=== PATIENT | female | born 1960 | race Caucasian/White ===

== ENCOUNTER → 2019-06-10 11:14 | Outpatient (BNVA) | payer MEDICARE, SELFPAY | PROVIDERS: Visit Provider Nurse Practitioner Family | DX: E55.9 Vitamin D deficiency, unspecified (principal); Z13.6 Encounter for screening for cardiovascular disorders; G62.9 Polyneuropathy, unspecified; F17.200 Nicotine dependence, unspecified, uncomplicated; J44.9 Chronic obstructive pulmonary disease, unspecified; Z53.20 Procedure and treatment not carried out because of patient's decision for unspecified reasons; M54.5 Low back pain | CPT/HCPCS: 80053; 80061; 82306; 85025 ==

== ENCOUNTER → 2020-01-26 15:48 | Outpatient (BNVA) | payer MEDICARE, MEDICAID, SELFPAY | PROVIDERS: Visit Provider Nurse Practitioner Family | DX: R73.9 Hyperglycemia, unspecified (principal); E55.9 Vitamin D deficiency, unspecified; M54.5 Low back pain; E87.6 Hypokalemia; Z53.20 Procedure and treatment not carried out because of patient's decision for unspecified reasons; F17.200 Nicotine dependence, unspecified, uncomplicated | CPT/HCPCS: 80053; 82306; 83036; 85025 ==

== ENCOUNTER 2020-03-22 17:46 | Inpatient (IN) | payer MEDICARE, MEDICAID, SELFPAY ==
[2020-03-22] VITALS (7 sets, daily range): BP systolic 114–140; BP diastolic 67–88; PULSE 87–98; RESP 14–16; TEMP 36.7; O2SAT 96–100; BMI 22.3
--- NOTE | 2020-03-22 18:11 | XR_ITS ---
WS: [id number] Exam: XR pelvis 1-2V* [id number] Date/Time of Exam: 03/22/2020 6:25 PM Reason For Exam: hip pain No evidence of the pelvic fracture. Minimal DJD of the hips. DJD of the bilateral SI joints. Numerous surgical clips in the pelvis. Osteopenia. A circular opacity superimposes the right pubis. Significa nce of this is undetermined. XR/XR pelvis 1-2V* [id number] IMPRESSION: 1. No fracture or bone destruction. 2. Postoperative changes. 3. Degenerative changes and osteopenia.
[2020-03-22 19:49] LABS: Basophils # 0.1 10^3/uL (0.0-0.1); Basophils % 0.6 %; Eosinophils # 0.1 10^3/uL (0.0-0.8); Eosinophils % 0.9 %; Hematocrit 45.4 % (37.0-47.0); Hemoglobin 14.1 g/dL (11.5-15.3); Lymphocytes # 2.4 10^3/uL (0.8-4.8); Lymphocytes % 30.2 %; Mean Corpuscular HGB Conc 31.1 g/dL (30.0-36.0); Mean Corpuscular Hemoglobin 30.2 pg (28.0-34.0); Mean Corpuscular Volume 97.2 fL (81-99); Mean Platelet Volume 9.9 fL (7.4-10.4); Monocytes # 0.6 10^3/uL (0.2-0.9); Monocytes % 7.5 %; Neutrophils # 4.86 10^3/uL (1.8-7.7); Neutrophils % 60.4 %; Nucleated Red Blood Cells % 0 %; Platelet Count 293 10^3/cmm (130-400); Red Blood Count 4.67 10^6/uL (4.1-5.3); Red Cell Distribution Width 14.7 % (12.1-15.1)
[2020-03-22 20:04] LABS: Add Urine Microscopic? NO
[2020-03-22 20:09] LABS: Bilirubin Urine Neg (Negative); Blood Urine Neg (Negative); Glucose Urine UA Norm (Normal); Ketones Urine Negative (Negative); Leukocyte Esterase Urine Negative (Negative); Nitrate Urine Negative (Negative); Protein Urine Neg (Negative); Urine Appearance Clear (CLEAR); Urine Color Yellow (Yellow); Urobilinogen Urine Norm (Negative)
[2020-03-22 20:10] LABS: Alanine Aminotransferase 14 U/L (0-33); Albumin Level 4.5 g/dL (3.5-5.2); Alkaline Phosphatase 183 IU/L (35-105); Anion Gap 17.4 (5-19); Aspartate Amino Transferase 18 U/L (0-32); Blood Urea Nitrogen 17 mg/dL (8-23); C Reactive Protein 5.1 mg/L (0.0-4.9); Calcium 9.9 mg/dL (8.5-10.5); Carbon Dioxide 25 mmol/L (22-29); Chloride 100 mmol/L (98-107); Globulin 3.6 g/dL (1.3-4.6); Glomerular Filtration Rate 73.2 mL/min (90-130); Glucose 88 mg/dL (65-115); Osmolality Calculated 287 mOsm/kg (285-295); Potassium 4.4 mmol/L (3.5-5.1); Sodium 138 mmol/L (136-145); Total Bilirubin 0.3 mg/dL (0.15-1.2); Total Protein 8.1 g/dL (6.6-8.7)
[2020-03-22 21:07] LABS: Creatine Phosphokinase 50 U/L (26-192); Lactic Sepsis W/Reflex 1.2 mmol/L (0.5-2.2)
[2020-03-22 21:29] LABS: Erythrocyte Sedimentation Rate 48 mm/hr (0-15)
[2020-03-22] MEDS: ondansetron 2 mg/ML SDV 2 mL 4 MG IVP (21:39)
[2020-03-22] MEDS: morphine 4 mg/mL SDV 1 mL 2 MG IVP ×2 (21:39→22:52)
--- NOTE | 2020-03-22 21:39 | CTR_ITS ---
PROCEDURE INFORMATION: Exam: CT Lumbar Spine Without Contrast Exam date and time: 03/22/2020 9:41 PM Age: 60 years old Clinical indication: Low back pain; Additional info: History of epidural abscess TECHNIQUE: Imaging protocol: Computed tomography images of the lumbar spine without contrast. Sagittal and coronal reformatted images were created and reviewed. Radiation optimization: All CT scans at this facility use at least one of these dose optimization techniques: automated exposure control; mA and/or kV adjustment per patient size (includes targeted exams where dose is matched to clinical indication); or iterative reconstruction. COMPARISON: [place] [id number] 02/16/2016 12:46 AM RADIATION DOSE METRICS: Total DLP (mGy-cm): 2191.86 FINDINGS: Vertebrae: There is a new, severe compression deformity of L1 with focal kyphosis of the spine. A faint fracture line is visible, suggesting an acute/subacute fracture. Mild retropulsion of bone at L1 with 20% spinal canal stenosis. New moderate compression deformity at L2. A faint fracture line is visible, also suspicious for an acute/subacute fracture. There is now evidence of fusion of the L3, L4, and L5 vertebral bodies. Erosive endplate changes at L3-L4 and L4-L5 have resolved. Bones are diffusely osteopenic. Discs/Spinal canal/Neural foramina: Multilevel degenerative changes of varying severity in the visualized spine. Mild spinal canal stenosis at L1-L2, L2-L3, and L3-L4. Multilevel foraminal stenosis of varying severity in the lumbar spine. Epidural space: No abnormal epidural fluid collections. Sacrum/coccyx: There is partial fusion of the right and left sacroiliac joints, consistent with a remote episode of seronegative sacroiliitis versus sequela of degenerative change. Kidneys and ureters: Partially visualized cyst in the left kidney measures 6.7 cm. Vasculature: Mild atherosclerotic changes in the visualized arteries. Stable ectasia of the infrarenal abdominal aorta. Soft tissues: Surgical clips in the right and left hemipelvis are stable. No paravertebral soft tissue abnormality. No radiopaque foreign body. CT/CT lumbar spine wo con* [id number] IMPRESSION: 1. There is a new, severe compression deformity of L1 with focal kyphosis of the spine. A faint fracture line is visible, suggesting an acute/subacute fracture. Mild retropulsion of bone at L1 with 20% spinal canal stenosis. 2. New moderate compression deformity at L2. A faint fracture line is visible, also suspicious for an acute/subacute fracture. 3. There is now evidence of fusion of the L3, L4, and L5 vertebral bodies. Erosive changes at L3-L4 and L4-L5 have resolved. 4. Multilevel degenerative changes of varying severity in the visualized spine. 5. Mild spinal canal stenosis at L1-L2, L2-L3, and L3-L4. Multilevel foraminal stenosis of varying severity in the lumbar spine. 6. There is partial fusion of the right and left sacroiliac joints, consistent with a remote episode of seronegative sacroiliitis versus sequela of degenerative change. 7. Incidental/nonacute findings are listed in the report. COMMENTS: Consistent with the [employer]'s Incidental Findings Committee white paper (J Am Hunter Radiol 2018): Any incidental renal lesion less than 1 cm or classified as too small to characterize, or any incidental cystic renal lesion characterized as simple-appearing, is likely benign. No follow-up imaging is recommended for these lesions per consensus recommendations based on imaging criteria. Radiation Dose CTDIVOL = (mGy): DLP = 2191.86 (mGy-cm)
--- NOTE | 2020-03-22 21:39 | CTR_ITS ---
PROCEDURE INFORMATION: Exam: CT Thoracic Spine Without Contrast Exam date and time: 03/22/2020 9:41 PM Age: 60 years old Clinical indication: Pain in thoracic spine; Additional info: History of epidural abscess TECHNIQUE: Imaging protocol: Computed tomography images of the thoracic spine without contrast. Sagittal and coronal reformatted images were created and reviewed. Radiation optimization: All CT scans at this facility use at least one of these dose optimization techniques: automated exposure control; mA and/or kV adjustment per patient size (includes targeted exams where dose is matched to clinical indication); or iterative reconstruction. COMPARISON: No relevant prior studies available. RADIATION DOSE METRICS: Total DLP (mGy-cm): 940.17 FINDINGS: Vertebrae: No acute fracture of the thoracic spine. Partially visualized compression deformity of L1. No subluxation. Normal bone mineralization. Mild scoliosis in the visualized spine. Discs/Spinal canal/Neural foramina: Multilevel degenerative changes of varying severity in the visualized spine. Epidural space: No evidence for an epidural hematoma. Soft tissues: No paravertebral soft tissue abnormality. Lungs: Dependent atelectasis in the lungs bilaterally. Moderate centrilobular emphysematous changes in the visualized lungs, predominantly in the upper lobes. CT/CT thoracic spine w con [id number] IMPRESSION: 1. No acute fracture of the thoracic spine. 2. Partially visualized compression deformity of L1. Please refer to dictation for CT scan of the lumbar spine dated 03/22/2020 for full description of these findings. 3. Mild scoliosis in the visualized spine. 4. Incidental/nonacute findings are listed in the report. Radiation Dose CTDIVOL = (mGy): DLP = 940.17 (mGy-cm)
--- NOTE | 2020-03-22 23:35 | W.ED.BACK ---
HPI - Back Pain/Injury General: Chief Complaint: Back Pain/Injury Stated Complaint: LOWER BACK/HIP PAIN Time Seen by Provider: 03/22/20 19:09 Source: patient Mode of arrival: wheelchair History of Present Illness: HPI Narrative: 60-year-old female patient presents to the emergency department with low back pain and hip pain. She reports that symptoms x1 month. Has been evaluated by her primary care provider with prescription of ibuprofen, is not improving. She reports history of back infection, poor historian, not able to give details but reports was treated at [facility] in [place]. She denies fever chills, nausea or vomiting. She reports difficulty walking, increases pain in her back. She reports left lower extremity weakness which is chronic. Denies falls or trauma. She reports pain is intense, has attempted numerous items [id number] without improvement. MD elicited complaint: back pain Pertinent past history: prior back pain Onset (ago): month(s) (1) Timing: constant and progressively worsening Similar Symptoms Previously: Yes Quality: dull and aching Location: lumbar spine and sacrum Radiation: other (Pelvis) Exacerbating factors: movement and walking Relieving factors: immobilization Associated symptoms: Reports no associated symptoms; Deny abdominal pain, chills, dysuria, fever(s), nausea or vomiting Review of Systems General: Reports: 10 or more systems reviewed and unremarkable except in HPI and below Const: Denies: fever(s), chills or diaphoresis Eyes: Denies: blurry vision or eye redness ENMT: Denies: throat pain, dental pain or disequilibrium Card: Denies: chest pain, palpitations or irregular heart rhythm Resp: Denies: dyspnea, productive cough, non-productive cough or wheezing GI: Denies: abdominal pain, nausea or vomiting : Denies: difficulty voiding or dysuria Musc: Reports: back pain and muscle weakness (BLE); Denies: neck pain or joint swelling Skin/Breast: Denies: rash or pruritus Neuro: Denies: headache(s), weakness in extremities or behavioral changes Isidro/Lymph: Denies: easy bruising PFS ED PFSH: Medical History Burn of left forearm Cervical cancer Colon cancer screening declined Compression fracture COPD (chronic obstructive pulmonary disease) Dyskinesia, tardive Hepatitis C Screening mammography declined Vitamin D deficiency Surgical History H/O fasciotomy Septic forearm Hx of cholecystectomy Hx of hysterectomy Hx of tonsillectomy Family History Family/Other Diabetes Hypertension Social History Smoking and tobacco status: current every day smoker cigarettes Packs smoked per day: 1 Years cigarettes smoked: 37 Second hand smoke exposure: Yes Alcohol intake: never Lives independently: Yes Household members: family Housing: House Marital status: / Current occupational status: unemployed History of recent travel: No Current gender identity: Female Physical Exam Const: COMMON NORMALS: no acute distress, patient oriented x3 and alert GENERAL APPEARANCE: cooperative, frail appearing and other (appears in pain) NUTRITIONAL APPEARANCE: thin ORIENTATION/CONSCIOUSNESS: Yes awake, Yes oriented to person, Yes oriented to place and Yes oriented to time HENMT: COMMON NORMALS: normocephalic, Normal external nose present and moist oral mucous membranes HEAD & SCALP: normocephalic NOSE: Normal external nose present Eye: COMMON NORMALS: Equal, round and reactive pupils present and EOMs intact bilaterally GENERAL EYE: appearance normal, both eyes and all related structures PUPIL: Yes Equal, round and reactive pupils present Neck/C-Spine: COMMON NORMALS: full ROM and no lymphadenopathy GENERAL: Yes normal visual inspection and Yes trachea midline CERVICAL SPINE: Yes cervical ROM normal Lymph: LYMPHATIC: no lymphadenopathy noted Chest: COMMONS NORMALS: normal inspection of the chest Resp: COMMON NORMALS: normal respiratory effort and clear to auscultation bilaterally AUSCULTATION: clear to auscultation bilaterally Cardio: COMMON NORMALS: regular rhythm, S1 normal heart sound present, S2 normal heart sound present and Peripheral pulses 2+ throughout RHYTHM: regular rhythm HEART SOUNDS: S1 normal heart sound present and S2 normal heart sound present PERIPHERAL PULSES: Peripheral pulses 2+ throughout GI: COMMON NORMALS: Soft to palpation and non-tender INSPECTION: Yes normal to inspection PALPATION: Yes Soft to palpation : COMMON NORMALS: Yes no CVA tenderness BLADDER/KIDNEY EXAM: Yes no CVA tenderness and No CVA tenderness Back/Pelvis: COMMON NORMALS: no CVA tenderness and thoracic and lumbar spine normal to inspection GENERAL BACK: No CVA tenderness THORACIC SPINE/UPPER BACK: Yes normal to inspection LUMBAR SPINE/LOWER BACK: Yes ROM limited, Yes pain with ROM, Yes lumbar spinal tenderness, Yes paraspinal muscle tenderness, Yes paraspinal muscle spasm, Yes straight leg raise positive right and Yes straight leg raise positive left PELVIS: Yes buttocks normal SACROILIAC JOINTS: Yes SI joints normal Extremity: COMMON NORMALS: normal to inspection and capillary refill normal Neuro: COMMON NORMALS: patient oriented x3 and no focal motor deficits SENSORIUM/ORIENTATION: Yes alert, Yes oriented to person, Yes oriented to place and Yes oriented to time GAIT: Yes Unable to assess gait MOTOR EXAM: Abnormal motor strength present (3/4 LLE; 4/5 RLE) Psych: COMMON NORMALS: mental status grossly normal, Normal thought process present and cooperative ACTIVITY/MOTOR BEHAVIOR: Yes appropriate eye contact THOUGHT PROCESS: Normal thought process present Skin: COMMON NORMALS: no rashes or lesions noted and turgor normal GENERAL SKIN EXAM: no rashes or lesions noted and turgor normal Course ED course: 60-year-old female patient presents to the emergency department with concern of spinal/epidural abscess. She reports history of infectious process of the back, lower spine in the past. Is poor historian upon exam, case discussed with Dr. Madrid, resort to CT lumbar and thoracic spine with findings of new severe compression deformity of L1 with 20% spinal canal stenosis, and new moderate compression bone deformity at L2. Patient required several doses of IV pain medication during her stay. Discussed with patient findings and recommendation to stay in the hospital for pain control. She agrees with recommendation. Transfer of care to Dr. Madrid as patient will require inpatient admission. Vital Signs: Vital signs: Vital Signs Temperature 97.8 F 03/23/20 02:00 Pulse Rate 81 03/23/20 02:00 Respiratory Rate 24 H 03/23/20 02:00 Blood Pressure 107/69 03/23/20 02:00 Pulse Oximetry 97 03/23/20 02:00 MDM - Back Pain/Injury Lab Data: Labs: Lab Results 03/22/20 03/22/20 03/22/20 Range/Units 19:24 19:24 19:24 WBC 8.0 (4.0-10.0) 10^3/ uL RBC 4.67 (4.1-5.3) 10^6/u L Hgb 14.1 (11.5-15.3) g/dL Hct 45.4 (37.0-47.0) % MCV 97.2 (81-99) fL MCH 30.2 (28.0-34.0) pg MCHC 31.1 (30.0-36.0) g/dL RDW 14.7 (12.1-15.1) % Plt Count 293 (130-400) 10^3/c mm MPV 9.9 (7.4-10.4) fL Neut % (Auto) 60.4 % Lymph % (Auto) 30.2 % Sherman % (Auto) 7.5 % Eos % (Auto) 0.9 % Baso % (Auto) 0.6 % Neut # (Auto) 4.86 (1.8-7.7) 10^3/u L Lymph # (Auto) 2.4 (0.8-4.8) 10^3/u L Sherman # (Auto) 0.6 (0.2-0.9) 10^3/u L Eos # (Auto) 0.1 (0.0-0.8) 10^3/u L Baso # (Auto) 0.1 (0.0-0.1) 10^3/u L Nucleated RBC % (a uto) 0 % Nucleated RBCs # 0.0 /100WBC ESR Cancelled Sodium 138 (136-145) mmol/L Potassium 4.4 (3.5-5.1) mmol/L Chloride 100 (98-107) mmol/L Carbon Dioxide 25 (22-29) mmol/L Anion Gap 17.4 (5-19) BUN 17 (8-23) mg/dL Creatinine 0.8 (0.5-0.9) mg/dL GFR Calculation 73.2 L (90-130) mL/min Glucose 88 (65-115) mg/dL Calculated Osmolal ity 287 (285-295) mOsm/k g Lactic Acid (0.5-2.2) mmol/L Calcium 9.9 (8.5-10.5) mg/dL Total Bilirubin 0.3 (0.15-1.2) mg/dL AST 18 (0-32) U/L ALT 14 (0-33) U/L Alkaline Phosphata se 183 H (35-105) IU/L Creatine Kinase (26-192) U/L C-Reactive Protein 5.1 H (0.0-4.9) mg/L Total Protein 8.1 (6.6-8.7) g/dL Albumin 4.5 (3.5-5.2) g/dL Globulin 3.6 (1.3-4.6) g/dL Urine Color (Yellow) Urine Appearance (CLEAR) Urine pH (5-7) Ur Specific Gravit y (1.005-1.030) Urine Protein (Negative) Urine Glucose (UA) (Normal) Urine Ketones (Negative) Urine Blood (Negative) Urine Nitrate (Negative) Urine Bilirubin (Negative) Urine Urobilinogen (Negative) mg/dL Ur Leukocyte [place] (Negative) 03/22/20 03/22/20 03/22/20 Range/Units 19:47 20:40 20:40 WBC (4.0-10.0) 10^3/ uL RBC (4.1-5.3) 10^6/u L Hgb (11.5-15.3) g/dL Hct (37.0-47.0) % MCV (81-99) fL MCH (28.0-34.0) pg MCHC (30.0-36.0) g/dL RDW (12.1-15.1) % Plt Count (130-400) 10^3/c mm MPV (7.4-10.4) fL Neut % (Auto) % Lymph % (Auto) % Sherman % (Auto) % Eos % (Auto) % Baso % (Auto) % Neut # (Auto) (1.8-7.7) 10^3/u L Lymph # (Auto) (0.8-4.8) 10^3/u L Sherman # (Auto) (0.2-0.9) 10^3/u L Eos # (Auto) (0.0-0.8) 10^3/u L Baso # (Auto) (0.0-0.1) 10^3/u L Nucleated RBC % (a uto) % Nucleated RBCs # /100WBC ESR Sodium (136-145) mmol/L Potassium (3.5-5.1) mmol/L Chloride (98-107) mmol/L Carbon Dioxide (22-29) mmol/L Anion Gap (5-19) BUN (8-23) mg/dL Creatinine (0.5-0.9) mg/dL GFR Calculation (90-130) mL/min Glucose (65-115) mg/dL Calculated Osmolal ity (285-295) mOsm/k g Lactic Acid 1.2 (0.5-2.2) mmol/L Calcium (8.5-10.5) mg/dL Total Bilirubin (0.15-1.2) mg/dL AST (0-32) U/L ALT (0-33) U/L Alkaline Phosphata se (35-105) IU/L Creatine Kinase 50 (26-192) U/L C-Reactive Protein (0.0-4.9) mg/L Total Protein (6.6-8.7) g/dL Albumin (3.5-5.2) g/dL Globulin (1.3-4.6) g/dL Urine Color Yellow (Yellow) Urine Appearance Clear (CLEAR) Urine pH 7.0 (5-7) Ur Specific Gravit y 1.010 (1.005-1.030) Urine Protein Neg (Negative) Urine Glucose (UA) Norm (Normal) Urine Ketones Negative (Negative) Urine Blood Neg (Negative) Urine Nitrate Negative (Negative) Urine Bilirubin Neg (Negative) Urine Urobilinogen Norm (Negative) mg/dL Ur Leukocyte [place] Negative (Negative) 03/22/20 Range/Units 20:40 WBC (4.0-10.0) 10^3/ uL RBC (4.1-5.3) 10^6/u L Hgb (11.5-15.3) g/dL Hct (37.0-47.0) % MCV (81-99) fL MCH (28.0-34.0) pg MCHC (30.0-36.0) g/dL RDW (12.1-15.1) % Plt Count (130-400) 10^3/c mm MPV (7.4-10.4) fL Neut % (Auto) % Lymph % (Auto) % Sherman % (Auto) % Eos % (Auto) % Baso % (Auto) % Neut # (Auto) (1.8-7.7) 10^3/u L Lymph # (Auto) (0.8-4.8) 10^3/u L Sherman # (Auto) (0.2-0.9) 10^3/u L Eos # (Auto) (0.0-0.8) 10^3/u L Baso # (Auto) (0.0-0.1) 10^3/u L Nucleated RBC % (a uto) % Nucleated RBCs # /100WBC ESR 48 H Sodium (136-145) mmol/L Potassium (3.5-5.1) mmol/L Chloride (98-107) mmol/L Carbon Dioxide (22-29) mmol/L Anion Gap (5-19) BUN (8-23) mg/dL Creatinine (0.5-0.9) mg/dL GFR Calculation (90-130) mL/min Glucose (65-115) mg/dL Calculated Osmolal ity (285-295) mOsm/k g Lactic Acid (0.5-2.2) mmol/L Calcium (8.5-10.5) mg/dL Total Bilirubin (0.15-1.2) mg/dL AST (0-32) U/L ALT (0-33) U/L Alkaline Phosphata se (35-105) IU/L Creatine Kinase (26-192) U/L C-Reactive Protein (0.0-4.9) mg/L Total Protein (6.6-8.7) g/dL Albumin (3.5-5.2) g/dL Globulin (1.3-4.6) g/dL Urine Color (Yellow) Urine Appearance (CLEAR) Urine pH (5-7) Ur Specific Gravit y (1.005-1.030) Urine Protein (Negative) Urine Glucose (UA) (Normal) Urine Ketones (Negative) Urine Blood (Negative) Urine Nitrate (Negative) Urine Bilirubin (Negative) Urine Urobilinogen (Negative) mg/dL Ur Leukocyte [place] (Negative) Imaging Data^: Xray Ortho: Radiologist's impression: [facility] [address] [address] Scan Report Signed Patient: Italia Wallace RUnit #: [id number] : 1960Acct#:[id number] Age/Sex: 60 / FADM Date: 03/22/20 Loc: ERRoom/Bed: Attending Dr: Ordering Provider/Ordering MD: Angie Madrid MD Date of Service: 03/22/20 Procedure(s): CT lumbar spine wo con* [id number] Accession Number(s): [id number] Report Number: [id number] PROCEDURE INFORMATION: Exam: CT Lumbar Spine Without Contrast Exam date and time: 03/22/2020 9:41 PM Age: 60 years old Clinical indication: Low back pain; Additional info: History of epidural abscess TECHNIQUE: Imaging protocol: Computed tomography images of the lumbar spine without contrast. Sagittal and coronal reformatted images were created and reviewed. Radiation optimization: All CT scans at this facility use at least one of these dose optimization techniques: automated exposure control; mA and/or kV adjustment per patient size (includes targeted exams where dose is matched to clinical indication); or iterative reconstruction. COMPARISON: [place] [id number] 02/16/2016 12:46 AM RADIATION DOSE METRICS: Total DLP (mGy-cm): 2191.86 FINDINGS: Vertebrae: There is a new, severe compression deformity of L1 with focal kyphosis of the spine. A faint fracture line is visible, suggesting an acute/subacute fracture. Mild retropulsion of bone at L1 with 20% spinal canal stenosis. New moderate compression deformity at L2. A faint fracture line is visible, also suspicious for an acute/subacute fracture. There is now evidence of fusion of the L3, L4, and L5 vertebral bodies. Erosive endplate changes at L3-L4 and L4-L5 have resolved. Bones are diffusely osteopenic. Discs/Spinal canal/Neural foramina: Multilevel degenerative changes of varying severity in the visualized spine. Mild spinal canal stenosis at L1-L2, L2-L3, and L3-L4. Multilevel foraminal stenosis of varying severity in the lumbar spine. Epidural space: No abnormal epidural fluid collections. Sacrum/coccyx: There is partial fusion of the right and left sacroiliac joints, consistent with a remote episode of seronegative sacroiliitis versus sequela of degenerative change. Kidneys and ureters: Partially visualized cyst in the left kidney measures 6.7 cm. Vasculature: Mild atherosclerotic changes in the visualized arteries. Stable ectasia of the infrarenal abdominal aorta. Soft tissues: Surgical clips in the right and left hemipelvis are stable. No paravertebral soft tissue abnormality. No radiopaque foreign body. CT/CT lumbar spine wo con* [id number] IMPRESSION: 1. There is a new, severe compression deformity of L1 with focal kyphosis of the spine. A faint fracture line is visible, suggesting an acute/subacute fracture. Mild retropulsion of bone at L1 with 20% spinal canal stenosis. 2. New moderate compression deformity at L2. A faint fracture line is visible, also suspicious for an acute/subacute fracture. 3. There is now evidence of fusion of the L3, L4, and L5 vertebral bodies. Erosive changes at L3-L4 and L4-L5 have resolved. 4. Multilevel degenerative changes of varying severity in the visualized spine. 5. Mild spinal canal stenosis at L1-L2, L2-L3, and L3-L4. Multilevel foraminal stenosis of varying severity in the lumbar spine. 6. There is partial fusion of the right and left sacroiliac joints, consistent with a remote episode of seronegative sacroiliitis versus sequela of degenerative change. 7. Incidental/nonacute findings are listed in the report. COMMENTS: Consistent with the [employer]'s Incidental Findings Committee white paper (J Am Hunter Radiol 2018): Any incidental renal lesion less than 1 cm or classified as too small to characterize, or any incidental cystic renal lesion characterized as simple-appearing, is likely benign. No follow-up imaging is recommended for these lesions per consensus recommendations based on imaging criteria. Radiation Dose CTDIVOL = (mGy): DLP = 2191.86 (mGy-cm) Dictated By:Marisol Vanessa MD Signed By:Marisol Vanessa MDSigned Date/Time:03/22/202253 DD/ 52 Other Imaging: Radiologist's impression: [address] [address] [address] Scan Report Signed Patient: Italia Wallace #: [id number] : 1960Acct#:[id number] Age/Sex: 60 / FADM Date: 03/22/20 Loc: ERRoom/Bed: Attending Dr: Ordering Provider/Ordering MD: Angie Madrid MD Date of Service: 03/22/20 Procedure(s): CT thoracic spine w con [id number] Accession Number(s): [id number] Report Number: [id number] PROCEDURE INFORMATION: Exam: CT Thoracic Spine Without Contrast Exam date and time: 03/22/2020 9:41 PM Age: 60 years old Clinical indication: Pain in thoracic spine; Additional info: History of epidural abscess TECHNIQUE: Imaging protocol: Computed tomography images of the thoracic spine without contrast. Sagittal and coronal reformatted images were created and reviewed. Radiation optimization: All CT scans at this facility use at least one of these dose optimization techniques: automated exposure control; mA and/or kV adjustment per patient size (includes targeted exams where dose is matched to clinical indication); or iterative reconstruction. COMPARISON: No relevant prior studies available. RADIATION DOSE METRICS: Total DLP (mGy-cm): 940.17 FINDINGS: Vertebrae: No acute fracture of the thoracic spine. Partially visualized compression deformity of L1. No subluxation. Normal bone mineralization. Mild scoliosis in the visualized spine. Discs/Spinal canal/Neural foramina: Multilevel degenerative changes of varying severity in the visualized spine. Epidural space: No evidence for an epidural hematoma. Soft tissues: No paravertebral soft tissue abnormality. Lungs: Dependent atelectasis in the lungs bilaterally. Moderate centrilobular emphysematous changes in the visualized lungs, predominantly in the upper lobes. CT/CT thoracic spine w con [id number] IMPRESSION: 1. No acute fracture of the thoracic spine. 2. Partially visualized compression deformity of L1. Please refer to dictation for CT scan of the lumbar spine dated 03/22/2020 for full description of these findings. 3. Mild scoliosis in the visualized spine. 4. Incidental/nonacute findings are listed in the report. Radiation Dose CTDIVOL = (mGy): DLP = 940.17 (mGy-cm) Dictated By:Marisol Vanessa MD Signed By:Marisol Vanessaigned Date/Time:03/22/202236 DD/ 34 Discharge Plan Discharge Admit Provider: Liu Allen Condition: Good Coding Level of Care Code ED Pond Scaler for Chg Fwd Exam Comprehensive
[2020-03-23] VITALS (17 sets, daily range): BP systolic 102–137; BP diastolic 62–82; PULSE 72–90; RESP 16–93; TEMP 35.7–36.6; O2SAT 90–97
[2020-03-23] MEDS: morphine 4 mg/mL SDV 1 mL 2 MG IVP (00:15)
--- NOTE | 2020-03-23 00:42 | P.HP_ITS ---
Providers/Chief Complaint Chief Complaint: LOWER BACK/HIP PAIN History of Present Illness Italia Wallace is a 60 year old female who presented today with chief complaint of worsening back pain. Patient is stating that for last 1 to 2 months she has been experiencing excruciating back pain which has gotten worse to the point she is not able to walk properly without having to bend over and support herself by putting her arms around her hips. She has not sustained any falls, she was diagnosed with vitamin D deficiency, she has been on calcium supplementation, she has not used steroids for long time, no bladder incontinence, rectal incontinence, gait ataxia. Because of her excr uciating/intractable back pain she decided to come to the hospital for further evaluation. Diagnostics in the ER revealed severe compression fracture at multiple lumbar region, orthopedic surgeon has been consulted, hospital service has been requested to admit the patient for pain management, at the time my evaluation she was complaining of intractable pain, normal hemodynamics, normal CBC, BMP, lumbar imaging reviewed, I do not appreciate any signs of spinal cord compression considering high-grade compression fracture will start her on Decadron. Patient is complaining of back pain which is shooting towards her legs bilaterally, it is traveling below her knees. Review of Systems Const: Reports: body aches, fatigue and malaise; Denies: fever(s) or chills Eyes: Denies: change in vision ENMT: Denies: throat pain Card: Denies: chest pain Resp: Denies: dyspnea GI: Denies: abdominal pain : Denies: flank pain Musc: Reports: joint pain, limited range of motion, muscle cramps, muscle weakness, decrease in muscle mass and loss of height Skin/Breast: Denies: lesions Neuro: Reports: difficulty walking Psych: Denies: anxiety Endo: Denies: polyuria Isidro/Lymph: Denies: easy bruising All/Imm: Denies: urticaria Medications/Allergies Home Medications Medication Instructions Recorded Confirmed Last Taken Type diclofenac sodium 75 mg 75 mg PO BID PRN #60 tab 01/26/20 03/22/20 03/22/20 09:00 Rx tablet,delayed release potassium chloride 10 mEq 10 meq PO DAILY #30 tab 01/30/20 03/22/20 03/22/20 Rx tablet,extended release cholecalciferol (vitamin D3) 50,000 unit PO Q7D 03/22/20 03/22/20 Unknown History [Dialyvite Vitamin D3 Max] gabapentin 600 mg PO QID 03/22/20 03/22/20 03/22/20 13:00 History ibuprofen 800 mg PO PRN 03/22/20 03/22/20 03/22/20 History naproxen sodium [Aleve] 440 mg PO PRN 03/22/20 03/22/20 Unknown History Allergies Allergy/AdvReac Type Severity Reaction Status Date / Time Penicillins Allergy Mild ALGY-Rash Verified 03/22/20 20:23 diphenhydramine Allergy Unknown Unknown Verified 03/22/20 20:23 [From Benadryl] midazolam [From Versed] Allergy Unknown Verified 03/22/20 20:23 PFSH Acute PFSH: Medical History Burn of left forearm Cervical cancer Colon cancer screening declined Compression fracture COPD (chronic obstructive pulmonary disease) Dyskinesia, tardive Hepatitis C Screening mammography declined Vitamin D deficiency Surgical History H/O fasciotomy Septic forearm Hx of cholecystectomy Hx of hysterectomy Hx of tonsillectomy Family History Family/Other Diabetes Hypertension Social History Smoking and tobacco status: current every day smoker cigarettes Packs smoked pe r day: 1 Years cigarettes smoked: 37 Second hand smoke exposure: Yes Alcohol intake: never Lives independently: Yes Household members: family Housing: House Marital status: / Current occupational status: unemployed History of recent travel: No Current gender identity: Female Vitals/I&O/Wt Last Vital Signs Temp 98.1 F 03/22/20 18:01 Pulse 80 03/23/20 00:18 Resp 16 03/23/20 00:18 BP 109/77 03/23/20 00:18 Pulse Ox 97 03/23/20 00:18 Weight last 48 hrs Weight 58.967 kg Physical Exam Narrative: EXAM NARRATIVE: Frail elderly female sitting in tripod position at the bedside She is in tripod position to support her back not complaining of acute respiratory distress She is saturating well on room air She is awake alert oriented x3 GCS 15 No neurological deficit S1, S2 no tachycardia no heart failure Abdomen soft nontender No extremity no edema gangrene or ulcer Limited range of motion at the lumbar region, patient not able to walk because of excruciating pain She has good sensations of medial side of her thighs Denying rectal and urinary incontinence, rectal exam deferred Appropriate mood and affect Clinically looks dehydrated Data : 03/22/20 19:24 03/22/20 19:24 A&P Assessment and plan (1) Lumbar pain with radiation down both legs: Status: Acute (2) Compression fracture: Status: Inactive (3) Smoker: Status: Acute (4) Vitamin D deficiency: Status: Inactive Additional A&P Information Severe compression fracture and lumbar region No signs of spinal cord compression however considering high-grade compression would start her on Decadron She is not complaining of urinary/rectal incontinence, Dilaudid for analgesia along bowel regiment, gabapentin for neuropathic pain Spine surgeon consulted I am not sure if she will be able to lay supine for her MRI, kindly reevaluate in the morning Vitamin D deficiency This is probably the cause of compression fracture, other risk factors include smoking, age, race Continue calcium supplementation I would not initiate bisphosphonate at this point Active smoker: Smoking 1 pack/day need extensively counselling and reinforcement DNR/DNI goals of care discussed with the patient I will keep her n.p.o. in case she would require any intervention DVT prophylaxis SCDs Attestations Medical Necessity Statement*: Anticipating discharge in less than 48 hours continued pain management for severe compression fracture Time Spent in Patient Care: (>than 50% of time spent in counselling and/or direct pt care on unit) . 50min Coding Level of Care Code Acute Form Block Maker for Chg Fwd Diagnoses Lumbar pain with radiation down both legs M54.5 Compression fracture Smoker F17.200 Vitamin D deficiency E55.9
[2020-03-23] MEDS: HYDROmorphone 1 mg/mL INJ 1 mL 0.5 MG IVP (01:25)
--- NOTE | 2020-03-23 02:12 | PC.NURSE ---
Patient received from ED via wheelchair. Patient able to ambulate to bed with standby assist only. Patient reports having had severe back pain for about a month stating, It started when I put my mattress on the floor and I had to get up. Patient denies falling and can't remember injuring herself. VS WNL at this time. C/O pain 12/14. Admission completed as documented. No other distress observed.
[2020-03-23] MEDS: HYDROmorphone 1 mg/mL INJ 1 mL 2 MG IVP ×6 (03:01→23:03)
[2020-03-23] MEDS: dextrose 5%-sod chloride 0.45% 1,000 ML 30 ML IV (03:07)
[2020-03-23 06:40] LABS: Glucose Point of Care 90 mg/dL (70-110)
[2020-03-23] MEDS: sennosides-docusate Tablet 1 TAB PO (08:21)
[2020-03-23] MEDS: calcium carb-vit d 600mg/400unit 1 Tablet 1 EACH PO (08:21)
[2020-03-23] MEDS: gabapentin 300 mg Capsule 600 MG PO ×4 (08:21→20:11)
[2020-03-23] MEDS: dexamethasone 4 mg Tablet PO ×4 (08:22→20:11)
[2020-03-23] MEDS: polyethylene glycol 3350 Pkt 17 gm PO (08:22)
--- NOTE | 2020-03-23 08:44 | MR_ITS ---
WS: [id number] MRI LUMBAR SPINE NONCONTRAST HISTORY: multiple compression fracture COMPARISON: CT 03/22/2020 TECHNIQUE: Sagittal and axial multisequence imaging is submitted. Straightening of the normal lumbar lordosis. Severe L1 compression deformity of greater than 80% with 5.5 mm retropulsion of posterior superior endplate. Deformity of CSF and posterior displacement conu s. The fractured does not abut the conus. There is still abundant CSF surrounding the conus. There is a small amount of marrow edema extending into the RIGHT pedicle. Additional acute compression fractu re with marrow edema and fracture noted in the L2 vertebral body. Compression deformity of 20% withou t retropulsion. Marrow edema extends into the pedicles. Marrow edema in the superior half of the L3 v ertebral body. No retropulsion. No marrow edema at L4-S1. There is complete fusion across L4-5 and L5 -S1 disc spaces. Conus terminates normally at L1-2 disc level. L1-L2: Very slight flattening of the thecal sac at the superior L1 level due to the retropulsion. Ramila y mild foraminal narrowing at T12-L1 and L1-2. L2-L3: No stenosis. L3-L4: Mild bilateral facet arthritis without significant stenosis. L4-L5: Osteophytic ridging with moderate narrowing of the RIGHT foramen. L5-S1: Osteophytic ridging with mild bilateral foraminal narrowing. There is extensive hypertrophic bone formation resulting in narrowing of the foramen at L4-5 and L5-S 1. Most significant on the RIGHT at L4-5. Bilateral renal cysts. Large LEFT renal cyst maximum diameter is 6.6 cm. MR/MR lumbar spine wo con* [id number] IMPRESSION: 1. Acute 80% compression fracture of L1 with 5.5 mm retropulsion of posterior superior endplate. Deformity of the thecal sac but there is still CSF surroundi ng the conus. 2. Additional acute compression fractures at L2 and L3 without retropulsion. 3. Complete bony fusion across the L4-5 and L5-S1 disc spaces. Foramen are jacinto ng narrowed due to hypertrophic bone formation, greatest on the RIGHT at L4-5. 4. Osteopenia.
--- NOTE | 2020-03-23 08:50 | MR_ITS ---
WS: [id number] MRI THORACIC SPINE noncontrast. HISTORY: multiple compression fracture COMPARISON: CT thoracic spine 03/22/2020. TECHNIQUE: Multiplanar sequences are performed in sagittal and axial planes. Mild straightening of the normal thoracic kyphosis. Very mild RIGHT convex curvature of the thoracic spine. No signal abnormalities within the cord or conus. The conus is being displaced posteriorly by the compression fracture at L1 which will be described in the lumbar spine report. CSF still surround s the conus. No compression. No acute marrow edema noted within the thoracic spine. CSF surrounds the thoracic cord throughout the spine. There are no acute disc herniations. Mild facet joint arthritis at T11-12. There is posterior displacement by 5.5 mm in the posterior superior endplate of L1. Mild n arrowing of the foramen bilaterally. No epidural hematoma. MR/MR thoracic spin wo con* [id number] IMPRESSION: 1. No acute thoracic spine fracture. 2. Mild bilateral foraminal narrowing at T12-L1 due to mild facet disease in t he retrolisthesis of the acute compression fracture of L1. L1 fracture will be better described on the MRI lumbar spine performed at the same time. 3. No cord compression. There is very slight posterior displacement of the con us but CSF still surrounds the conus.
--- NOTE | 2020-03-23 08:54 | PM.CONSULT ---
Providers/Reason For Consult Consulting Physican/Specialty*: Hospitalists Reason for Consult*: Multiple compression fractures Attending Physician: Rian Dodson MD History of Present Illness History of Present Illness Italia Wallace is a 60 year old female Italia Wallace is a 60 year old female who presented today with chief complaint of worsening back pain. Patient is stating that for last 1 to 2 months she has been experiencing excruciating back pain which has gotten worse to the point she is not able to walk properly without having to bend over and support herself by putting her arms around her hips. She has not sustained any falls, she was diagnosed with vitamin D deficiency, she has been on calcium supplementation, she has not used steroids for long time, no bladder incontinence, rectal incontinence, gait ataxia. Because of her excruciating/intractable back pain she decided to come to the hospital for further evaluation. Diagnostics in the ER revealed severe compression fracture at multiple lumbar region, orthopedic surgeon has been consulted, hospital service has been requested to admit the patient for pain management, at the time my evaluation she was complaining of intractable pain Review of Systems General: Reports: 10 or more systems reviewed and unremarkable except in HPI and below Narrative: General ROS: negative for weight changes, fever ENT ROS: negative for nasal congestion, drainage or bleeding, sore throat, dysphagia or ear pain Eyes: PERRL Hematological and Lymphatic ROS: negative for swollen glands or abnormal bleeding Endocrine ROS: negative for polyuria/polydpsia or new changes in weight Respiratory ROS: negative for cough, shortness of breath, or wheezing Cardiovascular ROS: negative for chest pain or dyspnea on exertion Gastrointestinal ROS: negative for reflux, abdominal pain, change in bowel habits, or black or bloody stools Musculoskeletal ROS: negative for back pain, neck pain, or joint pain or swelling except for current problem Neurological ROS: negative for TIA or stoke symptoms Skin: no rashes Meds/Allergies Home Medications and Allergies Home Medications Medication Instructions Recorded Confirmed Last Taken Type potassium chloride 10 mEq 10 meq PO DAILY #30 tab 01/30/20 03/22/20 03/22/20 Rx tablet,extended release cholecalciferol (vitamin D3) 50,000 unit PO Q7D 03/22/20 03/23/20 03/20/20 08:00 History [Dialyvite Vitamin D3 Max] gabapentin 600 mg PO QID 03/22/20 03/22/2003/22/20 13:00 History naproxen sodium [Aleve] 440 mg PO BID 03/22/20 03/23/20 Unknown History Allergies Allergy/AdvReac Type Severity Reaction Status Date / Time Penicillins Allergy Mild ALGY-Rash Verified 03/22/20 20:23 diphenhydramine Allergy Unknown Unknown Verified 03/22/20 20:23 [From Benadryl] midazolam [From Versed] Allergy Unknown Verified 03/22/20 20:23 Current Medications Current Medications Generic Name Dose Route Start Last Admin Trade Name Freq PRN Reason Stop Dose Admin Calcium Carbonate 1 each 03/23/20 09:00 03/23/20 08:21 Calcium Carb-Vit D 600mg/400unit 1 Tablet PO 1 each DAILY NIMESH Administration Dexamethasone 4 mg 03/23/20 09:00 03/23/20 08:22 Dexamethasone 4 Mg Tablet PO 4 mg QID NIMESH Administration Gabapentin 600 mg 03/23/20 09:00 03/23/20 08:21 Gabapentin 300 Mg Capsule PO 600 mg QID NIMESH Administration Hydromorphone HCl 2 mg 03/23/20 02:09 03/23/20 06:39 Hydromorphone 1 Mg/Ml Inj 1 Ml IVP 2 mg Q4H PRN Administration pain Dextrose/Sodium Chloride 1,000 mls @ 30 mls/hr 03/23/20 02:09 03/23/20 03:07 Dextrose 5%-Sod Chloride 0.45% IV 30 mls/hr .Q24H NIMESH Administration Insulin Aspart 0 unit 03/23/20 08:00 03/23/20 07:28 Insulin Aspart 100 Unit/1 Ml SUBCUT Not Given WM&BEDTIME NIMESH Protocol Polyethylene Glycol 17 gm 03/23/20 09:00 03/23/20 08:22 Polyethylene Glycol 3350 Pkt 17 Gm PO 17 gm DAILY NIMESH Administration Senna/Docusate Sodium 1 tab 03/23/20 09:00 03/23/20 08:21 Sennosides-Docusate Tablet PO 1 tab DAILY NIMESH Administration PFSH Acute PFSH: Medical History Burn of left forearm Cervical cancer Colon cancer screening declined Compression fracture COPD (chronic obstructive pulmonary disease) Dyskinesia, tardive Hepatitis C Screening mammography declined Vitamin D deficiency Surgical History H/O fasciotomy Septic forearm Hx of cholecystectomy Hx of hysterectomy Hx of tonsillectomy Family History Family/Other Diabetes Hypertension Social History Smoking and tobacco status: current every day smoker cigarettes Packs smoked per day: 1 Years cigarettes smoked: 37 Second hand smoke exposure: Yes Alcohol intake: never Lives independently: Yes Household members: family Housing: House Marital status: / Current occupational status: unemployed History of recent travel: No Current gender identity: Female Vitals/I&O/Wt Last Vital Signs Temp 97.2 F L 03/23/20 07:02 Pulse 75 03/23/20 07:02 Resp 18 03/23/20 07:02 BP 118/75 03/23/20 07:02 Pulse Ox 91 03/23/20 07:02 Weight last 48 hrs Weight 130 lb Physical Exam Narrative: EXAM NARRATIVE: General: patient denies any [] Hematopoetic: patient denies any anemia, bleeding or easy bruisabitity GROCERY DELIVERER: Positive for [], negative for [] Eye: negative for [] Ears: patient denies any hearing loss, pain, vertigo, tinnitus Nose and throat: patient denies any congestion, postnasal drip, sore throat, epistaxis. Cardiovascular: Patient denies chest pain, edema or palpitations Respiratory: patient denies any shortness of breath, cough, sputum production GI: patient denies any nausea, vomiting, diarrhea, constipation or abdominal pain Muskuloskeletal: [] lntegumentary: [] abrasion, laceration Endocrine: patient denies polydipsia, polyphasia or nervousness. Psychiatric: negative positive for [] PHYSICAL EXAMINATION: VITAL SIGNS: [] CONSTITUTIONAL: The patient is a normal appearing [] in no apparent distress. GENERAL: Patient in no acute distress. CARDIAC: Regular rate and rhythm. CHEST: Normal inspiratory effort, normal respiratory rate. ABDOMEN: Soft and nontender. SKIN: Clear, warm and intact. NEURO?PSYCH: The patient is alert and oriented to person, place and time. Sensorv /SILT Motor StrengthShoulder abduction C5 5/5Wrist extension C6 5/5Elbow extension C7 5/5Hand Counter Person C8 5/5Finger abduction T15/5 Radial/ Ulnar/ Median n intact LowerSensory (SILT)Motor StrengthHin flexion L2/3Ant/inner thigh 5/5Hip adduction L2/3 5/5Knee extension L4 Lat thigh, 5/5Toe dorsiflexion L5 5/5Ankle dorsiflexion L5/ V52Miikkrb flexion S1 5/5 DTRBleeps 2+Triceps 2+Brachioradialis 2+Patellar 2+Achilles 2+ MUSCULOSKELETAL: [] UPPEREXTREMITIES: The patient had full active ROM in fingers, wrist, elbow, and shoulder. The patient demonstrated ability to fully flex/extend/abduct/adduct fingers, make ok sign, cross 2nd/3rd digits, extend 1st digit fully.. Radial pulse 2+, CR<2 seconds. LOWER EXTREMITIES: Pt has full, active ROM of toes, ankle, knee, and hip. Dorsalis pedis/posterior tibialis pulses 2+, CR<2 seconds. SPINE: Skin warm, dry, intact. Data Imaging^: Other CT: My impression: CT shows multiple compression fractures of unknown age A&P Additional A&P Information Patient has multiple compression fractures in her lumbar spine. Complaining of back pain was admitted to the hospital. Plan is to obtain an MRI to evaluate if is any compression on nerves or spinal cord. I also want to obtain a MRI of the lumbar and the thoracic spine. Once the studies are done I will reevaluate the patient. Coding Level of Care Code Acute Personalization Specialist for Philly Arriaza
--- NOTE | 2020-03-23 09:21 | PC.CHAP ---
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 fellmongering machine operator visit [] Patient/Family/Request visit [] Outpatient visit [] Follow-up visit [] Physician referral [] Code/Alert [] Routine visit [] Staff referral [] Actively dying [] Patient sleeping [] Family support [] [] Out of room [] Palliative care [] [] Receiving care in room [] Pre-surgical visit [] Trauma [] Long length of stay [] ICU visit [] Other: Relational/Emotional Strength [] Patient feels connected with others/family/visitors/staff [] Distress [] Loneliness/isolation [] Abandonment Spirituality of Patient [] Person of [place] [] Attends Restoration of their [place] [] Believes in Prayer [] Reads Bible or Islam materials [] There are Spiritual issues to be addressed Car Sealer Interventions [x] Prayer [] Active listening [] Non-anxious presence [] Spiritual/emotional support [] Crisis/trauma care [] Spiritual counseling [] Bereavement support [] Provided bereavement packet [] Provided Bible/devotional materials [] Provided toy/stuffed animal, coloring book to patient or family member [] Provided Communion [] Anointing/[place] [] Salvation [x] Completed spiritual assessment [] Other: Impact on Illness or Injury [] Angry [] Fearful [] Anxious [] Often cries [] Exhaustion [] Unable to work [] Unable to attend church [] Unable to walk/stand [] Unable to read [] Unable to drive [] Unable to eat/drink [] Unable to sleep [] Unable to be with family [] Patient intubated [] Other: Summary Time spent with patient
--- NOTE | 2020-03-23 10:39 | PM.PN ---
Subjective Subjective: Interval history: Patient lower back pain has some improvement. She has been able to move. Orthopedic [employer]. Medications: Reviewed: Yes Vitals/I&O/Wt Last Vital Signs Temp 96.2 F L 03/23/20 10:34 Pulse 76 03/23/20 10:34 Resp 93 H 03/23/20 10:34 BP 137/82 03/23/20 10:34 Pulse Ox 93 03/23/20 10:34 Weight last 48 hrs Weight 58.967 kg Physical Exam Const: COMMON NORMALS: patient oriented x3 HENMT: COMMON NORMALS: normocephalic, atraumatic and hearing grossly normal bilaterally HEAD & SCALP: normocephalic and atraumatic Eye: COMMON NORMALS: no scleral icterus GENERAL EYE: appearance normal, both eyes and all related structures Chest: COMMONS NORMALS: normal inspection of the chest CHEST: Yes Symmetrical chest wall rise Resp: COMMON NORMALS: normal respiratory effort and clear to auscultation bilaterally EFFORT & INSPECTION: Yes symmetric chest movement AUSCULTATION: clear to auscultation bilaterally Cardio: COMMON NORMALS: regular rate, regular rhythm, S1 normal heart sound present, S2 normal heart sound present, No gallops present (Cardio), No murmurs present (Cardio), No rub (Cardio) and Peripheral pulses 2+ throughout RATE: regular rate RHYTHM: regular rhythm HEART SOUNDS: S1 normal heart sound present and S2 normal heart sound present PERIPHERAL PULSES: Peripheral pulses 2+ throughout GI: COMMON NORMALS: Normal to inspection, nondistended, normoactive bowel sounds present, Soft to palpation, non-tender, No hepatosplenomegaly present and no masses AUSCULTATION: Yes normoactive bowel sounds PALPATION: Yes Soft to palpation and Yes No hepatosplenomegaly present RECTAL EXAM: deferred Extremity: OTHER: Motor StrengthShoulder abduction C5 5/5Wrist extension C6 5/5Elbow extension C7 5/5Hand Manufacturing Maintenance Manager C8 5/5Finger abduction T15/5 Radial/ Ulnar/ Median n intact LowerSensory (SILT)Motor StrengthHin flexion L2/3Ant/inner thigh 5/5Hip adduction L2/3 5/5Knee extension L4 Lat thigh, 5/5Toe dorsiflexion L5 5/5Ankle dorsiflexion L5/ [id number] flexion S1 5/5 DTRBleeps 2+Triceps 2+Brachioradialis 2+Patellar 2+Achilles 2+ MUSCULOSKELETAL: UPPEREXTREMITIES: The patient had full active ROM in fingers, wrist, elbow, and shoulder. The patient demonstrated ability to fully flex/extend/abduct/adduct fingers, make ok sign, cross 2nd/3rd digits, extend 1st digit fully.. Radial pulse 2+, CR<2 seconds. LOWER EXTREMITIES: Pt has full, active ROM of toes, ankle, knee, and hip. Dorsalis pedis/posterior tibialis pulses 2+, CR<2 seconds. SPINE: Skin warm, dry, intact. Neuro: COMMON NORMALS: patient oriented x3 Data : 03/22/20 19:24 03/22/20 19:24 A&P Assessment and plan (1) Lumbar pain with radiation down both legs: Status: Acute (2) Compression fracture: Status: Inactive (3) Smoker: Status: Acute (4) Vitamin D deficiency: Status: Inactive Additional A&P Information #Lumbar Compression fracture: No signs of spinal cord compression, but given the level of compression she has been started on decadron 4 mg QID. Has no signs of CUS ( urinary/rectal incontinence ) Pending MRI L/T Spine for evaluation of any compression on nerves or spinal cord. Continue Dilaudid , Gabapentin Spine surgeon Rec appriciated # Vitamin D deficiency: Continue calcium supplementation Active smoker: Smoking 1 pack/day need extensively counselling and reinforcement DNR/DNI goals of care discussed with the patient DVT prophylaxis SCDs Attestations Medical Necessity Statement*: Patient needs to be in hospital for the management of Lumber Compression Fracture. Coding Level of Care Code Acute Babbitt Spinner for Chg Fwd Exam Detailed Diagnoses Lumbar pain with radiation down both legs M54.5 Compression fracture Smoker F17.200 Vitamin D deficiency E55.9
[2020-03-23 11:32] LABS: Glucose Point of Care 112 mg/dL (70-110)
--- NOTE | 2020-03-23 15:39 | PC.NURSE ---
Off unit to MRI for lumbar and thoracic
--- NOTE | 2020-03-23 16:00 | PC.NURSE ---
Received a call from . Received a call from Aleksandar Ovalle neurosurgeon to place patient on NPO after midnight for possible discussion for a surgery. Informed pt regarding the diet order and possible procedure tomorrow however doctor will be in the morning to discuss more details regarding his plan treatment. Pt voices she is scared to undergo surgery. Reassurance provided to pt and that the doctor will be here in the morning as discussed with nurse to talk to her about it. Pt verbalizes understanding.
[2020-03-23 16:48] LABS: Glucose Point of Care 108 mg/dL (70-110)
--- NOTE | 2020-03-23 19:28 | PC.NURSE ---
Received report from TAYLOR Dunlap. Patient sitting on edge of bed c/o pain to back 12/14. Medication provided as ordered. Discussed night time medications to dexamethasone and gabapentin. Patient verbalized understanding. Assessment completed as documented.
[2020-03-23 20:49] LABS: Glucose Point of Care 208 mg/dL (70-110)
--- NOTE | 2020-03-23 20:58 | PC.NURSE ---
Instructed patient on use of steroids and possiblities of increased appetite and increased blood sugars. Also, instructed patient on the use of sliding scale Novolog to help control the blood sugar levels. Patient verbalized understanding but did state, I am probably not going to like it. Patient was agreeable to have the Novolog administered and reinforced that the insulin will mostly like not be a permanent change to her home needs.
--- NOTE | 2020-03-23 23:06 | PC.NURSE ---
Patient reports pain 8/10 and that pain medication works well for about 3 hour and during that last hour becomes increasingly worse. Instructed patient on scheduling. Patient verbalized understanding. Denies other needs at this time. No other distresses observed
[2020-03-24] VITALS (7 sets, daily range): BP systolic 102–124; BP diastolic 64–83; PULSE 69–84; RESP 18–22; TEMP 35.8–37.1; O2SAT 91–95
[2020-03-24] MEDS: HYDROmorphone 1 mg/mL INJ 1 mL 2 MG IVP ×3 (03:15→11:05)
[2020-03-24 06:41] LABS: Glucose Point of Care 121 mg/dL (70-110)
[2020-03-24] MEDS: dextrose 5%-sod chloride 0.45% 1,000 ML 30 ML IV (06:47)
--- NOTE | 2020-03-24 07:24 | P.PN_ITS ---
Subjective Subjective: Interval history: pain controlled but on dilaudid Vitals/I&O/Wt Last Vital Signs Temp 98 F 03/24/20 04:00 Pulse 69 03/24/20 04:00 Resp 18 03/24/20 06:47 BP 102/64 03/24/20 04:00 Pulse Ox 91 03/24/20 04:00 03/23/20 03/24/20 03/24/20 22:59 06:59 14:59 Intake Total 240 / 480 830 / 1310 Balance 240 / 480 830 / 1310 Weight last 48 hrs Weight 130 lb Physical Exam Narrative: EXAM NARRATIVE: 5/5 strength Ble sensation intact Data : 03/22/20 19:24 03/22/20 19:24 A&P Additional A&P Information L1-3 new compression fx discussed kyphoplasty vs Brace she would like to try the brace. Attestations Medical Necessity Statement*: pain Coding Level of Care Code Acute Family Service Worker for Philly Arriaza
[2020-03-24] MEDS: calcium carb-vit d 600mg/400unit 1 Tablet 1 EACH PO (08:59)
[2020-03-24] MEDS: sennosides-docusate Tablet 1 TAB PO (08:59)
[2020-03-24] MEDS: dexamethasone 4 mg Tablet PO ×2 (09:00→13:39)
[2020-03-24] MEDS: gabapentin 300 mg Capsule 600 MG PO ×2 (09:00→13:39)
[2020-03-24] MEDS: polyethylene glycol 3350 Pkt 17 gm PO (09:01)
--- NOTE | 2020-03-24 10:23 | PM.DCS ---
Discharge Providers Date of Admission: 03/23/20 16:27 Date of Discharge: March 24, 2020 Attending Provider at Admission: Liu Allen MD Attending Provider at Discharge: Rian Dodson MD Diagnoses at Discharge Discharge Diagnosis (1) Lumbar pain with radiation down both legs: Status: Chronic (2) Compression fracture: Status: Inactive (3) Smoker: Status: Acute (4) Vitamin D deficiency: Status: Inactive Reason for Visit Reason for Visit: LOWER BACK/HIP PAIN Hospital Course Hospital Course 60 year old female who presented today with chief complaint of worsening back pain. Patient is stating that for last 1 to 2 months she has been experiencing excruciating back pain which has gotten worse to the point she is not able to walk properly without having to bend over and support herself by putting her arms around her hips. She has not sustained any falls, she was diagnosed with vitamin D deficiency, she has been on calcium supplementation she has not used steroids for long time, no bladder incontinence, rectal incontinence, gait ataxia. Because of her excruciating/intractable back pain she decided to come to the hospital for further evaluation. During this hospital stay she was diagnosed with multiple compression fractures in her lumbar spine.Orthopedic was on board they recommended MRI of the lumbar and the thoracic spine. She had no signs of Cauda equina syndrome.She was managed with adequate pain control as well as she was kept on dexamethasone. Orthopedic recommended brace for her and no orthopedic intervention.Physical therapy was on board. she is being discharged in stable to follow orthopedic as outpatient. MRI L-Spine: Acute 80% compression fracture of L1 with 5.5 mm retropulsion of posterior superior endplate. Deformity of the thecal sac but there is still CSF surrounding the conus. Additional acute compression fractures at L2 and L3 without retropulsion. Complete bony fusion across the L4-5 and L5-S1 disc spaces. Foramen are being narrowed due to hypertrophic bone formation, greatest on the RIGHT at L4-5. MR thoracic spin wo con: 1. No acute thoracic spine fracture. 2. Mild bilateral foraminal narrowing at T12-L1 due to mild facet disease in the retrolisthesis of the acute compression fracture of L1. L1 fracture will be better described on the MRI lumbar spine performed at the same time. 3. No cord compression. There is very slight posterior displacement of the conus but CSF still surrounds the conus. CT lumbar spine wo con: 1. There is a new, severe compression deformity of L1 with focal kyphosis of the spine. A faint fracture line is visible, suggesting an acute/subacute fracture. Mild retropulsion of bone at L1 with 20% spinal canal stenosis. 2. New moderate compression deformity at L2. A faint fracture line is visible, also suspicious for an acute/subacute fracture. 3. There is now evidence of fusion of the L3, L4, and L5 vertebral bodies. Erosive changes at L3-L4 and L4-L5 have resolved. 4. Multilevel degenerative changes of varying severity in the visualized spine. 5. Mild spinal canal stenosis at L1-L2, L2-L3, and L3-L4. Multilevel foraminal stenosis of varying severity in the lumbar spine. 6. There is partial fusion of the right and left sacroiliac joints, consistent with a remote episode of seronegative sacroiliitis versus sequela of degenerative change. 7. Incidental/nonacute findings are listed in the report. CT thoracic spin wo con: 1. No acute fracture of the thoracic spine. 2. Partially visualized compression deformity of L1. Please refer to dictation for CT scan of the lumbar spine dated 03/22/2020 for full description of these findings. 3. Mild scoliosis in the visualized spine. 4. Incidental/nonacute findings are listed in the report. Physical Exam Const: COMMON NORMALS: patient oriented x3 HENMT: COMMON NORMALS: normocephalic and atraumatic HEAD & SCALP: normocephalic and atraumatic Eye: COMMON NORMALS: no scleral icterus Chest: COMMONS NORMALS: normal inspection of the chest CHEST: Yes Symmetrical chest wall rise Resp: COMMON NORMALS: normal respiratory effort EFFORT & INSPECTION: Yes symmetric chest movement Cardio: COMMON NORMALS: regular rate, regular rhythm, S1 normal heart sound present, S2 normal heart sound present, No gallops present (Cardio), No murmurs present (Cardio), No rub (Cardio) and Peripheral pulses 2+ throughout RATE: regular rate RHYTHM: regular rhythm HEART SOUNDS: S1 normal heart sound present and S2 normal heart sound present PERIPHERAL PULSES: Peripheral pulses 2+ throughout GI: COMMON NORMALS: Normal to inspection, nondistended, normoactive bowel sounds present, Soft to palpation, non-tender, No hepatosplenomegaly present and no masses AUSCULTATION: Yes normoactive bowel sounds PALPATION: Yes Soft to palpation and Yes No hepatosplenomegaly present RECTAL EXAM: deferred Extremity: COMMON NORMALS: no clubbing, cyanosis or edema and no pedal edema OTHER: OTHER: Motor StrengthShoulder abduction C5 5/5Wrist extension C6 5/5Elbow extension C7 5/5Hand Cisco Consultant C8 5/5Finger abduction T15/5 Radial/ Ulnar/ Median n intact LowerSensory (SILT)Motor StrengthHin flexion L2/3Ant/inner thigh 5/5Hip adduction L2/3 5/5Knee extension L4 Lat thigh, 5/5Toe dorsiflexion L5 5/5Ankle dorsiflexion L5/ G61Ksypbop flexion S1 5/5 DTRBleeps 2+Triceps 2+Brachioradialis 2+Patellar 2+Achilles 2+ MUSCULOSKELETAL: UPPEREXTREMITIES: The patient had full active ROM in fingers, wrist, elbow, and shoulder. The patient demonstrated ability to fully flex/extend/abduct/adduct fingers, make ok sign, cross 2nd/3rd digits, extend 1st digit fully.. Radial pulse 2+, CR<2 seconds. LOWER EXTREMITIES: Pt has full, active ROM of toes, ankle, knee, and hip. Dorsalis pedis/posterior tibialis pulses 2+, CR<2 seconds. SPINE: Skin warm, dry, intact. Neuro: COMMON NORMALS: patient oriented x3 Discharge Data Data Completed and Pending: Completed Studies During Hospitalization Category Date Time Status CT lumbar spine w o con* [id number] Urgen t Cat Scan 03/22/20 21:[address] thoracic spin wo con* [id number] Urge nt Cat Scan 03/22/20 21:39 Completed XR pelvis 1-2V* 7 2170 Urgent Exams 03/22/20 18:11 Completed MR lumbar spine w o con* [id number] Routi ne MRI 03/23/20 08:44 Completed MR thoracic spin wo con* [id number] Rout ine MRI 03/23/20 08:50 Completed Labs from last 24 hours 03/24/20 03/23/20 03/23/20 06:26 19:54 16:45 POC Glucose 121 208 108 03/23/20 10:35 POC Glucose 112 Vitals: Last Vital Signs Temp 96.4 F L 03/24/20 08:00 Pulse 84 03/24/20 08:00 Resp 20 H 03/24/20 08:00 BP 124/83 03/24/20 08:00 Pulse Ox 95 03/24/20 08:00 Discharge Plan Discharge Patient Disposition: Home Condition: Stable Prescriptions: New hydromorphone 4 mg tablet 4 mg PO Q6H PRN (Reason: pain) Qty: 20 RF: 0 calcium carbonate-vitamin D3 600 mg(1,500mg) -400 unit Tablet 1 tab PO DAILY Qty: 30 RF: 3 Continued potassium chloride 10 mEq tablet extended release 10 meq PO DAILY Qty: 30 RF: 5 naproxen sodium [Aleve] 220 mg Tablet 440 mg PO BID RF: 0 gabapentin 600 mg tablet 600 mg PO QID RF: 0 Dialyvite Vitamin D3 Max 1,250 mcg (50,000 unit) tablet 50,000 unit PO Q7D RF: 0 Discharge Orders: Discharge Order (Routine); Ordered 03/24/20 Ordered By: Rian Dodson Referrals: Aleksandar Angulo, [Physician] - 1 week (Please, follow-up with Dr. Angulo on at 2:00p.m. If you have any questions or need to reschedule. Please call ) Discharge Diet: Regular Discharge Activity: Increase activity as tolerated Patient Instructions: Hydromorphone (By mouth), Calcium Supplement (By mouth), How to Stop Smoking (DC), Back Pain (GEN) Discharge Attestations Time Spent in Discharge Care*: greater than 30 min Specific Discharge Activities: educating patient, educating and/or supporting family/caregiver, discussing with pcp/other providers, discussing with registered nurse hh case manager/social workers/dc planners, documenting/other paperwork and evaluating patient/reviewing data Status at Discharge: Cognitive status at discharge: cognitively intact, Behavioral status at discharge: cooperative, Functional status at discharge: uses cane/walker Overall status at discharge: patient is back to baseline Quality Metrics Clinical Quality Measures During this hospital stay, did patient experience: None Coding Level of Care Code Acute Coffee Weigher for Audieg Fwd Exam Comprehensive Diagnoses Lumbar pain with radiation down both legs M54.5 Compression fracture Smoker F17.200 Vitamin D deficiency E55.9
[2020-03-24 11:14] LABS: Glucose Point of Care 120 mg/dL (70-110)
--- NOTE | 2020-03-24 14:41 | PC.NURSE ---
signee went over discharge instructions and prescriptions with patient. daughter was called to cigar packer and picker patient. patient left via wheelchair with daughter.
--- NOTE | 2020-03-24 17:34 | PC.RESP ---
Smoking Cessation and Pulmonary Rehab packet sent to patient.
== END 2020-03-24 14:05 | disposition home or self-care (01) | DRG 544 ==
LOC: ER 19:09 → CSU 03-23 01:31
PROVIDERS: Emergency Medicine; Admitting Provider Internal Medicine; Emergency Provider Nurse Practitioner Family; Visit Provider Internal Medicine
DX: M48.56XA Collapsed vertebra, not elsewhere classified, lumbar region, initial encounter for fracture (principal); E55.9 Vitamin D deficiency, unspecified; Z85.41 Personal history of malignant neoplasm of cervix uteri; J44.9 Chronic obstructive pulmonary disease, unspecified; Z86.19 Personal history of other infectious and parasitic diseases; F17.210 Nicotine dependence, cigarettes, uncomplicated; M43.26 Fusion of spine, lumbar region; M43.27 Fusion of spine, lumbosacral region
CPT/HCPCS: 12345; 36416; 72128; 72129; 72131; 72132; 72146; 72148; 72170; 80053; 81003; 82550; 82962; 83605; 85025; 85651; 86140; 96372; 96375; 97161; 97530; 99282; G0378; J1170; J1815; J2270; J2405; J7799; J8540; L0456

== ENCOUNTER → 2020-03-30 14:18 | Outpatient (BNVA) | payer MEDICARE, MEDICAID, SELFPAY | PROVIDERS: Visit Provider Orthopaedic Surgery | DX: M54.9 Dorsalgia, unspecified (principal) | CPT/HCPCS: 72072; 72114 ==

== ENCOUNTER → 2020-04-27 13:55 | Outpatient (BNVA) | payer MEDICARE, MEDICAID, SELFPAY | PROVIDERS: Visit Provider Orthopaedic Surgery | DX: M54.9 Dorsalgia, unspecified (principal); S32.010A Wedge compression fracture of first lumbar vertebra, initial encounter for closed fracture; X58.XXXA Exposure to other specified factors, initial encounter | CPT/HCPCS: 72114 ==

== ENCOUNTER → 2020-06-10 11:14 | Outpatient (BNVA) | payer MEDICARE, MEDICAID, SELFPAY | PROVIDERS: Visit Provider Orthopaedic Surgery | DX: M48.56XA Collapsed vertebra, not elsewhere classified, lumbar region, initial encounter for fracture (principal) | CPT/HCPCS: 72100 ==

== ENCOUNTER → 2020-06-30 12:20 | Outpatient (BNVA) | payer MEDICARE, MEDICAID, SELFPAY | PROVIDERS: Visit Provider Nurse Practitioner Family | DX: E55.9 Vitamin D deficiency, unspecified (principal); R73.9 Hyperglycemia, unspecified; Z13.6 Encounter for screening for cardiovascular disorders; E87.6 Hypokalemia; M54.5 Low back pain | CPT/HCPCS: 80053; 80061; 82306; 83036; 85025 ==

== ENCOUNTER 2020-08-10 01:41 | Emergency (ER) | payer MEDICARE, MEDICAID, SELFPAY ==
[2020-08-10 01:52] VITALS: BP 116/76; PULSE 88; RESP 18; TEMP 36.7; O2SAT 96; BMI 23.6
--- NOTE | 2020-08-10 02:01 | ED_ITS ---
HPI - Back Pain/Injury General: Chief Complaint: Back Pain/Injury Stated Complaint: back pain Time Seen by Provider: 08/10/20 01:42 Source: patient Mode of arrival: ambulatory Limitations: no limitations History of Present Illness: HPI Narrative: 60-year-old female has a history of chronic back pain did recently injure her back roughly 2 to 3 months ago and has a known L1 fracture. She had increased pain today to bilateral back. Patient rates her pain as a 5 out of 10. She does take pain meds at home. Denies any worsening improving factors. Denies any dysuria. Associated symptoms: Deny abdominal pain, chills, dysuria, fever(s), nausea or vomiting Review of Systems Const: Denies: fever(s), chills, body aches or change in appetite Eyes: Denies: blurry vision or eye discomfort ENMT: Denies: throat pain or dental pain Card: Denies: chest pain Resp: Denies: dyspnea GI: Denies: abdominal pain, nausea, vomiting or diarrhea : Denies: dysuria Musc: Reports: back pain; Denies: neck pain Skin/Breast: Denies: rash Neuro: Denies: headache(s) Psych: Denies: depression Isidro/Lymph: Denies: easy bruising All/Imm: Denies: urticaria PFSH ED PFSH: Medical History Burn of left forearm Cervical cancer Colon cancer screening declined Compression fracture COPD (chronic obstructive pulmonary disease) Dyskinesia, tardive Hepatitis C Lumbar pain with radiation down both legs Screening mammography declined Smoker Vitamin D deficiency Surgical History H/O fasciotomy Septic forearm Hx of cholecystectomy Hx of hysterectomy Hx of tonsillectomy Family History Family/Other Diabetes Hypertension Social History Smoking and tobacco status: current every day smoker cigarettes Packs smoked per day: 1 Years cigarettes smoked: 37 Second hand smoke exposure: Yes Alcohol intake: never Lives independently: Yes Household members: family Housing: House Marital status: / Current occupational status: unemployed History of recent travel: No Current gender identity: Female Physical Exam Const: COMMON NORMALS: no acute distress, patient oriented x3 and healthy appearing HENMT: COMMON NORMALS: normocephalic and atraumatic HEAD & SCALP: normocephalic and atraumatic Eye: COMMON NORMALS: Equal, round and reactive pupils present and EOMs intact bilaterally PUPIL: Yes Equal, round and reactive pupils present Neck/C-Spine: COMMON NORMALS: full ROM and supple Chest: COMMONS NORMALS: normal inspection of the chest and normal palpation of entire chest wall Resp: COMMON NORMALS: normal respiratory effort, No retractions, No use of accessory muscles and clear to auscultation bilaterally AUSCULTATION: clear to auscultation bilaterally Cardio: COMMON NORMALS: regular rate, regular rhythm and No murmurs present (Cardio) RATE: regular rate RHYTHM: regular rhythm GI: COMMON NORMALS: Normal to inspection, nondistended, normoactive bowel sounds present, Soft to palpation, non-tender and no masses PALPATION: Yes Soft to palpation Back/Pelvis: OTHER: paraspinal tenderness with no midlines tenderness Extremity: COMMON NORMALS: normal to inspection and full ROM Neuro: COMMON NORMALS: patient oriented x3, moves all extremities and no focal motor deficits Psych: COMMON NORMALS: mental status grossly normal, Normal thought process present and cooperative THOUGHT PROCESS: Normal thought process present Skin: COMMON NORMALS: no rashes or lesions noted and no wounds GENERAL SKIN EXAM: no rashes or lesions noted Course Vital Signs: Vital signs: Vital Signs Temperature 98.1 F 08/10/20 01:52 Pulse Rate 72 08/10/20 03:13 Respiratory Rate 18 08/10/20 03:13 Blood Pressure 111/50 08/10/20 03:13 Pulse Oximetry 96 08/10/20 03:13 MDM - Back Pain/Injury MDM Narrative: Medical decision making narrative: Patient presents here with low back pain is chronic in nature. She also has hematuria with likely infection. We will start her on antibiotics she is to follow-up with her PCP in 2 to 4 days return if worsening. Patient understands agrees to plan. Lab Data: Labs: Lab Results 08/10/20 Range/Units 02:08 Urine Color Yellow (Yellow) Urine Appearance Sl hazy (CLEAR) Urine pH 7 (5-7) Ur Specific Gravit y 1.015 (1.005-1.030) Urine Protein Neg (Negative) Urine Glucose (UA) Norm (Normal) Urine Ketones Negative (Negative) Urine Blood 3+ H (Negative) Urine Nitrate Negative (Negative) Urine Bilirubin Neg (Negative) Urine Urobilinogen 4 H (Negative) mg/dL Ur Leukocyte [place] Trace H (Negative) Urine RBC Too numerous to c nt H (0-2) /hpf Urine WBC 10-15 H (0-5) /hpf Ur Squamous Epith Cells 15-25 H (0-5) /hpf Amorphous Sediment Not Reportable Urine Bacteria 1+ H (NONE) /hpf Imaging Data^: CT Abd/Pel: Attestation: I personally reviewed and interpreted this imaging study as follows: Radiologist's impression: [facility] [address] [address] [address] Scan Report Signed Patient: Italia Wallace Unit #: [id number] : [id number] Age/Sex: 60 / F ADM Date: 08/10/20 Loc: ER Room/Bed: Attending Dr: Ordering Provider/Ordering MD: Lena Lorenzo MD Date of Service: 08/10/20 Procedure(s): CT kidney stone 70178 Accession Number(s): [id number] Report Number: [id number] PROCEDURE INFORMATION: Exam: CT Abdomen And Pelvis Without Contrast Exam date and time: 08/10/2020 2:43 AM Age: 60 years old Clinical indication: Pain and abnormal findings; Abnormal lab test; Other: Micro hematuria; Prior surgery; Surgery type: Gb. Hysterectomy. ; Patient HX: Back pain with microscopic hematura. History of compression fracture. ; Additional info: Flank pain TECHNIQUE: Imaging protocol: Computed tomography of the abdomen and pelvis without contrast. Radiation optimization: All CT scans at this facility use at least one of these dose optimization techniques: automated exposure control; mA and/or kV adjustment per patient size (includes targeted exams where dose is matched to clinical indication); or iterative reconstruction. COMPARISON: CT abdomen pelvis wo con [id number] 11/07/2015 4:10 PM RADIATION DOSE METRICS: Total DLP (mGy-cm): 727.11 FINDINGS: Liver: Normal. No mass. Gallbladder and bile ducts: Gallbladder is surgically absent. No ductal dilation. Pancreas: Normal. No ductal dilation. Spleen: Normal. No splenomegaly. Adrenal glands: Normal. No mass. Kidneys and ureters: A 6.5 cm cyst is seen in the left kidney and a smaller 1 in the right kidney. No hydronephrosis. Stomach and bowel: Unremarkable. No obstruction. No mucosal thickening. Appendix: No evidence of appendicitis. Intraperitoneal space: Unremarkable. No free air. No significant fluid collection. Vasculature: Unremarkable. No abdominal aortic aneurysm. Lymph nodes: Extensive helga are seen in the pelvis in the retroperitoneum. No enlarged lymph nodes. Urinary bladder: Unremarkable as visualized. Reproductive: Fiducial markers are seen in the prostate which is enlarged. Bones/joints: Compression fractures of L1 and L2 are present new since 2013 exam. Multilevel degenerative changes are noted. Soft tissues: Unremarkable. CT/CT kidney stone [id number] IMPRESSION: 1. Bilateral renal cysts are present. 2. Enlarged prostate with fiducial markers and extensive retroperitoneal and pelvic surgical helga in place. 3. Compression fractures of L1 and L2 are present. 4. The gallbladder is surgically absent. Discharge Plan Discharge Patient Disposition: Home Clinical Impression: Hematuria Low back pain Qualifiers: Chronicity: acute Back pain laterality: right Sciatica presence: without sciatica Qualified Code(s): M54.5 - Low back pain Condition: Stable Prescriptions: New cephalexin 500 mg capsule 500 mg PO TID 7 Days Qty: 21 RF: 0 No Action oxycodone 5 mg tablet 7.5 mg PO Q6H PRN (Reason: pain) 14 Days Qty: 40 RF: 0 hydromorphone 4 mg tablet 4 mg PO Q6H PRN (Reason: pain) 7 Days Qty: 20 RF: 0 potassium chloride 10 mEq tablet extended release 10 meq PO DAILY Qty: 30 RF: 5 gabapentin 800 mg tablet 800 mg PO QID Qty: 120 RF: 2 Dialyvite Vitamin D3 Max 1,250 mcg (50,000 unit) tablet 50,000 unit PO Q7D Qty: 4 RF: 5 tramadol 50 mg tablet 50 mg PO Q6H PRN (Reason: pain) Qty: 60 RF: 0 naproxen sodium [Aleve] 220 mg Tablet 440 mg PO BID RF: 0 calcium carbonate-vitamin D3 600 mg(1,500mg) -400 unit Tablet 1 tab PO DAILY Qty: 30 RF: 3 Discharge Orders: Discharge ED (Routine); Ordered 08/10/20 Ordered By: Lena Lorenzo Discharge Diet: Advance as tolerated Discharge Activity: Resume usual activity Patient Instructions: Opioid Safety Coding Level of Care Code ED Human Resources Executive Assistant for Philly Fwd Exam Comprehensive
[2020-08-10 02:11] VITALS: RESP 18
[2020-08-10] MEDS: morphine 4 mg/mL SDV 1 mL IM (02:11)
[2020-08-10 02:24] LABS: Add Urine Microscopic? YES; Bilirubin Urine Neg (Negative); Blood Urine 3+ (Negative); Glucose Urine UA Norm (Normal); Ketones Urine Negative (Negative); Leukocyte Esterase Urine Trace (Negative); Nitrate Urine Negative (Negative); Protein Urine Neg (Negative); RBC Urine TOO NUMEROUS TO CNT /hpf (0-2); Specific Gravity, Urine 1.015 (1.005-1.030); Squamous Epithelial Cell Urine 15-25 /hpf (0-5); Urine Appearance SL Hazy (CLEAR); Urine Color Yellow (Yellow); Urobilinogen Urine 4 mg/dL (Negative); pH Urine 7 (5-7)
[2020-08-10 02:25] LABS: Bacteria Urine 1+ /hpf
--- NOTE | 2020-08-10 02:36 | CTR_ITS ---
PROCEDURE INFORMATION: Exam: CT Abdomen And Pelvis Without Contrast Exam date and time: 08/10/2020 2:43 AM Age: 60 years old Clinical indication: Pain and abnormal findings; Abnormal lab test; Other: Micro hematuria; Prior surgery; Surgery type: Gb. Hysterectomy. ; Patient HX: Back pain with microscopic hematura. History of compression fracture. ; Additional info: Flank pain TECHNIQUE: Imaging protocol: Computed tomography of the abdomen and pelvis without contrast. Radiation optimization: All CT scans at this facility use at least one of these dose optimization techniques: automated exposure control; mA and/or kV adjustment per patient size (includes targeted exams where dose is matched to clinical indication); or iterative reconstruction. COMPARISON: CT abdomen pelvis wo con [id number] 11/07/2015 4:10 PM RADIATION DOSE METRICS: Total DLP (mGy-cm): 727.11 FINDINGS: Liver: Normal. No mass. Gallbladder and bile ducts: Gallbladder is surgically absent. No ductal dilation. Pancreas: Normal. No ductal dilation. Spleen: Normal. No splenomegaly. Adrenal glands: Normal. No mass. Kidneys and ureters: A 6.5 cm cyst is seen in the left kidney and a smaller 1 in the right kidney. No hydronephrosis. Stomach and bowel: Unremarkable. No obstruction. No mucosal thickening. Appendix: No evidence of appendicitis. Intraperitoneal space: Unremarkable. No free air. No significant fluid collection. Vasculature: Unremarkable. No abdominal aortic aneurysm. Lymph nodes: Extensive helga are seen in the pelvis in the retroperitoneum. No enlarged lymph nodes. Urinary bladder: Unremarkable as visualized. Reproductive: Fiducial markers are seen in the prostate which is enlarged. Bones/joints: Compression fractures of L1 and L2 are present new since 2013 exam. Multilevel degenerative changes are noted. Soft tissues: Unremarkable. CT/CT kidney stone [id number] IMPRESSION: 1. Bilateral renal cysts are present. 2. Enlarged prostate with fiducial markers and extensive retroperitoneal and pelvic surgical helga in place. 3. Compression fractures of L1 and L2 are present. 4. The gallbladder is surgically absent. Radiation Dose CTDIVOL = (mGy): DLP = 727.11 (mGy-cm)
[2020-08-10 03:13] VITALS: BP 111/50; PULSE 72; RESP 18; O2SAT 96
[2020-08-10 04:14] VITALS: BP 114/86; PULSE 74; RESP 15; TEMP 36.7; O2SAT 97
== END 2020-08-10 04:14 | disposition home or self-care (01) ==
PROVIDERS: Emergency Provider Emergency Medicine
DX: M54.5 Low back pain (principal); R31.9 Hematuria, unspecified; Z85.41 Personal history of malignant neoplasm of cervix uteri; Z85.038 Personal history of other malignant neoplasm of large intestine; J44.9 Chronic obstructive pulmonary disease, unspecified; Z86.19 Personal history of other infectious and parasitic diseases; F17.210 Nicotine dependence, cigarettes, uncomplicated
CPT/HCPCS: 74176; 81001; 96372; 99283; J2270

== ENCOUNTER → 2021-01-07 10:53 | Outpatient (BNVA) | payer MEDICARE, MEDICAID, SELFPAY | PROVIDERS: Visit Provider Nurse Practitioner Family | DX: Z20.822 Contact with and (suspected) exposure to COVID-19 (principal) | CPT/HCPCS: 87635 ==

== ENCOUNTER → 2021-03-01 12:10 | Outpatient (BNVA) | payer MEDICARE, MEDICAID, SELFPAY | PROVIDERS: Visit Provider Nurse Practitioner Family | DX: R73.9 Hyperglycemia, unspecified (principal); Z13.6 Encounter for screening for cardiovascular disorders; E55.9 Vitamin D deficiency, unspecified | CPT/HCPCS: 80053; 80061; 82306; 82607; 83036; 85025 ==

== ENCOUNTER 2021-03-16 11:23 | Emergency (ER) | payer MEDICARE, MEDICAID, SELFPAY ==
[2021-03-16 11:52] VITALS: BP 90/63; PULSE 73; RESP 18; TEMP 36.1; O2SAT 98; BMI 24.6
--- NOTE | 2021-03-16 13:38 | XR_ITS ---
WS: [id number] Right hip, AP and frog leg views, AP pelvis, 03/16/2021 Clinical Data: pain, difficulty with ambulation Comparison: AP pelvis, 03/22/2020. Findings: No fractures or dislocations are seen. The hips show no erosion, sclerosis, narrowing or cyst formati on.. The soft tissues are not remarkable. The adjacent pelvis is normal. There are bilateral surgical clips in the true pelvis. The SI joints and pubic symphysis are unremark able. XR/XR hip RT 2-3V wo/w pel* [id number] Impression: Negative right hip and pelvis. Tonnis classification: grade 0: normal radiographs of the right hip.
--- NOTE | 2021-03-16 16:08 | ED_ITS ---
Documented by User: ANANTH Scott 03/17/21 07:06 HPI - Extremity Problem General: Chief complaint: Extremity Injury, Lower Stated complaint: RLE PROBLEM: DIFF WALKING Time Seen by Provider: 03/16/21 16:07 Source: patient and family Mode of arrival: wheelchair Limitations: no limitations History of Present Illness: HPI Narrative: Patient is a 61-year-old female who presents to ED today with a complaint of right hip and upper leg pain over the past 4 to 5 days. No known injury or trauma. She states pain seems to begin in her posterior lateral hip and radiate around to affect her upper leg. Pain does not extend below the knee. She has not noticed any color or temperature changes to the extremity. She was seen by PCP yesterday and given IM steroids without any relief. MD Complaint: extremity pain Onset (ago): day(s) Pain Consistency: constant Location: right and lower extremity Severity scale (1-10): 8 Quality: stabbing and sharp Relieving factors: immobilization Exacerbating factors: range of motion, weight bearing, walking and palpation Associated symptoms: Reports no associated symptoms; Deny chest pain, fever(s) or rash Review of Systems Const: Denies: fever(s), chills, body aches, fatigue or malaise Card: Denies: chest pain Resp: Denies: dyspnea Musc: Reports: back pain, extremity pain (R leg) and joint pain (R hip); Denies: neck pain, extremity swelling, joint swelling, joint redness, joint warmth or limited range of motion Skin/Breast: Denies: rash Neuro: Reports: difficulty walking (secondary to pain); Denies: numbness in extremities, weakness in extremities or sensory changes PFS ED PFSH: Medical History Burn of left forearm Cervical cancer Colon cancer screening declined Compression fracture COPD (chronic obstructive pulmonary disease) Dyskinesia, tardive Hepatitis C Lumbar pain with radiation down both legs Screening mammography declined Smoker Vitamin D deficiency Surgical History H/O fasciotomy Septic forearm Hx of cholecystectomy Hx of hysterectomy Hx of tonsillectomy Family History Family/Other Diabetes Hypertension Social History Smoking and tobacco status: current every day smoker cigarettes Packs smoked per day: 1 Years cigarettes smoked: 37 Second hand smoke exposure: Yes Alcohol intake: never Lives independently: Yes Household members: family Housing: House Marital status: / Current occupational status: unemployed History of recent travel: No Current gender identity: Female Physical Exam Const: COMMON NORMALS: no acute distress, patient oriented x3, no limitations and alert GENERAL APPEARANCE: cooperative ORIENTATION/CONSCIOUSNESS: Yes awake, Yes oriented to person and Yes oriented to place Resp: COMMON NORMALS: normal respiratory effort GI: COMMON NORMALS: Normal to inspection, nondistended, normoactive bowel sounds present, Soft to palpation, non-tender, No hepatosplenomegaly present and no masses PALPATION: Yes Soft to palpation and Yes No hepatosplenomegaly present Back/Pelvis: THORACIC SPINE/UPPER BACK: Yes normal to inspection, No thoracic spinal tenderness, No paraspinal muscle tenderness and No paraspinal muscle spasm LUMBAR SPINE/LOWER BACK: Yes lumbar spinal tenderness Lumbar spinal tenderness location: L3, L4 and L5 and No paraspinal muscle spasm PELVIS: Yes buttock abnormal Buttock abnormal laterality: right Right buttock abnormal details: tenderness and Yes sciatic notch tenderness Extremity: RIGHT LOWER EXTREMITY: Yes hip joint (TTP posteriolateral hip) Right hip: Yes neurovascular exam (normal) OTHER: bilateral LEs are cool to the touch but equal; cap refill is 2+ seconds; sensory is intact; she has palpable DP/PT pulses Neuro: COMMON NORMALS: patient oriented x3, moves all extremities, no focal motor deficits and no sensory deficits noted SENSORIUM/ORIENTATION: Yes alert, Yes oriented to person and Yes oriented to place Skin: COMMON NORMALS: no rashes or lesions noted GENERAL SKIN EXAM: no rashes or lesions noted TRAUMA: no lacerations or abrasions Course Vital Signs: Vital signs: Vital Signs Temperature 96.9 F L 03/16/21 11:52 Pulse Rate 76 03/16/21 16:19 Respiratory Rate 16 03/16/21 16:19 Blood Pressure 100/65 03/16/21 16:19 Pulse Oximetry 97 03/16/21 16:19 MDM - Extremity (Nontraumatic) Imaging Data^: XR R hip/pelvis: Radiologist's impression: [address] [address] XRay Report Signed Patient: Italia Wallace Unit #: [id number] : [id number] Age/Sex: 61 / F ADM Date: 03/16/21 Loc: ER Room/Bed: Attending Dr: Ordering Provider/Ordering MD: Caryn Farah Date of Service: 03/16/21 Procedure(s): XR hip RT 2-3V wo/w pel* [id number] Accession Number(s): [id number] Report Number: [id number] WS: [id number] Right hip, AP and frog leg views, AP pelvis, 03/16/2021 Clinical Data: pain, difficulty with ambulation Comparison: AP pelvis, 03/22/2020. Findings: No fractures or dislocations are seen. The hips show no erosion, sclerosis, narrowing or cyst formation.. The soft tissues are not remarkable. The adjacent pelvis is normal. There are bilateral surgical clips in the true pelvis. The SI joints and pubic symphysis are unremarkable. XR/XR hip RT 2-3V wo/w pel* [id number] Impression: Negative right hip and pelvis. Tonnis classification: grade 0: normal radiographs of the right hip. Dictated By: Lauren Zamarripa MD Signed By: Lauren Zamarripa MD Signed Date/Time: 03/16/211403 DD/ 01 Discharge Plan Discharge Patient Disposition: Home Clinical Impression: Radiculopathy Qualifiers: Spinal region: lumbosacral Qualified Code(s): M54.17 - Radiculopathy, lumbosacral region Condition: Stable Prescriptions: New prednisone 20 mg tablet 20 mg PO DAILY Qty: 7 RF: 0 tramadol 50 mg tablet 50 mg PO TID PRN (Reason: pain) Qty: 7 RF: 0 No Action potassium chloride 10 mEq tablet extended release See Rx Instructions .ROUTE .COMPLEX Qty: 30 RF: 5 diclofenac sodium 75 mg tablet,delayed release (DR/EC) 75 mg PO BID PRN (Reason: pain) Qty: 60 RF: 5 albuterol sulfate [ProAir HFA] 90 mcg/actuation HFA aerosol inhaler 2 puff inhalation Q6H PRN (Reason: shortness of breath or wheezing) Qty: 8.5 RF: 5 Dialyvite Vitamin D3 Max 1,250 mcg (50,000 unit) tablet 50,000 unit PO Q7D Qty: 4 RF: 5 pregabalin 150 mg capsule 150 mg PO BID Qty: 60 RF: 0 calcium carbonate-vitamin D3 600 mg(1,500mg) -400 unit Tablet 1 tab PO DAILY Qty: 30 RF: 3 Discharge Orders: Discharge ED (Routine); Ordered 03/16/21 Ordered By: Nabeel Hernandez Referrals: Kirstin Torres FNP [Primary Care Provider] - Discharge Diet: Usual diet Discharge Activity: Increase activity as tolerated Patient Instructions: Sciatica (ED), Lower Back Exercises (ED) Activity Restrictions/Additional Instructions: Follow-up with medical provider as directed. Take medications as prescribed. Return to the ER or your medical provider if condition worsens. Please read and understand discharge instructions. If any questions ask please. Coding Level of Care Code ED Financial Services Representative for Chg Fwd Exam Detailed Documented by User: DOUG Ambriz 03/16/21 18:45 HPI - Extremity Problem General: Chief complaint: Extremity Injury, Lower Stated complaint: RLE PROBLEM: DIFF WALKING Time Seen by Provider: 03/16/21 16:07 PFSH ED PFSH: Medical History Burn of left forearm Cervical cancer Colon cancer screening declined Compression fracture COPD (chronic obstructive pulmonary disease) Dyskinesia, tardive Hepatitis C Lumbar pain with radiation down both legs Screening mammography declined Smoker Vitamin D deficiency Surgical History H/O fasciotomy Septic forearm Hx of cholecystectomy Hx of hysterectomy Hx of tonsillectomy Family History Family/Other Diabetes Hypertension Social History Smoking and tobacco status: current every day smoker cigarettes Packs smoked per day: 1 Years cigarettes smoked: 37 Second hand smoke exposure: Yes Alcohol intake: never Lives independently: Yes Household members: family Housing: House Marital status: / Current occupational status: unemployed History of recent travel: No Current gender identity: Female Course Vital Signs: Vital signs: Vital Signs Temperature 96.9 F L 03/16/21 11:52 Pulse Rate 76 03/16/21 16:19 Respiratory Rate 16 03/16/21 16:19 Blood Pressure 100/65 03/16/21 16:19 Pulse Oximetry 97 03/16/21 16:19 MDM - Extremity (Nontraumatic) MDM Narrative: Medical decision making narrative: Patient report received from ANANTH Scott. Patient is feeling much better with the injection. I did discuss radiculopathy sciatica with the patient which she has been seen before by Dr. Angulo of local orthopedic back surgeon. Patient states she will follow up with him her primary care provider. Patient is given steroids and pain medication to help with discomfort. Patient encouraged to return here if worsening symptoms or further problems. Discharge Plan Discharge Patient Disposition: Home Clinical Impression: Radiculopathy Qualifiers: Spinal region: lumbosacral Qualified Code(s): M54.17 - Radiculopathy, lumbosacral region Condition: Stable Prescriptions: New prednisone 20 mg tablet 20 mg PO DAILY Qty: 7 RF: 0 tramadol 50 mg tablet 50 mg PO TID PRN (Reason: pain) Qty: 7 RF: 0 No Action potassium chloride 10 mEq tablet extended release See Rx Instructions .ROUTE .COMPLEX Qty: 30 RF: 5 diclofenac sodium 75 mg tablet,delayed release (DR/EC) 75 mg PO BID PRN (Reason: pain) Qty: 60 RF: 5 albuterol sulfate [ProAir HFA] 90 mcg/actuation HFA aerosol inhaler 2 puff inhalation Q6H PRN (Reason: shortness of breath or wheezing) Qty: 8.5 RF: 5 Dialyvite Vitamin D3 Max 1,250 mcg (50,000 unit) tablet 50,000 unit PO Q7D Qty: 4 RF: 5 pregabalin 150 mg capsule 150 mg PO BID Qty: 60 RF: 0 calcium carbonate-vitamin D3 600 mg(1,500mg) -400 unit Tablet 1 tab PO DAILY Qty: 30 RF: 3 Discharge Orders: Discharge ED (Routine); Ordered 03/16/21 Ordered By: Nabeel Hernandez Referrals: Kirstin Torres FNP [Primary Care Provider] - Discharge Diet: Usual diet Discharge Activity: Increase activity as tolerated Patient Instructions: Sciatica (ED), Lower Back Exercises (ED) Activity Restrictions/Additional Instructions: Follow-up with medical provider as directed. Take medications as prescribed. Return to the ER or your medical provider if condition worsens. Please read and understand discharge instructions. If any questions ask please. Coding Level of Care Code ED Financial Services Representative for Chg Fwd Exam Detailed Documented by User: Dany Ortiz DO 03/17/21 10:09 HPI - Extremity Problem General: Chief complaint: Extremity Injury, Lower Stated complaint: RLE PROBLEM: DIFF WALKING Time Seen by Provider: 03/16/21 16:07 PFSH ED PFSH: Medical History Burn of left forearm Cervical cancer Colon cancer screening declined Compression fracture COPD (chronic obstructive pulmonary disease) Dyskinesia, tardive Hepatitis C Lumbar pain with radiation down both legs Screening mammography declined Smoker Vitamin D deficiency Surgical History H/O fasciotomy Septic forearm Hx of cholecystectomy Hx of hysterectomy Hx of tonsillectomy Family History Family/Other Diabetes Hypertension Social History Smoking and tobacco status: current every day smoker cigarettes Packs smoked per day: 1 Years cigarettes smoked: 37 Second hand smoke exposure: Yes Alcohol intake: never Lives independently: Yes Household members: family Housing: House Marital status: / Current occupational status: unemployed History of recent travel: No Current gender identity: Female Course Vital Signs: Vital signs: Vital Signs Temperature 96.9 F L 03/16/21 11:52 Pulse Rate 76 03/16/21 16:19 Respiratory Rate 16 03/16/21 16:19 Blood Pressure 100/65 03/16/21 16:19 Pulse Oximetry 97 03/16/21 16:19 MDM - Extremity (Nontraumatic) MDM Narrative: Medical decision making narrative: Chart reviewed and patient discussed with midlevel. Agree with assessment and plan. Discharge Plan Discharge Patient Disposition: Home Clinical Impression: Radiculopathy Qualifiers: Spinal region: lumbosacral Qualified Code(s): M54.17 - Radiculopathy, lumbosacral region Condition: Stable Prescriptions: New prednisone 20 mg tablet 20 mg PO DAILY Qty: 7 RF: 0 tramadol 50 mg tablet 50 mg PO TID PRN (Reason: pain) Qty: 7 RF: 0 No Action potassium chloride 10 mEq tablet extended release See Rx Instructions .ROUTE .COMPLEX Qty: 30 RF: 5 diclofenac sodium 75 mg tablet,delayed release (DR/EC) 75 mg PO BID PRN (Reason: pain) Qty: 60 RF: 5 albuterol sulfate [ProAir HFA] 90 mcg/actuation HFA aerosol inhaler 2 puff inhalation Q6H PRN (Reason: shortness of breath or wheezing) Qty: 8.5 RF: 5 Dialyvite Vitamin D3 Max 1,250 mcg (50,000 unit) tablet 50,000 unit PO Q7D Qty: 4 RF: 5 pregabalin 150 mg capsule 150 mg PO BID Qty: 60 RF: 0 calcium carbonate-vitamin D3 600 mg(1,500mg) -400 unit Tablet 1 tab PO DAILY Qty: 30 RF: 3 Discharge Orders: Discharge ED (Routine); Ordered 03/16/21 Ordered By: Nabeel Hernandez Referrals: Kirstin Torres FNP [Primary Care Provider] - Discharge Diet: Usual diet Discharge Activity: Increase activity as tolerated Patient Instructions: Sciatica (ED), Lower Back Exercises (ED) Activity Restrictions/Additional Instructions: Follow-up with medical provider as directed. Take medications as prescribed. Return to the ER or your medical provider if condition worsens. Please read and understand discharge instructions. If any questions ask please. Coding Level of Care Code ED Financial Services Representative for g Fwd Exam Detailed
[2021-03-16 16:19] VITALS: BP 100/65; PULSE 76; RESP 16; O2SAT 97
[2021-03-16] MEDS: ketorolac 30 mg/mL INJ IM (16:52)
[2021-03-16] MEDS: orphenadrine 30 mg/mL Inj 2 mL 60 MG IM (16:52)
[2021-03-16] MEDS: morphine 4 mg/mL SDV 1 mL IM (16:52)
== END 2021-03-16 17:40 | disposition home or self-care (01) ==
PROVIDERS: Emergency Provider Nurse Practitioner Family; PCP Nurse Practitioner Family
DX: M54.17 Radiculopathy, lumbosacral region (principal); M25.551 Pain in right hip; J44.9 Chronic obstructive pulmonary disease, unspecified; B19.20 Unspecified viral hepatitis C without hepatic coma; F17.210 Nicotine dependence, cigarettes, uncomplicated
CPT/HCPCS: 73502; 96372; 99283; J1885; J2270; J2360

== ENCOUNTER → 2021-04-07 14:11 | Outpatient (BNVA) | payer MEDICARE, MEDICAID, SELFPAY | PROVIDERS: PCP Nurse Practitioner Family; Visit Provider Orthopaedic Surgery | DX: M48.56XA Collapsed vertebra, not elsewhere classified, lumbar region, initial encounter for fracture (principal) | CPT/HCPCS: 72110 ==

== ENCOUNTER 2021-05-23 15:27 | Outpatient (CLI) | payer MEDICARE, MEDICAID, SELFPAY ==
--- NOTE | 2021-05-23 15:15 | MR_ITS ---
WS: [id number] MRI LUMBAR SPINE NONCONTRAST TECHNIQUE: Sagittal T1, T2 and STIR imaging. Axial T1 and T2 imaging. CLINICAL INFORMATION: LBP COMPARISON: None. FINDINGS: Minimal lumbar curve. Chronic compression fractures of the L1 and L2 vertebral bodies unchanged since March 23, 2020. Mild retropulsion posterior superior endplate L1. No high-grade central canal ahsan nosis. Partial ankylosis of the L4-5 and L5-S1 disc space. T12-L1: Mild disc bulging with osteophytic ridging. Slight effacement of ventral thecal sac. Mild rcih ateral foraminal narrowing. L1-L2: Mild disc osteophytic ridging. Slight narrowing of the right subarticular recess. Mild right a nd no significant left foraminal narrowing. Mild facet arthropathy. L2-L3: Slight narrowing of the left subarticular recess. Small left foraminal protrusion with mild le ft foraminal narrowing. Right foramen is patent. Spinal canal is patent. L3-L4: Minimal annular bulging. Slight narrowing of the left subarticular recess. Mild left and no si gnificant right foraminal narrowing. Moderate facet arthropathy. Spinal canal is patent. L4-L5: Bony ankylosis L4-5 disc space. Mild right greater than left bony foraminal narrowing. Spinal canal is patent. Moderate facet arthropathy. L5-S1: Disc osteophytic ridging. Mild right greater than left bony foraminal narrowing. Spinal canal is patent. Moderate facet arthropathy. Large left renal cyst measuring 6.5 x 5.3CM. Smaller right renal cyst. Aneurysmal infrarenal abdomina l aorta measuring 2.6 x 2.6 cm. MR/MR lumbar spine wo con* [id number] IMPRESSION: 1. Mild lumbar curve. No acute compression fractures. 2. Stable chronic compression of the L1 and L2 vertebral bodies unchanged. Sta ble slight compression superior endplate L3. 3. Mild retropulsion posterior superior endplate L1 with slight effacement of ventral thecal sac. This is unchanged. 4. Small left foraminal protrusion L2-3 slightly encroaches on the exiting lef t L2 nerve root. This is more prominent compared to previous 5. Mild narrowing of the left L2-L3 and left L3-L4 subarticular recess. 6. Ankylosis of the L4-L5 and L5-S1 disc spaces with mild right greater than l eft L4-L5 and L5-S1 bony foraminal narrowing.
== END 2021-05-23 15:28 | disposition home or self-care (01) ==
PROVIDERS: PCP Nurse Practitioner Family; Visit Provider Orthopaedic Surgery
DX: M43.26 Fusion of spine, lumbar region (principal); M43.27 Fusion of spine, lumbosacral region; M51.26 Other intervertebral disc displacement, lumbar region
CPT/HCPCS: 72148

== ENCOUNTER 2021-11-08 21:58 | Emergency (ER) | payer MEDICARE, MEDICAID, SELFPAY ==
[2021-11-08 22:25] VITALS: BMI 24.9
--- NOTE | 2021-11-08 22:45 | W.ED.BACK ---
HPI - Back Pain/Injury General: Chief Complaint: Back Pain/Injury Stated Complaint: back pain Time Seen by Provider: 11/08/21 22:45 History of Present Illness: Patient reports for 1 week she has had worsening low back pain. Patient denies any falls. Patient reports a week ago she had helped her son move a flatscreen TV. Patient does have a history of lumbar compression fractures. I reviewed the MRI from May 2021 and noted some facet arthropathy, bulging disc, and stable compression fractures. Patient has been using some Aleve with minimal relief of pain. Patient reports worsening pain which is prompted her to come to the ER tonight. Patient denies any loss of bowel or bladder control. Associated symptoms: Deny fever(s) Review of Systems General: Reports: 10 or more systems reviewed and unremarkable except in HPI and below Const: Denies: fever(s) Card: Denies: chest pain Resp: Denies: dyspnea Musc: Reports: back pain PFSH ED PFSH: Medical History Burn of left forearm Cervical cancer Colon cancer screening declined Compression fracture COPD (chronic obstructive pulmonary disease) Dyskinesia, tardive Hepatitis C Lumbar pain with radiation down both legs Screening mammography declined Smoker Vitamin D deficiency Surgical History H/O fasciotomy Septic forearm Hx of cholecystectomy Hx of hysterectomy Hx of tonsillectomy Family History Family/Other Diabetes Hypertension Social History Smoking and tobacco status: current every day smoker (1 pack per day ) cigarettes Packs smoked per day: 1 Years cigarettes smoked: 37 Second hand smoke exposure: Yes Alcohol intake: never Lives independently: Yes Household members: family Housing: House Marital status: / Current occupational status: unemployed History of recent travel: No Current gender identity: Female Physical Exam Const: COMMON NORMALS: alert HENMT: COMMON NORMALS: normocephalic HEAD & SCALP: normocephalic Neck/C-Spine: COMMON NORMALS: full ROM Resp: COMMON NORMALS: normal respiratory effort Cardio: COMMON NORMALS: regular rate RATE: regular rate Back/Pelvis: LUMBAR SPINE/LOWER BACK: Yes lumbar spinal tenderness and Yes paraspinal muscle tenderness Extremity: NARRATIVE EXTREMITY EXAM: Positive leg lift test right side at 45 degrees. Neuro: SENSORIUM/ORIENTATION: Yes alert Skin: COMMON NORMALS: no rashes or lesions noted GENERAL SKIN EXAM: no rashes or lesions noted MDM - Back Pain/Injury Medical Decision Making 61-year-old female patient comes in today for complaints of increasing low back pain. Patient has a history of compression fractures. On exam patient had some spinal tenderness on palpation of the lumbar spine and of the paraspinous muscles of the lumbar spine. Leg dip test was positive on the right side at 45 degrees. Distal pulses and sensation were intact. Vital signs were normal. Differential diagnosis includes facet arthropathy, intervertebral disc disease, compression fracture, lumbar strain. X-ray notes a compression fracture of the L1 there seems to be further reduction in disc height suggesting progression of the compression fracture or healing process. This will be reviewed by radiology and confirmed. Patient was written a prescription for some hydrocodone for pain and refill for her diclofenac. Recommended patient follow-up with primary care for further instruction. Return to ER for new concerns. Patient at this time had no signs of cauda equina syndrome and was able to urinate and defecate without difficulty. Discharge Plan Discharge Patient Disposition: Home Clinical Impression: Lumbar back pain Compression fx, lumbar spine Qualifiers: Encounter type: initial encounter Lumbar vertebra fracture level: unspecified lumbar vertebra Qualified Code(s): S32.000A - Wedge compression fracture of unspecified lumbar vertebra, initial encounter for closed fracture Condition: Stable Prescriptions: Continued diclofenac sodium 75 mg tablet,delayed release (DR/EC) 75 mg PO BID PRN (Reason: pain) Qty: 60 0RF Changed hydrocodone-acetaminophen 5-325 mg tablet 1 tab PO QID PRN (Reason: pain) 5 Days Qty: 14 0RF No Action potassium chloride 10 mEq tablet extended release See Rx Instructions .ROUTE .COMPLEX Qty: 30 5RF Dose Instruction: TAKE ONE TABLET BY MOUTH EVERY DAY. Rx Instructions: TAKE ONE TABLET BY MOUTH EVERY DAY. Dialyvite Vitamin D3 Max 1,250 mcg (50,000 unit) tablet 50,000 unit PO Q7D Qty: 4 5RF Rx Instructions: pt states she takes on sat (DME) [facility] [place], [place] See Rx Instructions .Route .MEDSUPPLY Qty: 1 0RF Rx Instructions: Evaluate and treat as appropriate. albuterol sulfate 90 mcg/actuation HFA aerosol inhaler See Rx Instructions .ROUTE .COMPLEX Qty: 8.5 5RF Dose Instruction: INHALE TWO PUFFS BY MOUTH EVERY 6 HOURS NEEDED SHORTNESS OF BREATH OR FOR WHEEZING. Rx Instructions: INHALE TWO PUFFS BY MOUTH EVERY 6 HOURS NEEDED SHORTNESS OF BREATH OR FOR WHEEZING. pregabalin 150 mg capsule 150 mg PO BID Qty: 60 1RF calcium carbonate-vitamin D3 600 mg(1,500mg) -400 unit Tablet 1 tab PO DAILY Qty: 30 3RF prednisone 20 mg tablet 20 mg PO DAILY Qty: 7 0RF tramadol 50 mg tablet 50 mg PO TID PRN (Reason: pain) Qty: 7 0RF Discharge Orders: Discharge ED (Routine); Ordered 11/08/21 Ordered By: Tone Nicholson Referrals: Kirstin Torres FNP [Primary Care Provider] - Discharge Diet: Usual diet Discharge Activity: Increase activity as tolerated Patient Instructions: Back Pain (ED) Activity Restrictions/Additional Instructions: Use medication as directed. Use acetaminophen along with prescription medication for control of pain. Drink plenty of water with medication. Do not use naproxen or ibuprofen with diclofenac. Use hydrocodone for severe pain. Follow-up with primary care for further instructions. Return to ER for new concerns. Coding Level of Care Code ED Ultimate Hoops Trainer for [place] Fwd Exam Detailed
--- NOTE | 2021-11-08 22:46 | XRR_ITS ---
PROCEDURE INFORMATION: Exam: XR Lumbosacral Spine Exam date and time: 11/08/2021 10:59 PM Age: 61 years old Clinical indication: Low back pain TECHNIQUE: Imaging protocol: Radiologic exam of the lumbosacral spine. Views: 2 or 3 views. COMPARISON: 1. CR XR hip RT 2-3V wo/w pel* [id number] 03/16/2021 1:45 PM 2. CR XR lumbar spine min 4V [id number] 04/07/2021 2:19 PM FINDINGS: Bones/joints: There is chronic appearing fusion of L4 through S1, possibly congenital. There is severe compression deformity of L1 and of the superior endplate of L2 not significantly changed compared with CT scan 08/10/2020 or 04/07/2021 plain radiographs. No acute fracture is identified. There is a right hip replacement new compared with 03/16/2021 Soft tissues: Unremarkable. XR/XR lumbar spine 2-3V* [id number] IMPRESSION: 1. Chronic compression fractures of L1 and L2. 2. No acute fracture.
[2021-11-08] MEDS: HYDROcodone-acetaminophen 5-325 mg Tablet 1 TAB PO (23:06)
== END 2021-11-09 00:11 | disposition home or self-care (01) ==
PROVIDERS: Emergency Provider Nurse Practitioner Family; PCP Nurse Practitioner Family
DX: M48.56XA Collapsed vertebra, not elsewhere classified, lumbar region, initial encounter for fracture (principal)
CPT/HCPCS: 72100; 99285

== ENCOUNTER 2021-12-27 08:59 | Inpatient (IN) | payer MEDICARE, MEDICAID, SELFPAY ==
[2021-12-27] VITALS (108 sets, daily range): BP systolic 78–136; BP diastolic 49–93; PULSE 79–119; RESP 12–29; TEMP 37.1; O2SAT 77–100; BMI 23.9; BMI 26.8
--- NOTE | 2021-12-27 09:01 | ED_ITS ---
HPI - Back Pain/Injury General: Chief Complaint: Fall Stated Complaint: FALL/ BACK PAIN Time Seen by Provider: 12/27/21 09:00 Source: patient Mode of arrival: ambulatory Limitations: no limitations History of Present Illness: 61-year-old female presents emergency room 2 days after falling she tripped and fell at home with mechanical fall ground-level is complaining of low back pain this morning she was attempting to get out of bed and fell again on arrival here however she is hypoxic with room air O2 sat of 82% and hypotensive in the low 80s verified by manual. She denies any chest or abdominal pain denies any dysuria urgency or frequency her only complaint is the back pain. She denies vomiting or diarrhea no recent cough or shortness of breath no fever sweats or chills. MD elicited complaint: back pain [facility] ED PFSH: Medical History (Updated 12/27/21 @ 13:39 by Dany Ortiz DO) Borderline hyperlipidemia Burn of left forearm Cervical cancer Colon cancer screening declined Compression fracture COPD (chronic obstructive pulmonary disease) Dyskinesia, tardive Hepatitis C Reports this has previously been treated Lumbar pain with radiation down both legs Screening mammography declined Smoker Tobacco dependency Vitamin D deficiency Surgical History H/O fasciotomy Septic forearm History of right hip replacement Hx of cholecystectomy Hx of hysterectomy History of cervical CA Hx of tonsillectomy Family History Family/Other Diabetes Hypertension Social History Smoking and tobacco status: current every day smoker (1 pack per day ) cigarettes Packs smoked per day: 1 Years cigarettes smoked: 37 Second hand smoke exposure: Yes Alcohol intake: never Lives independently: Yes Household members: family Housing: House Marital status: / Current occupational status: unemployed History of recent travel: No Current gender identity: Female Course Vital Signs: Vital signs: Vital Signs Pulse Rate 106 H 12/27/21 13:30 Respiratory Rate 17 12/27/21 13:30 Blood Pressure 83/50 12/27/21 13:30 Pulse Oximetry 92 12/27/21 13:30 Oxygen Delivery Me thod 12/27/21 11:06 Oxygen Flow Rate 3 12/27/21 11:06 MDM - Back Pain/Injury Medical Decision Making She has multiple compression fractures in her back including a fracture through the fusion. Additionally she has hematuria acute kidney injury and pneumonia and anemia which is new. Discussed with hospitalist also consulted Dr. Cortes who will see the patient on the floor. Orders are written Dr. De Oliveira has reviewed the labs and x-ray along with me including the CTs. Medical Records I reviewed the patient's medical records. Labs I reviewed the patient's lab results. : 12/27/21 09:33 12/27/21 12:48 Radiology Impressions Chest X-Ray 12/27/21 09:15 IMPRESSION: Interstitial pulmonary edema with patchy bibasilar airspace opacities, which may reflect atelectasis versus pneumonia. Lumbar Spine X-Ray 12/27/21 09:16 IMPRESSION: 1. There is a new compression fracture involving the superior endplate of L4, new from 11/08/2021. There is up to 25% height loss and likely minimal bony retropulsion. 2. Some sclerosis along the inferior endplate of L3 could reflect a nondisplaced compression fracture. Abdomen/Pelvis CT 12/27/21 10:36 IMPRESSION: 1. Distraction fracture through the L4-L5 disc space eccentric to the LEFT with mild disc space widening. This extends to involve the LEFT L4 and L5 pedicles. Comminuted fractures involving the superior L4-L5 endplates. 2. Additional acute appearing compression deformities at T12 with mild compression superior endplate and moderate compression L3 inferior endplate. Mild retropulsion of the posterior inferior cortex L3 with mild to moderate central canal stenosis eccentric to the LEFT. 3. Chronic compression deformities L1 and L2 appear unchanged. 4. Heterogeneous attenuation with some calcification in the prominent RIGHT extrarenal pelvis is nonspecific but TCC not excluded. Recommend further evaluation with ureteroscopy. 5. Extensive postoperative changes lymph node dissection bilateral retroperitoneum, iliac chains, and pelvis. 6. Prior hysterectomy 7. Osteopenia 8. Trace bilateral pleural fluid with bibasilar infiltrates compatible with pneumonia. Interstitial edema in the lung bases. Notified Dany Ortiz DO at 12/27/2021 12:45 PM. Laboratory Results WBC 12.6 10^3/uL (4.0-10.0) H 12/27/21 09:33 RBC 3.80 10^6/uL (4.1-5.3) L 12/27/21 09:33 Hgb 10.5 g/dL (11.5-15.3) L 12/27/21 09:33 Hct 32.4 % (37.0-47.0) L 12/27/21 09:33 MCV 85.3 fl (81-99) 12/27/21 09:33 MCH 27.6 pg (28.0-34.0) L 12/27/21 09:33 MCHC 32.4 g/dL (30.0-36.0) 12/27/21 09:33 RDW 18.0 % (12.1-15.1) H 12/27/21 09:33 Plt Count 232 10^3/cmm (130-400) 12/27/21 09:33 MPV 11.5 fL (7.4-10.4) H 12/27/21 09:33 Neut % (Auto) 85.4 % 12/27/21 09: Lymph % (Auto) 4.5 % 12/27/21 09:33 [place] % (Auto) 7.1 % 12/27/21 09:33 Eos % (Auto) 0.5 % 12/27/21 09:33 Baso % (Auto) 0.6 % 12/27/21 09:33 Neut # (Auto) 10.78 10^3/uL (1.8-7.7) H 12/27/21 09:33 Lymph # (Auto) 0.6 10^3/uL (0.8-4.8) L 12/27/21 09:33 [place] # (Auto) 0.9 10^3/uL (0.2-0.9) 12/27/21 09:33 Eos # (Auto) 0.1 10^3/uL (0.0-0.8) 12/27/21 09:33 Baso # (Auto) 0.1 10^3/uL (0.0-0.1) 12/27/21 09:33 Nucleated RBC % (auto) 0 % 12/27/21 09:33 Nucleated RBCs # 0.0 /100WBC 12/27/21 09:33 Haptoglobin 306.0 mg/L (30-200) H 12/27/21 09:33 PT 20.70 SECONDS (12.1-14.9) H 12/27/21 09:33 INR 1.74 (0.8-1.2) H 12/27/21 09:33 Specimen Type Arterial 12/27/21 09:19 Sample Site Radial, left 12/27/21 09:19 ABG pH 7.33 (7.35-7.45) L 12/27/21 09:19 ABG pCO2 33.9 mmHg (35-45) L 12/27/21 09:19 ABG pO2 68.8 mmHg (80.0-100.0) L 12/27/21 09:19 ABG HCO3 17.8 mmol/L (22-26) L 12/27/21 09:19 ABG O2 Saturation 94.5 12/27/21 09:19 ABG Base Excess -7.4 mmol/L (-2.0-2.0) L 12/27/21 09:19 [place]rado Test Pos 12/27/21 09:19 A-a O2 Gradient 5.0 mmHg (5-10) 12/27/21 09:19 Hematocrit 30.7 % (37-47) L 12/27/21 09:19 Hgb O2 Saturation 91.5 % (95-100) L 12/27/21 09:19 Carboxyhemoglobin 2.5 %THgb (0.4-20.1) 12/27/21 09:19 Methemoglobin 0.7 % (0.4-1.5) 12/27/21 09:19 Total Hemoglobin 10.0 g/dL (12-16) L 12/27/21 09:19 Sodium 139.0 mmol/L (131-143) 12/27/21 09:19 Potassium 3.8 mmol/L (3.5-5.0) 12/27/21 09:19 Glucose 83.0 mg/dL (70-115) 12/27/21 09:19 Ionized Calcium 1.2 mmol/L (1.1-1.4) 12/27/21 09:19 O2 Delivery Device Nc 12/27/21 09:19 O2 Liters/Min 2.0 % 12/27/21 09:19 Solar Crew Member ID Cak 12/27/21 09:19 Sodium 137 mmol/L (136-145) 12/27/21 12:48 Potassium 4.0 mmol/L (3.5-5.1) 12/27/21 12:48 Chloride 107 mmol/L (98-107) 12/27/21 12:48 Carbon Dioxide 14 mmol/L (22-29) L 12/27/21 12:48 Anion Gap 20.0 (5-19) H 12/27/21 12:48 BUN 40 mg/dL (8-23) H 12/27/21 12:48 Creatinine 2.6 mg/dL (0.5-0.9) H 12/27/21 12:48 GFR Calculation 18.7 mL/min (90-130) L 12/27/21 12:48 Glucose 54 mg/dL (65-115) L 12/27/21 12:48 Calculated Osmolality 291 mOsm/kg (285-295) 12/27/21 12:48 Lactic Acid 2.0 mmol/L (0.5-2.2) 12/27/21 09:33 Calcium 7.2 mg/dL (8.5-10.5) L 12/27/21 12:48 Phosphorus 3.6 mg/dL (2.5-4.5) 12/27/21 09:33 Magnesium 2.0 mg/dL (1.7-2.3) 12/27/21 09:33 Iron 11 ug/dL (37-145) L 12/27/21 09:33 TIBC 181 mcg/dl 12/27/21 09:33 % Saturation 6.0 % (20-50) L 12/27/21 09:33 Unsat Iron Binding 170 ug/dL (112-347) 12/27/21 09:33 Ferritin 703 ng/mL (15-150) H 12/27/21 09:33 Total Bilirubin 1.9 mg/dL (0.15-1.2) H 12/27/21 09:33 AST 24 U/L (0-32) 12/27/21 09:33 ALT 18 U/L (0-33) 12/27/21 09:33 Alkaline Phosphatase 402 U/L (35-105) H 12/27/21 09:33 Creatine Kinase 212 U/L (26-192) H 12/27/21 09:33 Troponin T Baseline 32 ng/L (0-10) H 12/27/21 09:33 Troponin T 120 Minute 24.37 ng/L (0-10) H 12/27/21 11:43 Delta Troponin T -7.63 ABS# (0-10) L 12/27/21 11:43 NT-Pro-B Natriuret Pep 3312 pg/mL (0-125) H 12/27/21 09:33 Total Protein 7.0 g/dL (6.6-8.7) 12/27/21 09:33 Albumin 3.2 g/dL (3.5-5.2) L 12/27/21 09:33 Globulin 3.8 g/dL (1.3-4.6) 12/27/21 09:33 Vitamin B12 1376 pg/mL (232-1245) H 12/27/21 09:33 Folate 4.8 ng/mL (4.8-37.3) 12/27/21 09:33 TSH 0.88 uIU/mL (0.27-4.20) 12/27/21 09:33 Random Cortisol 20.01 ug/dL (2.47-19.5) H 12/27/21 11:43 Urine Color Alana (Yellow) 12/27/21 10:02 Urine Appearance Cloudy (CLEAR) A 12/27/21 10:02 Urine pH 5 (5-7) 12/27/21 10:02 Ur Specific [place] 1.020 (1.005-1.030) 12/27/21 10:02 Urine Protein 1+ (Negative) H 12/27/21 10:02 Urine Glucose (UA) Norm (Normal) 12/27/21 10:02 Urine Ketones 1+ (Negative) H 12/27/21 10:02 Urine Blood 3+ (Negative) H 12/27/21 10:02 Urine Nitrate Negative (Negative) 12/27/21 10:02 Urine Bilirubin 1+ (Negative) H 12/27/21 10:02 Urine Urobilinogen 1 mg/dL (Negative) H 12/27/21 10:02 Ur Leukocyte Esterase 1+ (Negative) H 12/27/21 10:02 Urine RBC Too numerous to cnt /hpf (0-2) H 12/27/21 10:02 Urine WBC 0-4 /hpf (0-5) H 12/27/21 10:02 Ur Squamous Epith Cells 0-4 /hpf (0-5) H 12/27/21 10:02 Amorphous Sediment 2+ /hpf 12/27/21 10:02 Urine Bacteria None /hpf (NONE) 12/27/21 10:02 Coronavirus 229E (PCR) Not detected (NOT DETECT) 12/27/21 10:41 SARS-CoV-2 (PCR) Not detected (NOT DETECT) 12/27/21 10:41 Discharge Plan Discharge Patient Disposition: Admitted As Inpatient Clinical Impression: Pneumonia, Lumbar compression fracture, COPD (chronic obstructive pulmonary disease), Bilateral renal cysts, Anemia, Acute kidney injury Condition: Stable Coding Level of Care Code ED Staff Air Defense Officer for Philly Arriaza
--- NOTE | 2021-12-27 09:15 | XRR_ITS ---
PROCEDURE INFORMATION: Exam: XR Chest Exam date and time: 12/27/2021 9:37 AM Age: 61 years old Clinical indication: Cough and dyspnea; Additional info: Dyspnea/cough TECHNIQUE: Imaging protocol: Radiologic exam of the chest. Views: 1 view. COMPARISON: CR Ribs RIGHT w PA Chest [id number] 01/24/2019 6:28 PM FINDINGS: Lungs: Interstitial pulmonary edema. Patchy bibasilar airspace opacities. Pleural spaces: Unremarkable. No pleural effusion. No pneumothorax. Heart/Mediastinum: Unremarkable. No cardiomegaly. Bones/joints: Unremarkable. XR/XR chest 1V portable [id number] IMPRESSION: Interstitial pulmonary edema with patchy bibasilar airspace opacities, which may reflect atelectasis versus pneumonia.
--- NOTE | 2021-12-27 09:16 | XRR_ITS ---
PROCEDURE INFORMATION: Exam: XR Lumbosacral Spine Exam date and time: 12/27/2021 9:19 AM Age: 61 years old Clinical indication: Low back pain TECHNIQUE: Imaging protocol: Radiologic exam of the lumbosacral spine. Views: 2 or 3 views. COMPARISON: CR XR lumbar spine 2-3V* [id number] 11/08/2021 10:59 PM FINDINGS: Bones/joints: There is a new compression fracture involving the superior endplate of L4, new from 11/08/2021. There is up to 25% height loss and likely minimal bony retropulsion. Some sclerosis along the inferior endplate of L3 could reflect a nondisplaced compression fracture. Similar appearance of remote L1 and L2 compression fractures. Osteopenia. Mild to moderate degenerative changes throughout the lumbar spine. There again appears to be fusion of L4 through S1. Soft tissues: Surgical clips project over the pelvis. Intraperitoneal space: Cholecystectomy clips. XR/XR lumbar spine 2-3V* [id number] IMPRESSION: 1. There is a new compression fracture involving the superior endplate of L4, new from 11/08/2021. There is up to 25% height loss and likely minimal bony retropulsion. 2. Some sclerosis along the inferior endplate of L3 could reflect a nondisplaced compression fracture.
--- NOTE | 2021-12-27 09:22 | ECG_ITS ---
[facility] Test Date: 2021-12-27 Pat Name: Italia Wallace Department: Room: Gender: Female Med Surg Rn: : 1960 Requested By: Dany Veronica Order Number: [id number] Rommel MD: Bret Carrillo M.D. Measurements Intervals [place] Rate: 104 P: 45 VA: 144 QRS: 14 QRSD: 98 T: 34 QT: 336 QTc: 443 Interpretive Statements SINUS TACHYCARDIA LOW QRS VOLTAGE IN PRECORDIAL LEADS [QRS DEFLECTION < 1.0 mV IN CHEST LEADS] ABNORMAL RHYTHM ECG Compared to ECG 02/16/2016 00:12:36 No significant changes Electronically Signed On 12-27-2021 17:50:13 CDT by Bret Carrillo M.D. [id number]
[2021-12-27] MEDS: sodium chloride 0.9% 1,000 ML 999 ML IV (09:26)
[2021-12-27 09:31] LABS: ABG PCO2 33.9 mmHg (35-45); ABG PH Result 7.33 (7.35-7.45); Arterial Blood Gas Hematocrit 30.7 % (37-47); Base Excess ABG -7.4 mmol/L (-2.0-2.0); Blood Gas Allen Test Pos; Blood Gas Operator Identificat CAK; Blood Gas Sample Site Radial, left; Blood Gas Sample Type Arterial; Carboxyhemoglobin 2.5 %THgb (0.4-20.1); HCO3 ABG 17.8 mmol/L (22-26); HGB O2 Sat 91.5 % (95-100); Ionized Calcium Level - ABG 1.2 mmol/L (1.1-1.4); Methemoglobin 0.7 % (0.4-1.5); Oxygen Device NC; Oxygen Saturation ABG 94.5; PO2 ABG 68.8 mmHg (80.0-100.0); Potassium Level - ABG 3.8 mmol/L (3.5-5.0)
[2021-12-27 09:39] LABS: Basophils # 0.1 10^3/uL (0.0-0.1); Basophils % 0.6 %; Eosinophils # 0.1 10^3/uL (0.0-0.8); Eosinophils % 0.5 %; Hematocrit 32.4 % (37.0-47.0); Hemoglobin 10.5 g/dL (11.5-15.3); Lymphocytes # 0.6 10^3/uL (0.8-4.8); Lymphocytes % 4.5 %; Mean Corpuscular HGB Conc 32.4 g/dL (30.0-36.0); Mean Corpuscular Hemoglobin 27.6 pg (28.0-34.0); Mean Corpuscular Volume 85.3 fl (81-99); Mean Platelet Volume 11.5 fL (7.4-10.4); Monocytes # 0.9 10^3/uL (0.2-0.9); Monocytes % 7.1 %; Neutrophils # 10.78 10^3/uL (1.8-7.7); Neutrophils % 85.4 %; Nucleated Red Blood Cells % 0 %; Platelet Count 232 10^3/cmm (130-400); White Blood Count 12.6 10^3/uL (4.0-10.0)
--- NOTE | 2021-12-27 09:43 | PC.NURSE ---
verbal order from physician to obtain UA via straight cath
[2021-12-27 10:03] LABS: Troponin(5th) Baseline 32 ng/L (0-10)
[2021-12-27 10:10] LABS: Alanine Aminotransferase 18 U/L (0-33); Albumin Level 3.2 g/dL (3.5-5.2); Alkaline Phosphatase 402 U/L (35-105); Anion Gap 22.9 (5-19); Aspartate Amino Transferase 24 U/L (0-32); Blood Urea Nitrogen 46 mg/dL (8-23); Calcium 8.5 mg/dL (8.5-10.5); Carbon Dioxide 20 mmol/L (22-29); Chloride 99 mmol/L (98-107); Creatine Phosphokinase 212 U/L (26-192); Globulin 3.8 g/dL (1.3-4.6); Glomerular Filtration Rate 13.3 mL/min (90-130); Glucose 71 mg/dL (65-115); Osmolality Calculated 296 mOsm/kg (285-295); Potassium 3.9 mmol/L (3.5-5.1); Sodium 138 mmol/L (136-145); Total Bilirubin 1.9 mg/dL (0.15-1.2)
--- NOTE | 2021-12-27 10:22 | PC.PHAR ---
pt states she takes care of her own medications-pt states she is still taking the vitamin d3 64542 units q7d on sun oz last filled 06/2021 28d/s-pt states she has been off of eliquis 2.5mg bid for months ext med history shows last filled 07/29/21 30d/s-pt states she hasnt gotten the tylenol #3 picked up yet [facility] [place] also states not picked up yet -
[2021-12-27 10:28] LABS: Glucose Urine UA Norm (Normal); Ketones Urine 1+ (Negative); Protein Urine 1+ (Negative); Urine Appearance Cloudy (CLEAR); Urine Color Amber (Yellow); pH Urine 5 (5-7)
[2021-12-27 10:29] LABS: Add Urine Microscopic? YES; Bilirubin Urine 1+ (Negative); Blood Urine 3+ (Negative); Leukocyte Esterase Urine 1+ (Negative); Nitrate Urine Negative (Negative); Urobilinogen Urine 1 mg/dL (Negative)
[2021-12-27 10:31] LABS: Slide Review Slide Review Perform
[2021-12-27 10:33] LABS: Amorphous Sediment Urine 2+ /hpf; RBC Urine TOO NUMEROUS TO CNT /hpf (0-2); Squamous Epithelial Cell Urine 0-4 /hpf (0-5); WBC Urine 0-4 /hpf (0-5)
[2021-12-27 10:34] LABS: Add Urine Culture? No
--- NOTE | 2021-12-27 10:36 | CT_ITS ---
WS: [id number] CT ABDOMEN PELVIS TECHNIQUE: Noncontrast CT of the abdomen and pelvis with coronal and sagittal reformatted images. CLINICAL INFORMATION: flank pain COMPARISON: None. DLP: 449.[address] scans at [facility] use at least one of these dose optimization techniques: automated e xposure control; mA and/or kV adjustment per patient size (includes targeted exams where dose is matc hed to clinical indication); or iterative reconstruction. FINDINGS: Distraction fracture through the LEFT L4-L5 fused disc space extends into the LEFT L4 and L5 pedicles with mild widening of the disc space eccentric to the LEFT. Right-sided pedicles appear i ntact. Additional acute appearing endplate fractures involving the superior endplate T12 with minimal loss v ertebral body height. Moderate compression inferior endplate L3 with mild posterior inferior retropul yeyo with mild to moderate central canal stenosis eccentric to the LEFT. Comminuted compression super ior endplate L4 with fracture through the L4-L5 disc space as described above. Chronic compression deformities L1 and L2. Osteopenia. Trace bilateral pleural fluid. Bibasilar atelectasis. Interstitial edema in the lung bases. Mild hepa tomegaly. Noncontrast liver is normal. Cholecystectomy clips. Small esophageal hiatal hernia. Normal spleen. Fatty atrophy the pancreas. Adrenal glands are normal. No hydronephrosis in either kidney. Pr ominent RIGHT extrarenal pelvis with increased attenuation soft tissue nonspecific but can be seen wi th TCC. Recommend ureteroscopy. Retroperitoneal and bilateral iliac chain surgical clips. Pelvic marilyn gical clips. Prior hysterectomy. RIGHT HEATHER degrades images in the pelvis. Bilobed infrarenal abdominal aortic aneurysm. Aneurysm measures 2.8 x 2.7 cm in maximum dimension. Sm aller distal abdominal aneurysm. Urine distended bladder. Sigmoid colon calcification. Sigmoid diverticulosis. No evidence of high-gra de small or large bowel obstruction. Lower pole LEFT renal cyst measuring 5.[address]/CT kidney stone [id number] IMPRESSION: 1. Distraction fracture through the L4-L5 disc space eccentric to the LEFT wit h mild disc space widening. This extends to involve the LEFT L4 and L5 pedicles . Comminuted fractures involving the superior L4-L5 endplates. 2. Additional acute appearing compression deformities at T12 with mild javon yeyo superior endplate and moderate compression L3 inferior endplate. Mild retr opulsion of the posterior inferior cortex L3 with mild to moderate central miguel ángel l stenosis eccentric to the LEFT. 3. Chronic compression deformities L1 and L2 appear unchanged. 4. Heterogeneous attenuation with some calcification in the prominent RIGHT ex trarenal pelvis is nonspecific but TCC not excluded. Recommend further evaluati on with ureteroscopy. 5. Extensive postoperative changes lymph node dissection bilateral retroperito neum, iliac chains, and pelvis. 6. Prior hysterectomy 7. Osteopenia 8. Trace bilateral pleural fluid with bibasilar infiltrates compatible with pn eumonia. Interstitial edema in the lung bases. Notified Dany Ortiz DO at 12/27/2021 12:45 PM.
[2021-12-27 10:38] LABS: NT Pro B Type Natriuretic Pept 3312 pg/mL (0-125)
[2021-12-27] MEDS: fentaNYL 50 mcg/mL INJ 2mL 25 MCG IVP (10:54)
--- NOTE | 2021-12-27 11:04 | PC.NURSE ---
antibiotics pending, waiting for blood cultures to be drawn
--- NOTE | 2021-12-27 11:16 | ECG_ITS ---
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 Measurements Intervals [place] Rate: 97 P: 66 ME: 158 QRS: 69 QRSD: 93 T: 67 QT: 357 QTc: 455 Interpretive Statements SINUS RHYTHM LOW QRS VOLTAGE IN PRECORDIAL LEADS [QRS DEFLECTION < 1.0 mV IN CHEST LEADS] Compared to ECG 12/27/2021 09:22:35 Sinus tachycardia no longer present Electronically Signed On 12-27-2021 17:51:45 CDT by Bret Carrillo M.D. [id number]
[2021-12-27 12:12] LABS: Troponin 5 2HR 24.37 ng/L (0-10)
[2021-12-27 12:14] LABS: Troponin 5 2HR Delta -7.63 ABS# (0-10)
--- NOTE | 2021-12-27 12:33 | P.HP_ITS ---
Providers/Chief Complaint Admitting Physician: Jarrett Trejo MD Primary Care Provider: DOUG Torres Chief Complaint: FALL/ BACK PAIN History of Present Illness Italia Wallace is a 61 year old female who presents to the emergency department after a fall. She reports she is fallen twice in the last 24 hours. The last when she tripped over a raised ledge in her house. She denies any loss of consciousness. She has had increased back pain of late. She reports some l ow-grade temperatures around 99. She denies any dysuria. She reports no head injury, headache or neck pain. She reports she is always at risk for falling secondary to her chronic back pain and neuropathy. She otherwise has not been ill lately with any vomiting, diarrhea, cough, or COVID symptoms. She does relate that she wheezes fairly frequently secondary to her COPD and she smokes quite a bit at home. Lately she has had enough pain she has been alternating Aleve and ibuprofen. She cannot really tell me how often she takes this other than perhaps every 4 hours. Review of Systems General: Reports: 10 or more systems reviewed and unremarkable except in HPI and below Const: Denies: fever(s) (some low grade temps) or chills Eyes: Denies: change in vision ENMT: Denies: throat pain or epistaxis Card: Denies: chest pain Resp: Reports: non-productive cough and wheezing GI: Denies: abdominal pain, nausea, vomiting, hematemesis, hematochezia or melena : Denies: flank pain or difficulty voiding Musc: Reports: back pain Skin/Breast: Denies: rash Neuro: Denies: headache(s) (also denies neck pain) Psych: Denies: anxiety or depression Endo: Denies: polyuria Isidro/Lymph: Denies: easy bruising All/Imm: Denies: urticaria Medications/Allergies Home Medications Medication Instructions Recorded Confirmed Last Taken Type cholecalciferol (vitamin D3) 1,250 50,000 unit PO Q7D #4 tabs 06/30/20 12/27/21 Unknown Rx mcg (50,000 unit) tablet (Dialyvite Vitamin D3 Max) [facility] [place] #1 ea 06/03/21 12/27/21 Unknown Rx [place], [place] pregabalin 150 mg capsule 150 mg PO BID #60 caps 10/19/21 12/27/21 Unknown Rx acetaminophen 300 mg-codeine 30 mg 1 tab PO Q6H PRN Pain 12/27/21 12/27/21 Unkno wn History tablet albuterol sulfate 90 mcg/actuation 2 puff inhalation Q6H PRN 12/27/21 12/27/21 Unknown History aerosol inhaler Shortness Of Breath potassium chloride 10 mEq 10 meq PO DAILY 12/27/21 12/27/21 Unknown History tablet,extended release Allergies Allergy/AdvReac Type Severity Reaction Status Date / Time Penicillins Allergy Mild ALGY-Rash Verified 06/13/21 13:59 diphenhydramine Allergy Unknown Unknown Verified 06/13/21 13:59 [From Benadryl] midazolam [From Versed] Allergy Unknown Verified 06/13/21 13:59 PFSH Acute PFSH: Medical History (Updated 12/27/21 @ 13:05 by Jarrett Trejo MD) Borderline hyperlipidemia Burn of left forearm Cervical cancer Colon cancer screening declined Compression fracture COPD (chronic obstructive pulmonary disease) Dyskinesia, tardive Hepatitis C Reports this has previously been treated Lumbar pain with radiation down both legs Screening mammography declined Smoker Tobacco dependency Vitamin D deficiency Surgical History H/O fasciotomy Septic forearm History of right hip replacement Hx of cholecystectomy Hx of hysterectomy History of cervical CA Hx of tonsillectomy Family History Family/Other Diabetes Hypertension Social History Smoking and tobacco status: current every day smoker (1 pack per day ) cigarettes Packs smoked per day: 1 Years cigarettes smoked: 37 Second hand smoke exposure: Yes Alcohol intake: never Lives independently: Yes Household members: family Housing: House Marital status: / Current occupational status: unemployed History of recent travel: No Current gender identity: Female Vitals/I&O/Wt Last Vital Signs Pulse 102 H 12/27/21 11:06 Resp 22 H 12/27/21 11:06 BP 83/62 12/27/21 11:00 Pulse Ox 92 12/27/21 11:06 O2 Del Method 12/27/21 11:06 O2 Flow Rate 3 12/27/21 11:06 Weight last 48 hrs Weight 61.235 kg Physical Exam Narrative: General exam is a white female, conversant, denying any headache or dizziness. Reports no neck pain. States she is not short of breath although appears mildly so. HEENT: Atraumatic and normocephalic. Pupils equally round. Oropharynx is clear. Neck is supple no lymphadenopathy or thyromegaly Cardiovascular mild tachycardic, regular, no murmur Lungs few faint crackles at the bases. A few faint expiratory wheezes. Abdomen is soft nontender positive bowel sounds. No obvious organomegaly exam is deferred Extremities no cyanosis clubbing or edema, cap refill brisk Skin no rash Neuro no obvious focal deficits. Data : 12/27/21 09:33 12/27/21 09:33 Other Labs: Lumbar spine films demonstrate a new compression fracture, L4, new from November 08, 2021 with 25% height loss. Some sclerosis of L3 is noted as well. Chest x-ray demonstrates patchy opacities bilaterally, atelectasis versus edema Abdominal pelvis CT renal protocol demonstrates fracture through L4 and L5, comminuted, compression of T12 and moderate compression of L3 endplate. Some calcification right extrarenal pelvis nonspecific but transitional cell carcinoma not excluded. Prior hysterectomy, osteopenia, trace bilateral pleural fluid and infiltrates consistent with pneumonia. Blood cultures have been obtained ABG demonstrates a pH 7.33, PCO2 of 34, PO2 of 69 on 2 L Total bilirubin is 1.9, calcium 8.5, alk phos 402, CK2 12, AST and ALT normal, troponin 32 with repeat of 24. BNP is 3312 Albumin 3.2 Urinalysis demonstrates too numerous to count reds, 0-4 whites Coronavirus PCR not detected EKG demonstrates sinus tachycardia, normal axis. No acute changes. COVID PCR negative Micro: Microbiology 12/27/21 11:43 Blood Culture - Preliminary Blood SPECIMEN COLLECTED A&P Assessment and plan (1) Hypotension: Markedly low blood pressure Concern this may be due to extracellular volume depletion with renal failure, but cannot rule hypotension driven by infection. Not candidate for continued significant fluids with concern of elevated BNP and chest x-ray with concern of fluid overload. Significant amounts of IV fluid has been given in the emergency department as appropriate. Continue to evaluate closely. Check cortisol level, TSH Hydrocortisone 100 mg IV now, then 100 mg IV every 8 hours Increase blood pressure to try to achieve mean of greater than or equal to 65. This will also enhance kidney perfusion. Status: Acute (2) Microscopic hematuria: Patient with significant microscopic hematuria from my understanding. CT scan demonstrates some calcifications, and cystoscopy may be warranted but will need to be deferred at this point. At this point secondary to this as well as anemia will not placed on DVT prophylaxis currently. After evaluation when Vigil was put in to ensure there is no gross hematuria, and CBC is repeated later this afternoon will consider addition of subcutaneous heparin. Cannot rule out UTI. Obtain urine culture. Initiate Rocephin. Status: Acute (3) Anemia: Significant anemia present on admission. This may be secondary to renal disease. Patient denies any known blood loss. Check anemia panel, fecal Hemoccult Initiate Pepcid IV Also check haptoglobin Secondary to significant anemia, expected to worsen in face of this disease initially we will hold anticoagulation for DVT prophylaxis. Status: Acute (4) Acute kidney injury: Significant acute kidney injury, associated with mild rhabdo Place Vigil as some bladder distention is noted. Note that she has had several falls lately, and although no sacral paresthesia on exam and can move lower extremities must consider possibility of comminuted lumbar fracture contributing. She has also been on significant amounts of anti-inflammatories, alternating ibuprofen and Aleve lately. Avoid all renal toxic medication Reduce Lyrica dose secondary to renal dysfunction Mild elevation of CK. Repeat this in the morning. Continue hydration. Status: Acute (5) Lumbar compression fracture: Significant fracture, noted on CT scan. There is question if this is stable. Bedrest Urgent consult to Dr. Angulo. The emergency department physician has called and spoken with him directly. He can address whether further imaging is needed secondary to bladder distention noted on CT scan. Fall precautions Status: Acute (6) Pneumonia: Concern of pneumonia on x-ray Sputum culture Blood culture already drawn Initiate Rocephin and azithromycin Status: Acute (7) COPD (chronic obstructive pulmonary disease): DuoNeb Budesonide Monitor for any evidence of COPD exacerbation Encourage abstinence from tobacco Status: Acute (8) Tobacco dependency: Encourage abstinence Status: Acute (9) Elevated brain natriuretic peptide (BNP) level: Secondary to elevated BNP, some evidence of fluid overload on chest x-ray check echocardiogram. Note the troponin was slightly high but does not have significant delta. Status: Acute Plan Past history of hepatitis C. Note that bilirubin is slightly high. AST and ALT are normal. Check INR. Multiple other medical problems as outlined in past medical history Full code SCDs for DVT prophylaxis. Anticoagulation contraindicated with significant microscopic hematuria, anemia. GI prophylaxis with Pepcid Called to discuss current care plans with daughters as well but unable to reach them at either number. MEssage was left with a family member to call me back. Attestations Medical Necessity Statement*: Will need greater than 2 midnight stay for evaluation and treatment of UTI, hypotension, microscopic hematuria, anemia etc. Critical Care Time: The high probability of a clinically significant, sudden or life threatening deterioration of the patient's [pulmonary, cardiovascular, renal] system(s) required my full and direct attention, intervention and personal management. The critical care time is as shown. This time is in addition to time spent performing any reported procedures but includes the following: [x] Data and vital sign review and interpretation [x] Patient assessment, examination and intervention [x] Documentation [x] Medication orders and management Critical Care Time (min): 66 Coding Level of Care Code Acute Workers' Compensation Claims Supervisor for g Fwd Diagnoses Hypotension I95.9 Microscopic hematuria R31.29 Anemia D64.9 Acute kidney injury N17.9 Lumbar compression fracture S32.000A Pneumonia J18.9 COPD (chronic obstructive pulmonary disease) J44.9 Tobacco dependency F17.200 Elevated brain natriuretic peptide (BNP) level R79.89
[2021-12-27 12:40] LABS: Adenovirus Not Detected (NOT DETECT); Chlamydia Pneumoniae Not Detected (NOT DETECT); Coronavirus 229E,HKU1,NL63,OC4 Not Detected (NOT DETECT); Human Metapneumovirus Not Detected (NOT DETECT); Human Rhinovirus/Enterovirus Not Detected (NOT DETECT); Influenza A Not Detected (NOT DETECT); Influenza A H1 Not Detected (NOT DETECT); Influenza A H1-2009 Not Detected (NOT DETECT); Influenza A H3 Not Detected (NOT DETECT); Influenza B Not Detected (NOT DETECT); Mycoplasma Pneumoniae Not Detected (NOT DETECT); Parainfluenza Virus Type 1 Not Detected (NOT DETECT); Parainfluenza Virus Type 2 Not Detected (NOT DETECT); Parainfluenza Virus Type 3 Not Detected (NOT DETECT); Parainfluenza Virus Type 4 Not Detected (NOT DETECT); Respiratory Syncytial Virus A Not Detected (NOT DETECT); Respiratory Syncytial Virus B Not Detected (NOT DETECT); SARS-COV-2 Not Detected (NOT DETECT)
[2021-12-27] MEDS: levofloxacin-dextrose 5 % 500 MG/100 ML PREMIX 100 MG IV (12:46)
[2021-12-27 13:01] LABS: INR 1.74 (0.8-1.2)
[2021-12-27] MEDS: hydrocortisone 100 mg/2 mL SDV IVP ×2 (13:14→20:52)
--- NOTE | 2021-12-27 13:18 | PC.NURSE ---
pt resting in bed. coarse lung sounds heard to left lower lobe. audible expiratory wheezes heard. pt remains oriented x4
[2021-12-27 13:26] LABS: Phosphorus 3.6 mg/dL (2.5-4.5); Thyroid Stimulating Hormone 0.88 uIU/mL (0.27-4.20)
[2021-12-27 13:30] LABS: Cortisol Random 20.01 ug/dL (2.47-19.5)
[2021-12-27] MEDS: phytonadione (ADULT) 10 mg/mL Ampule 1 mL SUBCUT (13:45)
[2021-12-27 13:51] LABS: Blood Urea Nitrogen 40 mg/dL (8-23); Calcium 7.2 mg/dL (8.5-10.5); Carbon Dioxide 14 mmol/L (22-29); Chloride 107 mmol/L (98-107); Glomerular Filtration Rate 18.7 mL/min (90-130); Glucose 54 mg/dL (65-115); Osmolality Calculated 291 mOsm/kg (285-295); Sodium 137 mmol/L (136-145)
[2021-12-27 13:52] LABS: Ferritin 703 ng/mL (15-150); Iron 11 ug/dL (37-145); Total Iron Binding Capacity 181 mcg/dl; Unsaturated Iron Binding 170 ug/dL (112-347)
[2021-12-27 14:08] LABS: Vitamin B12 1376 pg/mL (232-1245)
[2021-12-27 14:23] LABS: Folate Level 4.8 ng/mL (4.8-37.3)
--- NOTE | 2021-12-27 15:00 | PC.NURSE ---
report called to TAYLOR Powell at ICU
--- NOTE | 2021-12-27 15:10 | PC.NURSE ---
Pt admitted to ICU on 4L NC, Levophed running and woodruff in place with tea colored urine. When hooked up to monitor o2 in low 80's and oxygen turned up to 6L. Respiratory informed and pt was placed on 10L NC. Dr. pierce.
--- NOTE | 2021-12-27 15:28 | USCV_ITS ---
Italia Wallace Age: 61 Gender: F : 1960 Exam Date: 12/27/2021 16:12 Ordering Phys: Jarrett Trejo MD Technologist: MARJ Exam Location: [facility] [place] Indication: HYPOTENSION, ELEVATED BNP BP: 110 / 73 HR: 64 Rhythm: Sinus Technical Quality: Adequate MEASUREMENTS (Male / Female) Normal Values 2D ECHO LVOT Diameter 2.0 cm LV Ejection Fraction MOD 2C 73.3 % LV Ejection Fraction 2C AL 74.1 % LA Diameter 3.4 cm LA Width 4.0 cm LA Height 4.9 cm RA Width 2.7 cm RA Height 4.3 cm Aorta at Sinotubular Diameter 2.2 cm IVC Diameter 1.6 cm M-MODE Aortic Annulus Diameter 2.8 cm LA Ao Ratio MM 1.1 DOPPLER AV Peak Velocity 168.0 cm/s LVOT Peak Velocity 120.0 cm/s AV Area Cont Eq vti 2.4 cm squared AV Area Cont Eq pk 2.3 cm squared MV Peak Velocity 111.0 cm/s MV Area PHT 6.5 cm squared Mitral E to A Ratio 1.0 MV E' Velocity 69.0 cm/s Mitral E to MV E' Ratio 8.2 Mitral E to LV E' Lateral Ratio 7.7 Mitral E to LV E' Septal Ratio 8.7 TR Peak Velocity 374.6 cm/s TR Peak Gradient 56.1 mmHg TR Mean Velocity 483.5 cm/s TR Mean Gradient 93.8 mmHg TR Velocity Time Integral 153.1 cm TV Peak E Velocity 87.0 cm/s Right Atrial Pressure 3.0 mmHg Pulmonary Artery Systolic Pressu 59.1 mmHg PV Peak Velocity 123.0 cm/s RV Acceleration Time 0.1 s RV Ejection Time 0.3 s RV AcT/ET 0.3 FINDINGS Left Ventricle Difficult study due to tachypnea. Normal left ventricular size, systolic function and wall thickness, with no regional wall motion abnormalities. Grade I/IV diastolic dysfunction (abnormal relaxation filling pattern), normal to mildly elevated filling pressures. Left ventricular ejection fraction is estimated at 60 %. Right Ventricle Normal right ventricular size and systolic function. Moderate pulmonary hypertension, RVSP 59.1 mmHg. Right Atrium The right atrium is normal in size. Left Atrium Mildly increased left atrial size. Mitral Valve Structurally normal mitral valve. Trace mitral valve regurgitation. Aortic Valve Structurally normal aortic valve without significant sclerosis or stenosis. There is no aortic regurgitation. Tricuspid Valve Structurally normal tricuspid valve. Moderate tricuspid valve regurgitation. Pulmonic Valve Pulmonic valve not well visualized. Pericardium Normal pericardium without effusion. Aorta Normal ascending aorta dimension. IVC Inferior vena cava not visualized. CONCLUSIONS Difficult study due to tachypnea. Normal left ventricular size, systolic function and wall thickness, with no regional wall motion abnormalities. Grade I/IV diastolic dysfunction (abnormal relaxation filling pattern), normal to mildly elevated filling pressures. Left ventricular ejection fraction is estimated at 60 %. Normal right ventricular size and systolic function. Moderate pulmonary hypertension, RVSP 59.1 mmHg. Mildly increased left atrial size. Structurally normal mitral valve. Trace mitral valve regurgitation. Dr. Damon Dhaliwal MD (Electronically Signed) Final Date: 28 December 2021 11:18 S
[2021-12-27] MEDS: ipratropium-albuterol 3 mL Neb INHALATION ×2 (15:37→20:01)
[2021-12-27 15:39] LABS: Glucose Point of Care 110 mg/dL (70-110)
--- NOTE | 2021-12-27 15:47 | USCV_ITS ---
Italia Wallace Age: 61 Gender: F : 1960 Exam Date: 12/27/2021 15:59 Ordering Phys: Jarrett Trejo MD Technologist: MARJ [place] [facility] [place]: EDEMA HISTORY: Lower extremity edema. PROCEDURES: Venous duplex imaging was performed in bilateral lower extremities. The following venous structures were evaluated: common femoral vein, profunda vein, proximal portion of the greater saphenous vein, superficial femoral vein, and the popliteal vein. In addition, the posterior tibial and peroneal trunk were evaluated. Serial compression, augmentation maneuvers, and spectral Doppler flow evaluation were performed. FINDINGS: No evidence of DVT seen in any vessel visualized at this time. CONCLUSIONS No evidence of right lower extremity DVT. No evidence of left lower extremity DVT. Tha Gtz MD (Electronically Signed) Final Date: 27 December 2021 16:54 S
[2021-12-27] MEDS: famotidine 20 mg/2 mL INJ IVP (16:10)
[2021-12-27] MEDS: cefTRIAXone 1,000 MG in sodium chloride 0.9% (plus) 50 ML 100 MG IV (16:10)
[2021-12-27] MEDS: heparin 5,000 unit/mL INJ 1 mL 5000 UNIT SUBCUT (16:11)
[2021-12-27] MEDS: FUROsemide 10 mg/mL SDV 4mL 40 MG IVP (16:11)
[2021-12-27 16:13] LABS: Troponin 5 6HR 18.99 ng/L (0-10)
[2021-12-27 16:21] LABS: Troponin 5 6HR Delta -13.01 ng/L (0-12)
--- NOTE | 2021-12-27 16:58 | ED_ITS ---
HPI - Fall General: Chief Complaint: Fall Stated Complaint: FALL/ BACK PAIN Time Seen by Provider: 12/27/21 09:00 Source: patient Mode of arrival: amb[facility] PFSH: Medical History (Updated 12/27/21 @ 13:39 by Dany Ortiz DO) Borderline hyperlipidemia Burn of left forearm Cervical cancer Colon cancer screening declined Compression fracture COPD (chronic obstructive pulmonary disease) Dyskinesia, tardive Hepatitis C Reports this has previously been treated Lumbar pain with radiation down both legs Screening mammography declined Smoker Tobacco dependency Vitamin D deficiency Surgical History H/O fasciotomy Septic forearm History of right hip replacement Hx of cholecystectomy Hx of hysterectomy History of cervical CA Hx of tonsillectomy Family History Family/Other Diabetes Hypertension Social History Smoking and tobacco status: current every day smoker (1 pack per day ) cigarettes Packs smoked per day: 1 Years cigarettes smoked: 37 Second hand smoke exposure: Yes Alcohol intake: never Lives independently: Yes Household members: family Housing: House Marital status: / Current occupational status: unemployed History of recent travel: No Current gender identity: Female Course Vital Signs: Vital signs: Vital Signs Pulse Rate 98 12/27/21 16:20 Respiratory Rate 21 H 12/27/21 16:20 Blood Pressure 112/70 12/27/21 16:20 Pulse Oximetry 89 L 12/27/21 16:20 Oxygen Delivery Me thod 12/27/21 15:32 Oxygen Flow Rate 10 12/27/21 15:32 MDM - Fall Lab Data : 12/27/21 09:33 12/27/21 12:48 Radiology Impressions Chest X-Ray 12/27/21 09:15 IMPRESSION: Interstitial pulmonary edema with patchy bibasilar airspace opacities, which may reflect atelectasis versus pneumonia. Lumbar Spine X-Ray 12/27/21 09:16 IMPRESSION: 1. There is a new compression fracture involving the superior endplate of L4, new from 11/08/2021. There is up to 25% height loss and likely minimal bony retropulsion. 2. Some sclerosis along the inferior endplate of L3 could reflect a nondisplaced compression fracture. Abdomen/Pelvis CT 12/27/21 10:36 IMPRESSION: 1. Distraction fracture through the L4-L5 disc space eccentric to the LEFT with mild disc space widening. This extends to involve the LEFT L4 and L5 pedicles. Comminuted fractures involving the superior L4-L5 endplates. 2. Additional acute appearing compression deformities at T12 with mild compression superior endplate and moderate compression L3 inferior endplate. Mild retropulsion of the posterior inferior cortex L3 with mild to moderate central canal stenosis eccentric to the LEFT. 3. Chronic compression deformities L1 and L2 appear unchanged. 4. Heterogeneous attenuation with some calcification in the prominent RIGHT extrarenal pelvis is nonspecific but TCC not excluded. Recommend further evaluation with ureteroscopy. 5. Extensive postoperative changes lymph node dissection bilateral retroperitoneum, iliac chains, and pelvis. 6. Prior hysterectomy 7. Osteopenia 8. Trace bilateral pleural fluid with bibasilar infiltrates compatible with pneumonia. Interstitial edema in the lung bases. Notified Dany Ortiz DO at 12/27/2021 12:45 PM. Laboratory Results WBC 12.6 10^3/uL (4.0-10.0) H 12/27/21 09:33 RBC 3.80 10^6/uL (4.1-5.3) L 12/27/21 09:33 Hgb 10.5 g/dL (11.5-15.3) L 12/27/21 09:33 Hct 32.4 % (37.0-47.0) L 12/27/21 09:33 MCV 85.3 fl (81-99) 12/27/21 09:33 MCH 27.6 pg (28.0-34.0) L 12/27/21 09:33 MCHC 32.4 g/dL (30.0-36.0) 12/27/21 09:33 RDW 18.0 % (12.1-15.1) H 12/27/21 09:33 Plt Count 232 10^3/cmm (130-400) 12/27/21 09:33 MPV 11.5 fL (7.4-10.4) H 12/27/21 09:33 Neut % (Auto) 85.4 % 12/27/21 09:33 Lymph % (Auto) 4.5 % 12/27/21 09:33 [place] % (Auto) 7.1 % 12/27/21 09:33 Eos % (Auto) 0.5 % 12/27/21 09:33 Baso % (Auto) 0.6 % 12/27/21 09:33 Neut # (Auto) 10.78 10^3/uL (1.8-7.7) H 12/27/21 09:33 Lymph # (Auto) 0.6 10^3/uL (0.8-4.8) L 12/27/21 09:33 [place] # (Auto) 0.9 10^3/uL (0.2-0.9) 12/27/21 09:33 Eos # (Auto) 0.1 10^3/uL (0.0-0.8) 12/27/21 09:33 Baso # (Auto) 0.1 10^3/uL (0.0-0.1) 12/27/21 09:33 Nucleated RBC % (auto) 0 % 12/27/21 09:33 Nucleated RBCs # 0.0 /100WBC 12/27/21 09:33 Haptoglobin 306.0 mg/L (30-200) H 12/27/21 09:33 PT 20.70 SECONDS (12.1-14.9) H 12/27/21 09:33 INR 1.74 (0.8-1.2) H 12/27/21 09:33 Specimen Type Arterial 12/27/21 09:19 Sample Site Radial, left 12/27/21 09:19 ABG pH 7.33 (7.35-7.45) L 12/27/21 09:19 ABG pCO2 33.9 mmHg (35-45) L 12/27/21 09:19 ABG pO2 68.8 mmHg (80.0-100.0) L 12/27/21 09:19 ABG HCO3 17.8 mmol/L (22-26) L 12/27/21 09:19 ABG O2 Saturation 94.5 12/27/21 09:19 ABG Base Excess -7.4 mmol/L (-2.0-2.0) L 12/27/21 09:19 Conrado Test Pos 12/27/21 09:19 A-a O2 Gradient 5.0 mmHg (5-10) 12/27/21 09:19 Hematocrit 30.7 % (37-47) L 12/27/21 09:19 Hgb O2 Saturation 91.5 % (95-100) L 12/27/21 09:19 Carboxyhemoglobin 2.5 %THgb (0.4-20.1) 12/27/21 09:19 Methemoglobin 0.7 % (0.4-1.5) 12/27/21 09:19 Total Hemoglobin 10.0 g/dL (12-16) L 12/27/21 09:19 Sodium 139.0 mmol/L (131-143) 12/27/21 09:19 Potassium 3.8 mmol/L (3.5-5.0) 12/27/21 09:19 Glucose 83.0 mg/dL (70-115) 12/27/21 09:19 Ionized Calcium 1.2 mmol/L (1.1-1.4) 12/27/21 09:19 O2 Delivery Device Nc 12/27/21 09:19 O2 Liters/Min 2.0 % 12/27/21 09:19 Movement Assembly Final Inspector ID Cak 12/27/21 09:19 Sodium 137 mmol/L (136-145) 12/27/21 12:48 Potassium 4.0 mmol/L (3.5-5.1) 12/27/21 12:48 Chloride 107 mmol/L (98-107) 12/27/21 12:48 Carbon Dioxide 14 mmol/L (22-29) L 12/27/21 12:48 Anion Gap 20.0 (5-19) H 12/27/21 12:48 BUN 40 mg/dL (8-23) H 12/27/21 12:48 Creatinine 2.6 mg/dL (0.5-0.9) H 12/27/21 12:48 GFR Calculation 18.7 mL/min (90-130) L 12/27/21 12:48 Glucose 54 mg/dL (65-115) L 12/27/21 12:48 Calculated Osmolality 291 mOsm/kg (285-295) 12/27/21 12:48 Lactic Acid 2.0 mmol/L (0.5-2.2) 12/27/21 09:33 Calcium 7.2 mg/dL (8.5-10.5) L 12/27/21 12:48 Phosphorus 3.6 mg/dL (2.5-4.5) 12/27/21 09:33 Magnesium 2.0 mg/dL (1.7-2.3) 12/27/21 09:33 Iron 11 ug/dL (37-145) L 12/27/21 09:33 TIBC 181 mcg/dl 12/27/21 09:33 % Saturation 6.0 % (20-50) L 12/27/21 09:33 Unsat Iron Binding 170 ug/dL (112-347) 12/27/21 09:33 Ferritin 703 ng/mL (15-150) H 12/27/21 09:33 Total Bilirubin 1.9 mg/dL (0.15-1.2) H 12/27/21 09:33 AST 24 U/L (0-32) 12/27/21 09:33 ALT 18 U/L (0-33) 12/27/21 09:33 Alkaline Phosphatase 402 U/L (35-105) H 12/27/21 09:33 Creatine Kinase 212 U/L (26-192) H 12/27/21 09:33 Troponin T Baseline 32 ng/L (0-10) H 12/27/21 09:33 Troponin T 120 Minute 24.37 ng/L (0-10) H 12/27/21 11:43 Delta Troponin T -7.63 ABS# (0-10) L 12/27/21 11:43 NT-Pro-B Natriuret Pep 3312 pg/mL (0-125) H 12/27/21 09:33 Total Protein 7.0 g/dL (6.6-8.7) 12/27/21 09:33 Albumin 3.2 g/dL (3.5-5.2) L 12/27/21 09:33 Globulin 3.8 g/dL (1.3-4.6) 12/27/21 09:33 Vitamin B12 1376 pg/mL (232-1245) H 12/27/21 09:33 Folate 4.8 ng/mL (4.8-37.3) 12/27/21 09:33 TSH 0.88 uIU/mL (0.27-4.20) 12/27/21 09:33 Random Cortisol 20.01 ug/dL (2.47-19.5) H 12/27/21 11:43 Urine Color Alana (Yellow) 12/27/21 10:02 Urine Appearance Cloudy (CLEAR) A 12/27/21 10:02 Urine pH 5 (5-7) 12/27/21 10:02 Ur Specific [place] 1.020 (1.005-1.030) 12/27/21 10:02 Urine Protein 1+ (Negative) H 12/27/21 10:02 Urine Glucose (UA) Norm (Normal) 12/27/21 10:02 Urine Ketones 1+ (Negative) H 12/27/21 10:02 Urine Blood 3+ (Negative) H 12/27/21 10:02 Urine Nitrate Negative (Negative) 12/27/21 10:02 Urine Bilirubin 1+ (Negative) H 12/27/21 10:02 Urine Urobilinogen 1 mg/dL (Negative) H 12/27/21 10:02 Ur Leukocyte Esterase 1+ (Negative) H 12/27/21 10:02 Urine RBC Too numerous to cnt /hpf (0-2) H 12/27/21 10:02 Urine WBC 0-4 /hpf (0-5) H 12/27/21 10:02 Ur Squamous Epith Cells 0-4 /hpf (0-5) H 12/27/21 10:02 Amorphous Sediment 2+ /hpf 12/27/21 10:02 Urine Bacteria None /hpf (NONE) 12/27/21 10:02 Coronavirus 229E (PCR) Not detected (NOT DETECT) 12/27/21 10:41 SARS-CoV-2 (PCR) Not detected (NOT DETECT) 12/27/21 10:41 Discharge Plan Discharge Patient Disposition: Admitted As Inpatient Admit Provider: Jarrett Trejo Clinical Impression: Pneumonia, Lumbar compression fracture, COPD (chronic obstructive pulmonary disease), Bilateral renal cysts, Anemia, Acute kidney injury Condition: Stable Coding Level of Care Code ED Harvesting Contractor for Philly Arriaza
--- NOTE | 2021-12-27 17:02 | P.CONIM_ITS ---
Providers/Reason For Consult Consulting Physician/Specialty*: Ortho Spine Reason for Consult*: Back Pain Attending Physician: Jarrett Trejo MD Primary Care Provider: DOUG Torres History of Present Illness History of Present Illness Italia Wallace is a 61 year old female presented to the [facility] emergency room following a fall 2 days ago with increased pain. X-rays were obtained that showed questionable old versus new compression fractures. Orthopedic spine was consulted. Upon evaluation in ICU bed 1 with the nurse present she continued to complain of back pain with intermittent leg pain. Worse since the fall 2 days ago. Pain is sharp stabbing constant nature movement makes it much worse. She denies any loss of bowel or bladder control. Activities make her pain much worse any movement makes it much worse rest makes things more tolerable. An extensive review of the patient's past medical history, surgical history, allergies, medications, family history, social history, and review of systems was completed Review of Systems General: Reports: 10 or more systems reviewed and unremarkable except in HPI and below Const: Denies: fever(s) (some low grade temps) or chills Eyes: Denies: change in vision ENMT: Denies: throat pain or epistaxis Card: Denies: chest pain Resp: Reports: non-productive cough and wheezing GI: Denies: abdominal pain, nausea, vomiting, hematemesis, hematochezia or me kecia : Denies: flank pain or difficulty voiding Musc: Reports: back pain Skin/Breast: Denies: rash Neuro: Denies: headache(s) (also denies neck pain) Psych: Denies: anxiety or depression Endo: Denies: polyuria Isidro/Lymph: Denies: easy bruising All/Imm: Denies: urticaria Medications/Allergies Home Medications Medication Instructions Recorded Confirmed Last Taken Type cholecalciferol (vitamin D3) 1,250 50,000 unit PO Q7D #4 tabs 06/30/20 12/27/21 Unknown Rx mcg (50,000 unit) tablet (Dialyvite Vitamin D3 Max) [facility] [place] #1 ea 06/03/21 12/27/21 Unknown Rx [place], [place] pregabalin 150 mg capsule 150 mg PO BID #60 caps 10/19/21 12/27/21 Unknown Rx acetaminophen 300 mg-codeine 30 mg 1 tab PO Q6H PRN Pain 12/27/21 12/27/21 Unknown History tablet albuterol sulfate 90 mcg/actuation 2 puff inhalation Q6H PRN 12/27/21 12/27/21 Unknown History aerosol inhaler Shortness Of Breath potassium chloride 10 mEq 10 meq PO DAILY 12/27/21 12/27/21 Unknown History tablet,extended release Allergies Allergy/AdvReac Type Severity Reaction Status Date / Time Penicillins Allergy Mild ALGY-Rash Verified 06/13/21 13:59 diphenhydramine Allergy Unknown Unknown Verified 06/13/21 13:59 [From Benadryl] midazolam [From Versed] Allergy Unknown Verified 06/13/21 13:59 Current Medications Generic Name Dose Route Start Last Admin Trade Name Freq PRN Reason Stop Dose Admin Albuterol/Ipratropium 3 ml 12/27/21 15:28 12/27/21 15:37 Ipratropium-Albuterol 3 Ml Neb INHALATION 3 ml Q6H NIMESH Administration Famotidine 20 mg 12/27/21 15:28 12/27/21 16:10 Famotidine 20 Mg/2 Ml Inj IVP 20 mg Q12H NIMESH Administration Heparin Sodium (Porcine) 5,000 unit 12/27/21 16:00 12/27/21 16:11 Heparin 5,000 Unit/Ml Inj 1 Ml SUBCUT 5,000 unit Q12H NIMESH Administration Norepinephrine Bitartrate 4 mg 254 mls @ 0 mls/hr 12/27/21 12:45 12/27/21 16:26 / Dextrose IV 10 mcg/min .Q0M NIMESH 38.1 mls/hr Titration Protocol Per Protocol Ceftriaxone Sodium 1,000 mg/ 50 mls @ 100 mls/hr 12/27/21 15:28 12/27/21 16:10 Sodium Chloride IV 100 mls/hr Q24H NIMESH Administration Protocol PFSH Acute PFSH: Medical History (Updated 12/27/21 @ 13:39 by Dany Ortiz DO) Borderline hyperlipidemia Burn of left forearm Cervical cancer Colon cancer screening declined Compression fracture COPD (chronic obstructive pulmonary disease) Dyskinesia, tardive Hepatitis C Reports this has previously been treated Lumbar pain with radiation down both legs Screening mammography declined Smoker Tobacco dependency Vitamin D deficiency Surgical History H/O fasciotomy Septic forearm History of right hip replacement Hx of cholecystectomy Hx of hysterectomy History of cervical CA Hx of tonsillectomy Family History Family/Other Diabetes Hypertension Social History Smoking and tobacco status: current every day smoker (1 pack per day ) cigaret viky Packs smoked per day: 1 Years cigarettes smoked: 37 Second hand smoke exposure: Yes Alcohol intake: never Lives independently: Yes Household members: family Housing: House Marital status: / Current occupational status: unemployed History of recent travel: No Current gender identity: Female Vitals/I&O/Wt Last Vital Signs Pulse 98 12/27/21 16:20 Resp 21 H 12/27/21 16:20 BP 112/70 12/27/21 16:20 Pulse Ox 89 L 12/27/21 16:20 O2 Del Method 12/27/21 15:32 O2 Flow Rate 10 12/27/21 15:32 12/27/21 12/27/21 12/27/21 06:59 14:59 22:59 Intake Total 35.052 / 35.052 76.962 / 112.014 Balance 35.052 / 35.052 76.962 / 112.014 Weight last 48 hrs Weight 151 lb 5.351 oz Weight 135 lb Physical Exam Narrative: She is alert orient x3 she has good general appearance obvious acute distress. Tender with palpation about the thoracolumbar spine. She is able to wiggle her toes moves her legs 3/5 strength. Legs are warm with good cap refill good sensation to light touch. Pulses are weak but palpable. Calves are supple. Any shifting in bed makes her back pain much worse. She moves both upper extremities. HENMT: COMMON NORMALS: normocephalic and atraumatic HEAD & SCALP: normocephalic and atraumatic Resp: COMMON NORMALS: normal respiratory effort Cardio: COMMON NORMALS: regular rate and regular rhythm RATE: regular rate RHYTHM: regular rhythm GI: COMMON NORMALS: Soft to palpation PALPATION: Yes Soft to palpation : COMMON NORMALS: Yes no CVA tenderness BLADDER/KIDNEY EXAM: Yes no CVA tenderness Back/Pelvis: COMMON NORMALS: no CVA tenderness Psych: COMMON NORMALS: mental status grossly normal and cooperative Urinary Catheter Management: Vigil: Cath Placed During This Visit: yes Urinary Catheter Date of Insertion: 12/27/21 Urinary Catheter Time of Insertion: 13:13 Data : 12/27/21 09:33 12/27/21 12:48 Micro: Microbiology 12/27/21 12:43 Blood Culture - Preliminary Blood SPECIMEN COLLECTED 12/27/21 11:43 Blood Culture - Preliminary Blood SPECIMEN COLLECTED MRI: Radiologist's impression: MR/MR lumbar spine wo con* [id number] IMPRESSION: ? 1.? Mild lumbar curve. No acute compression fractures. 2.? Stable chronic compression of the L1 and L2 vertebral bodies unchanged. Stable slight compression superior endplate L3. 3.? Mild retropulsion posterior superior endplate L1 with slight effacement of ventral thecal sac. This is unchanged. 4.? Small left foraminal protrusion L2-3 slightly encroaches on the exiting left L2 nerve root. This is more prominent compared to previous 5.? Mild narrowing of the left L2-L3 and left L3-L4 subarticular recess. 6.? Ankylosis of the L4-L5 and L5-S1 disc spaces with mild right greater than left L4-L5 and L5-S1 bony foraminal narrowing. A&P Assessment and plan (1) Chronic back pain: Reviewed the radiographs at length with Dr. Angulo will proceed with an MRI scan with STIR image of her thoracic and lumbar spine to check for any acute fractures. Previous MRI scan did not show any acute fractures. We will await the MRI scan and discuss further treatment options. 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
[2021-12-27] MEDS: azithromycin 500 MG in sodium chloride 0.9% 250 ML 250 MG IV (17:19)
[2021-12-27] MEDS: pregabalin 25 mg Capsule PO (17:19)
--- NOTE | 2021-12-27 17:24 | ECG_ITS ---
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 Measurements Intervals [place] Rate: 101 P: 51 MD: 158 QRS: 49 QRSD: 93 T: 48 QT: 346 QTc: 450 Interpretive Statements SINUS TACHYCARDIA LOW QRS VOLTAGE IN EXTREMITY LEADS [QRS DEFLECTION < 0.5 mV IN LIMB LEADS] Compared to ECG 12/27/2021 14:06:19 Sinus rhythm no longer present Electronically Signed On 12-27-2021 17:51:10 CDT by Bert Carrillo M.D. [id number]
--- NOTE | 2021-12-27 18:35 | PC.NURSE ---
Left FA IV infiltrated azithromycin. Pump stopped and IV removed. Warm compress applied.
--- NOTE | 2021-12-27 18:37 | PC.NURSE ---
Pt placed on BIPAP by respiratory.
[2021-12-27] MEDS: budesonide 0.5 mg/2 mL Neb INHALATION (19:58)
--- NOTE | 2021-12-27 20:30 | PC.NURSE ---
Spoke with Family Spoke with patient daughter Maria Esther, updated on patient current condition. All questions answered.
--- NOTE | 2021-12-27 21:30 | XRR_ITS ---
PROCEDURE INFORMATION: Exam: XR Chest Exam date and time: 12/27/2021 9:38 PM Age: 61 years old Clinical indication: Device placement; Other: Central line placement TECHNIQUE: Imaging protocol: Radiologic exam of the chest. Views: 1 view. COMPARISON: CR XR chest 1V portable [id number] 12/27/2021 9:37 AM FINDINGS: Tubes, catheters and devices: Right IJ central line with tip in the inferior right atrium. Lungs: Increased ground-glass opacities and consolidation in the central lungs and lung bases. Pleural spaces: Unremarkable. No pleural effusion. No pneumothorax. Heart/Mediastinum: The heart size is normal and rotated to the left due to patient rotation. Bones/joints: Unremarkable. XR/XR chest 1V portable [id number] IMPRESSION: 1. Increased pulmonary edema versus multilobar pneumonia. 2. Central line placement with tip in the inferior right atrium.
--- NOTE | 2021-12-27 21:30 | PC.NURSE ---
Central Line Insertion Patient had limited IV access and concern for infiltration while vasopressor infusing through peripheral IV. This nurse obtained verbal consent for central line insertion. Hospitalist at bedside to perform procedure, time out performed. Once central line placed, X-ray obtained to confirm placement.
--- NOTE | 2021-12-27 21:58 | ANES.PROC ---
Anesthesia Procedures Procedure/Date: 12/27/21 Central Venous Insert: Time Out Performed: Yes Consent: requested by attending/covering physician, from patient, risks and benefits reviewed and patient agrees to proceed Central Line: New Anesthesia monitors: pulse oximetry, EKG, BP cuff and oxygen Vein cannulated: right internal jugular Ultrasound used: to identify patency to vessel and to visualize needle entry to vein Post procedure: Obtain Chest X-Ray Additional Comments: Right internal jugular central line placement, ultrasound confirmed location of right IJ, nonpulsatile, pulsatile artery identified, ultrasound was used to visualize entry into right internal jugular, with nonpulsatile dark red blood, aspirated, once guidewire was placed over needle, ultrasound confirmed placement of guidewire into right internal jugular, chest x-ray showed placement of right IJ, no complications, minimal bleeding
[2021-12-27 22:55] LABS: Hematocrit 29.3 % (37.0-47.0); Hemoglobin 9.8 g/dL (11.5-15.3); Mean Corpuscular HGB Conc 33.4 g/dL (30.0-36.0); Mean Corpuscular Hemoglobin 27.9 pg (28.0-34.0); Mean Corpuscular Volume 83.5 fl (81-99); Mean Platelet Volume 11.3 fL (7.4-10.4); Platelet Count 238 10^3/cmm (130-400); Red Blood Count 3.51 10^6/uL (4.1-5.3); Red Cell Distribution Width 18.1 % (12.1-15.1); White Blood Count 20.1 10^3/uL (4.0-10.0)
[2021-12-27 23:25] LABS: Anion Gap 21.7 (5-19); Blood Urea Nitrogen 39 mg/dL (8-23); Calcium 7.5 mg/dL (8.5-10.5); Carbon Dioxide 18 mmol/L (22-29); Chloride 104 mmol/L (98-107); Glomerular Filtration Rate 21.6 mL/min (90-130); Glucose 85 mg/dL (65-115); Osmolality Calculated 299 mOsm/kg (285-295); Potassium 3.7 mmol/L (3.5-5.1); Sodium 140 mmol/L (136-145)
[2021-12-28] VITALS (51 sets, daily range): BP systolic 80–119; BP diastolic 53–75; PULSE 88–114; RESP 16–35; TEMP 36.6–37.1; O2SAT 80–96
[2021-12-28 00:49] LABS: Total Cells Counted 100 (0-100)
[2021-12-28 00:50] LABS: Absolute Neutrophil 18.3 10^3/cmm (1.4-6.5); Absolute Segmented Neutrophil 16.1 10/cmm (1.6-7.1); Anisocytosis 2+; Band Neutrophils Absolute 2.2 10^3/cmm (0.0-1.2); Giant Platelets 1+; Lymphocytes 6 %; Monocytes Absolute 0.6 10^3/cmm (0.1-0.6); Platelet Estimate Normal (Normal); Segmented Neutrophils 80 %
[2021-12-28 00:51] LABS: Burr Cells 1+; Target Cells 1+; Toxic Vacuolation 1+
[2021-12-28 01:12] LABS: Eosinophils 0 %; Lymphocytes Absolute 1.2 10^3/cmm (1.2-3.4)
[2021-12-28] MEDS: ipratropium-albuterol 3 mL Neb INHALATION ×4 (02:09→19:44)
[2021-12-28] MEDS: famotidine 20 mg/2 mL INJ IVP ×2 (02:36→16:22)
[2021-12-28] MEDS: hydrocortisone 100 mg/2 mL SDV IVP ×3 (02:36→21:49)
[2021-12-28] MEDS: heparin 5,000 unit/mL INJ 1 mL 5000 UNIT SUBCUT ×2 (04:01→16:23)
[2021-12-28 04:30] LABS: Bacillus cereus group Not Detected (NOT DETECT); Bacillus subtillis group Not Detected (NOT DETECT); Corynebacterium Not Detected (NOT DETECT); Cutibacterium acnes (P.acnes) Not Detected (NOT DETECT); Enterococcus Not Detected (NOT DETECT); Enterococcus faecalis Not Detected (NOT DETECT); Enterococcus faecium Not Detected (NOT DETECT); Lactobacillus species Not Detected (NOT DETECT); Listeria Not Detected (NOT DETECT); Listeria monocytogenes Not Detected (NOT DETECT); Micrococcus Not Detected (NOT DETECT); Pan Candida Not Detected (NOT DETECT); Pan Gram-Negative Not Detected (NOT DETECT); Staphylococcus epidermidis Not Detected (NOT DETECT); Staphylococcus lugdunensis Not Detected (NOT DETECT); Staphylococcus species Detected (NOT DETECT); Streptococcus agalactiae Not Detected (NOT DETECT); Streptococcus anginosus group Not Detected (NOT DETECT); Streptococcus pneumoniae Not Detected (NOT DETECT); Streptococcus pyogenes Not Detected (NOT DETECT); Streptococcus species Not Detected (NOT DETECT); mecA Not Detected (NOT DETECT); mecC Not Detected (NOT DETECT)
[2021-12-28 06:31] LABS: Basophils # 0.1 10^3/uL (0.0-0.1); Basophils % 0.6 %; Hematocrit 28.9 % (37.0-47.0); Hemoglobin 9.7 g/dL (11.5-15.3); Lymphocytes # 0.8 10^3/uL (0.8-4.8); Lymphocytes % 4.3 %; Mean Corpuscular HGB Conc 33.6 g/dL (30.0-36.0); Mean Corpuscular Hemoglobin 27.6 pg (28.0-34.0); Mean Corpuscular Volume 82.3 fl (81-99); Mean Platelet Volume 12.1 fL (7.4-10.4); Monocytes # 0.9 10^3/uL (0.2-0.9); Monocytes % 4.7 %; Neutrophils # 14.94 10^3/uL (1.8-7.7); Neutrophils % 78.9 %; Nucleated Red Blood Cells % 0 %; Platelet Count 228 10^3/cmm (130-400); Red Blood Count 3.51 10^6/uL (4.1-5.3); Red Cell Distribution Width 17.8 % (12.1-15.1); White Blood Count 18.9 10^3/uL (4.0-10.0)
--- NOTE | 2021-12-28 06:49 | PC.NURSE ---
Shift Note Frequent safety and comfort rounds continue. Orders and/or nursing care completed as indicated. Patient monitored for response to intervention and treatment(s). Education provided includes central venous catheter insertion. Patient verbalized understanding of teaching. Patient remains on BIPAP 45% FiO2 & woodruff catheter drained 1950 mls of urine overnight. No wounds or skin issues noted at this time. Will continue to monitor.
[2021-12-28 06:55] LABS: INR 1.42 (0.8-1.2)
[2021-12-28 06:57] LABS: Alanine Aminotransferase 13 U/L (0-33); Albumin Level 2.5 g/dL (3.5-5.2); Alkaline Phosphatase 326 U/L (35-105); Anion Gap 22.2 (5-19); Aspartate Amino Transferase 28 U/L (0-32); Blood Urea Nitrogen 41 mg/dL (8-23); Calcium 7.7 mg/dL (8.5-10.5); Carbon Dioxide 18 mmol/L (22-29); Chloride 105 mmol/L (98-107); Creatine Phosphokinase 68 U/L (26-192); Globulin 3.8 g/dL (1.3-4.6); Glomerular Filtration Rate 23.9 mL/min (90-130); Glucose 108 mg/dL (65-115); Magnesium 1.6 mg/dL (1.7-2.3); Osmolality Calculated 305 mOsm/kg (285-295); Potassium 3.2 mmol/L (3.5-5.1); Sodium 142 mmol/L (136-145); Total Bilirubin 2.4 mg/dL (0.15-1.2); Total Protein 6.3 g/dL (6.6-8.7)
[2021-12-28 07:39] LABS: Slide Review Slide Review Perform
[2021-12-28] MEDS: lidocaine 1% 5 ML in potassium chloride premix 100 ML 25 ML IV (07:47)
[2021-12-28] MEDS: magnesium sulfate premix 2 GM/50 ML PIGGYBACK IV (07:58)
[2021-12-28] MEDS: budesonide 0.5 mg/2 mL Neb INHALATION ×2 (08:00→19:44)
--- NOTE | 2021-12-28 08:23 | PC.NURSE ---
MRSA swab given to Jennifer from lab while on unit.
[2021-12-28] MEDS: FUROsemide 10 mg/mL SDV 4mL 40 MG IVP ×2 (09:10→20:06)
[2021-12-28] MEDS: linezolid premix 600 MG/300 ML PREMIX 300 MG IV ×2 (09:10→20:06)
[2021-12-28] MEDS: pregabalin 25 mg Capsule PO ×2 (10:11→18:12)
[2021-12-28] MEDS: HYDROcodone-acetaminophen 5-325 mg Tablet 1 TAB PO ×3 (10:12→20:21)
--- NOTE | 2021-12-28 11:02 | P.PN_ITS ---
Subjective Subjective: Yazmin reports she is not in any pain. She reports she does not feel short of breath on BiPAP. Patient was kept on BiPAP all last night. Her norepinephrine was able to be weaned somewhat. Her urine output was excellent. 1 bottle of blood cultures had gram-positive organisms on gram stain. Medications: Reviewed: Yes Vitals/I&O/Wt Last Vital Signs Temp 98.5 F 12/28/21 08:00 Pulse 104 H 12/28/21 10:30 Resp 29 H 12/28/21 10:30 BP 115/65 12/28/21 10:30 Pulse Ox 93 12/28/21 10:30 O2 Del Method 12/28/21 08:00 O2 Flow Rate 10 12/27/21 15:32 FiO2 45 12/28/21 07:57 12/27/21 12/28/21 12/28/21 22:59 06:59 14:59 Intake Total 517.932 / 3490.034 94.676 / 3584.710 124.013 / 124.013 Output Total 1000 / 1000 1950 / 2950 Balance -482.068 / 2490.034 -1855.324 / 634.710 124.013 / 124.013 Weight last 48 hrs Weight 67.217 kg Weight 68.644 kg Weight 61.235 kg Physical Exam Narrative: General exam is a white female, on BiPAP, who awakens appropriate ly. Neck is supple no lymphadenopathy or thyromegaly Cardiovascular mild tachycardic, regular, no murmur Lungs crackles at the bases. No wheezes Abdomen is soft nontender positive bowel sounds. No obvious organomegaly exam demonstrates Vigil with jazmyn urine Extremities no cyanosis clubbing or edema, cap refill brisk Skin no rash Neuro no obvious focal deficits. Urinary Catheter Management: Vigil: Cath Placed During This Visit: yes Reason for Continuing Indwelling Catheter: Accurate Measurement of Urinary Output in Critically Ill Patients Urinary Catheter Date of Insertion: 12/27/21 Urinary Catheter Time of Insertion: 13:13 Data : 12/28/21 05:51 12/28/21 05:51 Micro: Microbiology 12/28/21 10:15 Blood Culture - Preliminary Blood SPECIMEN COLLECTED 12/28/21 09:23 Blood Culture - Preliminary Blood SPECIMEN COLLECTED 12/27/21 12:43 Blood Culture - Preliminary Blood 12/27/21 11:43 Blood Culture - Preliminary Blood A&P Assessment and plan (1) Hypotension: Markedly low blood pressure on admission Concern this may be due to extracellular volume depletion with renal failure, but cannot rule hypotension driven by infection. Not candidate for continued significant fluids with concern of elevated BNP and chest x-ray with concern of fluid overload. Significant amounts of IV fluid has been given in the emergency department as appropriate. Patient developed fluid overload. Fluid was discontinued. Lasix ultimately given. Blood pressure supported with norepinephrine. Hydrocortisone was started. We will start weaning. Continue to reduce norepinephrine as tolerated. Bacteremia as potential etiology. Blood cultures are now demonstrating 2 out of 4 bottles with gram-positive organism, staph. Linezolid was started this morning, chosen secondary to severe acute kidney injury on admission. Repeat blood cultures have been drawn. Echocardiogram has been obtained, but results pending. In retrospect this may have been septic shock, and was treated as such but had significant congestive heart failure develop with the recommended fluid therapy. Status: Acute (2) Microscopic hematuria: Patient with significant microscopic hematuria from my understanding. CT scan demonstrates some calcifications, and cystoscopy may be warranted but will need to be deferred at this point. No gross hematuria is noted. Cannot rule out UTI. Urine culture obtained. Continue Rocephin Status: Acute (3) Anemia: Significant anemia present on admission. This may be secondary to renal disease. Patient denies any known blood loss. Iron deficient on laboratory. Consider iron transfusion, when blood pressure stabilizes Fecal Hemoccult pending Continue Pepcid IV Haptoglobin does not indicate hemolysis Status: Acute (4) Acute kidney injury: Significant acute kidney injury, associated with mild rhabdo. CK now normal Continue Vigil. Some bladder distention was noted on admission Note that she has had several falls lately, and although no sacral paresthesia on exam and can move lower extremities must consider possibility of comminuted lumbar fracture contributing. Orthopedic spine surgery is evaluating an MRI is ordered but pending stabilization of the patient. She has also been on significant amounts of anti-inflammatories, alternating ibuprofen and Aleve lately. Avoid all renal toxic medication Reduce Lyrica dose secondary to renal dysfunction Status: Acute (5) Lumbar compression fracture: Significant fracture, noted on CT scan. There is question if this is stable. Bedrest Appreciate orthopedic spine surgery consultation. Discussed with him mobility and she can be up in bed with assist. MRI planned when patient stabilizes. Fall precautions Status: Acute (6) Pneumonia: Secondary to worsening of respiratory status discontinue Rocephin and changed to Primaxin. Continue Zithromax currently. Note that linezolid was added secondary to positive blood cultures. Note that she is penicillin allergic. Await sputum culture She has developed some respiratory failure requiring BiPAP, secondary to pneumonia as well as fluid overload, diastolic heart failure, and renal failure. Status: Acute (7) COPD (chronic obstructive pulmonary disease): DuoNeb Budesonide Monitor for any evidence of COPD exacerbation Encourage abstinence from tobacco Status: Acute (8) Tobacco dependency: Encourage abstinence Status: Acute (9) Elevated brain natriuretic peptide (BNP) level: Secondary to elevated BNP, some evidence of fluid overload on chest x-ray check echocardiogram. Note the troponin was slightly high but does not have signific ant delta. Awaiting result Status: Acute Plan Past history of hepatitis C. Note that bilirubin is slightly high. AST and ALT are normal. INR was slightly elevated. I think this is likely secondary to her sepsis but will check an ammonia level in the morning as well. Multiple other medical problems as outlined in past medical history Full code SCDs for DVT prophylaxis. Anticoagulation contraindicated with significant microscopic hematuria, anemia. GI prophylaxis with Pepcid Was able to discuss with family yesterday seriousness of her condition yesterday. We will try to update them daily. Attestations Medical Necessity Statement*: Needs continued hospitalization for IV antibiotics secondary to pneumonia and bacteremia as well as BiPAP support for respiratory failure. Critical Care Time: The high probability of a clinically significant, sudden o r life threatening deterioration of the patient's [pulmonary, cardiac, infectious disease] system(s) required my full and direct attention, intervention and personal management. The critical care time is as shown. 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
--- NOTE | 2021-12-28 12:34 | PC.CHAP ---
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 die welder visit [] Patient/Family/Request visit [] Outpatient visit [] Follow-up visit [] Physician referral [] Code/Alert [x] Routine visit [] Staff referral [] Actively dying [x] Patient sleeping [] Family support [] [] Out of room [] Palliative care [] [] Receiving care in room [] Pre-surgical visit [] Trauma [] Long length of stay [x] ICU visit [] Other: Relational/Emotional Strength [] Patient feels connected with others/family/visitors/staff [] Distress [] Loneliness/isolation [] Abandonment Spirituality of Patient [] Person of [place] [] Attends Hinduism of their [place] [] Believes in Prayer [] Reads Bible or Jew materials [] There are Spiritual issues to be addressed Washroom Operator Interventions [x] Prayer [] Active listening [] Non-anxious presence [] Spiritual/emotional support [] Crisis/trauma care [] Spiritual counseling [] Bereavement support [] Provided bereavement packet [] Provided Bible/devotional materials [] Provided toy/stuffed animal, coloring book to patient or family member [] Provided Communion [] Anointing/[place] [] Salvation x[x] Completed spiritual assessment [] Other: Impact on Illness or Injury [] Angry [] Fearful [] Anxious [] Often cries [] Exhaustion [] Unable to work [] Unable to attend oriental orthodox [] Unable to walk/stand [] Unable to read [] Unable to drive [] Unable to eat/drink [] Unable to sleep [] Unable to be with family [] Patient intubated [] Other: Summary Time spent with patient
[2021-12-28] MEDS: efferdent effervescent 1 EACH DENTAL (13:09)
[2021-12-28] MEDS: lanolin oint 7 gm 1 APPLIC TOPICAL (13:09)
[2021-12-28 13:36] LABS: Blood Urea Nitrogen 42 mg/dL (8-23); Calcium 7.9 mg/dL (8.5-10.5); Carbon Dioxide 18 mmol/L (22-29); Chloride 105 mmol/L (98-107); Glomerular Filtration Rate 26.9 mL/min (90-130); Glucose 121 mg/dL (65-115); Magnesium 2.2 mg/dL (1.7-2.3); Osmolality Calculated 304 mOsm/kg (285-295); Sodium 141 mmol/L (136-145)
[2021-12-28 13:37] LABS: Anion Gap 21.8 (5-19); Potassium 3.8 mmol/L (3.5-5.1)
[2021-12-28] MEDS: azithromycin 500 MG in sodium chloride 0.9% 250 ML 250 MG IV (16:21)
[2021-12-28] MEDS: fixodent 39 gm Tube 1 APPLIC DENTAL (16:21)
[2021-12-29] VITALS (69 sets, daily range): BP systolic 76–133; BP diastolic 47–92; PULSE 64–113; RESP 16–40; TEMP 36.8–37.5; O2SAT 80–100; BMI 24.8
[2021-12-29] MEDS: famotidine 20 mg/2 mL INJ IVP ×2 (02:28→17:06)
[2021-12-29] MEDS: ipratropium-albuterol 3 mL Neb INHALATION ×4 (02:34→20:06)
[2021-12-29] MEDS: heparin 5,000 unit/mL INJ 1 mL 5000 UNIT SUBCUT ×2 (04:53→17:06)
--- NOTE | 2021-12-29 05:09 | PC.NURSE ---
Shift Note Frequent safety and comfort rounds continue. Orders and/or nursing care completed as indicated. Patient monitored for response to intervention and treatment(s). Education provided includes treatment plan and medications. Patient and verbalized understanding of teaching. Patient remains sleepy throughout shift but easily arouses to verbal stimuli. No wounds or skin issues noted at this time and woodruff catheter draiend 1350 mls of urine overnight. O2 sats noted to decrease quickly when taken off bipap for water breaks-patient currently wearing bipap 45% FiO2. Will continue to monitor.
[2021-12-29 05:39] LABS: Basophils # 0.1 10^3/uL (0.0-0.1); Basophils % 0.4 %; Hemoglobin 9.3 g/dL (11.5-15.3); Lymphocytes # 0.8 10^3/uL (0.8-4.8); Lymphocytes % 5.4 %; Mean Corpuscular HGB Conc 34.4 g/dL (30.0-36.0); Mean Corpuscular Hemoglobin 27.1 pg (28.0-34.0); Mean Corpuscular Volume 78.7 fl (81-99); Mean Platelet Volume 11.5 fL (7.4-10.4); Monocytes # 0.8 10^3/uL (0.2-0.9); Neutrophils # 13.72 10^3/uL (1.8-7.7); Neutrophils % 87.6 %; Nucleated Red Blood Cells % 0 %; Platelet Count 200 10^3/cmm (130-400); Red Blood Count 3.43 10^6/uL (4.1-5.3); Red Cell Distribution Width 16.8 % (12.1-15.1); White Blood Count 15.7 10^3/uL (4.0-10.0)
[2021-12-29 05:47] LABS: INR 1.21 (0.8-1.2)
[2021-12-29 05:53] LABS: Ammonia 24 umol/L (11-51)
[2021-12-29 05:57] LABS: Alanine Aminotransferase 12 U/L (0-33); Albumin Level 2.4 g/dL (3.5-5.2); Alkaline Phosphatase 354 U/L (35-105); Aspartate Amino Transferase 28 U/L (0-32); Blood Urea Nitrogen 46 mg/dL (8-23); Calcium 8.5 mg/dL (8.5-10.5); Carbon Dioxide 24 mmol/L (22-29); Chloride 104 mmol/L (98-107); Globulin 3.9 g/dL (1.3-4.6); Glomerular Filtration Rate 25.3 mL/min (90-130); Glucose 122 mg/dL (65-115); Magnesium 2.2 mg/dL (1.7-2.3); Osmolality Calculated 309 mOsm/kg (285-295); Sodium 143 mmol/L (136-145); Total Bilirubin 1.7 mg/dL (0.15-1.2); Total Protein 6.3 g/dL (6.6-8.7)
[2021-12-29 06:21] LABS: Positive M 1
[2021-12-29] MEDS: linezolid premix 600 MG/300 ML PREMIX 300 MG IV ×2 (06:53→19:30)
--- NOTE | 2021-12-29 07:00 | XRR_ITS ---
PROCEDURE INFORMATION: Exam: XR Chest Exam date and time: 12/29/2021 4:14 AM Age: 61 years old Clinical indication: Condition or disease; Lung condition and disease; Respiratory failure; Status not specified; Prior surgery; Surgery type: Gb; Patient HX: --f/u for resp failure. On bipap with central line in place. TECHNIQUE: Imaging protocol: Radiologic exam of the chest. Views: 1 view. COMPARISON: CR (CHEST, ) 12/27/2021 9:38 PM FINDINGS: Tubes, catheters and devices: Right IJ central venous catheter again terminates in the inferior right atrium or right ventricle. Lungs: Similar bilateral interstitial opacities. Pleural spaces: Unremarkable. No pleural effusion. No pneumothorax. Heart/Mediastinum: Unremarkable. No cardiomegaly. Bones/joints: Unremarkable. XR/XR chest 1V portable [id number] IMPRESSION: 1. Right IJ central venous catheter again terminates in the inferior right atrium or right ventricle. 2. Similar bilateral interstitial opacities, which may reflect edema and/or multilobar pneumonia.
[2021-12-29] MEDS: lidocaine 1% 5 ML in potassium chloride premix 100 ML 25 ML IV ×2 (07:53→15:59)
--- NOTE | 2021-12-29 08:10 | PM.PN ---
Subjective Subjective: Patient sitting up in bed reporting her back pain has improved. Currently getting a breathing treatment. She denies any leg pain. Vitals/I&O/Wt Last Vital Signs Temp 98.5 F 12/29/21 05:00 Pulse 102 H 12/29/21 07:45 Resp 23 H 12/29/21 07:43 BP 87/57 12/29/21 06:00 Pulse Ox 93 12/29/21 07:45 O2 Del Method 12/29/21 07:43 O2 Flow Rate 10 12/27/21 15:32 FiO2 50 12/29/21 07:45 12/28/21 12/29/21 12/29/21 22:59 06:59 14:59 Intake Total 710 / 1460.316 275 / 1735.316 Output Total 1350 / 2650 Balance 710 / 160.316 -1075 / -914.684 Weight last 48 hrs Weight 140 lb 3 oz Weight 148 lb 3 oz Weight 151 lb 5.351 oz Weight 135 lb Physical Exam Narrative: Alert orient x3 has good general appearance normal mood normal affect. Currently having a breathing treatment. Denies any back pain moving both lower extremities feet warm good cap refill. Urinary Catheter Management: Vigil: Cath Placed During This Visit: yes Reason for Continuing Indwelling Catheter: Accurate Measurement of Urinary Output in Critically Ill Patients Urinary Catheter Date of Insertion: 12/27/21 Urinary Catheter Time of Insertion: 13:13 Data : 12/29/21 05:03 12/29/21 05:03 Micro: Microbiology 12/28/21 08:00 MRSA Culture - Final Nose 12/27/21 12:51 Urine Culture - Preliminary Urine Catheterized 12/27/21 11:43 Blood Culture - Preliminary Blood Staphylococcus aureus 12/28/21 10:15 Blood Culture - Preliminary Blood SPECIMEN COLLECTED 12/28/21 09:23 Blood Culture - Preliminary Blood SPECIMEN COLLECTED A&P Assessment and plan (1) Compression fracture: Patient has improved in regards to her back pain denies any leg pain this morning. We are still awaiting the MRI scan of her thoracic and lumbar spine. 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
[2021-12-29] MEDS: budesonide 0.5 mg/2 mL Neb INHALATION ×2 (08:17→20:06)
--- NOTE | 2021-12-29 08:27 | PM.PN ---
Subjective Subjective: Italia reports she feels okay but her low back is hurting some. She hopes to get off BiPAP today. No nausea or vomiting. Reports she is thirsty. Medications: Reviewed: Yes Vitals/I&O/Wt Last Vital Signs Temp 98.5 F 12/29/21 05:00 Pulse 102 H 12/29/21 07:45 Resp 23 H 12/29/21 07:43 BP 87/57 12/29/21 06:00 Pulse Ox 93 12/29/21 07:45 O2 Del Method 12/29/21 07:43 O2 Flow Rate 10 12/27/21 15:32 FiO2 50 12/29/21 07:45 12/28/21 12/29/21 12/29/21 22:59 06:59 14:59 Intake Total 710 / 1460.316 275 / 1735.316 Output Total 1350 / 2650 Balance 710 / 160.316 -1075 / -914.684 Weight last 48 hrs Weight 63.588 kg Weight 67.217 kg Weight 68.644 kg Weight 61.235 kg Physical Exam Narrative: General exam is a white female, currently on high flow Neck is supple no lymphadenopathy or thyromegaly Cardiovascular mild tachycardic, regular, no murmur Lungs diminished breath sounds at the bases Abdomen is soft nontender positive bowel sounds. No obvious organomegaly exam demonstrates Vigil with jazmyn urine Extremities no cyanosis clubbing or edema, cap refill brisk Skin no rash Neuro no obvious focal deficits. Urinary Catheter Management: Vigil: Cath Placed During This Visit: yes Reason for Continuing Indwelling Catheter: Accurate Measurement of Urinary Output in Critically Ill Patients Urinary Catheter Date of Insertion: 12/27/21 Urinary Catheter Time of Insertion: 13:13 Data : 12/29/21 05:03 12/29/21 05:03 Micro: Microbiology 12/28/21 08:00 MRSA Culture - Final Nose 12/27/21 12:51 Urine Culture - Preliminary Urine Catheterized 12/27/21 11:43 Blood Culture - Preliminary Blood Staphylococcus aureus 12/28/21 10:15 Blood Culture - Preliminary Blood SPECIMEN COLLECTED 12/28/21 09:23 Blood Culture - Preliminary Blood SPECIMEN COLLECTED A&P Assessment and plan (1) Hypotension: Markedly low blood pressure on admission Concern this may be due to extracellular volume depletion with renal failure, but cannot rule hypotension driven by infection. Not candidate for continued significant fluids with concern of elevated BNP and chest x-ray with concern of fluid overload. Significant amounts of IV fluid has been given in the emergency department as appropriate. Patient developed fluid overload. Fluid was discontinued. Lasix ultimately given. Blood pressure supported with norepinephrine. Norepinephrine has now been discontinued Hydrocortisone was started. Changed to prednisone today. Continue to reduce norepinephrine as tolerated. Bacteremia as potential etiology. Blood cultures are now demonstrating 2 out of 4 bottles with gram-positive organism, staph. Linezolid was chosen secondary to renal dysfunction initially. Repeat cultures negative to date. Initial cultures growing 2 out of 4 bottles staph aureus., Echocardiogram demonstrated preserved EF, 1/4 diastolic dysfunction, moderate pulmonary hypertension. Venous duplex negative. In retrospect this may have been septic shock, and was treated as such but had significant congestive heart failure develop with the recommended fluid therapy. MRSA PCR negative Status: Acute (2) Microscopic hematuria: Patient with significant microscopic hematuria from my understanding. CT scan demonstrates some calcifications, and cystoscopy may be warranted but will need to be deferred at this point. No gross hematuria is noted. Cannot rule out UTI. Urine culture obtained. Rocephin has been changed to Primaxin secondary to severity of illness Status: Acute (3) Anemia: Significant anemia present on admission. This may be secondary to renal disease. Patient denies any known blood loss. Iron deficient on laboratory. Consider iron infusion Fecal Hemoccult pending Continue Pepcid IV Haptoglobin did not indicate hemolysis Status: Acute (4) Acute kidney injury: Significant acute kidney injury, associated with mild rhabdo. CK now normal Continue Vigil. Some bladder distention was noted on admission Note that she has had several falls lately, and although no sacral paresthesia on exam and can move lower extremities must consider possibility of comminuted lumbar fracture contributing. Orthopedic spine surgery is evaluating an MRI is ordered but pending stabilization of the patient. She has also been on significant amounts of anti-inflammatories, alternating ibuprofen and Aleve lately. Avoid all renal toxic medication Lyrica dose reduced to renal dysfunction Renal function has stabilized, metabolic acidosis improving. Status: Acute (5) Lumbar compression fracture: Significant fracture, noted on CT scan. Appreciate orthopedic spine surgery consultation. Discussed with him mobility and she can be up in bed with assist. MRI planned when patient stabilizes. Fall precautions Status: Acute (6) Pneumonia: Secondary to worsening of respiratory status discontinue Rocephin and changed to Primaxin. Continue Zithromax for 3 days then discontinue. Note that linezolid was added secondary to positive blood cultures. Note that she is penicillin allergic. Await sputum culture She has developed some respiratory failure requiring BiPAP, secondary to pneumonia as well as fluid overload, diastolic heart failure, and renal failure. Transitioning to high flow today. Chest x-ray repeated today demonstrates no significant change, despite 1 L negative throughout yesterday. COVID PCR performed on admission, not detected Associated with respiratory failure requiring high flow oxygen. Status: Acute (7) COPD (chronic obstructive pulmonary disease): DuoNeb Budesonide Monitor for any evidence of COPD exacerbation Prednisone 40 mg daily Encourage abstinence from tobacco Status: Acute (8) Tobacco dependency: Encourage abstinence Status: Acute (9) Elevated brain natriuretic peptide (BNP) level: Secondary to elevated BNP, some evidence of fluid overload on chest x-ray check echocardiogram. Note the troponin was slightly high but does not have significant delta. Echo showed preserved EF Now overall negative I and O's Status: Acute Plan Past history of hepatitis C. Note that bilirubin is slightly high. AST and ALT are normal. INR was slightly elevated. I think this is likely secondary to her sepsis . Ammonia level checked and normal. Bilirubin decreasing. INR improved. Multiple other medical problems as outlined in past medical history Full code SCDs for DVT prophylaxis. Anticoagulation contraindicated with significant microscopic hematuria, anemia. GI prophylaxis with Pepcid Attestations Medical Necessity Statement*: Needs continued hospitalization for IV antibiotics related to pneumonia with respiratory failure requiring high flow oxygen, acute kidney injury, compression fracture of the back Critical Care Time: The high probability of a clinically significant, sudden or life threatening deterioration of the patient's [pulmonary, cardiac, renal] system(s) required my full and direct attention, intervention and personal management. The critical care time is as shown. 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
[2021-12-29] MEDS: HYDROcodone-acetaminophen 5-325 mg Tablet 1 TAB PO ×2 (09:29→20:21)
[2021-12-29] MEDS: predniSONE 20 mg Tablet 40 MG PO (09:29)
[2021-12-29] MEDS: pregabalin 25 mg Capsule PO ×2 (09:29→19:30)
[2021-12-29 14:47] LABS: ABG PCO2 29.6 mmHg (35-45); ABG PH Result 7.51 (7.35-7.45); Alveolar-Arterial Oxygen Gradi 9.6 mmHg (5-10); Arterial Blood Gas Hematocrit 22.4 % (37-47); Base Excess ABG 0.9 mmol/L (-2.0-2.0); Blood Gas Allen Test Pos; Blood Gas Operator Identificat CAK; Blood Gas Sample Site Radial, left; Blood Gas Sample Type Arterial; Carboxyhemoglobin 1.8 %THgb (0.4-20.1); HCO3 ABG 23.7 mmol/L (22-26); HGB O2 Sat 76.7 % (95-100); Ionized Calcium Level - ABG 1.2 mmol/L (1.1-1.4); Methemoglobin 1.2 % (0.4-1.5); Oxygen Saturation ABG 79.1; PO2 ABG 39.6 mmHg (80.0-100.0); Potassium Level - ABG 3.2 mmol/L (3.5-5.0); Total Hemoglobin 7.3 g/dL (12-16)
[2021-12-29 15:23] LABS: Oxygen Device ROOMAIR
--- NOTE | 2021-12-29 16:23 | XRR_ITS ---
PROCEDURE INFORMATION: Exam: XR Chest Exam date and time: 12/29/2021 4:29 PM Age: 61 years old Clinical indication: Device placement; Other: Line placement TECHNIQUE: Imaging protocol: Radiologic exam of the chest. Views: 1 view. COMPARISON: CR XR chest 1V portable [id number] 12/29/2021 4:14 AM FINDINGS: Tubes, catheters and devices: Right central venous catheter tip approaching the atrial caval junction. Lungs: See Heart/Mediastinum finding. Pleural spaces: Unremarkable. No pleural effusion. No pneumothorax. Heart/Mediastinum: Cardiomegaly, mild pulmonary vascular congestion and patchy ground-glass airspace opacities reflecting alveolar edema and/or pneumonic infiltrates. Bones/joints: Unremarkable. XR/XR chest 1V portable [id number] IMPRESSION: 1. Right central venous catheter tip approaching the atrial caval junction. 2. Cardiomegaly, mild pulmonary vascular congestion and patchy ground-glass airspace opacities reflecting alveolar edema and/or pneumonic infiltrates.
[2021-12-29 16:49] LABS: Basophils # 0.1 10^3/uL (0.0-0.1); Basophils % 0.4 %; Hematocrit 26.3 % (37.0-47.0); Hemoglobin 9.5 g/dL (11.5-15.3); Mean Corpuscular HGB Conc 36.1 g/dL (30.0-36.0); Mean Corpuscular Hemoglobin 27.5 pg (28.0-34.0); Mean Platelet Volume 11.9 fL (7.4-10.4); Monocytes # 0.8 10^3/uL (0.2-0.9); Monocytes % 4.2 %; Neutrophils # 17.21 10^3/uL (1.8-7.7); Neutrophils % 88.8 %; Nucleated Red Blood Cells % 0 %; Platelet Count 212 10^3/cmm (130-400); Red Blood Count 3.46 10^6/uL (4.1-5.3); Red Cell Distribution Width 16.3 % (12.1-15.1); White Blood Count 19.4 10^3/uL (4.0-10.0)
--- NOTE | 2021-12-29 16:51 | P.CONIM_ITS ---
Providers/Reason For Consult Consulting Physician/Specialty*: Pulmonary critical care medicine Reason for Consult*: Acute hypoxic respiratory failure, multilobar pneumonia, ARDS, MARILEE, gram-positive bacteremia Attending Physician: Jarrett Trejo MD Primary Care Provider: DOUG Torres History of Present Illness History of Present Illness Italia Wallace is a 61 year old female with a past medical history of COPD who presented to the emergency department on December 27 after sustaining 2 falls. The patient was found to have lumbar fracture and is under the care of the orthopedic team as there is concern for unstable fracture. However, during the time of admission, the patient was found to be hypotensive, having acute kidney injury. There was concern for interstitial infiltrate on chest imaging suggestive of pulmonary edema. Initially the patient was volume resuscitated with 3 L of IV fluid. Subsequently, given the concern for pulmonary edema, the patient underwent diuresis. The patient required pressors in the beginning of her hospital admission. She also received stress dose steroid. Over the last 48 hours, the patient's blood culture has grown 4 out of 4 staph aureus. It is unclear whether this is MSSA or MRSA. The patient has developed worsening hypoxemic respiratory failure. The patient was initially tried on high flow nasal cannula however it appears that she was unable to keep the nasal cannula in place and now she is on BiPAP with 40% FiO2, IPAP of 16, EPAP of 8, tidal volume in the 600s. Latest chest imaging revealed bilateral infiltrate. The right internal jugular vein central venous catheter has been optimally repositioned. On the latest blood gas the hemoglobin was 7.3 which is somewhat lower than previously obtained earlier today. Ice had examined the patient in the ICU. The patient was able to answer very simple questions by nodding her head. Bedside ultrasound revealed B-lines primarily in the mid and lower lung zone posteriorly, the pleural line was irregular, there was no pleural effusion. The patient is currently on linezolid, imipenem and azithromycin. The IVC was very small. She had an echocardiogram on December 27 which revealed normal ejection fraction with grade 1 diastolic dysfunction. RVSP was 59. No significant valvular disease. Review of Systems Narrative: Unable to assess as the patient is on BiPAP Medications/Allergies Home Medications Medication Instructions Recorded Confirmed Last Taken Type cholecalciferol (vitamin D3) 1,250 50,000 unit PO Q7D #4 tabs 06/30/20 12/27/21 Unknown Rx mcg (50,000 unit) tablet (Dialyvite Vitamin D3 Max) [facility] #1 ea 06/03/21 12/27/21 Unknown Rx [place], [place] pregabalin 150 mg capsule 150 mg PO BID #60 caps 10/19/21 12/27/21 Unknown Rx acetaminophen 300 mg-codeine 30 mg 1 tab PO Q6H PRN Pain 12/27/21 12/27/21 Unknown History tablet albuterol sulfate 90 mcg/actuation 2 puff inhalation Q6H PRN 12/27/21 12/27/21 Unknown History aerosol inhaler Shortness Of Breath potassium chloride 10 mEq 10 meq PO DAILY 12/27/21 12/27/21 Unknown History tablet,extended release Allergies Allergy/AdvReac Type Severity Reaction Status Date / Time Penicillins Allergy Mild ALGY-Rash Verified 06/13/21 13:59 diphenhydramine Allergy Unknown Unknown Verified 06/13/21 13:59 [From Benadryl] midazolam [From Versed] Allergy Unknown Verified 06/13/21 13:59 Current Medications Generic Name Dose Route Start Last Admin Trade Name Freq PRN Reason Stop Dose Admin Hydrocodone Bitart/Acetaminophen 1 tab 12/27/21 15:28 12/29/21 09:29 Hydrocodone-Acetaminophen 5-325 Mg Tablet PO 1 tab Q4H PRN Administration MODERATE PAIN Albuterol/Ipratropium 3 ml 12/27/21 20:00 12/29/21 14:11 Ipratropium-Albuterol 3 Ml Neb INHALATION 3 ml Q6H.RESP NIMESH Administration Budesonide 0.5 mg 12/27/21 20:00 12/29/21 08:17 Budesonide 0.5 Mg/2 Ml Neb INHALATION 0.5 mg BID NIMESH Administration Denture Adhesive 1 applic 12/28/21 12:24 12/28/21 16:21 Fixodent 39 Gm Tube DENTAL 1 tube PRN PRN Administration denture adhesive Famotidine 20 mg 12/27/21 15:28 12/29/21 02:28 Famotidine 20 Mg/2 Ml Inj IVP 20 mg Q12H NIMESH Administration Heparin Sodium (Porcine) 5,000 unit 12/27/21 16:00 12/29/21 04:53 Heparin 5,000 Unit/Ml Inj 1 Ml SUBCUT 5,000 unit Q12H NIMESH Administration Norepinephrine Bitartrate 4 mg 254 mls @ 0 mls/hr 12/27/21 12:45 12/28/21 09:15 / Dextrose IV 0 mcg/min .Q0M NIMESH 0 mls/hr Titration Protocol Per Protocol Azithromycin 500 mg/ Sodium 250 mls @ 250 mls/hr 12/27/21 15:28 12/28/21 17:21 Chloride IV Infused Q24H NIMESH Infusion Protocol Linezolid 600 mg in 300 mls @ 300 mls/hr 12/28/21 07:45 12/29/21 06:53 Zyvox Premix IV 300 mls/hr Q12H NIMESH Administration Protocol Imipenem/Cilastatin Sodium 250 100 mls @ 200 mls/hr 12/28/21 13:00 12/29/21 15:59 mg/ Sodium Chloride IV 200 mls/hr Q6H NIMESH Administration Protocol Lanolin 1 applic 12/28/21 12:23 12/28/21 13:09 Lanolin Oint 7 Gm TOPICAL 1 tube PRN PRN Administration DRYNESS Prednisone 40 mg 12/29/21 09:00 12/29/21 09:29 Prednisone 20 Mg Tablet PO 40 mg DAILY NIMESH Administration Pregabalin 25 mg 12/27/21 18:00 12/29/21 09:29 Pregabalin 25 Mg Capsule PO 25 mg BID NIMESH Administration PFSH Acute PFSH: Medical History Borderline hyperlipidemia Burn of left forearm Cervical cancer Colon cancer screening declined Compression fracture COPD (chronic obstructive pulmonary disease) Dyskinesia, tardive Hepatitis C Reports this has previously been treated Lumbar pain with radiation down both legs Screening mammography declined Smoker Tobacco dependency Vitamin D deficiency Surgical History H/O fasciotomy Septic forearm History of right hip replacement Hx of cholecystectomy Hx of hysterectomy History of cervical CA Hx of tonsillectomy Family History Family/Other Diabetes Hypertension Social History Smoking and tobacco status: current every day smoker (1 pack per day ) cigarettes Packs smoked per day: 1 Years cigarettes smoked: 37 Second hand smoke exposure: Yes Alcohol intake: never Lives independently: Yes Household members: family Housing: House Marital status: / Current occupational status: unemployed History of recent travel: No Current gender identity: Female Vitals/I&O/Wt Last Vital Signs Temp 98.5 F 12/29/21 05:00 Pulse 100 12/29/21 16:45 Resp 20 H 12/29/21 14:15 BP 87/57 12/29/21 06:00 Pulse Ox 90 12/29/21 16:45 O2 Del Method 12/29/21 14:12 O2 Flow Rate 35 12/29/21 14:15 FiO2 40 12/29/21 16:45 12/29/21 12/29/21 12/29/21 06:59 14:59 22:59 Intake Total 275 / 1735.316 155 / 155 Output Total 1350 / 2650 700 / 700 Balance -1075 / -914.684 -545 / -545 Weight last 48 hrs Weight 140 lb 3 oz Weight 148 lb 3 oz Physical Exam Narrative: General: Patient appears to be tired, able to give simple answers Neck: Unable to assess JVD Respiratory: Auscultation: Crackles at bilateral lung bases, no wheezing or rhonchi Cardiovascular: Regular rate and rhythm, S1-S2 present, distant heart sound, no murmur, no peripheral edema. Abdomen: Soft, nontender, nondistended, positive bowel sound Musculoskeletal: No obvious joint deformity Skin: No rash Neuro: Appears to be tired but able to answer simple questions, moving all extremities spontaneously Urinary Catheter Management: Vigil: Cath Placed During This Visit: yes Reason for Continuing Indwelling Catheter: Accurate Measurement of Urinary Output in Critically Ill Patients Urinary Catheter Date of Insertion: 12/27/21 Urinary Catheter Time of Insertion: 13:13 Data : 12/29/21 05:03 12/29/21 05:03 Micro: Microbiology 12/27/21 12:43 Blood Culture - Preliminary Blood Staphylococcus aureus 12/27/21 11:43 Blood Culture - Preliminary Blood Staphylococcus aureus 12/28/21 10:40 Gram Stain - Final Sputum - Expectorated Sputum Sputum Culture - Preliminary Yeast species 12/28/21 10:15 Blood Culture - Preliminary Blood NEGATIVE TO DATE 12/27/21 12:51 Urine Culture - Final Urine Catheterized 12/28/21 09:23 Blood Culture - Preliminary Blood NEGATIVE TO DATE 12/28/21 08:00 MRSA Culture - Final Nose Other data: I have reviewed the patient's laboratory, microbiologic and radiologic data please see the HPI for detail radiologic data. Creatinine is coming down. A&P Assessment and plan (1) ARDS (adult respiratory distress syndrome): The patient likely has multifocal pneumonia or ARDS in the setting of gram- positive bacteremia. The bedside ultrasound findings are more consistent with that then fluid overload. In any case, the patient would do better with being even more fluid negative. She is currently on BiPAP. Hopefully, when she is better and able to tolerate high flow nasal cannula we will switch her to that. The patient is currently getting a fairly high tidal volume considering her height of 5 feet 3 inches. We have made some changes to reduce the tidal volume as much as possible. Status: Acute (2) Acute and chronic respiratory failure with hypoxia: The patient is currently broadly covered with imipenem and linezolid. Will continue with supportive therapy. If her mental status worsens, the patient may need to get intubated. Status: Acute (3) Gram-positive bacteremia: The patient has staff aureus bacteremia. The source is unclear at this time. The transthoracic echocardiogram did not reveal any vegetation. The patient has previous history of drug use, whether she is using IV drugs is unclear at this time. The patient may need a INDRA once she is more stable. For the time being, the patient is broadly covered. Once we have the sensitivity we will optimize the medication. Status: Acute (4) Septic shock: Septic shock has resolved. The patient is currently not on Levophed. I will hold off on prednisone as the patient is not having an exacerbation of COPD. Status: Acute (5) Acute kidney injury: The patient had suffered from MARILEE in the setting of sepsis and likely dehydration. I expect this to keep getting better. Status: Acute (6) COPD (chronic obstructive pulmonary disease): The patient will receive Pulmicort and DuoNeb. Status: Acute Coding Level of Care Code Acute [employer] Technical Assistant for [facility] Diagnoses ARDS (adult respiratory distress syndrome) J80 Acute and chronic respiratory failure with hypoxia J96.21 Gram-positive bacteremia R78.81 Septic shock A41.9; R65.21 Acute kidney injury N17.9 COPD (chronic obstructive pulmonary disease) J44.9
[2021-12-29 16:52] LABS: Blood Urea Nitrogen 48 mg/dL (8-23); Calcium 8.9 mg/dL (8.5-10.5); Carbon Dioxide 20 mmol/L (22-29); Chloride 105 mmol/L (98-107); Glomerular Filtration Rate 28.6 mL/min (90-130); Glucose 104 mg/dL (65-115); Osmolality Calculated 307 mOsm/kg (285-295); Sodium 142 mmol/L (136-145)
[2021-12-29 17:01] LABS: Anion Gap 20.7 (5-19); Potassium 3.7 mmol/L (3.5-5.1)
[2021-12-29] MEDS: azithromycin 500 MG in sodium chloride 0.9% 250 ML 250 MG IV (17:05)
[2021-12-29 18:18] LABS: Slide Review Slide Review Perform
--- NOTE | 2021-12-29 20:33 | PC.NURSE ---
Patient c/o worsening pain R. Leg and Lower Back. given norco for pain, will assess in 30 minutes. Patient was also repositioned to left side per request. Respiration rate remains in 30's, HR 95-115. Patient moving in bed and moaning at time of administration. BiPaP remained in place.
[2021-12-29 21:20] LABS: Basophils % 0.3 %; Eosinophils % 0.1 %; Hematocrit 27.1 % (37.0-47.0); Hemoglobin 9.5 g/dL (11.5-15.3); Lymphocytes # 1.1 10^3/uL (0.8-4.8); Mean Corpuscular HGB Conc 35.1 g/dL (30.0-36.0); Mean Corpuscular Hemoglobin 27.3 pg (28.0-34.0); Mean Corpuscular Volume 77.9 fl (81-99); Mean Platelet Volume 11.4 fL (7.4-10.4); Monocytes # 0.8 10^3/uL (0.2-0.9); Neutrophils # 13.55 10^3/uL (1.8-7.7); Neutrophils % 85.1 %; Nucleated Red Blood Cells % 0 %; Platelet Count 196 10^3/cmm (130-400); Positive M 1; Red Blood Count 3.48 10^6/uL (4.1-5.3); Red Cell Distribution Width 16.9 % (12.1-15.1); White Blood Count 15.9 10^3/uL (4.0-10.0)
[2021-12-29 21:45] LABS: ABG PCO2 30.8 mmHg (35-45); ABG PH Result 7.48 (7.35-7.45); Alveolar-Arterial Oxygen Gradi 25.2 mmHg (5-10); Arterial Blood Gas Hematocrit 25.7 % (37-47); Base Excess ABG -0.4 mmol/L (-2.0-2.0); Blood Gas Allen Test Pos; Blood Gas Operator Identificat JB; Blood Gas Sample Site Radial, right; Blood Gas Sample Type Arterial; Carboxyhemoglobin 1.8 %THgb (0.4-20.1); HCO3 ABG 22.8 mmol/L (22-26); HGB O2 Sat 86.9 % (95-100); Ionized Calcium Level - ABG 1.2 mmol/L (1.1-1.4); Methemoglobin 0.9 % (0.4-1.5); Oxygen Device BIPAP; Oxygen Saturation ABG 89.4; PO2 ABG 52.7 mmHg (80.0-100.0); Potassium Level - ABG 3.2 mmol/L (3.5-5.0); Total Hemoglobin 8.4 g/dL (12-16)
--- NOTE | 2021-12-29 22:36 | PC.NURSE ---
This RN heard BiPAP red alarming, upon coming into room, noted patient had removed BiPAP mask and had removed pulse oximeter sensor. This RN provided education to patient regarding needing to keep BiPAP in place due to poor oxygenation without, as well as keeping sensor on to allow us to evaluate patients status while in ICU. She nodded as though she understood this RN, will continue regular assessments.
[2021-12-30] VITALS (73 sets, daily range): BP systolic 97–141; BP diastolic 66–92; PULSE 60–111; RESP 15–33; TEMP 36.7–36.9; O2SAT 89–100
--- NOTE | 2021-12-30 00:45 | PC.NURSE ---
BiPAP began alarming again as patient began to desaturate. When this RN arrived at room, patient had BiPAP mask dislodged and off again. Reapplied and stressed to patient the importance of keeping mask on to help with breathing. She responded I don't like it . Patient seems to be tolerating BiPAP well at 12/8 on FiO2 50%
[2021-12-30] MEDS: ipratropium-albuterol 3 mL Neb INHALATION ×4 (02:22→22:24)
[2021-12-30] MEDS: heparin 5,000 unit/mL INJ 1 mL 5000 UNIT SUBCUT ×2 (03:42→15:37)
[2021-12-30] MEDS: famotidine 20 mg/2 mL INJ IVP ×2 (03:42→15:37)
[2021-12-30 03:58] LABS: Basophils # 0.1 10^3/uL (0.0-0.1); Basophils % 0.3 %; Hematocrit 26.4 % (37.0-47.0); Hemoglobin 9.2 g/dL (11.5-15.3); Lymphocytes # 1.4 10^3/uL (0.8-4.8); Lymphocytes % 7.9 %; Mean Corpuscular HGB Conc 34.8 g/dL (30.0-36.0); Mean Corpuscular Hemoglobin 27.5 pg (28.0-34.0); Mean Corpuscular Volume 78.8 fl (81-99); Mean Platelet Volume 12.3 fL (7.4-10.4); Neutrophils # 14.52 10^3/uL (1.8-7.7); Neutrophils % 83.5 %; Nucleated Red Blood Cells % 0 %; Platelet Count 201 10^3/cmm (130-400); Red Blood Count 3.35 10^6/uL (4.1-5.3); Red Cell Distribution Width 17.2 % (12.1-15.1); White Blood Count 17.4 10^3/uL (4.0-10.0)
[2021-12-30 04:38] LABS: Alanine Aminotransferase 9 U/L (0-33); Albumin Level 2.2 g/dL (3.5-5.2); Alkaline Phosphatase 242 U/L (35-105); Anion Gap 16.4 (5-19); Aspartate Amino Transferase 16 U/L (0-32); Blood Urea Nitrogen 51 mg/dL (8-23); Calcium 8.9 mg/dL (8.5-10.5); Carbon Dioxide 22 mmol/L (22-29); Chloride 108 mmol/L (98-107); Globulin 4.1 g/dL (1.3-4.6); Glomerular Filtration Rate 30.6 mL/min (90-130); Glucose 115 mg/dL (65-115); Magnesium 2.2 mg/dL (1.7-2.3); Osmolality Calculated 311 mOsm/kg (285-295); Potassium 3.4 mmol/L (3.5-5.1); Sodium 143 mmol/L (136-145); Total Bilirubin 1.2 mg/dL (0.15-1.2); Total Protein 6.3 g/dL (6.6-8.7)
[2021-12-30 05:00] LABS: Positive M 1
--- NOTE | 2021-12-30 07:00 | XRR_ITS ---
PROCEDURE INFORMATION: Exam: XR Chest Exam date and time: 12/30/2021 6:47 AM Age: 61 years old Clinical indication: Patient HX: PT unable to give good history follow up; Additional info: Resp failure TECHNIQUE: Imaging protocol: Radiologic exam of the chest. Views: 1 view. COMPARISON: CR (CHEST, ) 12/29/2021 4:29 PM FINDINGS: Tubes, catheters and devices: Right IJ approach central line is in satisfactory position, with distal tip at the level of the SVC/RA junction. Lungs: There is increased interstitial markings and bilateral airspace opacities, involving mainly the left lower lobe, concerning for pneumonia. Pulmonary congestion can have this appearance. The lungs are somewhat hyperinflated, likely representing COPD. No evidence of focal consolidation to suggest pneumonia. Pleural spaces: Unremarkable. No pleural effusion. No pneumothorax. Heart/Mediastinum: Stable cardiomediastinal silhouette. Bones/joints: Unremarkable. XR/XR chest 1V portable [id number] IMPRESSION: Imaging findings concerning for pneumonia in a background of COPD. Pulmonary congestion can also have this appearance.
--- NOTE | 2021-12-30 07:23 | P.PN_ITS ---
Subjective Subjective: Awakens easily. Answers a few questions. Denies any pain. No issues through the night. Medications: Reviewed: Yes Vitals/I&O/Wt Last Vital Signs Temp 99.5 F 12/29/21 20:00 Pulse 97 12/30/21 06:30 Resp 26 H 12/30/21 06:30 BP 124/82 12/30/21 06:30 Pulse Ox 93 12/30/21 06:30 O2 Del Method 12/30/21 02:22 O2 Flow Rate 35 12/29/21 14:15 FiO2 50 12/30/21 06:17 12/29/21 12/30/21 12/30/21 22:59 06:59 14:59 Intake Total 635 / 1130 200 / 1330 Output Total 250 / 950 600 / 1550 Balance 385 / 180 -400 / -220 Weight last 48 hrs Weight 63.049 kg Weight 63.588 kg Physical Exam Narrative: General exam is a white female, currently on BiPAP, and will, alert just with verbal stimuli Neck is supple no lymphadenopathy or thyromegaly Cardiovascular mild tachycardic, regular, no murmur Lungs diminished breath sounds at the bases Abdomen is soft nontender positive bowel sounds. No obvious organomegaly exam demonstrates Vigil with jazmyn urine Extremities no cyanosis clubbing or edema, cap refill brisk Skin no rash Neuro no obvious focal deficits. Urinary Catheter Management: Vigil: Cath Placed During This Visit: yes Reason for Continuing Indwelling Catheter: Accurate Measurement of Urinary Output in Critically Ill Patients Urinary Catheter Date of Insertion: 12/27/21 Urinary Catheter Time of Insertion: 13:13 Data : 12/30/21 03:05 12/30/21 03:05 Micro: Microbiology 12/27/21 12:43 Blood Culture - Preliminary Blood Staphylococcus aureus 12/27/21 11:43 Blood Culture - Preliminary Blood Staphylococcus aureus 12/28/21 10:40 Gram Stain - Final Sputum - Expectorated Sputum Sputum Culture - Preliminary Yeast species 12/28/21 10:15 Blood Culture - Preliminary Blood NEGATIVE TO DATE 12/27/21 12:51 Urine Culture - Final Urine Catheterized 12/28/21 09:23 Blood Culture - Preliminary Blood NEGATIVE TO DATE A&P Assessment and plan (1) Hypotension: Markedly low blood pressure on admission Concern this may be due to extracellular volume depletion with renal failure, but cannot rule hypotension driven by infection. Not candidate for continued si gnificant fluids with concern of elevated BNP and chest x-ray with concern of fluid overload. Significant amounts of IV fluid has been given in the emergency department as appropriate. Patient developed fluid overload. Fluid was discontinued. Lasix ultimately given. Blood pressure supported with norepinephrine. Norepinephrine has now been discontinued Hydrocortisone was started. Changed to prednisone yesterday. Discontinued yesterday and blood pressure continues to be acceptable. Norepinephrine has since been discontinued. Bacteremia as potential etiology. Blood cultures are now demonstrating 4 out of 4 bottles with gram-positive organism, staph. Linezolid was chosen secondary to renal dysfunction initially. Repeat cultures negative to date. Echocardiogram demonstrated preserved EF, 1/4 diastolic dysfunction, moderate pulmonary hypertension. Venous duplex negative. In retrospect this may have been septic shock, and was treated as such but had significant congestive heart failure develop with the recommended fluid therapy. MRSA PCR negative Will ultimately need INDRA when stabilizes. Endocarditis with septic pulmonary emboli could also explain presentation. No large vegetation was seen on echocardiogram that was transthoracic, although images were technically limited. Appreciate pulmonary consultation. Picture now consistent with ARDS. Status: Acute (2) Microscopic hematuria: Patient with significant microscopic hematuria from my understanding. CT scan demonstrates some calcifications, and cystoscopy may be warranted but will need to be deferred at this point. No gross hematuria is noted. Cannot rule out UTI. Urine culture obtained. Rocephin has been changed to Primaxin secondary to severity of illness Status: Acute (3) Anemia: Significant anemia present on admission. This may be secondary to renal disease. Patient denies any known blood loss. Iron deficient on laboratory. Consider iron infusion Fecal Hemoccult pending Continue Pepcid IV Haptoglobin did not indicate hemolysis Status: Acute (4) Acute kidney injury: Significant acute kidney injury, associated with mild rhabdo. CK now normal Continue Vigil. Some bladder distention was noted on admission Note that she has had several falls lately, and although no sacral paresthesia on exam and can move lower extremities must consider possibility of comminuted lumbar fracture contributing. Orthopedic spine surgery is evaluating an MRI is ordered but pending stabilization of the patient. She has also been on significant amounts of anti-inflammatories, alternating ibuprofen and Aleve lately. Avoid all renal toxic medication Lyrica dose reduced to renal dysfunction Renal function continues to slowly improve Status: Acute (5) Lumbar compression fracture: Significant fracture, noted on CT scan. Appreciate orthopedic spine surgery consultation. Discussed with him mobility and she can be up in bed with assist. MRI planned when patient stabilizes. Fall precautions Status: Acute (6) Pneumonia: Secondary to worsening of respiratory status discontinue Rocephin and changed to Primaxin. Continue Zithromax for 3 days then discontinue. Zithromax can now be discontinued. Unlikely to have atypical bacteria with positive blood cultures with staph. Note that linezolid was added secondary to positive blood cultures. Note that she is penicillin allergic. Await sputum culture She does not appear fluid overloaded currently. Bedside ultrasound done by pulmonary did not show dilated IVC. COVID PCR performed on admission, not detected Associated with respiratory failure requiring high flow oxygen. Status: Acute (7) COPD (chronic obstructive pulmonary disease): DuoNeb Budesonide Monitor for any evidence of COPD exacerbation Steroids have been discontinued Encourage abstinence from tobacco Status: Acute (8) Tobacco dependency: Encourage abstinence Status: Acute (9) Elevated brain natriuretic peptide (BNP) level: Secondary to elevated BNP, some evidence of fluid overload on chest x-ray check echocardiogram. Note the troponin was slightly high but does not have significant delta. Echo showed preserved EF Now overall negative I and O's Status: Acute Plan Past history of hepatitis C. Note that bilirubin is slightly high. AST and ALT are normal. INR was slightly elevated. I think this is likely secondary to her sepsis . Ammonia level checked and normal. Bilirubin decreasing. INR improved. Multiple other medical problems as outlined in past medical history Full code SCDs for DVT prophylaxis. Anticoagulation contraindicated with significant microscopic hematuria, anemia. GI prophylaxis with Pepcid Attestations Medical Necessity Statement*: Needs continued hospitalization in the ICU secondary to need for BiPAP, high flow oxygen in this patient with respiratory failure and ARDS. Critical Care Time: The high probability of a clinically significant, sudden or life threatening deterioration of the patient's [pulmonary, renal, cardiac, infectious disease] system(s) required my full and direct attention, intervention and personal management. The critical care time is as shown. This time is in addition to time spent performing any reported procedures but includes the following: [x] Data and vital sign review and interpretation [x] Patient assessment, examination and intervention [x] Documentation [x] Medication orders and management Critical Care Time (min): 31 Coding Level of Care Code Acute [employer] for Chg Fwd Diagnoses Hypotension I95.9 Microscopic hematuria R31.29 Anemia D64.9 Acute kidney injury N17.9 Lumbar compression fracture S32.000A Pneumonia J18.9 COPD (chronic obstructive pulmonary disease) J44.9 Tobacco dependency F17.200 Elevated brain natriuretic peptide (BNP) level R79.89
[2021-12-30] MEDS: lidocaine 1% 5 ML in potassium chloride premix 100 ML 25 ML IV (07:52)
[2021-12-30] MEDS: linezolid premix 600 MG/300 ML PREMIX 300 MG IV ×2 (07:53→19:25)
[2021-12-30] MEDS: pregabalin 25 mg Capsule PO (08:37)
[2021-12-30] MEDS: HYDROcodone-acetaminophen 5-325 mg Tablet 1 TAB PO (08:40)
[2021-12-30] MEDS: budesonide 0.5 mg/2 mL Neb INHALATION (08:58)
[2021-12-30] MEDS: FUROsemide 10 mg/mL SDV 4mL 40 MG IVP (10:13)
--- NOTE | 2021-12-30 13:24 | PC.CHAP ---
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 visit [] Patient/Family/Request visit [] Outpatient visit [] Follow-up visit [] Physician referral [] Code/Alert [x] Routine visit [] Staff referral [] Actively dying [x] Patient sleeping [] Family support [] [] Out of room [] Palliative care [] [] Receiving care in room [] Pre-surgical visit [] Trauma [] Long length of stay [x] ICU visit [] Other: Relational/Emotional Strength [] Patient feels connected with others/family/visitors/staff [] Distress [] Loneliness/isolation [] Abandonment Spirituality of Patient [] Person of [place] [] Attends Religion of their [place] [] Believes in Prayer [] Reads Bible or Caodaism materials [] There are Spiritual issues to be addressed [employer] Interventions [x] Prayer [] Active listening [] Non-anxious presence [] Spiritual/emotional support [] Crisis/trauma care [] Spiritual counseling [] Bereavement support [] Provided bereavement packet [] Provided Bible/devotional materials [] Provided toy/stuffed animal, coloring book to patient or family member [] Provided Communion [] Anointing/Independence [] Salvation [x] Completed spiritual assessment [] Other: Impact on Illness or Injury [] Angry [] Fearful [] Anxious [] Often cries [] Exhaustion [] Unable to work [] Unable to attend voodoo [] Unable to walk/stand [] Unable to read [] Unable to drive [] Unable to eat/drink [] Unable to sleep [] Unable to be with family [] Patient intubated [] Other: Summary Time spent with patient
--- NOTE | 2021-12-30 15:09 | PC.NURSE ---
0950 Reported patient's increased restlessness, back/leg pain, tachycardia, and tachypnea to Dr. Trejo. Orders for increased pain medication received. Patient responded well to change in medications and was able to rest. Vital signs stable.
--- NOTE | 2021-12-30 17:17 | PC.SOCIAL ---
IMM Update pg 2 of IMM updated and reviewed w/ patient. Copy provided and Copy placed in chart dated and initialed.
[2021-12-31] VITALS (77 sets, daily range): BP systolic 124–160; BP diastolic 86–102; PULSE 71–120; RESP 15–33; TEMP 36.6–36.9; O2SAT 71–100; BMI 24.6
[2021-12-31] MEDS: ipratropium-albuterol 3 mL Neb INHALATION ×4 (03:35→19:44)
[2021-12-31] MEDS: famotidine 20 mg/2 mL INJ IVP ×2 (04:21→14:42)
[2021-12-31] MEDS: heparin 5,000 unit/mL INJ 1 mL 5000 UNIT SUBCUT ×2 (04:21→15:02)
[2021-12-31 05:02] LABS: Basophils # 0.1 10^3/uL (0.0-0.1); Basophils % 0.4 %; Eosinophils % 0.1 %; Hematocrit 29.6 % (37.0-47.0); Hemoglobin 9.8 g/dL (11.5-15.3); Lymphocytes # 1.5 10^3/uL (0.8-4.8); Lymphocytes % 9.1 %; Mean Corpuscular HGB Conc 33.1 g/dL (30.0-36.0); Mean Corpuscular Hemoglobin 27.1 pg (28.0-34.0); Mean Platelet Volume 11.7 fL (7.4-10.4); Monocytes # 0.9 10^3/uL (0.2-0.9); Monocytes % 5.3 %; Neutrophils % 82.7 %; Nucleated Red Blood Cells % 0 %; Platelet Count 189 10^3/cmm (130-400); Red Blood Count 3.61 10^6/uL (4.1-5.3); Red Cell Distribution Width 17.7 % (12.1-15.1); White Blood Count 16.2 10^3/uL (4.0-10.0)
[2021-12-31 05:20] LABS: Anion Gap 15.6 (5-19); Blood Urea Nitrogen 51 mg/dL (8-23); Carbon Dioxide 27 mmol/L (22-29); Chloride 109 mmol/L (98-107); Glomerular Filtration Rate 41.6 mL/min (90-130); Glucose 110 mg/dL (65-115); Magnesium 2.2 mg/dL (1.7-2.3); Osmolality Calculated 320 mOsm/kg (285-295); Potassium 3.6 mmol/L (3.5-5.1); Sodium 148 mmol/L (136-145)
[2021-12-31] MEDS: linezolid premix 600 MG/300 ML PREMIX 300 MG IV (07:35)
[2021-12-31] MEDS: budesonide 0.5 mg/2 mL Neb INHALATION ×2 (08:43→19:44)
--- NOTE | 2021-12-31 09:22 | CTR_ITS ---
PROCEDURE INFORMATION: Exam: CT Chest Without Contrast; Diagnostic Exam date and time: 12/31/2021 10:19 AM Age: 61 years old Clinical indication: Shortness of breath; Additional info: [place] TECHNIQUE: Imaging protocol: Diagnostic computed tomography of the chest without contrast. Radiation optimization: All CT scans at this facility use at least one of these dose optimization techniques: automated exposure control; mA and/or kV adjustment per patient size (includes targeted exams where dose is matched to clinical indication); or iterative reconstruction. COMPARISON: 1. CR (CHEST, ) 12/30/2021 6:[address] kidney stone [id number] 08/10/2020 3:05 AM RADIATION DOSE METRICS: Total DLP (mGy-cm): 412.91 FINDINGS: Tubes, catheters and devices: Right-sided central venous line noted with the distal tip at the cavoatrial junction. Lungs: Respiratory motion limiting fine pulmonary detail. Severe upper lobe emphysematous disease. Confluent ground-glass densities in the lungs questionable. Possible 5 mm nodule in the anterior segment of the left upper lobe. Pleural spaces: No pleural effusion. No pneumothorax. Heart: Coronary artery calcifications noted. Lymph nodes: The supraclavicular region appears normal. There are no enlarged lymph nodes in the axilla. There are no enlarged lymph nodes in the mediastinal or hilar regions. Vasculature: Unremarkable. No aortic aneurysm. Gallbladder and bile ducts: The gallbladder is surgically absent. Kidneys and ureters: Large simple appearing cyst in the lower pole the left kidney measuring up to approximately 6.5 cm in diameter, similar to prior exam. Bones/joints: Old compression deformities at L1 and L2. Soft tissues: Unremarkable. CT/CT chest wo con [id number] IMPRESSION: 1. Confluent ground-glass densities in the lungs, which may be seen with acute respiratory distress syndrome. 2. Severe upper lobe emphysematous disease. 3. Possible 5 mm nodule in the anterior segment of the left upper lobe. For patients at low risk (minimal or absent history of smoking and of other known risk factors), no routine follow-up is indicated. For patients at high risk (history of smoking or of other known risk factors), consider optional CT Chest at 12 months. (Reference: Edmar) COMMENTS: Consistent with the [employer]'s Incidental Findings Committee white paper (J Am Hunter Radiol 2018): Any incidental renal lesion less than 1 cm or classified as too small to characterize, or any incidental cystic renal lesion characterized as simple-appearing, is likely benign. No follow-up imaging is recommended for these lesions per consensus recommendations based on imaging criteria. REFERENCES: Edmar Thao, et al. Guidelines for Management of Incidental Pulmonary Nodules Detected on CT Images: From the Fleischner Society 2017. Radiology. 2017;284(1):228-243.
--- NOTE | 2021-12-31 09:34 | PC.NURSE ---
Dr. Isbell at bedside, gave v.o. for dilaudid PRN pain, goal to try HHF
[2021-12-31] MEDS: HYDROmorphone 1 mg/mL INJ 1 mL 0.5 MG IVP ×4 (09:41→21:10)
[2021-12-31] MEDS: dextrose 5%-ns + KCl 20 20 MEQ/1,000 ML BAG 50 MEQ IV (10:00)
[2021-12-31 10:04] LABS: NT Pro B Type Natriuretic Pept 1118 pg/mL (0-125); Procalcitonin 0.82 ng/mL (0-0.5)
[2021-12-31 10:22] LABS: Iron 96 ug/dL (37-145); Percent Saturation 51.6 % (20-50); Total Iron Binding Capacity 186 mcg/dl; Unsaturated Iron Binding 90 ug/dL (112-347)
--- NOTE | 2021-12-31 11:14 | PC.NURSE ---
patient moaning and restless. unable to give next PRN dilaudid yet. Dr. phelps gave t.o. for one time dose IVP fentanyl 25 mcg
[2021-12-31] MEDS: fentaNYL 50 mcg/mL INJ 2mL 25 MCG IVP ×4 (11:28→23:27)
--- NOTE | 2021-12-31 13:49 | PM.CONSULT ---
Providers/Reason For Consult Consulting Physician/Specialty*: Tejal Correa MD/Infectious Disease Reason for Consult*: MSSA septicemia Requesting Physician: Percy Isbell MD Attending Physician: Percy Isbell MD Primary Care Provider: DOUG Torres History of Present Illness History of Present Illness Italia Wallace is a 61 year old female who presented to the emergency room on December 27 with chief complaints of a mechanical fall. She was noted to have a low-grade temperature of 99 Fahrenheit, noted to be hypotensive and saturating 82% on room air. Patient has a significant past medical history of chronic lower backache and vertebral compression fractures for which she follows with orthopedics as outpatient. It appears her back had been bothering her more than usual recently and there was concern for increasing compression on imaging. She also has a past medical history of MSSA bacteremia with a background history of drug use. On evaluation she was found to have new compression fracture at the L4 level with a 25% height loss. Some sclerosis of the L3 was noted as well. Chest x-ray showed bilateral patchy opacities suggestive of atelectasis versus edema. COVID PCR is negative. She also had MARILEE and hematuria. She required pressor support with Levophed initially and BiPAP for respiratory support. Also received IV diuresis due to concerns of fluid overload. Her blood cultures eventually returned positive for MSSA 2 out of 4 bottles positive. Antibiotics were initially ceftriaxone upon admission, broadened to Primaxin and linezolid and azithromycin with clinical worsening on 12/28. At the time of my evaluation today, patient is moaning with pain. Does not really answer any historical questions. And therefore do not have any history or review of systems from her directly. She is noted to be moving all extremities in bed, however this is limited by pain. She has a Vigil catheter in place which has dark red-colored urine which appears concentrated. This has been placed for accurate output charting in view of MARILEE. She has previosuly been noted to be alert awake and oriented upon admission. She has been weaned off levophed drip and currently has bene maintaining BP. She is tachycardic. Previous lumbar MRI 05/28 withotu signs of discitis or epidural abscess. Review of Systems General: Reports: ROS unobtainable due to medical condition Medications/Allergies Home Medications Medication Instructions Recorded Confirmed Last Taken Type cholecalciferol (vitamin D3) 1,250 50,000 unit PO Q7D #4 tabs 06/30/20 12/27/21 Unknown Rx mcg (50,000 unit) tablet (Dialyvite Vitamin D3 Max) [facility] #1 ea 06/03/21 12/27/21 Unknown Rx [place] pregabalin 150 mg capsule 150 mg PO BID #60 caps 10/19/21 12/27/21 Unknown Rx acetaminophen 300 mg-codeine 30 mg 1 tab PO Q6H PRN Pain 12/27/21 12/27/21 Unknown History tablet albuterol sulfate 90 mcg/actuation 2 puff inhalation Q6H PRN 12/27/21 12/27/21 Unknown History aerosol inhaler Shortness Of Breath potassium chloride 10 mEq 10 meq PO DAILY 12/27/21 12/27/21 Unknown History tablet,extended release Allergies Allergy/AdvReac Type Severity Reaction Status Date / Time Penicillins Allergy Mild ALGY-Rash Verified 06/13/21 13:59 diphenhydramine Allergy Unknown Unknown Verified 06/13/21 13:59 [From Benadryl] midazolam [From Versed] Allergy Unknown Verified 06/13/21 13:59 Current Medications Generic Name Dose Route Start Last Admin Trade Name Freq PRN Reason Stop Dose Admin Albuterol/Ipratropium 3 ml 12/27/21 20:00 12/31/21 08:43 Ipratropium-Albuterol 3 Ml Neb INHALATION 3 ml Q6H.RESP NIMESH Administration Budesonide 0.5 mg 12/27/21 20:00 12/31/21 08:43 Budesonide 0.5 Mg/2 Ml Neb INHALATION 0.5 mg BID NIMESH Administration Denture Adhesive 1 applic 12/28/21 12:24 12/28/21 16:21 Fixodent 39 Gm Tube DENTAL 1 tube PRN PRN Administration denture adhesive Famotidine 20 mg 12/27/21 15:28 12/31/21 04:21 Famotidine 20 Mg/2 Ml Inj IVP 20 mg Q12H NIMESH Administration Heparin Sodium (Porcine) 5,000 unit 12/27/21 16:00 12/31/21 04:21 Heparin 5,000 Unit/Ml Inj 1 Ml SUBCUT 5,000 unit Q12H NIMESH Administration Hydromorphone HCl 0.5 mg 12/31/21 09:32 12/31/21 13:18 Hydromorphone 1 Mg/Ml Inj 1 Ml IVP 0.5 mg Q4H PRN Administration pain scale 6-10 Potassium Chloride/Dextrose/Sod Cl 20 meq in 1,000 mls @ 50 mls/hr 12/31/21 09:15 12/31/21 10:00 Dextrose 5%-Ns + Kcl 20 IV 50 mls/hr .Q20H NIMESH Administration Lanolin 1 applic 12/28/21 12:23 12/28/21 13:09 Lanolin Oint 7 Gm TOPICAL 1 tube PRN PRN Administration DRYNESS Pregabalin 25 mg 12/27/21 18:00 12/31/21 08:42 Pregabalin 25 Mg Capsule PO Not Given BID NIMESH PFSH Acute PFSH: Medical History (Updated 12/31/21 @ 14:41 by Tejal Correa MD) Borderline hyperlipidemia Burn of left forearm Cervical cancer Colon cancer screening declined Compression fracture COPD (chronic obstructive pulmonary disease) Dyskinesia, tardive Gram-positive bacteremia Hepatitis C Reports this has previously been treated Lumbar pain with radiation down both legs Screening mammography declined Smoker Tobacco dependency Vitamin D deficiency Surgical History H/O fasciotomy Septic forearm History of right hip replacement Hx of cholecystectomy Hx of hysterectomy History of cervical CA Hx of tonsillectomy Family History Family/Other Diabetes Hypertension Social History Smoking and tobacco status: current every day smoker (1 pack per day ) cigarettes Packs smoked per day: 1 Years cigarettes smoked: 37 Second hand smoke exposure: Yes Alcohol intake: never Lives independently: Yes Household members: family Housing: House Marital status: / Current occupational status: unemployed History of recent travel: No Current gender identity: Female Vitals/I&O/Wt Last Vital Signs Temp 98.5 F 12/31/21 04:00 Pulse 93 12/31/21 10:44 Resp 16 12/31/21 13:18 BP 124/86 12/31/21 10:30 Pulse Ox 88 L 12/31/21 13:18 O2 Del Method 12/31/21 08:43 O2 Flow Rate 40 12/31/21 10:44 FiO2 65 12/31/21 10:44 12/30/21 12/31/21 12/31/21 22:59 06:59 14:59 Intake Total 400 / 850 100 / 950 100 / 100 Output Total 1500 / 2500 450 / 2950 Balance -1100 / -1650 -350 / -2000 100 / 100 Weight last 48 hrs Weight 63.049 kg Weight 63.049 kg Physical Exam Narrative: General: Moaning in pain, lying in bed onto her right side, breathing apears comfortbale. HEENT: PERRLA, pupils bilaterally equal and reactive, pallors not present Chest: Normal vesicular breath sounds CVS: S1-S2 regular, tachycardia Abdomen: Soft, nontender, no organomegaly, bowel sounds present Neuro: No focal deficits, appears to be moving all extremities in bed, however unable to perform an exam as patient does not participate. Urinary Catheter Management: Vigil: Cath Placed During This Visit: yes Reason for Continuing Indwelling Catheter: Accurate Measurement of Urinary Output in Critically Ill Patients Urinary Catheter Date of Insertion: 12/27/21 Urinary Catheter Time of Insertion: 13:13 Data : 12/31/21 04:11 12/31/21 04:11 Other Labs: Radiology Impressions Lumbar Spine X-Ray 12/27/21 09:16 IMPRESSION: 1. There is a new compression fracture involving the superior endplate of L4, new from 11/08/2021. There is up to 25% height loss and likely minimal bony retropulsion. 2. Some sclerosis along the inferior endplate of L3 could reflect a nondisplaced compression fracture. Abdomen/Pelvis CT 12/27/21 10:36 IMPRESSION: 1. Distraction fracture through the L4-L5 disc space eccentric to the LEFT with mild disc space widening. This extends to involve the LEFT L4 and L5 pedicles. Comminuted fractures involving the superior L4-L5 endplates. 2. Additional acute appearing compression deformities at T12 with mild compression superior endplate and moderate compression L3 inferior endplate. Mild retropulsion of the posterior inferior cortex L3 with mild to moderate central canal stenosis eccentric to the LEFT. 3. Chronic compression deformities L1 and L2 appear unchanged. 4. Heterogeneous attenuation with some calcification in the prominent RIGHT extrarenal pelvis is nonspecific but TCC not excluded. Recommend further evaluation with ureteroscopy. 5. Extensive postoperative changes lymph node dissection bilateral retroperitoneum, iliac chains, and pelvis. 6. Prior hysterectomy 7. Osteopenia 8. Trace bilateral pleural fluid with bibasilar infiltrates compatible with pneumonia. Interstitial edema in the lung bases. Chest X-Ray 12/30/21 07:00 IMPRESSION: Imaging findings concerning for pneumonia in a background of COPD. Pulmonary congestion can also have this appearance. Chest CT 12/31/21 09:22 IMPRESSION: 1. Confluent ground-glass densities in the lungs, which may be seen with acute respiratory distress syndrome. 2. Severe upper lobe emphysematous disease. 3. Possible 5 mm nodule in the anterior segment of the left upper lobe. For patients at low risk (minimal or absent history of smoking and of other known risk factors), no routine follow-up is indicated. For patients at high risk (history of smoking or of other known risk factors), consider optional CT Chest at 12 months. ([facility] Laboratory Results WBC 16.2 10^3/uL (4.0-10.0) H 12/31/21 04:11 RBC 3.61 10^6/uL (4.1-5.3) L 12/31/21 04:11 Hgb 9.8 g/dL (11.5-15.3) L 12/31/21 04:11 Hct 29.6 % (37.0-47.0) L 12/31/21 04:11 MCV 82.0 fl (81-99) 12/31/21 04:11 MCH 27.1 pg (28.0-34.0) L 12/31/21 04:11 MCHC 33.1 g/dL (30.0-36.0) 12/31/21 04:11 RDW 17.7 % (12.1-15.1) H 12/31/21 04:11 Plt Count 189 10^3/cmm (130-400) 12/31/21 04:11 MPV 11.7 fL (7.4-10.4) H 12/31/21 04:11 Neut % (Auto) 82.7 % 12/31/21 04:11 Lymph % (Auto) 9.1 % 12/31/21 04:11 [place] % (Auto) 5.3 % 12/31/21 04:11 Eos % (Auto) 0.1 % 12/31/21 04:11 Baso % (Auto) 0.4 % 12/31/21 04:11 Neut # (Auto) 13.40 10^3/uL (1.8-7.7) H 12/31/21 04:11 Lymph # (Auto) 1.5 10^3/uL (0.8-4.8) 12/31/21 04:11 [place] # (Auto) 0.9 10^3/uL (0.2-0.9) 12/31/21 04:11 Eos # (Auto) 0.0 10^3/uL (0.0-0.8) 12/31/21 04:11 Baso # (Auto) 0.1 10^3/uL (0.0-0.1) 12/31/21 04:11 Nucleated RBC % (auto) 0 % 12/31/21 04:11 Total Counted 100 (0-100) 12/27/21 22:39 Atypical Lymphs % 0.0 % (0-5) 12/27/21 22:39 Absolute Neutrophils 18.3 10^3/cmm (1.4-6.5) H 12/27/21 22:39 Segmented Neutrophils 80 % 12/27/21 22:39 Abs Segm Neuts (Man) 16.1 10/cmm (1.6-7.1) H 12/27/21 22:39 Band Neutrophils 11.0 % 12/27/21 22:39 Abs Band Neuts (Man) 2.2 10^3/cmm (0.0-1.2) H 12/27/21 22:39 Absolute Lymphocytes 1.2 10^3/cmm (1.2-3.4) 12/27/21 22:39 Lymphocytes (Manual) 6 % 12/27/21 22:39 Monocytes (Manual) 3.0 % 12/27/21 22:39 Absolute Monocytes 0.6 10^3/cmm (0.1-0.6) 12/27/21 22:39 Eosinophils (Manual) 0 % 12/27/21 22:39 Absolute Eosinophils 0.0 10^3/cmm (0.0-0.7) 12/27/21 22:39 Basophils (Manual) 0.0 % 08/23/22 22:39 Absolute Basophils 0.0 10^3/cmm (0.0-0.2) 12/27/21 22:39 Nucleated RBCs # 0.0 /100WBC 12/31/21 04:11 Toxic Vacuolation 1+ H 12/27/21 22:39 Platelet Estimate Normal (Normal) 12/27/21 22:39 Giant Platelets 1+ H 12/27/21 22:39 Anisocytosis 2+ H 12/27/21 22:39 Target Cells 1+ H 12/27/21 22:39 Patti Cells 1+ H 12/27/21 22:39 Haptoglobin 306.0 mg/L (30-200) H 12/27/21 09:33 PT 15.60 SECONDS (12.1-14.9) H 12/29/21 05:03 INR 1.21 (0.8-1.2) H 12/29/21 05:03 Specimen Type Arterial 12/29/21 21:31 Sample Site Radial, right 12/29/21 21:31 ABG pH 7.48 (7.35-7.45) H 12/29/21 21:31 ABG pCO2 30.8 mmHg (35-45) L 12/29/21 21:31 ABG pO2 52.7 mmHg (80.0-100.0) L 12/29/21 21:31 ABG HCO3 22.8 mmol/L (22-26) 12/29/21 21:31 ABG O2 Saturation 89.4 12/29/21 21:31 ABG Base Excess -0.4 mmol/L (-2.0-2.0) 12/29/21 21:31 Conrado Test Pos 12/29/21 21:31 A-a O2 Gradient 25.2 mmHg (5-10) H 12/29/21 21:31 Hematocrit 25.7 % (37-47) L 12/29/21 21:31 Hgb O2 Saturation 86.9 % (95-100) L 12/29/21 21:31 Carboxyhemoglobin 1.8 %THgb (0.4-20.1) 12/29/21 21:31 Methemoglobin 0.9 % (0.4-1.5) 12/29/21 21:31 Total Hemoglobin 8.4 g/dL (12-16) L 12/29/21 21:31 Sodium 143.0 mmol/L (131-143) 12/29/21 21:31 Potassium 3.2 mmol/L (3.5-5.0) L 12/29/21 21:31 Glucose 166.0 mg/dL (70-115) H 12/29/21 21:31 Ionized Calcium 1.2 mmol/L (1.1-1.4) 12/29/21 21:31 O2 Delivery Device Bipap 12/29/21 21:31 O2 Liters/Min % 12/29/21 14:35 FiO2 40.0 % 12/29/21 21:31 Plate Drying Machine Tender ID Pedro 12/29/21 21:31 Sodium 148 mmol/L (136-145) H 12/31/21 04:11 Potassium 3.6 mmol/L (3.5-5.1) 12/31/21 04:11 Chloride 109 mmol/L (98-107) H 12/31/21 04:11 Carbon Dioxide 27 mmol/L (22-29) 12/31/21 04:11 Anion Gap 15.6 (5-19) 12/31/21 04:11 BUN 51 mg/dL (8-23) H 12/31/21 04:11 Creatinine 1.3 mg/dL (0.5-0.9) H 12/31/21 04:11 GFR Calculation 41.6 mL/min (90-130) L 12/31/21 04:11 Glucose 110 mg/dL (65-115) 12/31/21 04:11 POC Glucose 110 mg/dL (70-110) 12/27/21 15:35 Calculated Osmolality 320 mOsm/kg (285-295) H 12/31/21 04:11 Lactic Acid 2.0 mmol/L (0.5-2.2) 12/27/21 09:33 Calcium 9.0 mg/dL (8.5-10.5) 12/31/21 04:11 Phosphorus 3.6 mg/dL (2.5-4.5) 12/27/21 09:33 Magnesium 2.2 mg/dL (1.7-2.3) 12/31/21 04:11 Iron 96 ug/dL (37-145) 12/31/21 04:11 TIBC 186 mcg/dl 12/31/21 04:11 % Saturation 51.6 % (20-50) H 12/31/21 04:11 Unsat Iron Binding 90 ug/dL (112-347) L 12/31/21 04:11 Ferritin 703 ng/mL (15-150) H 12/27/21 09:33 Total Bilirubin 1.2 mg/dL (0.15-1.2) 12/30/21 03:05 AST 16 U/L (0-32) 12/30/21 03:05 ALT 9 U/L (0-33) 12/30/21 03:05 Alkaline Phosphatase 242 U/L (35-105) H 12/30/21 03:05 Ammonia 24 umol/L (11-51) 12/29/21 05:03 Creatine Kinase 68 U/L (26-192) 12/28/21 05:51 Troponin T Baseline 32 ng/L (0-10) H 12/27/21 09:33 Troponin T 120 Minute 24.37 ng/L (0-10) H 12/27/21 11:43 Delta Troponin T -7.63 ABS# (0-10) L 12/27/21 11:43 Troponin T Hi Sens 6Hr 18.99 ng/L (0-10) H 12/27/21 15:24 Troponin T Hi Sens 6Hr Delta -13.01 ng/L (0-12) L 12/27/21 15:24 NT-Pro-B Natriuret Pep 1118 pg/mL (0-125) H 12/31/21 04:11 Total Protein 6.3 g/dL (6.6-8.7) L 12/30/21 03:05 Albumin 2.2 g/dL (3.5-5.2) L 12/30/21 03:05 Globulin 4.1 g/dL (1.3-4.6) 12/30/21 03:05 Vitamin B12 1376 pg/mL (232-1245) H 12/27/21 09:33 Folate 4.8 ng/mL (4.8-37.3) 12/27/21 09:33 Procalcitonin 0.82 ng/mL (0-0.5) H 12/31/21 04:11 TSH 0.88 uIU/mL (0.27-4.20) 12/27/21 09:33 Random Cortisol 20.01 ug/dL (2.47-19.5) H 12/27/21 11:43 Urine Color Alana (Yellow) 12/27/21 10:02 Urine Appearance Cloudy (CLEAR) A 12/27/21 10:02 Urine pH 5 (5-7) 12/27/21 10:02 Ur Specific [place] 1.020 (1.005-1.030) 12/27/21 10:02 Urine Protein 1+ (Negative) H 12/27/21 10:02 Urine Glucose (UA) Norm (Normal) 12/27/21 10:02 Urine Ketones 1+ (Negative) H 12/27/21 10:02 Urine Blood 3+ (Negative) H 12/27/21 10:02 Urine Nitrate Negative (Negative) 12/27/21 10:02 Urine Bilirubin 1+ (Negative) H 12/27/21 10:02 Urine Urobilinogen 1 mg/dL (Negative) H 12/27/21 10:02 Ur Leukocyte Esterase 1+ (Negative) H 12/27/21 10:02 Urine RBC Too numerous to cnt /hpf (0-2) H 12/27/21 10:02 Urine WBC 0-4 /hpf (0-5) H 12/27/21 10:02 Ur Squamous Epith Cells 0-4 /hpf (0-5) H 12/27/21 10:02 Amorphous Sediment 2+ /hpf 12/27/21 10:02 Urine Bacteria None /hpf (NONE) 12/27/21 10:02 Coronavirus 229E (PCR) Not detected (NOT DETECT) 12/27/21 10:41 SARS-CoV-2 (PCR) Not detected (NOT DETECT) 12/27/21 10:41 Date of Service: 12/27/21 Procedure(s): CV. echo complete* [id number] Accession Number(s): [id number] Report Number: [id number] ?Italia Wallace ?Age:? ? 61 ? ? Gender: ? ? F ?:? ? 1960 ?Exam Date: ? ? 12/27/2021 16:12 ?Ordering Phys: ? ? Jarrett Trejo ? C ?Technologist:? ? ? KB ?Exam Location:? ? ? [facility] [place] ?MRN:? ? [id number] ?Account Number: ? ? ? [id number] ?Indication:? ? ? HYPOTENSION, ELEVATED BNP ?BP: ? 110 ? ? / ? 73? ? ? HR: ? 64 ?Rhythm: ? Sinus ?Technical Quality:? ? ? Adequate ?MEASUREMENTS? (Male / Female) Normal Values ?2D ECHO ?LVOT Diameter ? 2.0 cm?LV Ejection Fraction MOD 2C ? ? ? 73.3 %?LV Ejection Fraction 2C AL? 74.1 %?LA Diameter ? 3.4 cm?LA Width? 4.0 cm?LA Height ? 4.9 cm?RA Width? 2.7 cm?RA Height ? 4.3 cm?Aorta at Sinotubular Diameter ? ? 2.2 cm?IVC Diameter? 1.6 cm?M-MODE ?Aortic Annulus Diameter ? 2.8 cm?LA Ao Ratio MM? 1.1 ?DOPPLER ?AV Peak Velocity? 168.0 cm/s?LVOT Peak Velocity? 120.0 cm/s?AV Area Cont Eq vti ? 2.4 cm squared ?AV Area Cont Eq pk? 2.3 cm squared ?MV Peak Velocity? 111.0 cm/s?MV Area PHT ? 6.5 cm squared ?Mitral E to A Ratio ? 1.0 ?MV E' Velocity? 69.0 cm/s ?Mitral E to MV E' Ratio ? 8.2 ?Mitral E to LV E' Lateral Ratio ? 7.7 ?Mitral E to LV E' Septal Ratio? ? 8.7 ?TR Peak Velocity? 374.6 cm/s?TR Peak Gradient? 56.1 mmHg ?TR Mean Velocity? 483.5 cm/s?TR Mean Gradient? 93.8 mmHg ?TR Velocity Time Integral ? 153.1 cm?TV Peak E Velocity? 87.0 cm/s ?Right Atrial Pressure ? 3.0 mmHg?Pulmonary Artery Systolic Pressu? 59.1 mmHg ?PV Peak Velocity? 123.0 cm/s?RV Acceleration Time? 0.1 s ?RV Ejection Time? 0.3 s ?RV AcT/ET ? 0.3 ?FINDINGS ?Left Ventricle ?Difficult study due to tachypnea.? Normal left ventricular size, ?systolic function and wall thickness, with no regional wall ?motion abnormalities. Grade I/IV diastolic dysfunction (abnormal ?relaxation filling pattern), normal to mildly elevated filling ?pressures. Left ventricular ejection fraction is estimated at 60 ?%. ?Right Ventricle ?Normal right ventricular size and systolic function. Moderate ?pulmonary hypertension, RVSP 59.1 mmHg. ?Right Atrium ?The right atrium is normal in size. ?Left Atrium ?Mildly increased left atrial size. ?Mitral Valve ?Structurally normal mitral valve. Trace mitral valve ?regurgitation. ?Aortic Valve ?Structurally normal aortic valve without significant sclerosis ?or stenosis.? There is no aortic regurgitation. ?Tricuspid Valve ?Structurally normal tricuspid valve. Moderate tricuspid valve ?regurgitation. ?Pulmonic Valve ?Pulmonic valve not well visualized. ?Pericardium ?Normal pericardium without effusion. ?Aorta ?Normal ascending aorta dimension. ?IVC ?Inferior vena cava not visualized. ?CONCLUSIONS ?Difficult study due to tachypnea.? Normal left ventricular size, ?systolic function and wall thickness, with no regional wall ?motion abnormalities. Grade I/IV diastolic dysfunction (abnormal ?relaxation filling pattern), normal to mildly elevated filling ?pressures. Left ventricular ejection fraction is estimated at 60 ?%. ?Normal right ventricular size and systolic function. Moderate ?pulmonary hypertension, RVSP 59.1 mmHg. ?Mildly increased left atrial size. ?Structurally normal mitral valve. Trace mitral valve ?regurgitation. Micro: Microbiology 12/27/21 12:43 Blood Culture - Final Blood Staphylococcus aureus Blood Culture Final 12/30/21-1338 4 OF 4 BOTTLE POSITIVE DIRECT GRAM STAIN: GRAM POSITIVE COCCI IN CLUSTERS Organism 1 Staphylococcus aureus Growth IN ALL 4 BOTTLES Gram Stain Charge Charge for Gram Stain CRITICAL RESULT YES/NO: YES CRITICAL CALLED BY: GIDEON TO AND READ BACK BY: CHRISTIANO DATE: 12/28/21 TIME: 014 2ND CRITICAL RES YES/NO: YES 2ND CRITICAL CALLED BY: YAKELIN 2ND TO AND READ BACK BY: LISA DATE: 12/28/21 2ND CRITICAL TIME: 1104 S aureus M.I.C. RX --------- ------ * Amoxicillin/Clavulanate <=4/2 S * Ampicillin >8 R * Ampicillin/Sulbactam <=8/4 S * Ceftriaxone <=8 S * Ciprofloxacin <=1 S * Clindamycin <=0.5 S * Erythromycin <=0.5 S * Gentamicin <=4 S * Levofloxacin <=1 S * Linezolid 4 S * Oxacillin 0.5 S * Penicillin >8 R * Rifampin <=1 S * Tetracycline <=4 S * Trimethoprim/Sulfamethoxazole <=0.5/9.5 S Vancomycin 2 S Daptomycin <=0.5 S Blood Culture Final 12/30/21-1338 4 OF 4 BOTTLE POSITIVE DIRECT GRAM STAIN: GRAM POSITIVE COCCI IN CLUSTERS Organism 1 Staphylococcus aureus Growth IN ALL 4 BOTTLES Gram Stain Charge Charge for Gram Stain CRITICAL RESULT YES/NO: YES CRITICAL CALLED BY: GIDEON TO AND READ BACK BY: CHRISTIANO DATE: 12/28/21 TIME: 146 2ND CRITICAL RES YES/NO: YES 2ND CRITICAL CALLED BY: YAKELIN 2ND TO AND READ BACK BY: LISA DATE: 12/28/21 2ND CRITICAL TIME: 1104 S aureus M.I.C. RX --------- ------ * Amoxicillin/Clavulanate <=4/2 S * Ampicillin >8 R * Ampicillin/Sulbactam <=8/4 S * Ceftriaxone <=8 S * Ciprofloxacin <=1 S * Clindamycin <=0.5 S * Erythromycin <=0.5 S * Gentamicin <=4 S * Levofloxacin <=1 S * Linezolid 4 S * Oxacillin 0.5 S * Penicillin >8 R * Rifampin <=1 S * Tetracycline <=4 S * Trimethoprim/Sulfamethoxazole <=0.5/9.5 S Vancomycin 2 S Daptomycin <=0.5 S 12/27/21 11:43 Blood Culture - Final Blood Staphylococcus aureus Blood cx : 12/28: no growth to date Urine cx : 12/27: no growth 12/28: resp cx : normal yury, few yeast A&P Assessment and plan (1) Septic shock: Status: Acute (2) Staphylococcus aureus septicemia: Status: Acute (3) ARDS (adult respiratory distress syndrome): Status: Acute (4) Acute kidney injury: Status: Acute Plan Patient admitted to the hospital on December 27, 2021 after presenting with a mechanical fall, however found to have signs of septic shock and MSSA septicemia. Current active issues include positive blood cultures on December 27, 2021, persisting leukocytosis, ARDS with hypoxic respiratory failure, spinal compression fracture with ongoing pain. # MSSA Septicemia # ARDS with hypoxic respiratory failure MSSA septicemia with positive blood cultures on 12/27/2021 with signs of septic shock and endorgan failure by way of MARILEE, metabolic encephalopathy, ARDS. Source is currently unclear. Patient does not have any indwelling IV lines. It is not known at this time if she has an ongoing history of IV drug abuse. CT of the abdomen and pelvis does not show any abscesses. CT of the chest performed earlier this morning shows ARDS. No gross consolidation is noted. Urine culture is negative. TTE shows grossly normal heart valves. No vegetations noted. She does have a history of spinal compression fracture dating back at least to 2019. She follows up with orthopedics for the same. CT of the chest abdomen picked up the compression fractures. No mention of discitis or epidural abscesses on the same. Awaiting MRI studies. Additionally recommend MRI of the brain along with the spine given that patient at this time appears encephalopathic. Would be prudent to evaluate for septic embolization to the brain. Currently on treatment with Primaxin and linezolid. Recommend to discontinue both today. Blood culture shows MSSA . Transition therapy to cefazolin 2 g IV every 8 hours for organism directed therapy. Anticipate at least 6 to 8 weeks of treatment. Blood culture currently clear as of December 28, 2021. #Acute kidney injury This appears to be multifactorial. May be related to rhabdomyolysis versus acute GN GN from staph infection. MARILEE is currently improving. Dose cefazolin per renal function. #Metabolic encephalopathy This may be multifactorial related related to sepsis and pain medication. Recommend MRI of the brain to evaluate for any septic embolization to [employer]. #History of hepatitis C. Positive hep C genotype 1a RNA from May 2018. I am uncertain if patient has been treated for hepatitis C in the past. This can be followed up as outpatient. Screen for HIV additionally. Consult Attestations Medical Necessity Statement: Ongoing need for IV antibiotics, pending MR imaging, see admitting note. Critical Care Time: The high probability of a clinically significant, sudden or life threatening deterioration of the patient's [infectious] system(s) required my full and direct attention, intervention and personal management. The critical care time is as shown. This time is in addition to time spent performing any reported procedures but includes the following: [x] Data and vital sign review and interpretation [x] Patient assessment, examination and intervention [x] Documentation [x] Medication orders and management Critical Care Time (min): 40 Coding Level of Care Code Acute Histologist for Chg Fwd Diagnoses Septic shock A41.9; R65.21 Staphylococcus aureus septicemia A41.01 ARDS (adult respiratory distress syndrome) J80 Acute kidney injury N17.9
--- NOTE | 2021-12-31 14:33 | PC.PHAR ---
Spoke with Attending, Dr. Isbell, regarding starting a fentanyl patch on patient that has never been on before. Order was input for 100mcg/hr patch. I advised for patients never having been on a fentanyl patch (not using for chronic pain) doses are typically started lower (50mcg/hr or less but are also dependant upon how much pt is receiving currently.) Pt has been given today a one time dose of Fentanyl 25 mcg and 1 mg diluadid today thus far. Which would convert to roughly 5.6 mcg/hr dose (based off of amount of dilaudid given today). Notified provider and he wanted to continue with 100mcg patch anyways.
[2021-12-31] MEDS: ceFAZolin 2,000 MG in sodium chloride 0.9% (plus) 50 ML 100 MG IV (14:42)
--- NOTE | 2021-12-31 14:47 | P.PN_ITS ---
Subjective Subjective: Hospital course, labs appreciated. Patient has remained hemodynamically stable and afebrile. Not on pressors. On examination patient lying in bed, seems to be in distress because of pain, not following commands, moaning and groaning which seems to be better after pain IV medications. On examination patient was first on BiPAP of 50% saturating in mid 90s which was later transitioned over to heated high flow. On examination in the morning patient's heart rate was more than 110 with settled down with pain medications. Vigil in place. Concentrated urine. Seems to have a urine output of around 1700 cc in last 24 hours Vitals/I&O/Wt Last Vital Signs Temp 98.5 F 12/31/21 04:00 Pulse 101 H 12/31/21 14:12 Resp 18 12/31/21 14:12 BP 124/86 12/31/21 14:00 Pulse Ox 90 12/31/21 14:12 O2 Del Method 12/31/21 14:07 O2 Flow Rate 40 12/31/21 14:12 FiO2 55 12/31/21 14:12 12/30/21 12/31/21 12/31/21 22:59 06:59 14:59 Intake Total 400 / 850 100 / 950 100 / 100 Output Total 1500 / 2500 450 / 2950 Balance -1100 / -1650 -350 / -2000 100 / 100 Weight last 48 hrs Weight 63.049 kg Weight 63.049 kg Physical Exam Narrative: EXAM NARRATIVE: General: Acute distress because of pain, moaning and groaning in examination, not following commands but awake, on heated high flow HEENT: PERRLA, pupils bilaterally equal and reactive Chest: Bilateral bronchial breath sounds, coarse crackles present all over the lung lamb, CVS: S1-S2 regular, no murmurs, no tachycardia, no gallops, no rubs Abdomen: Soft, nontender, no organomegaly, bowel sounds present, morbidly obese Neuro: No focal deficits, moving all limbs, Vigil in place, no episodes of bowel incontinence Urinary Catheter Management: Vigil: Cath Placed During This Visit: yes Reason for Continuing Indwelling Catheter: Accurate Measurement of Urinary Output in Critically Ill Patients Urinary Catheter Date of Insertion: 12/27/21 Urinary Catheter Time of Insertion: 13:13 Data : 12/31/21 04:11 12/31/21 04:11 Micro: Microbiology 12/27/21 12:43 Blood Culture - Final Blood Staphylococcus aureus 12/27/21 11:43 Blood Culture - Final Blood Staphylococcus aureus A&P Assessment and plan (1) Staphylococcus aureus septicemia: Status: Acute (2) ARDS (adult respiratory distress syndrome): Status: Acute (3) Acute kidney injury: Status: Acute (4) Compression fracture: Status: Acute (5) Septic shock: Status: Acute (6) Acute and chronic respiratory failure with hypoxia: Status: Acute (7) Pneumonia: Status: Acute (8) COPD (chronic obstructive pulmonary disease): Status: Acute (9) Microscopic hematuria: Status: Acute (10) Anemia: Status: Acute (11) Lumbar compression fracture: Status: Acute Plan 61-year-old female with history of IV drug abuse in the past admitted for fall found to have lumbar compression fracture, developed ARDS, found to have MSSA bacteremia and acute kidney injury. Staphylococcus bacteremia: MSSA bacteremia. Blood cultures from 12/28 so far negative. MRSA swab, procalcitonin urinalysis, urine Legionella, bacterial antigen. Stop linezolid. For now continue with imipenem as per creatinine clearance. ID consultation. Patient most likely would need INDRA going forward for possible endocarditis. Cannot rule out discitis. MRI ordered by orthopedics. Maintain mean artery pressure over 65. ARDS: Most likely secondary to severe sepsis from MSSA bacteremia. Hypoxic respiratory failure Oxygen supplementation keeping saturation over 88%. COVID-19 PCR negative Follow-up sputum culture Pulmicort twice daily, DuoNebs every 6 hour. Acute kidney injury: Creatinine improving. Vigil catheterization. Monitor input output. Reconciliation done for nephrotoxic drugs. Check urine lites, urine creatinine, urine eosinophils, repeat urinalysis. CT abdomen pelvis on admission negative for obstructive uropathy. Hypernatremia: Secondary to poor oral intake. Start on gentle IV hydration with D5 NS, 20 mg of potassium at 50 cc/h. Monitor BMP every 12 hourly for now. Compression lumbar fracture: Patient seems to be in significant pain. Appreciate Dr. Angulo's recommendation. Care discussed. Back brace. MRI when possible. Start on Dilaudid 0.5 every 4 hourly as needed, fentanyl 25 mcg every 4 hourly as needed. Fentanyl patch 100 mcg. When possible will start on oral pain medications. Analgesia: Pain medication as above Glycemic control: Not needed. Check A1c Nutrition: Clear liquid diet CODE STATUS: Full code PUD prophylaxis: Famotidine DVT prophylaxis: Heparin 5000 every 12 hourly. Discharge planning: SNF versus home with home health. We will get PT evaluation once more stable. Continue with care at ICU care. This documentation was created by [employer] software security architect software. Every effort was made to ensure accuracy of software security architect. Any obvious errors or omissions should be clarified with the author of the document. Attestations Medical Necessity Statement*: , Acute kidney injury, ARDS, hyponatremia, compression lumbar fracture requires further hospitalization for management of MSSA bacteremia Critical Care Time: The high probability of a clinically significant, sudden or life threatening deterioration of the patient's [pulmonary, hematological, ID, cardiac] system(s) required my full and direct attention, intervention and personal management. The critical care time is as shown. This time is in addition to time spent performing any reported procedures but includes the following: [x] Data and vital sign review and interpretation [x] Patient assessment, examination and intervention [x] Documentation [x] Medication orders and management Critical Care Time (min): 90 Coding Level of Care Code Acute Laboratory Clerk for [facility] Fwd Diagnoses Staphylococcus aureus septicemia A41.01 ARDS (adult respiratory distress syndrome) J80 Acute kidney injury N17.9 Compression fracture Septic shock A41.9; R65.21 Acute and chronic respiratory failure with hypoxia J96.21 Pneumonia J18.9 COPD (chronic obstructive pulmonary disease) J44.9 Microscopic hematuria R31.29 Anemia D64.9 Lumbar compression fracture S32.000A
--- NOTE | 2021-12-31 15:19 | PC.NURSE ---
Patient remains restless and moans loudly, significant facial grimmicing, put in Fentanyl patch order
[2021-12-31] MEDS: fentaNYL 100 mcg Patch 1 PATCH TRANSDERMA (15:38)
[2021-12-31] MEDS: fluconazole premix 100 MG in empty flexible container 1 EACH 50 MG IV (17:03)
--- NOTE | 2021-12-31 18:37 | PC.NURSE ---
Dr. Isbell called, this nurse informed HCP there really isn't a change in patient status, one hour after each PRN dose patient will rest then become restless and groan. not answering questions or following commands. HCP advised this nurse to continue with orders and will reevaluate in AM, goal is Fentanyl patch will better control pain over night
[2021-12-31 20:42] LABS: Potassium, Radom Urine 37 mmol/L; Urine Random Chloride 72 mmol/L; Urine Random Sodium 81 mmol/L
[2021-12-31 21:18] LABS: Blood Urine 2+ (Negative); Glucose Urine UA Norm (Normal); Ketones Urine 1+ (Negative); Nitrate Urine Negative (Negative); Protein Urine 1+ (Negative); Urine Appearance Clear (CLEAR); Urine Color Dark Yellow (Yellow); pH Urine 6 (5-7)
[2021-12-31 21:19] LABS: Add Urine Microscopic? YES; Bilirubin Urine 1+ (Negative); Leukocyte Esterase Urine Trace (Negative); Urobilinogen Urine 4 mg/dL (Negative)
[2021-12-31 21:21] LABS: Add Urine Culture? No; Bacteria Urine TRACE /hpf; Mucus Urine TRACE /hpf; Squamous Epithelial Cell Urine 0-4 /hpf (0-5); Transitional Epi Cells Urine 0-4 /hpf
[2021-12-31 21:39] LABS: Urine Creatinine 78 mg/dL (28-217)
[2021-12-31 22:43] LABS: Eosinophil Urine No Eosinophils Seen
[2022-01-01] VITALS (57 sets, daily range): BP systolic 105–160; BP diastolic 69–112; PULSE 61–132; RESP 11–29; TEMP 36.4–37.1; O2SAT 78–100
[2022-01-01] MEDS: HYDROmorphone 1 mg/mL INJ 1 mL 0.5 MG IVP ×4 (01:12→20:35)
[2022-01-01] MEDS: ipratropium-albuterol 3 mL Neb INHALATION ×4 (02:49→20:39)
[2022-01-01 03:57] LABS: Basophils # 0.1 10^3/uL (0.0-0.1); Basophils % 0.3 %; Eosinophils % 0.1 %; Hematocrit 30.5 % (37.0-47.0); Hemoglobin 9.9 g/dL (11.5-15.3); Lymphocytes # 1.8 10^3/uL (0.8-4.8); Lymphocytes % 9.8 %; Mean Corpuscular HGB Conc 32.5 g/dL (30.0-36.0); Mean Corpuscular Hemoglobin 27.1 pg (28.0-34.0); Mean Corpuscular Volume 83.6 fl (81-99); Mean Platelet Volume 11.5 fL (7.4-10.4); Monocytes # 1.2 10^3/uL (0.2-0.9); Monocytes % 6.6 %; Neutrophils # 14.84 10^3/uL (1.8-7.7); Neutrophils % 80.1 %; Nucleated Red Blood Cells % 0 %; Platelet Count 200 10^3/cmm (130-400); Red Blood Count 3.65 10^6/uL (4.1-5.3); Red Cell Distribution Width 17.7 % (12.1-15.1); White Blood Count 18.5 10^3/uL (4.0-10.0)
[2022-01-01] MEDS: fentaNYL 50 mcg/mL INJ 2mL 25 MCG IVP ×3 (04:09→13:50)
[2022-01-01] MEDS: heparin 5,000 unit/mL INJ 1 mL 5000 UNIT SUBCUT ×2 (04:09→16:08)
[2022-01-01] MEDS: famotidine 20 mg/2 mL INJ IVP ×2 (04:16→16:08)
[2022-01-01 04:19] LABS: Chol HDL Ratio 7.86 mg/dL (0.0-4.40); Cholesterol 165 mg/dL (0-200); HDL Cholesterol 21 mg/dL (60-100); LDL Cholesterol Calculated 97 mg/dL (50-129); Triglycerides 237 mg/dL (0-150); VLDL Cholestrol Calculation 47 mg/dL (0-30)
[2022-01-01 04:23] LABS: Alanine Aminotransferase < 5 U/L (0-33); Albumin Level 2.6 g/dL (3.5-5.2); Alkaline Phosphatase 220 U/L (35-105); Anion Gap 17.5 (5-19); Aspartate Amino Transferase 9 U/L (0-32); Blood Urea Nitrogen 39 mg/dL (8-23); Carbon Dioxide 24 mmol/L (22-29); Chloride 118 mmol/L (98-107); Globulin 3.9 g/dL (1.3-4.6); Glomerular Filtration Rate 63.7 mL/min (90-130); Glucose 109 mg/dL (65-115); Osmolality Calculated 332 mOsm/kg (285-295); Potassium 3.5 mmol/L (3.5-5.1); Sodium 156 mmol/L (136-145); Total Bilirubin 1.1 mg/dL (0.15-1.2); Total Protein 6.5 g/dL (6.6-8.7)
[2022-01-01 04:37] LABS: HIV 1 & 2 Antibody Non-Reactive (Non-Reactiv); HIV 1 & 2 Antigen Non-Reactive (Non-Reactiv)
[2022-01-01 04:50] LABS: Estmated Average Glucose 114; Hemoglobin A1C 5.6 % (4.0-6.0)
[2022-01-01] MEDS: dextrose 5%-ns + KCl 20 20 MEQ/1,000 ML BAG 50 MEQ IV (05:34)
[2022-01-01] MEDS: ceFAZolin 2,000 MG in sodium chloride 0.9% (plus) 50 ML 100 MG IV ×3 (05:34→21:32)
[2022-01-01] MEDS: dextrose 5% 1,000 ML 75 ML IV ×2 (08:15→21:31)
[2022-01-01] MEDS: budesonide 0.5 mg/2 mL Neb INHALATION ×2 (08:32→20:40)
[2022-01-01] MEDS: haloperidol inj 5 mg/mL INJ 1 mL IM (10:57)
--- NOTE | 2022-01-01 11:10 | PC.NURSE ---
NG tube attempted and unsuccessful. Dr. Isbell notified. Ordered Haldol 5 MG IM once.
--- NOTE | 2022-01-01 14:20 | XRR_ITS ---
PROCEDURE INFORMATION: Exam: XR Chest Exam date and time: 01/01/2022 2:42 PM Age: 61 years old Clinical indication: Device placement; Ng tube; Additional info: Ng tube placement TECHNIQUE: Imaging protocol: Radiologic exam of the chest. Views: 1 view. COMPARISON: CT chest con [id number] 12/31/2021 10:19 AM FINDINGS: Tubes, catheters and devices: There is a nasogastric tube whose tip is in the stomach. Lungs: There is bilateral interstitial lung disease. Pleural spaces: Unremarkable. No pleural effusion. No pneumothorax. Heart/Mediastinum: Unremarkable. No cardiomegaly. Bones/joints: Unremarkable. XR/XR chest 1V portable [id number] IMPRESSION: There is a nasogastric tube whose tip is in the stomach.
[2022-01-01] MEDS: oxyCODONE 5 mg IR Tab/Cap PO (14:26)
--- NOTE | 2022-01-01 15:00 | PM.PN ---
Subjective Subjective: No acute events overnight. Patient continues to remain confused. On examination again morning in bed. Poor oral intake. Continues to remain on 40 L 55% with saturation over 95%. Urine output within last 24 hours 700 cc. Medications: Reviewed: Yes Vitals/I&O/Wt Last Vital Signs Temp 97.6 F 01/01/22 07:30 Pulse 125 H 01/01/22 14:30 Resp 16 01/01/22 14:30 BP 114/72 01/01/22 14:30 Pulse Ox 97 01/01/22 14:30 O2 Del Method 01/01/22 14:30 O2 Flow Rate 40 01/01/22 14:30 FiO2 55 01/01/22 14:30 01/01/22 01/01/22 01/01/22 06:59 14:59 22:59 Intake Total 978.333 / 1128.333 100 / 100 Output Total 400 / 700 Balance 578.333 / 428.333 100 / 100 Weight last 48 hrs Weight 63.049 kg Physical Exam Narrative: EXAM NARRATIVE: General: Acute distress because of pain, moaning and groaning in examination, not following commands but awake, on heated high flow HEENT: PERRLA, pupils bilaterally equal and reactive Chest: Bilateral bronchial breath sounds, coarse crackles present all over the lung lamb, CVS: S1-S2 regular, no murmurs, no tachycardia, no gallops, no rubs Abdomen: Soft, nontender, no organomegaly, bowel sounds present, morbidly obese Neuro: No focal deficits, moving all limbs, Vigil in place, no episodes of bowel incontinence Extremity: In lumbar brace Urinary Catheter Management: Vigil: Cath Placed During This Visit: yes Reason for Continuing Indwelling Catheter: Accurate Measurement of Urinary Output in Critically Ill Patients Urinary Catheter Date of Insertion: 12/27/21 Urinary Catheter Time of Insertion: 13:13 Data : 01/01/22 03:16 01/01/22 03:16 Micro: Microbiology 12/31/21 20:19 Legionella Urinary Antigen - Final Urine,Clean Catch 12/28/21 10:40 Gram Stain - Final Sputum - Expectorated Sputum Sputum Culture - Final Marilyn glabrata A&P Assessment and plan (1) Staphylococcus aureus septicemia: Status: Acute (2) ARDS (adult respiratory distress syndrome): Status: Acute (3) Acute kidney injury: Status: Acute (4) Compression fracture: Status: Acute (5) Septic shock: Status: Acute (6) Acute and chronic respiratory failure with hypoxia: Status: Acute (7) Pneumonia: Status: Acute (8) COPD (chronic obstructive pulmonary disease): Status: Acute (9) Microscopic hematuria: Status: Acute (10) Anemia: Status: Acute (11) Lumbar compression fracture: Status: Acute Plan 61-year-old female with history of IV drug abuse in the past admitted for fall found to have lumbar compression fracture, developed ARDS, found to have MSSA bacteremia and acute kidney injury. Staphylococcus bacteremia: MSSA bacteremia. Blood cultures from 12/28 so far negative. Continue with cefazolin as per ID recommendations. Patient most likely would need INDRA going forward for possible endocarditis. Cannot rule out discitis. MRI ordered by orthopedics. Maintain mean artery pressure over 65. ARDS: Currently stable. Most likely secondary to severe sepsis from MSSA bacteremia. Hypoxic respiratory failure Oxygen supplementation keeping saturation over 88%. COVID-19 PCR negative Sputum cultures consistent with Marilyn glabrata. For now started on IV fluconazole. Pulmicort twice daily, DuoNebs every 6 hour. Acute kidney injury: Resolved for now. Vigil catheterization. Monitor input output. Reconciliation done for nephrotoxic drugs. CT abdomen pelvis on admission negative for obstructive uropathy. Hypernatremia: Secondary to poor oral intake. Worsening today. Switch to D5W at 75 cc/h. NG tube placement and free water flushes with 250 cc every 4 hourly. Compression lumbar fracture: Patient seems to be in significant pain. Appreciate Dr. Angulo's recommendation. Care discussed. Lumbar brace. MRI when possible. With NG tube placement will start on liquid hydrocodone 7.5 every 4 hours as needed, Dilaudid 0.5 every 4 hours as needed. Continue with fentanyl patch. Hold off on IV fentanyl for now. Analgesia: Pain medication as above Glycemic control: Not needed. Check A1c Nutrition: Depending on mentation will start on NG tube feeds. CODE STATUS: Full code PUD prophylaxis: Famotidine DVT prophylaxis: Heparin 5000 every 12 hourly. Discharge planning: SNF versus home with home health. We will get PT evaluation once more stable. Continue with care at ICU care. This documentation was created by [employer] distillery supervisor software. Every effort was made to ensure accuracy of distillery supervisor. Any obvious errors or omissions should be clarified with the author of the document. Attestations Medical Necessity Statement*: Requires further hospitalization for management of MSSA bacteremia, compression lumbar fracture, hypernatremia, resolving MARILEE Critical Care Time: The high probability of a clinically significant, sudden or life threatening deterioration of the patient's [renal, ID] system(s) required my full and direct attention, intervention and personal management. The critical care time is as shown. This time is in addition to time spent performing any reported procedures but includes the following: [x] Data and vital sign review and interpretation [x] Patient assessment, examination and intervention [x] Documentation [x] Medication orders and management Critical Care Time (min): 90 Coding Level of Care Code Acute Rubber Goods Supervisor for [facility] Fwd Diagnoses Staphylococcus aureus septicemia A41.01 ARDS (adult respiratory distress syndrome) J80 Acute kidney injury N17.9 Compression fracture Septic shock A41.9; R65.21 Acute and chronic respiratory failure with hypoxia J96.21 Pneumonia J18.9 COPD (chronic obstructive pulmonary disease) J44.9 Microscopic hematuria R31.29 Anemia D64.9 Lumbar compression fracture S32.000A
[2022-01-01] MEDS: HYDROcodone-APAP 7.5-325 mg/15 mL UDC PO ×2 (17:18→23:18)
[2022-01-01] MEDS: fluconazole premix 100 MG in empty flexible container 1 EACH 50 MG IV (18:49)
[2022-01-01 20:23] LABS: Anion Gap 14.4 (5-19); Blood Urea Nitrogen 31 mg/dL (8-23); Calcium 8.8 mg/dL (8.5-10.5); Carbon Dioxide 24 mmol/L (22-29); Chloride 111 mmol/L (98-107); Creatinine Clr Calc Pharmacy 66.0537; Glomerular Filtration Rate 72.9 mL/min (90-130); Glucose 109 mg/dL (65-115); Osmolality Calculated 309 mOsm/kg (285-295); Potassium 3.4 mmol/L (3.5-5.1); Sodium 146 mmol/L (136-145)
[2022-01-02] VITALS (53 sets, daily range): BP systolic 97–136; BP diastolic 65–85; PULSE 70–127; RESP 12–128; TEMP 36.8–37; O2SAT 81–96; BMI 24.6
[2022-01-02] MEDS: HYDROmorphone 1 mg/mL INJ 1 mL 0.5 MG IVP ×2 (00:59→13:18)
[2022-01-02] MEDS: ipratropium-albuterol 3 mL Neb INHALATION ×4 (03:11→20:30)
[2022-01-02] MEDS: heparin 5,000 unit/mL INJ 1 mL 5000 UNIT SUBCUT ×2 (03:29→15:23)
[2022-01-02] MEDS: famotidine 20 mg/2 mL INJ IVP ×2 (03:29→15:24)
[2022-01-02 04:31] LABS: Basophils # 0.1 10^3/uL (0.0-0.1); Basophils % 0.3 %; Eosinophils # 0.5 10^3/uL (0.0-0.8); Eosinophils % 2.5 %; Hematocrit 28.2 % (37.0-47.0); Hemoglobin 8.8 g/dL (11.5-15.3); Lymphocytes # 1.9 10^3/uL (0.8-4.8); Lymphocytes % 10.4 %; Mean Corpuscular HGB Conc 31.2 g/dL (30.0-36.0); Mean Corpuscular Hemoglobin 26.7 pg (28.0-34.0); Mean Corpuscular Volume 85.5 fl (81-99); Mean Platelet Volume 12.2 fL (7.4-10.4); Monocytes # 0.6 10^3/uL (0.2-0.9); Monocytes % 3.3 %; Neutrophils # 14.55 10^3/uL (1.8-7.7); Neutrophils % 79.9 %; Nucleated Red Blood Cells % 0 %; Platelet Count 181 10^3/cmm (130-400); Red Cell Distribution Width 17.9 % (12.1-15.1); White Blood Count 18.2 10^3/uL (4.0-10.0)
[2022-01-02 05:03] LABS: Alanine Aminotransferase < 5 U/L (0-33); Albumin Level 2.6 g/dL (3.5-5.2); Alkaline Phosphatase 201 U/L (35-105); Anion Gap 14.5 (5-19); Aspartate Amino Transferase 10 U/L (0-32); Blood Urea Nitrogen 27 mg/dL (8-23); Calcium 8.8 mg/dL (8.5-10.5); Carbon Dioxide 25 mmol/L (22-29); Chloride 109 mmol/L (98-107); Creatinine Clr Calc Pharmacy 66.0537; Globulin 3.3 g/dL (1.3-4.6); Glomerular Filtration Rate 72.9 mL/min (90-130); Glucose 92 mg/dL (65-115); Osmolality Calculated 305 mOsm/kg (285-295); Potassium 3.5 mmol/L (3.5-5.1); Sodium 145 mmol/L (136-145); Total Bilirubin 0.7 mg/dL (0.15-1.2); Total Protein 5.9 g/dL (6.6-8.7)
[2022-01-02] MEDS: ceFAZolin 2,000 MG in sodium chloride 0.9% (plus) 50 ML 100 MG IV ×3 (07:20→22:58)
[2022-01-02] MEDS: HYDROcodone-APAP 7.5-325 mg/15 mL UDC PO ×3 (07:45→20:14)
[2022-01-02] MEDS: budesonide 0.5 mg/2 mL Neb INHALATION ×2 (08:19→20:31)
[2022-01-02 09:34] LABS: Procalcitonin 0.37 ng/mL (0-0.5)
--- NOTE | 2022-01-02 12:41 | MR_ITS ---
WS: [id number] MRI THORACIC SPINE WITHOUT CONTRAST TECHNIQUE: Sagittal T1, T2 and STIR imaging. Axial T2 imaging. Noncontrast imaging obtained. CLINICAL INFORMATION: Fall back pain COMPARISON: CT December 27, 2021 FINDINGS: Mild thoracic curve. Mild thoracic kyphosis. Mild compression superior endplate T12 with mild edema. Chronic compression deformities L1 and L2. Mild disc osteophyte complex T12-L1 and L1-L2 with slight effacement of ventral thecal sac. Mild central canal stenosis T12-L1. Moderate facet arthropathy lowe r thoracic spine. Thoracic cord signal is normal. Partially visualized LEFT renal cyst. MR/MR thoracic spin wo con* [id number] IMPRESSION: 1. Mild acute compression superior endplate T12 unchanged since the recent CT 2. Chronic compression deformities L1 and L2. 3. Mild central canal stenosis due to mild disc osteophyte complex at T12-L1 w ith slight effacement of ventral thecal sac. 4. Mild RIGHT L1-L2 foraminal narrowing. 5. Moderate facet arthropathy lower thoracic spine. 6. Cord signal is normal in the thoracic spine.
--- NOTE | 2022-01-02 12:41 | MR_ITS ---
WS: [id number] MRI HEAD WITHOUT CONTRAST TECHNIQUE: Sagittal T1, T2 axial, T2 axial FLAIR, axial and coronal T1 images, axial susceptibility w eighted imaging, axial diffusion weighted images, and coronal T2 images were obtained. Images degrade d due to motion artifact. Fast imaging was performed. CLINICAL INFORMATION: AMS, Septic emboli COMPARISON: None. FINDINGS: Some images degraded due to motion artifact. Fast imaging was performed. No evidence of res tricted diffusion to suggest acute ischemia. Ventricular system and basal cisterns are patent. No hyd rocephalus. 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 Moderat e parenchymal volume loss. Moderate symmetric atrophy temporal lobes and hippocampal formations. No h emosiderin on the gradient imaging. No other acute findings. MR/MR head wo con* [id number] IMPRESSION:Images degraded due to motion artifact. Fast imaging was performed. 1. No evidence of restricted diffusion to suggest acute ischemia. 2. No extra-axial fluid collections. No evidence of mass or mass effect. 3. No hydrocephalus. 4. No hemosiderin on the gradient images. 5. 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 This can be followed up with CTA head. No evidence of recent h emorrhage.
--- NOTE | 2022-01-02 12:41 | MR_ITS ---
WS: [id number] MRI LUMBAR SPINE NONCONTRAST TECHNIQUE: Sagittal T1, T2 and STIR imaging. Axial T1 and T2 imaging. CLINICAL INFORMATION: Fall, back pain COMPARISON: CT December 27, 2021 FINDINGS: Mild lumbar curve. Acute compression superior endplate T12 with mild edema unchanged since the recent CT. Acute compression inferior endplate L3 and superior endplate L4. Distraction type fracture invol ving the LEFT L4-L5 disc space extending into the LEFT L4 and L5 pedicles with widening. Fluid-filled flexure cleft L4-L5 suspicious for phlegmon or abscess with erosion of the endplates suspicious for discitis/osteomyelitis. Fluid and edema in the L3-L4 disc space may also represent discitis. Widening at L4-L5 measures 1.9 cm in maximum dimension similar to the prior CT. L1-L2: Mild disc bulging. Spinal canal is patent. Mild RIGHT foraminal narrowing. L2-L3: No significant disc bulging. Mild facet arthropathy. Spinal canal and foramen are patent. L3-L4: RIGHT pericentral disc bulge with a tiny amount of possible epidural abscess. Narrowing of the RIGHT subarticular recess with slight impingement traversing RIGHT L4 nerve root. Mild central canal stenosis. Mild RIGHT foraminal narrowing. L4-L5: Fluid-filled L4-L5 fracture cleft described above suspicious for phlegmon/abscess with disciti s/osteomyelitis. No significant epidural abscess. Mild bilateral bony foraminal narrowing. L5-S1: Mild bilateral bony foraminal narrowing. Spinal canal is patent. Suspected abscess/phlegmon extends into the paravertebral soft tissues and L4-L5. Partially visualizedLEFT renal cyst. MR/MR lumbar spine wo con* [id number] IMPRESSION: 1. Stable appearing distraction fracture through the L4-L5 disc space eccentri c to the LEFT with disc space widening. This involves the LEFT L4-L5 pedicles. Erosion of the endplates L4-L5 with T2 hyperintense suspected phlegmon or absce ss in the disc space suspicious for discitis/osteomyelitis 2. Additional T2 hyperintensity in the disc space L3-L4 also suspicious for di scitis. Small amount of suspected epidural abscess L3-L4 eccentric to the RIGHT . Mild central canal stenosis. 3. Mild acute compression superior endplate T12 and inferior endplate L3 with mild edema. 4. Chronic compression deformities L1 and L2 unchanged. Notified Percy Isbell MD at 01/02/2022 4:48 PM.
[2022-01-02] MEDS: haloperidol inj 5 mg/mL INJ 1 mL IM (12:47)
--- NOTE | 2022-01-02 13:04 | PC.CHAP ---
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 final touch up painter visit [] Patient/Family/Request visit [] Outpatient visit [] Follow-up visit [] Physician referral [] Code/Alert [x] Routine visit [] Staff referral [] Actively dying [] Patient sleeping [] Family support [] [] Out of room [] Palliative care [] [] Receiving care in room [] Pre-surgical visit [] Trauma [] Long length of stay [x] ICU visit [] Other: Relational/Emotional Strength [] Patient feels connected with others/family/visitors/staff [] Distress [] Loneliness/isolation [] Abandonment Spirituality of Patient [] Person of [place] [] Attends Zoroastrian of their [place] [] Believes in Prayer [] Reads Bible or Orthodox materials [] There are Spiritual issues to be addressed Manufacturing Analyst Interventions [x] Prayer [] Active listening [] Non-anxious presence [] Spiritual/emotional support [] Crisis/trauma care [] Spiritual counseling [] Bereavement support [] Provided bereavement packet [] Provided Bible/devotional materials [] Provided toy/stuffed animal, coloring book to patient or family member [] Provided Communion [] Anointing/[place] [] Salvation [x] Completed spiritual assessment [] Other: Impact on Illness or Injury [] Angry [] Fearful [] Anxious [] Often cries [] Exhaustion [] Unable to work [] Unable to attend holiness [] Unable to walk/stand [] Unable to read [] Unable to drive [] Unable to eat/drink [] Unable to sleep [] Unable to be with family [] Patient intubated [] Other: Summary Time spent with patient
--- NOTE | 2022-01-02 15:02 | PM.PN ---
Subjective Subjective: No cramps overnight. Patient has remained hemodynamically stable and afebrile. She is on 30 L 35% saturating more than 90%. Looks more comfortable than yesterday. NG tube in place. Patient is slightly more awake than yesterday. Nods yes and no to questions. Otherwise noncommunicative. Not tracking in the room. Patient appears euvolemic. Urine output up to 800 cc in last 24 hours. Medications: Reviewed: Yes Vitals/I&O/Wt Last Vital Signs Temp 98.3 F 01/02/22 07:30 Pulse 110 H 01/02/22 14:43 Resp 18 01/02/22 14:41 BP 109/71 01/02/22 12:30 Pulse Ox 95 01/02/22 14:41 O2 Del Method 01/02/22 14:40 O2 Flow Rate 30 01/02/22 14:41 FiO2 35 01/02/22 14:41 01/02/22 01/02/22 01/02/22 06:59 14:59 22:59 Intake Total 1458.75 / 1458.75 Output Total 400 / 800 Balance -400 / 8530.331 2020.75 / 1458.75 Weight last 48 hrs Weight 63.049 kg Physical Exam Narrative: EXAM NARRATIVE: General: Acute distress because of pain, moaning and groaning in examination, not following commands but awake, on heated high flow HEENT: PERRLA, pupils bilaterally equal and reactive Chest: Bilateral bronchial breath sounds, coarse crackles present all over the lung lamb, CVS: S1-S2 regular, no murmurs, no tachycardia, no gallops, no rubs Abdomen: Soft, nontender, no organomegaly, bowel sounds present, morbidly obese Neuro: No focal deficits, moving all limbs, Vigil in place, no episodes of bowel incontinence Extremity: In lumbar brace Urinary Catheter Management: Vigil: Cath Placed During This Visit: yes Reason for Continuing Indwelling Catheter: Accurate Measurement of Urinary Output in Critically Ill Patients Urinary Catheter Date of Insertion: 12/27/21 Urinary Catheter Time of Insertion: 13:13 Data : 01/02/22 03:30 01/02/22 03:30 Micro: Microbiology 12/28/21 10:15 Blood Culture - Final Blood NO GROWTH AFTER 5 DAYS 12/28/21 09:23 Blood Culture - Final Blood NO GROWTH AFTER 5 DAYS 12/31/21 20:20 Bacterial Antigens - Final Urine Kidney A&P Assessment and plan (1) Staphylococcus aureus septicemia: Status: Acute (2) ARDS (adult respiratory distress syndrome): Status: Acute (3) Metabolic encephalopathy: Status: Acute (4) Acute kidney injury: Status: Acute (5) Compression fracture: Status: Acute (6) Septic shock: Status: Acute (7) Acute and chronic respiratory failure with hypoxia: Status: Acute (8) Pneumonia: Status: Acute (9) COPD (chronic obstructive pulmonary disease): Status: Acute (10) Microscopic hematuria: Status: Acute (11) Anemia: Status: Acute (12) Lumbar compression fracture: Status: Acute Plan 61-year-old female with history of IV drug abuse in the past admitted for fall found to have lumbar compression fracture, developed ARDS, found to have MSSA bacteremia and acute kidney injury. Staphylococcus bacteremia: MSSA bacteremia. Blood cultures from 12/28 so far negative. Continue with cefazolin as per ID recommendations. Patient most likely would need INDRA going forward for possible endocarditis. Cannot rule out discitis. MRI ordered by orthopedics. Maintain mean artery pressure over 65. ARDS: Currently stable. Most likely secondary to severe sepsis from MSSA bacteremia. Hypoxic respiratory failure Oxygen supplementation keeping saturation over 88%. COVID-19 PCR negative Sputum cultures consistent with Marilyn glabrata. For now started on IV fluconazole. Pulmicort twice daily, DuoNebs every 6 hour. Acute kidney injury: Resolved for now. Vigil catheterization. Monitor input output. Reconciliation done for nephrotoxic drugs. CT abdomen pelvis on admission negative for obstructive uropathy. Hypernatremia: Secondary to poor oral intake. Worsening today. Switch to D5W at 75 cc/h. NG tube placement and free water flushes with 250 cc every 4 hourly. Compression lumbar fracture: Patient seems to be in significant pain. Appreciate Dr. Angulo's recommendation. Care discussed. Lumbar brace. MRI when possible. With NG tube placement will start on liquid hydrocodone 7.5 every 4 hours as needed, Dilaudid 0.5 every 4 hours as needed. Continue with fentanyl patch. Hold off on IV fentanyl for now. Analgesia: Pain medication as above Glycemic control: Not needed. Check A1c Nutrition: Depending on mentation will start on NG tube feeds. CODE STATUS: Full code PUD prophylaxis: Famotidine DVT prophylaxis: Heparin 5000 every 12 hourly. Discharge planning: SNF versus home with home health. We will get PT evaluation once more stable. Continue with care at ICU care. This documentation was created by [employer] air intercept controller supervisor software. Every effort was made to ensure accuracy of air intercept controller supervisor. Any obvious errors or omissions should be clarified with the author of the document. Plan for the day: Continue with cefazolin. Leukocytosis still present. But patient has remained hemodynamically stable and afebrile. Blood cultures so far has remained negative. Cannot rule out discitis or infective endocarditis given persistent leukocytosis. Appreciate ID and orthopedic recommendations. Stop IV fluids. Patient is euvolemic today. Continue with free water flushes 250 cc every 6 hourly. Start on tube feeds. Pulmocare started 10 cc/h, increase 10 cc every 4 hours with a goal of 40 cc/h. Monitor BMP daily for now. Plan for MRI back, MRI head to rule out discitis, further evaluation of lumbar fracture and possible septic emboli to brain for further etiology of delirium. MARILEE resolved for now. Monitor strict input output charting. Attestations Medical Necessity Statement*: Requires further hospitalization for management of MSSA bacteremia, ARDS, hypernatremia in a patient with compression lumbar fracture while possibility of infective endocarditis and discitis is ruled out. Critical Care Time: The high probability of a clinically significant, sudden or life threatening deterioration of the patient's [ID, cardiac, pulmonary, renal] system(s) required my full and direct attention, intervention and personal management. The critical care time is as shown. This time is in addition to time spent performing any reported procedures but includes the following: [x] Data and vital sign review and interpretation [x] Patient assessment, examination and intervention [x] Documentation [x] Medication orders and management Critical Care Time (min): 90 Coding Level of Care Code Acute Rn Cardiac Cath for [facility] Fwd Diagnoses Staphylococcus aureus septicemia A41.01 ARDS (adult respiratory distress syndrome) J80 Metabolic encephalopathy G93.41 Acute kidney injury N17.9 Compression fracture Septic shock A41.9; R65.21 Acute and chronic respiratory failure with hypoxia J96.21 Pneumonia J18.9 COPD (chronic obstructive pulmonary disease) J44.9 Microscopic hematuria R31.29 Anemia D64.9 Lumbar compression fracture S32.000A
--- NOTE | 2022-01-02 16:21 | PM.PN ---
Subjective Subjective: Infectious disease progress note: Afebrile, hemodynamically stable fi02 requirements today at 40% 30lpm HFNC Persisting leukocytosis Appers slightly more alert on exam today, opens eyes to calling name, nods yes or no to pain related questions Awaiting results of MRI head and spine Medications: Reviewed: Yes Vitals/I&O/Wt Last Vital Signs Temp 98.3 F 01/02/22 07:30 Pulse 111 H 01/02/22 15:00 Resp 17 01/02/22 15:00 BP 108/74 01/02/22 15:00 Pulse Ox 94 01/02/22 15:00 O2 Del Method 01/02/22 15:00 O2 Flow Rate 30 01/02/22 15:00 FiO2 35 01/02/22 15:00 01/02/22 01/02/22 01/02/22 06:59 14:59 22:59 Intake Total 1468.75 / 1468.75 Output Total 400 / 800 Balance -400 / 3406.993 9118.75 / 1468.75 Weight last 48 hrs Weight 63.049 kg Physical Exam Narrative: General: Lying in bed, opens eyes to calling name, makes eye contact but does not engage in conversation. HEENT: PERRLA, pupils bilaterally equal and reactive, pallors not present Chest: Normal vesicular breath sounds anteriorly CVS: S1-S2 regular, tachycardia Abdomen: Soft, nontender, no organomegaly, bowel sounds present Urinary Catheter Management: Vigil: Cath Placed During This Visit: yes Reason for Continuing Indwelling Catheter: Accurate Measurement of Urinary Output in Critically Ill Patients Urinary Catheter Date of Insertion: 12/27/21 Urinary Catheter Time of Insertion: 13:13 Data : 01/02/22 03:30 01/02/22 03:30 Micro: Microbiology 12/28/21 10:15 Blood Culture - Final Blood NO GROWTH AFTER 5 DAYS 12/28/21 09:23 Blood Culture - Final Blood NO GROWTH AFTER 5 DAYS 12/31/21 20:20 Bacterial Antigens - Final Urine Kidney A&P Assessment and plan (1) Septic shock: Status: Acute (2) Staphylococcus aureus septicemia: Status: Acute (3) ARDS (adult respiratory distress syndrome): Status: Acute (4) Acute kidney injury: Status: Acute Plan Patient admitted to the hospital on December 27, 2021 after presenting with a mechanical fall, however found to have signs of septic shock and MSSA septicemia. Current active issues include positive blood cultures on December 27, 2021, persisting leukocytosis, ARDS with hypoxic respiratory failure, spinal compression fracture with ongoing pain. # MSSA Septicemia # ARDS with hypoxic respiratory failure MSSA septicemia with positive blood cultures on 12/27/2021 with signs of septic shock and endorgan failure by way of MARILEE, metabolic encephalopathy, ARDS. Source is currently unclear. Patient does not have any indwelling IV lines. It is not known at this time if she has an ongoing history of IV drug abuse. CT of the chest abdomen and pelvis does not show any gross consolidation or abscesses. CT of the chest with B/L diffuse GGOs appear likely to be ARDS. Urine culture is negative. TTE shows grossly normal heart valves. No vegetations noted. Recommend to obtain INDRA given high suspicion of endocarditis. She does have a history of spinal compression fracture dating back at least to 2019. She follows up with orthopedics for the same. CT of the chest abdomen picked up the compression fractures. No mention of discitis or epidural abscesses on the same. Awaiting MRI studies for better assesment Additionally pending MRI of the brain to evaluate for septic embolization to the brain. Continue cefazolin 2 g IV every 8 hours for organism directed therapy. Anticipate at least 6 to 8 weeks of treatment. Blood culture currently clear as of December 28, 2021. #Acute kidney injury This appears to be multifactorial. May be related to rhabdomyolysis versus acute GN GN from staph infection. MARILEE is currently improving. Dose cefazolin per renal function. #Metabolic encephalopathy This may be multifactorial related related to sepsis and pain medication. Recommend MRI of the brain to evaluate for any septic embolization to SUPERVISOR CELL EFFICIENCY. #History of hepatitis C. Positive hep C genotype 1a RNA from May 2018. I am uncertain if patient has been treated for hepatitis C in the past. This can be followed up as outpatient. Hiv screen negative Attestations Medical Necessity Statement*: pending MRI spine and brain Coding Level of Care Code Acute Intercell Connector Placer for [facility] Fwd Diagnoses Septic shock A41.9; R65.21 Staphylococcus aureus septicemia A41.01 ARDS (adult respiratory distress syndrome) J80 Acute kidney injury N17.9
[2022-01-02] MEDS: fluconazole premix 100 MG in empty flexible container 1 EACH 50 MG IV (17:52)
[2022-01-03] VITALS (49 sets, daily range): BP systolic 92–125; BP diastolic 57–81; PULSE 103–126; RESP 15–118; TEMP 36.6–37.9; O2SAT 88–97
[2022-01-03] MEDS: ipratropium-albuterol 3 mL Neb INHALATION ×4 (02:19→20:51)
[2022-01-03] MEDS: HYDROcodone-APAP 7.5-325 mg/15 mL UDC PO ×5 (02:43→21:13)
[2022-01-03] MEDS: famotidine 20 mg/2 mL INJ IVP ×2 (03:42→14:50)
[2022-01-03] MEDS: heparin 5,000 unit/mL INJ 1 mL 5000 UNIT SUBCUT ×2 (03:43→16:08)
[2022-01-03] MEDS: HYDROmorphone 1 mg/mL INJ 1 mL 0.5 MG IVP (03:56)
[2022-01-03 04:12] LABS: Basophils % 0.2 %; Eosinophils # 0.3 10^3/uL (0.0-0.8); Eosinophils % 1.7 %; Hemoglobin 8.4 g/dL (11.5-15.3); Lymphocytes # 1.9 10^3/uL (0.8-4.8); Lymphocytes % 9.6 %; Mean Corpuscular HGB Conc 32.3 g/dL (30.0-36.0); Mean Corpuscular Hemoglobin 27.4 pg (28.0-34.0); Mean Corpuscular Volume 84.7 fl (81-99); Mean Platelet Volume 11.8 fL (7.4-10.4); Monocytes # 0.9 10^3/uL (0.2-0.9); Monocytes % 4.7 %; Neutrophils # 15.86 10^3/uL (1.8-7.7); Neutrophils % 80.9 %; Nucleated Red Blood Cells % 0.1 %; Platelet Count 187 10^3/cmm (130-400); Red Blood Count 3.07 10^6/uL (4.1-5.3); Red Cell Distribution Width 17.6 % (12.1-15.1); White Blood Count 19.6 10^3/uL (4.0-10.0)
[2022-01-03 04:26] LABS: Alanine Aminotransferase < 5 U/L (0-33); Albumin Level 2.2 g/dL (3.5-5.2); Alkaline Phosphatase 196 U/L (35-105); Anion Gap 12.5 (5-19); Aspartate Amino Transferase 9 U/L (0-32); Blood Urea Nitrogen 20 mg/dL (8-23); Calcium 8.6 mg/dL (8.5-10.5); Carbon Dioxide 27 mmol/L (22-29); Chloride 107 mmol/L (98-107); Globulin 3.5 g/dL (1.3-4.6); Glomerular Filtration Rate 63.7 mL/min (90-130); Glucose 117 mg/dL (65-115); Osmolality Calculated 300 mOsm/kg (285-295); Potassium 3.5 mmol/L (3.5-5.1); Sodium 143 mmol/L (136-145); Total Bilirubin 0.6 mg/dL (0.15-1.2); Total Protein 5.7 g/dL (6.6-8.7)
--- NOTE | 2022-01-03 04:30 | PC.NURSE ---
Patient bed bath and linen change was done after pre-med for pain with Dilaudid. During bath patient had been found to have a small bowel movement. Stool sample was attempted but unsuccessful due to limited volume. While trying to collect stool sample a round pill was found with a visible M in the rectum.
--- NOTE | 2022-01-03 04:48 | PC.NURSE ---
Feeding tube has been titrated to 40ml/hr. 250ml bolus admin at midnight. Residual volume has been <15ml at each Q4 check. Placement was verified with air.
[2022-01-03] MEDS: ceFAZolin 2,000 MG in sodium chloride 0.9% (plus) 50 ML 100 MG IV ×2 (06:05→14:50)
--- NOTE | 2022-01-03 06:29 | PC.NURSE ---
Patient has rested through the night with minimal vocalizations(no words) and is unable to follow most commands other than hand lining strap closer. Signs of pain primarily when turning client Patient is dependent on highflow currently running at 40% and 30L and de-saturates with slight misplacement of nares. Urine output of 325ml and jazmyn coloration. Feeding tube has been titrated to 40ml/hr through the night and tolerated well.
[2022-01-03] MEDS: acetaminophen 325 mg Tablet 650 MG PO (07:31)
[2022-01-03] MEDS: budesonide 0.5 mg/2 mL Neb INHALATION ×2 (07:59→20:51)
--- NOTE | 2022-01-03 08:13 | PM.PN ---
Subjective Subjective: MRI reviewed from yesterday. Large abcess at L4 to S1. Vitals/I&O/Wt Last Vital Signs Temp 100.1 F H 01/03/22 07:30 Pulse 121 H 01/03/22 08:00 Resp 17 01/03/22 08:00 BP 102/74 01/03/22 08:00 Pulse Ox 92 01/03/22 08:00 O2 Del Method 01/03/22 08:00 O2 Flow Rate 30 01/03/22 08:00 FiO2 40 01/03/22 08:00 01/02/22 01/03/22 01/03/22 22:59 06:59 14:59 Intake Total 431 / 1899.75 635 / 2534.75 50 / 50 Output Total 350 / 350 325 / 675 Balance 81 / 1549.75 310 / 1859.75 50 / 50 Weight last 48 hrs Weight 139 lb Physical Exam Urinary Catheter Management: Vigil: Cath Placed During This Visit: yes Reason for Continuing Indwelling Catheter: Accurate Measurement of Urinary Output in Critically Ill Patients Urinary Catheter Date of Insertion: 12/27/21 Urinary Catheter Time of Insertion: 13:13 Data : 01/03/22 03:18 01/03/22 03:18 Micro: Microbiology 12/28/21 10:15 Blood Culture - Final Blood NO GROWTH AFTER 5 DAYS 12/28/21 09:23 Blood Culture - Final Blood NO GROWTH AFTER 5 DAYS A&P Assessment and plan (1) Discitis of lumbar region: with the location and size of abscess would recommend anterior approach to decompress the abscess. Patient will need to be transferred to hospital that has an anterior exposure surgeon Status: Acute Attestations Medical Necessity Statement*: per primary service Coding Level of Care Code Acute Packaging Materials Inspector for [facility] Diagnoses Discitis of lumbar region M46.46
--- NOTE | 2022-01-03 09:54 | PC.NUTR ---
Consult for TF recommendations received. Recommend Pulmocare 1.5 with a goal rate of 35 mls/hr with flushes of [address] See [address] note for details.
--- NOTE | 2022-01-03 10:20 | PC.CHAP ---
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 carbon capture power plant operator visit [] Patient/Family/Request visit [] Outpatient visit [] Follow-up visit [] Physician referral [] Code/Alert [x] Routine visit [] Staff referral [] Actively dying [x] Patient sleeping [] Family support [] [] Out of room [] Palliative care [] [] Receiving care in room [] Pre-surgical visit [] Trauma [] Long length of stay [x] ICU visit [] Other: Relational/Emotional Strength [] Patient feels connected with others/family/visitors/staff [] Distress [] Loneliness/isolation [] Abandonment Spirituality of Patient [] Person of [place] [] Attends Congregational of their [place] [] Believes in Prayer [] Reads Bible or Holiness materials [] There are Spiritual issues to be addressed Parts Interpreter Interventions [x] Prayer [] Active listening [] Non-anxious presence [] Spiritual/emotional support [] Crisis/trauma care [] Spiritual counseling [] Bereavement support [] Provided bereavement packet [] Provided Bible/devotional materials [] Provided toy/stuffed animal, coloring book to patient or family member [] Provided Communion [] Anointing/[place] [] Salvation [x] Completed spiritual assessment [] Other: Impact on Illness or Injury [] Angry [] Fearful [] Anxious [] Often cries [] Exhaustion [] Unable to work [] Unable to attend church [] Unable to walk/stand [] Unable to read [] Unable to drive [] Unable to eat/drink [] Unable to sleep [] Unable to be with family [] Patient intubated [] Other: Summary Time spent with patient
--- NOTE | 2022-01-03 10:39 | P.PN_ITS ---
Subjective Subjective: Infectious disease progress note: Afebrile, fi02 requirements 40% 30lpm HFNC Persisting leukocytosis Comepleted MR imaging yesterday evening which revealed erosion of the endplates L4-L5 with T2 hyperintense suspected phlegmon or abscess in the disc space suspicious for discitis/osteomyelitis. Additional T2 hyperintensity in the disc space L3-L4 also suspicious for discitis. Small amount of suspected epidural abscess L3-L4 eccentric to the RIGHT. 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 Medications: Reviewed: Yes Vitals/I&O/Wt Last Vital Signs Temp 100.1 F H 01/03/22 07:30 Pulse 121 H 01/03/22 08:00 Resp 17 01/03/22 08:00 BP 102/74 01/03/22 08:00 Pulse Ox 92 01/03/22 08:00 O2 Del Method 01/03/22 08:00 O2 Flow Rate 30 01/03/22 08:00 FiO2 40 01/03/22 08:00 01/02/22 01/03/22 01/03/22 22:59 06:59 14:59 Intake Total 431 / 1899.75 635 / 2534.75 50 / 50 Output Total 350 / 350 325 / 675 Balance 81 / 1549.75 310 / 1859.75 50 / 50 Weight last 48 hrs Weight 63.049 kg Physical Exam Narrative: Not examined today as preparations being made for transfer. Chart reveiwed and care was discussed with hospitalist team. Urinary Catheter Management: Vigil: Cath Placed During This Visit: yes Reason for Continuing Indwelling Catheter: Accurate Measurement of Urinary Output in Critically Ill Patients Urinary Catheter Date of Insertion: 12/27/21 Urinary Catheter Time of Insertion: 13:13 Data : 01/03/22 03:18 01/03/22 03:18 Other Labs: Radiology Impressions Lumbar Spine X-Ray 12/27/21 09:16 IMPRESSION: 1. There is a new compression fracture involving the superior endplate of L4, new from 11/08/2021. There is up to 25% height loss and likely minimal bony retropulsion. 2. Some sclerosis along the inferior endplate of L3 could reflect a nondisplaced compression fracture. Abdomen/Pelvis CT 12/27/21 10:36 IMPRESSION: 1. Distraction fracture through the L4-L5 disc space eccentric to the LEFT with mild disc space widening. This extends to involve the LEFT L4 and L5 pedicles. Comminuted fractures involving the superior L4-L5 endplates. 2. Additional acute appearing compression deformities at T12 with mild compression superior endplate and moderate compression L3 inferior endplate. Mild retropulsion of the posterior inferior cortex L3 with mild to moderate central canal stenosis eccentric to the LEFT. 3. Chronic compression deformities L1 and L2 appear unchanged. 4. Heterogeneous attenuation with some calcification in the prominent RIGHT extrarenal pelvis is nonspecific but TCC not excluded. Recommend further evaluation with ureteroscopy. 5. Extensive postoperative changes lymph node dissection bilateral retroperitoneum, iliac chains, and pelvis. 6. Prior hysterectomy 7. Osteopenia 8. Trace bilateral pleural fluid with bibasilar infiltrates compatible with pneumonia. Interstitial edema in the lung bases. Notified Dany Ortiz DO at 12/27/2021 12:[address] 12/31/21 09:22 IMPRESSION: 1. Confluent ground-glass densities in the lungs, which may be seen with acute respiratory distress syndrome. 2. Severe upper lobe emphysematous disease. 3. Possible 5 mm nodule in the anterior segment of the left upper lobe. For patients at low risk (minimal or absent history of smoking and of other known risk factors), no routine follow-up is indicated. For patients at high risk (history of smoking or of other known risk factors), consider optional CT Chest at 12 months. (Reference: Edmar) COMMENTS: Consistent with the [employer]'s Incidental Findings Committee white paper (J Am Hunter Radiol 2018): Any incidental renal lesion less than 1 cm or classified as too small to characterize, or any incidental cystic renal lesion characterized as simple-appearing, is likely benign. No follow-up imaging is recommended for these lesions per consensus recommendations based on imaging criteria. REFERENCES: Edmar H, et al. Guidelines for Management of Incidental Pulmonary Nodules Detected on CT Images: From the Fleischner Society 2017. Radiology. 2017;284(1):228-243. Chest X-Ray 01/01/22 14:20 IMPRESSION: There is a nasogastric tube whose tip is in the stomach. Head MRI 01/02/22 12:41 IMPRESSION:Images degraded due to motion artifact. Fast imaging was performed. 1. No evidence of restricted diffusion to suggest acute ischemia. 2. No extra-axial fluid collections. No evidence of mass or mass effect. 3. No hydrocephalus. 4. No hemosiderin on the gradient images. 5. 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 This can be followed up with CTA head. No evidence of recent hemorrhage. Lumbar Spine MRI 01/02/22 12:41 IMPRESSION: 1. Stable appearing distraction fracture through the L4-L5 disc space eccentric to the LEFT with disc space widening. This involves the LEFT L4-L5 pedicles. Erosion of the endplates L4-L5 with T2 hyperintense suspected phlegmon or abscess in the disc space suspicious for discitis/osteomyelitis 2. Additional T2 hyperintensity in the disc space L3-L4 also suspicious for discitis. Small amount of suspected epidural abscess L3-L4 eccentric to the RIGHT. Mild central canal stenosis. 3. Mild acute compression superior endplate T12 and inferior endplate L3 with mild edema. 4. Chronic compression deformities L1 and L2 unchanged. Notified Percy Isbell MD at 01/02/2022 4:48 PM. Thoracic Spine MRI 01/02/22 12:41 IMPRESSION: 1. Mild acute compression superior endplate T12 unchanged since the recent CT 2. Chronic compression deformities L1 and L2. 3. Mild central canal stenosis due to mild disc osteophyte complex at T12-L1 with slight effacement of ventral thecal sac. 4. Mild RIGHT L1-L2 foraminal narrowing. 5. Moderate facet arthropathy lower thoracic spine. 6. Cord signal is normal in the thoracic spine. Laboratory Results WBC 19.6 10^3/uL (4.0-10.0) H 01/03/22 03:18 RBC 3.07 10^6/uL (4.1-5.3) L 01/03/22 03:18 Hgb 8.4 g/dL (11.5-15.3) L 01/03/22 03:18 Hct 26.0 % (37.0-47.0) L 01/03/22 03:18 MCV 84.7 fl (81-99) 01/03/22 03:18 MCH 27.4 pg (28.0-34.0) L 01/03/22 03:18 MCHC 32.3 g/dL (30.0-36.0) 01/03/22 03:18 RDW 17.6 % (12.1-15.1) H 01/03/22 03:18 Plt Count 187 10^3/cmm (130-400) 01/03/22 03:18 MPV 11.8 fL (7.4-10.4) H 01/03/22 03:18 Neut % (Auto) 80.9 % 01/03/22 03:18 Lymph % (Auto) 9.6 % 01/03/22 03:18 Nolan % (Auto) 4.7 % 01/03/22 03:18 Eos % (Auto) 1.7 % 01/03/22 03:18 Baso % (Auto) 0.2 % 01/03/22 03:18 Neut # (Auto) 15.86 10^3/uL (1.8-7.7) H 01/03/22 03:18 Lymph # (Auto) 1.9 10^3/uL (0.8-4.8) 01/03/22 03:18 Nolan # (Auto) 0.9 10^3/uL (0.2-0.9) 01/03/22 03:18 Eos # (Auto) 0.3 10^3/uL (0.0-0.8) 01/03/22 03:18 Baso # (Auto) 0.0 10^3/uL (0.0-0.1) 01/03/22 03:18 Nucleated RBC % (auto) 0.1 % 01/03/22 03:18 Total Counted 100 (0-100) 12/27/21 22:39 Atypical Lymphs % 0.0 % (0-5) 12/27/21 22:39 Absolute Neutrophils 18.3 10^3/cmm (1.4-6.5) H 12/27/21 22:39 Segmented Neutrophils 80 % 12/27/21 22:39 Abs Segm Neuts (Man) 16.1 10/cmm (1.6-7.1) H 12/27/21 22:39 Band Neutrophils 11.0 % 12/27/21 22:39 Abs Band Neuts (Man) 2.2 10^3/cmm (0.0-1.2) H 12/27/21 22:39 Absolute Lymphocytes 1.2 10^3/cmm (1.2-3.4) 12/27/21 22:39 Lymphocytes (Manual) 6 % 12/27/21 22:39 Monocytes (Manual) 3.0 % 12/27/21 22:39 Absolute Monocytes 0.6 10^3/cmm (0.1-0.6) 12/27/21 22:39 Eosinophils (Manual) 0 % 12/27/21 22:39 Absolute Eosinophils 0.0 10^3/cmm (0.0-0.7) 12/27/21 22:39 Basophils (Manual) 0.0 % 12/27/21 22:39 Absolute Basophils 0.0 10^3/cmm (0.0-0.2) 12/27/21 22:39 Nucleated RBCs # 0.0 /100WBC 01/03/22 03:18 Toxic Vacuolation 1+ H 12/27/21 22:39 Platelet Estimate Normal (Normal) 12/27/21 22:39 Giant Platelets 1+ H 12/27/21 22:39 Anisocytosis 2+ H 12/27/21 22:39 Target Cells 1+ H 12/27/21 22:39 [place] Cells 1+ H 12/27/21 22:39 Haptoglobin 306.0 mg/L (30-200) H 12/27/21 09:33 PT 15.60 SECONDS (12.1-14.9) H 12/29/21 05:03 INR 1.21 (0.8-1.2) H 12/29/21 05:03 Specimen Type Arterial 12/29/21 21:31 Sample Site Radial, right 12/29/21 21:31 ABG pH 7.48 (7.35-7.45) H 12/29/21 21:31 ABG pCO2 30.8 mmHg (35-45) L 12/29/21 21:31 ABG pO2 52.7 mmHg (80.0-100.0) L 12/29/21 21:31 ABG HCO3 22.8 mmol/L (22-26) 12/29/21 21:31 ABG O2 Saturation 89.4 12/29/21 21:31 ABG Base Excess -0.4 mmol/L (-2.0-2.0) 12/29/21 21:31 [place] Test Pos 12/29/21 21:31 A-a O2 Gradient 25.2 mmHg (5-10) H 12/29/21 21:31 Hematocrit 25.7 % (37-47) L 12/29/21 21:31 Hgb O2 Saturation 86.9 % (95-100) L 12/29/21 21:31 Carboxyhemoglobin 1.8 %THgb (0.4-20.1) 12/29/21 21:31 Methemoglobin 0.9 % (0.4-1.5) 12/29/21 21:31 Total Hemoglobin 8.4 g/dL (12-16) L 12/29/21 21:31 Sodium 143.0 mmol/L (131-143) 12/29/21 21:31 Potassium 3.2 mmol/L (3.5-5.0) L 12/29/21 21:31 Glucose 166.0 mg/dL (70-115) H 12/29/21 21:31 Ionized Calcium 1.2 mmol/L (1.1-1.4) 12/29/21 21:31 O2 Delivery Device Bipap 12/29/21 21:31 O2 Liters/Min % 12/29/21 14:35 FiO2 40.0 % 12/29/21 21:31 [employer] ID Pedro 12/29/21 21:31 Sodium 143 mmol/L (136-145) 01/03/22 03:18 Potassium 3.5 mmol/L (3.5-5.1) 01/03/22 03:18 Chloride 107 mmol/L (98-107) 01/03/22 03:18 Carbon Dioxide 27 mmol/L (22-29) 01/03/22 03:18 Anion Gap 12.5 (5-19) 01/03/22 03:18 BUN 20 mg/dL (8-23) 01/03/22 03:18 Creatinine 0.9 mg/dL (0.5-0.9) 01/03/22 03:18 GFR Calculation 63.7 mL/min (90-130) L 01/03/22 03:18 Glucose 117 mg/dL (65-115) H 01/03/22 03:18 POC Glucose 110 mg/dL (70-110) 12/27/21 15:35 Estimat Average Glucose 114 01/01/22 03:16 Hemoglobin A1c 5.6 % (4.0-6.0) 01/01/22 03:16 Calculated Osmolality 300 mOsm/kg (285-295) H 01/03/22 03:18 Lactic Acid 2.0 mmol/L (0.5-2.2) 12/27/21 09:33 Calcium 8.6 mg/dL (8.5-10.5) 01/03/22 03:18 Phosphorus 3.6 mg/dL (2.5-4.5) 12/27/21 09:33 Magnesium 2.2 mg/dL (1.7-2.3) 12/31/21 04:11 Iron 96 ug/dL (37-145) 12/31/21 04:11 TIBC 186 mcg/dl 12/31/21 04:11 % Saturation 51.6 % (20-50) H 12/31/21 04:11 Unsat Iron Binding 90 ug/dL (112-347) L 12/31/21 04:11 Ferritin 703 ng/mL (15-150) H 12/27/21 09:33 Total Bilirubin 0.6 mg/dL (0.15-1.2) 01/03/22 03:18 AST 9 U/L (0-32) 01/03/22 03:18 ALT < 5 U/L (0-33) 01/03/22 03:18 Alkaline Phosphatase 196 U/L (35-105) H 01/03/22 03:18 Ammonia 24 umol/L (11-51) 12/29/21 05:03 Creatine Kinase 68 U/L (26-192) 12/28/21 05:51 Troponin T Baseline 32 ng/L (0-10) H 12/27/21 09:33 Troponin T 120 Minute 24.37 ng/L (0-10) H 12/27/21 11:43 Delta Troponin T -7.63 ABS# (0-10) L 12/27/21 11:43 Troponin T Hi Sens 6Hr 18.99 ng/L (0-10) H 12/27/21 15:24 Troponin T Hi Sens 6Hr Delta -13.01 ng/L (0-12) L 12/27/21 15:24 NT-Pro-B Natriuret Pep 1118 pg/mL (0-125) H 12/31/21 04:11 Total Protein 5.7 g/dL (6.6-8.7) L 01/03/22 03:18 Albumin 2.2 g/dL (3.5-5.2) L 01/03/22 03:18 Globulin 3.5 g/dL (1.3-4.6) 01/03/22 03:18 Triglycerides 237 mg/dL (0-150) H 01/01/22 03:16 Cholesterol 165 mg/dL (0-200) 01/01/22 03:16 LDL Cholesterol, Calc 97 mg/dL (50-129) 01/01/22 03:16 Total VLDL Cholesterol 47 mg/dL (0-30) H 01/01/22 03:16 HDL Cholesterol 21 mg/dL (60-100) L 01/01/22 03:16 Cholesterol/HDL Ratio 7.86 mg/dL (0.0-4.40) H 01/01/22 03:16 Vitamin B12 1376 pg/mL (232-1245) H 12/27/21 09:33 Folate 4.8 ng/mL (4.8-37.3) 12/27/21 09:33 Procalcitonin 0.37 ng/mL (0-0.5) 01/02/22 03:30 TSH 0.88 uIU/mL (0.27-4.20) 12/27/21 09:33 Random Cortisol 20.01 ug/dL (2.47-19.5) H 12/27/21 11:43 Urine Color Dark yellow (Yellow) 12/31/21 20:19 Urine Appearance Clear (CLEAR) 12/31/21 20:19 Urine pH 6 (5-7) 12/31/21 20:19 Ur Specific [place] 1.010 (1.005-1.030) 12/31/21 20:19 Urine Protein 1+ (Negative) H 12/31/21 20:19 Urine Glucose (UA) Norm (Normal) 12/31/21 20:19 Urine Ketones 1+ (Negative) H 12/31/21 20:19 Urine Blood 2+ (Negative) H 12/31/21 20:19 Urine Nitrate Negative (Negative) 12/31/21 20:19 Urine Bilirubin 1+ (Negative) H 12/31/21 20:19 Urine Urobilinogen 4 mg/dL (Negative) H 12/31/21 20:19 Ur Leukocyte Esterase Trace (Negative) H 12/31/21 20:19 Urine RBC 5-10 /hpf (0-2) H 12/31/21 20:19 Urine WBC 5-10 /hpf (0-5) H 12/31/21 20:19 Ur Eosinophil Smear Not Reportable 12/31/21 20:20 Ur Squamous Epith Cells 0-4 /hpf (0-5) H 12/31/21 20:19 Ur Transition Epith Cell 0-4 /hpf 12/31/21 20:19 Amorphous Sediment Not Reportable 12/31/21 20:19 Urine Bacteria Trace /hpf (NONE) 12/31/21 20:19 Urine Mucus Trace /hpf 12/31/21 20:19 Urine Eosinophils No eosinophils seen 12/31/21 20:20 Ur Random Sodium 81 mmol/L 12/31/21 20:19 Ur Random Potassium 37 mmol/L 12/31/21 20:19 Ur Random Chloride 72 mmol/L 12/31/21 20:19 Urine Creatinine 78 mg/dL () 12/31/21 20:20 Coronavirus 229E (PCR) Not detected (NOT DETECT) 12/27/21 10:41 HIV 1&2 Ab & HIV 1 Ag Non-reactive (Non-Reactiv) 01/01/22 03:16 HIV 1&2 Antibody Non-reactive (Non-Reactiv) 01/01/22 03:16 SARS-CoV-2 (PCR) Not detected (NOT DETECT) 12/27/21 10:41 Micro: Microbiology 12/28/21 10:15 Blood Culture - Final Blood NO GROWTH AFTER 5 DAYS 12/28/21 09:23 Blood Culture - Final Blood NO GROWTH AFTER 5 DAYS A&P Assessment and plan (1) Septic shock: Status: Acute (2) Staphylococcus aureus septicemia: Status: Acute (3) ARDS (adult respiratory distress syndrome): Status: Acute (4) Acute kidney injury: Status: Acute Plan Patient admitted to the hospital on December 27, 2021 after presenting with a mechanical fall, however found to have signs of septic shock and MSSA septicemia. Current active issues include positive blood cultures on December 27, 2021, persisting leukocytosis, ARDS with hypoxic respiratory failure, spinal compression fracture with ongoing pain, MR lumbar spine findings of L3-L4 phlegmon and abscess. # MSSA Septicemia # ARDS with hypoxic respiratory failure MSSA septicemia with positive blood cultures on 12/27/2021 with signs of septic shock and endorgan failure by way of MARILEE, metabolic encephalopathy, ARDS. Blood cx from 12/28 thus far negative to date. CT of the chest abdomen and pelvis does not show any gross consolidation or abscesses. CT of the chest with B/L diffuse GGOs appear likely to be ARDS. Urine culture is negative. TTE shows grossly normal heart valves. No vegetations noted. Recommend to obtain INDRA. MRI lumbar spine now revealing discitis and L3-L4 phelgmon and epidural abscess, recommend surgical assessment and consideration of drainage/debridement. MRI of the brain negative for septic embolization . Continue cefazolin 2 g IV every 8 hours for organism directed therapy. Anticipate at least 6 to 8 weeks of treatment. ??past h/o IVDU #Acute kidney injury This appears to be multifactorial. May be related to rhabdomyolysis versus acute GN GN from staph infection. MARILEE is currently improving. #History of hepatitis C. Positive hep C genotype 1a RNA from May 2018. I am uncertain if patient has been treated for hepatitis C in the past. This can be followed up as outpatient. Hiv ag/ab screen negative Attestations Medical Necessity Statement*: MSSA septicemia, lumbar epidural abscess, likely needs surgical intevrention Coding Level of Care Code Acute [employer] for [facility] Fwd Diagnoses Septic shock A41.9; R65.21 Staphylococcus aureus septicemia A41.01 ARDS (adult respiratory distress syndrome) J80 Acute kidney injury N17.9
--- NOTE | 2022-01-03 10:53 | PC.NURSE ---
Daughter, Maria Esther Knapp, called back after getting voice mail from Dr. Marcus. Daughter updated on condition and need for transfer. She would like [facility]. Caller sounded as if she had just woke up or was under the influence.
--- NOTE | 2022-01-03 11:25 | P.TS_ITS ---
Transfer Summary Providers Date of Admission: 12/27/21 12:58 Date of Discharge/Transfer: 01/03/22 Attending Provider at Admission: Jarrett Trejo MD Attending Provider at Transfer: Lauren Marcus MD Primary Care Provider: DOUG Torres Transfer Plans: Anticipated date of transfer: 01/03/22 . Diagnoses at Discharge Discharge Diagnosis (1) Septic shock: Status: Acute (2) Staphylococcus aureus septicemia: Status: Acute (3) ARDS (adult respiratory distress syndrome): Status: Acute (4) Acute kidney injury: Status: Acute Reason for Visit Reason for Visit FALL/ BACK PAIN Brief History: Italia Wallace is a 61 year old female who presents to the emergency department after a fall.? She reports she is fallen twice in the last 24 hours.? The last when she tripped over a raised ledge in her house.? She denies any loss of consciousness.? She has had increased back pain of late.? She reports some low-grade temperatures around 99.? She denies any dysuria.? She reports no head injury, headache or neck pain.? She reports she is always at risk for falling secondary to her chronic back pain and neuropathy.? She otherwise has not been ill lately with any vomiting, diarrhea, cough, or COVID symptoms.? She does relate that she wheezes fairly frequently secondary to her COPD and she smokes quite a bit at home.? Lately she has had enough pain she has been alternating Aleve and ibuprofen.? She cannot really tell me how often she takes this other than perhaps every 4 hours. Hospital Course Hospital Course Patient is a 61-year-old female with history of drug abuse, COPD, chronic back pain, neuropathy who presented to the hospital for a fall. It was deemed to be mechanical fall since she had tripped over a raised ledge in her house. She also reported fevers at home. She was noted to be hypotensive and saturating 82% on room air. She does have chronic lower backache and vertebral compression fractures for which she follows with orthopedics as an outpatient. She also has a past medical history of MSSA bacteremia with background history of drug use. At admission she was found to have new compression fracture at L4 level with 25% height loss. Some sclerosis of the L3 was noted as well. Chest x-ray showed bilateral patchy opacities suggestive of atelectasis versus edema. COVID PCR negative. Initial blood cultures on admission 2 out of 2 bottles positive for staph aureus. He also had MARILEE and hematuria. She required pressor support with Levophed initially and BiPAP for respiratory support. She was diuresed due to concerns of fluid overload. Antibiotics were initially ceftriaxone upon admission and were broadened to Primaxin on linezolid and azithromycin with clinical worsening on 12/28. Patient unable to provide much of a history. Mentation has been poor throughout hospital stay. Patient developed hypernatremia for which NG tube was placed for free water flushes and IV fluids were ordered. She is now on heated high flow. Saturating 92 to 93%. MRI thoracic and lumbar spine were ordered to rule out possible discitis, abscess c ollection. MRI lumbar spine shows L3-L4 possible epidural abscess. Discussed case with orthopedic surgery who agreed with the above findings and have recommended anterior approach for drainage she will require specialized level of care. They recommended to transfer the patient for higher level of care or neurosurgery services are available. Patient has been hemodynamically stable today. Blood pressure 99/60. She has been mildly tachycardic up to 110 heart rate. Temp 100.6. WBC count 19,000 today. She does have a lumbar brace on her. Patient is also on maintenance dose steroids. Case discussed with neurosurgeon at [facility] and hospitalist service who excepted the patient for transfer. Patient does not meet criteria for [facility] ICU but they will accept her on their stepdown unit. Patient will be sent there in stable condition today. Physical Exam Narrative: EXAM NARRATIVE: General: Acute distress because of pain, moaning and groaning in examination, not following commands but awake, on heated high flow HEENT: PERRLA, pupils bilaterally equal and reactive Chest: Bilateral bronchial breath sounds, coarse crackles present all over the lung lamb, CVS: S1-S2 regular, no murmurs, no tachycardia, no gallops, no rubs Abdomen: Soft, nontender, no organomegaly, bowel sounds present, morbidly obese Neuro: No focal deficits, moving all limbs, Vigil in place, no episodes of bowel incontinence Extremity: In lumbar brace Urinary Catheter Management: Vigil: Cath Placed During This Visit: yes Reason for Continuing Indwelling Catheter: Accurate Measurement of Urinary Output in Critically Ill Patients Urinary Catheter Date of Insertion: 12/27/21 Urinary Catheter Time of Insertion: 13:13 TS Data Studies Completed and Pending Pending at discharge Category Date Time Status Complete Blood Count w/Auto AM LABS Lab 01/04/22 04:00 Ordered Complete Blood Count w/Auto AM LABS Lab 01/05/22 04:00 Ordered Fecal Occult Blood [Immunochemical Fecal OCB] Routine Lab 12/27/21 12:51 Uncollected Labs from last 24 hours 01/03/22 01/03/22 03:18 03:18 WBC 19.6 H RBC 3.07 L Hgb 8.4 L Hct 26.0 L MCV 84.7 MCH 27.4 L MCHC 32.3 RDW 17.6 H Plt Count 187 MPV 11.8 H Neut % (Auto) 80.9 Lymph % (Auto) 9.6 [place] % (Auto) 4.7 Eos % (Auto) 1.7 Baso % (Auto) 0.2 Neut # (Auto) 15.86 H Lymph # (Auto) 1.9 [place] # (Auto) 0.9 Eos # (Auto) 0.3 Baso # (Auto) 0.0 Nucleated RBC % (auto) 0.1 Nucleated RBCs # 0.0 Sodium 143 Potassium 3.5 Chloride 107 Carbon Dioxide 27 Anion Gap 12.5 BUN 20 Creatinine 0.9 GFR Calculation 63.7 L Glucose 117 H Calculated Osmolality 300 H Calcium 8.6 Total Bilirubin 0.6 AST 9 ALT < 5 Alkaline Phosphatase 196 H Total Protein 5.7 L Albumin 2.2 L Globulin 3.5 Completed Studies During Hospitalization Category Date Time Status CT chest wo con [id number] Routine Cat Scan 12/31/21 09:[address] kidney stone [id number] Stat Cat Scan 12/27/21 10:36 Completed XR chest 1V portable [id number] Routine Exams 12/27/21 21:30 Completed XR chest 1V portable [id number] Routine Exams 12/29/21 07:00 Completed XR chest 1V portable [id number] Routine Exams 12/29/21 16:23 Completed XR chest 1V portable [id number] Routine Exams 12/30/21 07:00 Completed XR chest 1V portable [id number] Stat Exams 12/27/21 09:15 Completed XR chest 1V portable [id number] Stat Exams 01/01/22 14:20 Completed XR lumbar spine 2-3V* [id number] Stat Exams 12/27/21 09:16 Completed MR head wo con* [id number] Routine MRI 01/02/22 12:41 Completed MR lumbar spine wo con* [id number] Routine MRI 01/02/22 12:41 Completed MR thoracic spin wo con* [id number] Routine MRI 01/02/22 12:41 [place] [id number] Routine Ultrasound 12/27/21 15:47 Completed CV. echo complete* [id number] Routine Ultrasound 12/27/21 15:28 Completed Laboratory Last Values WBC 19.6 10^3/uL (4.0-10.0) H 01/03/22 03:18 RBC 3.07 10^6/uL (4.1-5.3) L 01/03/22 03:18 Hgb 8.4 g/dL (11.5-15.3) L 01/03/22 03:18 Hct 26.0 % (37.0-47.0) L 01/03/22 03:18 MCV 84.7 fl (81-99) 01/03/22 03:18 MCH 27.4 pg (28.0-34.0) L 01/03/22 03:18 MCHC 32.3 g/dL (30.0-36.0) 01/03/22 03:18 RDW 17.6 % (12.1-15.1) H 01/03/22 03:18 Plt Count 187 10^3/cmm (130-400) 01/03/22 03:18 MPV 11.8 fL (7.4-10.4) H 01/03/22 03:18 Neut % (Auto) 80.9 % 01/03/22 03:18 Lymph % (Auto) 9.6 % 01/03/22 03:18 [place] % (Auto) 4.7 % 01/03/22 03:18 Eos % (Auto) 1.7 % 01/03/22 03:18 Baso % (Auto) 0.2 % 01/03/22 03:18 Neut # (Auto) 15.86 10^3/uL (1.8-7.7) H 01/03/22 03:18 Lymph # (Auto) 1.9 10^3/uL (0.8-4.8) 01/03/22 03:18 [place] # (Auto) 0.9 10^3/uL (0.2-0.9) 01/03/22 03:18 Eos # (Auto) 0.3 10^3/uL (0.0-0.8) 01/03/22 03:18 Baso # (Auto) 0.0 10^3/uL (0.0-0.1) 01/03/22 03:18 Nucleated RBC % (auto) 0.1 % 01/03/22 03:18 Total Counted 100 (0-100) 12/27/21 22:39 Atypical Lymphs % 0.0 % (0-5) 12/27/21 22:39 Absolute Neutrophils 18.3 10^3/cmm (1.4-6.5) H 12/27/21 22:39 Segmented Neutrophils 80 % 12/27/21 22:39 Abs Segm Neuts (Man) 16.1 10/cmm (1.6-7.1) H 12/27/21 22:39 Band Neutrophils 11.0 % 12/27/21 22:39 Abs Band Neuts (Man) 2.2 10^3/cmm (0.0-1.2) H 12/27/21 22:39 Absolute Lymphocytes 1.2 10^3/cmm (1.2-3.4) 12/27/21 22:39 Lymphocytes (Manual) 6 % 12/27/21 22:39 Monocytes (Manual) 3.0 % 12/27/21 22:39 Absolute Monocytes 0.6 10^3/cmm (0.1-0.6) 12/27/21 22:39 Eosinophils (Manual) 0 % 12/27/21 22:39 Absolute Eosinophils 0.0 10^3/cmm (0.0-0.7) 12/27/21 22:39 Basophils (Manual) 0.0 % 12/27/21 22:39 Absolute Basophils 0.0 10^3/cmm (0.0-0.2) 12/27/21 22:39 Nucleated RBCs # 0.0 /100WBC 01/03/22 03:18 Toxic Vacuolation 1+ H 12/27/21 22:39 Platelet Estimate Normal (Normal) 12/27/21 22:39 Giant Platelets 1+ H 12/27/21 22:39 Anisocytosis 2+ H 12/27/21 22:39 Target Cells 1+ H 12/27/21 22:39 Cecilia Cells 1+ H 12/27/21 22:39 Haptoglobin 306.0 mg/L (30-200) H 12/27/21 09:33 PT 15.60 SECONDS (12.1-14.9) H 12/29/21 05:03 INR 1.21 (0.8-1.2) H 12/29/21 05:03 Specimen Type Arterial 12/29/21 21:31 Sample Site Radial, right 12/29/21 21:31 ABG pH 7.48 (7.35-7.45) H 12/29/21 21:31 ABG pCO2 30.8 mmHg (35-45) L 12/29/21 21:31 ABG pO2 52.7 mmHg (80.0-100.0) L 12/29/21 21:31 ABG HCO3 22.8 mmol/L (22-26) 12/29/21 21:31 ABG O2 Saturation 89.4 12/29/21 21:31 ABG Base Excess -0.4 mmol/L (-2.0-2.0) 12/29/21 21:31 Conrado Test Pos 12/29/21 21:31 A-a O2 Gradient 25.2 mmHg (5-10) H 12/29/21 21:31 Hematocrit 25.7 % (37-47) L 12/29/21 21:31 Hgb O2 Saturation 86.9 % (95-100) L 12/29/21 21:31 Carboxyhemoglobin 1.8 %THgb (0.4-20.1) 12/29/21 21:31 Methemoglobin 0.9 % (0.4-1.5) 12/29/21 21:31 Total Hemoglobin 8.4 g/dL (12-16) L 12/29/21 21:31 Sodium 143.0 mmol/L (131-143) 12/29/21 21:31 Potassium 3.2 mmol/L (3.5-5.0) L 12/29/21 21:31 Glucose 166.0 mg/dL (70-115) H 12/29/21 21:31 Ionized Calcium 1.2 mmol/L (1.1-1.4) 12/29/21 21:31 O2 Delivery Device Bipap 12/29/21 21:31 O2 Liters/Min % 12/29/21 14:35 FiO2 40.0 % 12/29/21 21:31 Cyber Systems Administrator ID Pedro 12/29/21 21:31 Sodium 143 mmol/L (136-145) 01/03/22 03:18 Potassium 3.5 mmol/L (3.5-5.1) 01/03/22 03:18 Chloride 107 mmol/L (98-107) 01/03/22 03:18 Carbon Dioxide 27 mmol/L (22-29) 01/03/22 03:18 Anion Gap 12.5 (5-19) 01/03/22 03:18 BUN 20 mg/dL (8-23) 01/03/22 03:18 Creatinine 0.9 mg/dL (0.5-0.9) 01/03/22 03:18 GFR Calculation 63.7 mL/min (90-130) L 01/03/22 03:18 Glucose 117 mg/dL (65-115) H 01/03/22 03:18 POC Glucose 110 mg/dL (70-110) 12/27/21 15:35 Estimat Average Glucose 114 01/01/22 03:16 Hemoglobin A1c 5.6 % (4.0-6.0) 01/01/22 03:16 Calculated Osmolality 300 mOsm/kg (285-295) H 01/03/22 03:18 Lactic Acid 2.0 mmol/L (0.5-2.2) 12/27/21 09:33 Calcium 8.6 mg/dL (8.5-10.5) 01/03/22 03:18 Phosphorus 3.6 mg/dL (2.5-4.5) 12/27/21 09:33 Magnesium 2.2 mg/dL (1.7-2.3) 12/31/21 04:11 Iron 96 ug/dL (37-145) 12/31/21 04:11 TIBC 186 mcg/dl 12/31/21 04:11 % Saturation 51.6 % (20-50) H 12/31/21 04:11 Unsat Iron Binding 90 ug/dL (112-347) L 12/31/21 04:11 Ferritin 703 ng/mL (15-150) H 12/27/21 09:33 Total Bilirubin 0.6 mg/dL (0.15-1.2) 01/03/22 03:18 AST 9 U/L (0-32) 01/03/22 03:18 ALT < 5 U/L (0-33) 01/03/22 03:18 Alkaline Phosphatase 196 U/L (35-105) H 01/03/22 03:18 Ammonia 24 umol/L (11-51) 12/29/21 05:03 Creatine Kinase 68 U/L (26-192) 12/28/21 05:51 Troponin T Baseline 32 ng/L (0-10) H 12/27/21 09:33 Troponin T 120 Minute 24.37 ng/L (0-10) H 12/27/21 11:43 Delta Troponin T -7.63 ABS# (0-10) L 12/27/21 11:43 Troponin T Hi Sens 6Hr 18.99 ng/L (0-10) H 12/27/21 15:24 Troponin T Hi Sens 6Hr Delta -13.01 ng/L (0-12) L 12/27/21 15:24 NT-Pro-B Natriuret Pep 1118 pg/mL (0-125) H 12/31/21 04:11 Total Protein 5.7 g/dL (6.6-8.7) L 01/03/22 03:18 Albumin 2.2 g/dL (3.5-5.2) L 01/03/22 03:18 Globulin 3.5 g/dL (1.3-4.6) 01/03/22 03:18 Triglycerides 237 mg/dL (0-150) H 01/01/22 03:16 Cholesterol 165 mg/dL (0-200) 01/01/22 03:16 LDL Cholesterol, Calc 97 mg/dL (50-129) 01/01/22 03:16 Total VLDL Cholesterol 47 mg/dL (0-30) H 01/01/22 03:16 HDL Cholesterol 21 mg/dL (60-100) L 01/01/22 03:16 Cholesterol/HDL Ratio 7.86 mg/dL (0.0-4.40) H 01/01/22 03:16 Vitamin B12 1376 pg/mL (232-1245) H 12/27/21 09:33 Folate 4.8 ng/mL (4.8-37.3) 12/27/21 09:33 Procalcitonin 0.37 ng/mL (0-0.5) 01/02/22 03:30 TSH 0.88 uIU/mL (0.27-4.20) 12/27/21 09:33 Random Cortisol 20.01 ug/dL (2.47-19.5) H 12/27/21 11:43 Urine Color Dark yellow (Yellow) 12/31/21 20:19 Urine Appearance Clear (CLEAR) 12/31/21 20:19 Urine pH 6 (5-7) 12/31/21 20:19 Ur Specific [place] 1.010 (1.005-1.030) 12/31/21 20:19 Urine Protein 1+ (Negative) H 12/31/21 20:19 Urine Glucose (UA) Norm (Normal) 12/31/21 20:19 Urine Ketones 1+ (Negative) H 12/31/21 20:19 Urine Blood 2+ (Negative) H 12/31/21 20:19 Urine Nitrate Negative (Negative) 12/31/21 20:19 Urine Bilirubin 1+ (Negative) H 12/31/21 20:19 Urine Urobilinogen 4 mg/dL (Negative) H 12/31/21 20:19 Ur Leukocyte Esterase Trace (Negative) H 12/31/21 20:19 Urine RBC 5-10 /hpf (0-2) H 12/31/21 20:19 Urine WBC 5-10 /hpf (0-5) H 12/31/21 20:19 Ur Eosinophil Smear Not Reportable 12/31/21 20:20 Ur Squamous Epith Cells 0-4 /hpf (0-5) H 12/31/21 20:19 Ur Transition Epith Cell 0-4 /hpf 12/31/21 20:19 Amorphous Sediment Not Reportable 12/31/21 20:19 Urine Bacteria Trace /hpf (NONE) 12/31/21 20:19 Urine Mucus Trace /hpf 12/31/21 20:19 Urine Eosinophils No eosinophils seen 12/31/21 20:20 Ur Random Sodium 81 mmol/L 12/31/21 20:19 Ur Random Potassium 37 mmol/L 12/31/21 20:19 Ur Random Chloride 72 mmol/L 12/31/21 20:19 Urine Creatinine 78 mg/dL (28-217) 12/31/21 20:20 Coronavirus 229E (PCR) Not detected (NOT DETECT) 12/27/21 10:41 HIV 1&2 Ab & HIV 1 Ag Non-reactive (Non-Reactiv) 01/01/22 03:16 HIV 1&2 Antibody Non-reactive (Non-Reactiv) 01/01/22 03:16 SARS-CoV-2 (PCR) Not detected (NOT DETECT) 12/27/21 10:41 Radiology Impressions Lumbar Spine X-Ray 12/27/21 09:16 IMPRESSION: 1. There is a new compression fracture involving the superior endplate of L4, new from 11/08/2021. There is up to 25% height loss and likely minimal bony retropulsion. 2. Some sclerosis along the inferior endplate of L3 could reflect a nondisplaced compression fracture. Abdomen/Pelvis CT 12/27/21 10:36 IMPRESSION: 1. Distraction fracture through the L4-L5 disc space eccentric to the LEFT with mild disc space widening. This extends to involve the LEFT L4 and L5 pedicles. Comminuted fractures involving the superior L4-L5 endplates. 2. Additional acute appearing compression deformities at T12 with mild compression superior endplate and moderate compression L3 inferior endplate. Mild retropulsion of the posterior inferior cortex L3 with mild to moderate central canal stenosis eccentric to the LEFT. 3. Chronic compression deformities L1 and L2 appear unchanged. 4. Heterogeneous attenuation with some calcification in the prominent RIGHT extrarenal pelvis is nonspecific but TCC not excluded. Recommend further evaluation with ureteroscopy. 5. Extensive postoperative changes lymph node dissection bilateral retroperitoneum, iliac chains, and pelvis. 6. Prior hysterectomy 7. Osteopenia 8. Trace bilateral pleural fluid with bibasilar infiltrates compatible with pneumonia. Interstitial edema in the lung bases. Notified Dany Ortiz DO at 12/27/2021 12:[address] 12/31/21 09:22 IMPRESSION: 1. Confluent ground-glass densities in the lungs, which may be seen with acute respiratory distress syndrome. 2. Severe upper lobe emphysematous disease. 3. Possible 5 mm nodule in the anterior segment of the left upper lobe. For patients at low risk (minimal or absent history of smoking and of other known risk factors), no routine follow-up is indicated. For patients at high risk (history of smoking or of other known risk factors), consider optional CT Chest at 12 months. (Reference: Edmar) COMMENTS: Consistent with the [employer]'s Incidental Findings Committee white paper (J Am Hunter Radiol 2018): Any incidental renal lesion less than 1 cm or classified as too small to characterize, or any incidental cystic renal lesion characterized as simple-appearing, is likely benign. No follow-up imaging is recommended for these lesions per consensus recommendations based on imaging criteria. REFERENCES: Edmar Thao, et al. Guidelines for Management of Incidental Pulmonary Nodules Detected on CT Images: From the Fleischner Society 2017. Radiology. 2017;284(1):228-243. Chest X-Ray 01/01/22 14:20 IMPRESSION: There is a nasogastric tube whose tip is in the stomach. Head MRI 01/02/22 12:41 IMPRESSION:Images degraded due to motion artifact. Fast imaging was performed. 1. No evidence of restricted diffusion to suggest acute ischemia. 2. No extra-axial fluid collections. No evidence of mass or mass effect. 3. No hydrocephalus. 4. No hemosiderin on the gradient images. 5. 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 This can be followed up with CTA head. No evidence of recent hemorrhage. Lumbar Spine MRI 01/02/22 12:41 IMPRESSION: 1. Stable appearing distraction fracture through the L4-L5 disc space eccentric to the LEFT with disc space widening. This involves the LEFT L4-L5 pedicles. Erosion of the endplates L4-L5 with T2 hyperintense suspected phlegmon or abscess in the disc space suspicious for discitis/osteomyelitis 2. Additional T2 hyperintensity in the disc space L3-L4 also suspicious for discitis. Small amount of suspected epidural abscess L3-L4 eccentric to the RIGHT. Mild central canal stenosis. 3. Mild acute compression superior endplate T12 and inferior endplate L3 with mild edema. 4. Chronic compression deformities L1 and L2 unchanged. Notified Percy Isbell MD at 01/02/2022 4:48 PM. Thoracic Spine MRI 01/02/22 12:41 IMPRESSION: 1. Mild acute compression superior endplate T12 unchanged since the recent CT 2. Chronic compression deformities L1 and L2. 3. Mild central canal stenosis due to mild disc osteophyte complex at T12-L1 with slight effacement of ventral thecal sac. 4. Mild RIGHT L1-L2 foraminal narrowing. 5. Moderate facet arthropathy lower thoracic spine. 6. Cord signal is normal in the thoracic spine. Recent Clincial Data Last Vital Signs Temp 100.1 F H 01/03/22 07:30 Pulse 123 H 01/03/22 10:30 Resp 20 H 01/03/22 10:30 BP 99/60 01/03/22 10:30 Pulse Ox 96 01/03/22 10:30 O2 Del Method 01/03/22 10:30 O2 Flow Rate 30 01/03/22 10:30 FiO2 40 01/03/22 10:30 Vital Signs Temp Pulse Pulse Pulse Resp Resp Resp 01/03/22 10:30 123 H 20 H 01/03/22 10:00 115 H 15 01/03/22 09:30 123 H 18 01/03/22 09:00 115 H 16 01/03/22 08:30 118 H 15 01/03/22 08:00 121 H 17 01/03/22 08:00 118 H 20 H 01/03/22 07:59 121 H 20 H 01/03/22 07:30 100.1 F H 116 H 18 01/03/22 07:00 117 H 18 01/03/22 06:30 116 H 16 01/03/22 07:42 01/03/22 06:00 124 H 23 H 01/03/22 05:30 119 H 19 H 01/03/22 05:00 116 H 17 01/03/22 06:00 01/03/22 05:50 126 H 01/03/22 04:30 98 F 114 H 18 01/03/22 04:00 122 H 19 H 01/03/22 03:30 122 H 18 01/03/22 03:00 121 H 18 01/03/22 02:30 122 H 20 H 01/03/22 03:56 21 H 01/03/22 02:19 117 H 24 H 01/03/22 02:19 117 H 24 H 01/03/22 02:00 119 H 19 H 01/03/22 01:30 120 H 20 H 01/03/22 01:00 114 H 21 H 01/03/22 00:30 119 H 28 H 01/03/22 02:00 01/03/22 00:00 01/03/22 00:00 98.4 F 120 H 19 H 01/02/22 23:30 111 H 18 BP Pulse Ox Pulse Ox Pulse Ox O2 Del Method O2 Flow Rate O2 Flow Rate 01/03/22 10:30 99/60 96 Heated High Flow 30 01/03/22 10:00 98/67 93 Heated High Flow 30 01/03/22 09:30 98/67 93 Heated High Flow 30 01/03/22 09:00 93/60 93 Heated High Flow 30 01/03/22 08:30 93/60 93 Heated High Flow 30 01/03/22 08:00 102/74 92 Heated High Flow 30 01/03/22 08:00 94 Heated High Flow 30 01/03/22 07:59 94 01/03/22 07:30 102/74 92 Heated High Flow 30 01/03/22 07:00 97/65 92 Heated High Flow 30 01/03/22 06:30 97/65 94 Heated High Flow 30 01/03/22 07:42 01/03/22 06:00 102/60 88 L 01/03/22 05:30 102/60 94 01/03/22 05:00 105/73 96 01/03/22 06:00 01/03/22 05:50 01/03/22 04:30 105/73 93 01/03/22 04:00 103/68 89 L 01/03/22 03:30 103/68 89 L 01/03/22 03:00 117/79 89 L 01/03/22 02:30 117/79 93 01/03/22 03:56 89 L 01/03/22 02:19 91 Heated High Flow 30 01/03/22 02:19 91 35 01/03/22 02:00 112/75 92 01/03/22 01:30 112/75 93 01/03/22 01:00 112/73 93 01/03/22 00:30 112/73 92 01/03/22 02:00 01/03/22 00:00 01/03/22 00:00 108/76 90 01/02/22 23:30 108/76 94 O2 Flow Rate FiO2 FiO2 FiO2 01/03/22 10:30 40 01/03/22 10:00 40 01/03/22 09:30 40 01/03/22 09:00 40 01/03/22 08:30 40 01/03/22 08:00 40 01/03/22 08:00 35 01/03/22 07:59 30 35 01/03/22 07:30 40 01/03/22 07:00 40 01/03/22 06:30 40 01/03/22 07:42 40 01/03/22 06:00 01/03/22 05:30 01/03/22 05:00 01/03/22 06:00 40 01/03/22 05:50 01/03/22 04:30 01/03/22 04:00 01/03/22 03:30 01/03/22 03:00 01/03/22 02:30 01/03/22 03:56 01/03/22 02:19 40 01/03/22 02:19 40 01/03/22 02:00 01/03/22 01:30 01/03/22 01:00 01/03/22 00:30 01/03/22 02:00 40 01/03/22 00:00 40 01/03/22 00:00 01/02/22 23:30 Intake & Output/Weight 01/01/22 01/02/22 01/03/22 01/04/22 06:59 06:59 06:59 06:59 Intake Total 1128.333 / 2272.026 2630.667 / 2541.667 2534.75 / 2534.75 50 / 50 Output Total 700 / 700 800 / 800 675 / 675 Balance 428.333 / 621.323 4681.667 / 5474.229 5978.75 / 1859.75 50 / 50 Weight 63.049 kg Vitals Last Vital Signs Temp 100.1 F H 01/03/22 07:30 Pulse 123 H 01/03/22 10:30 Resp 20 H 01/03/22 10:30 BP 99/60 01/03/22 10:30 Pulse Ox 96 01/03/22 10:30 O2 Del Method 01/03/22 10:30 O2 Flow Rate 30 01/03/22 10:30 FiO2 40 01/03/22 10:30 TS Medications Medications Acetaminophen (Acetaminophen 325 Mg Tablet) 650 mg PO Q6H PRN PRN Reason: MILD PAIN Last Admin: 01/03/22 07:31 Dose: 650 mg Hydrocodone Bitart/Acetaminophen (Hydrocodone-Apap 7.5-325 Mg/15 Ml Udc) 15 ml PO Q4H PRN PRN Reason: BREAKTHROUGH PAIN Last Admin: 01/03/22 06:44 Dose: 15 ml Albuterol/Ipratropium (Ipratropium-Albuterol 3 Ml Neb) 3 ml INHALATION Q6H.RESP [facility] Last Admin: 01/03/22 07:58 Dose: 3 ml Budesonide (Budesonide 0.5 Mg/2 Ml Neb) 0.5 mg INHALATION BID [facility] Last Admin: 01/03/22 07:59 Dose: 0.5 mg Denture Adhesive (Fixodent 39 Gm Tube) 1 applic DENTAL PRN PRN PRN Reason: denture adhesive Last Admin: 12/28/21 16:21 Dose: 1 tube Famotidine (Famotidine 20 Mg/2 Ml Inj) 20 mg IVP Q12H [facility] Last Admin: 01/03/22 03:42 Dose: 20 mg Fentanyl (Fentanyl 100 Mcg Patch) 1 patch TRANSDERMA Q72H [facility] Last Admin: 12/31/21 15:38 Dose: 1 patch Heparin Sodium (Porcine) (Heparin 5,000 Unit/Ml Inj 1 Ml) 5,000 unit SUBCUT Q12H [facility] Last Admin: 01/03/22 03:43 Dose: 5,000 unit Hydromorphone HCl (Hydromorphone 1 Mg/Ml Inj 1 Ml) 0.5 mg IVP Q4H PRN PRN Reason: pain scale 6-10 Last Admin: 01/03/22 03:56 Dose: 0.5 mg Cefazolin Sodium 2,000 mg/ (Sodium Chloride) 50 mls @ 100 mls/hr IV Q8H [facility]; Protocol Last Infusion: 01/03/22 07:18 Dose: Infused Fluconazole 100 mg/ N/A 50 mls @ 50 mls/hr IV Q24H [facility] Stop: 01/05/22 16:59 Last Infusion: 01/02/22 19:57 Dose: Infused Lanolin (Lanolin Oint 7 Gm) 1 applic TOPICAL PRN PRN PRN Reason: DRYNESS Last Admin: 12/28/21 13:09 Dose: 1 tube Ondansetron HCl (Ondansetron 2 Mg/Ml Sdv 2 Ml) 4 mg IVP Q6H PRN PRN Reason: NAUSEA AND VOMITING Pregabalin (Pregabalin 25 Mg Capsule) 25 mg PO BID [facility] Last Admin: 01/03/22 07:19 Dose: Not Given Discontinued Medications Hydrocodone Bitart/Acetaminophen (Hydrocodone-Acetaminophen 5-325 Mg Tablet) 1 tab PO Q4H PRN PRN Reason: MODERATE PAIN Last Admin: 12/30/21 08:40 Dose: 1 tab Albuterol/Ipratropium (Ipratropium-Albuterol 3 Ml Neb) 3 ml INHALATION Q6H NIMESH Last Admin: 12/27/21 15:37 Dose: 3 ml Budesonide (Budesonide 0.5 Mg/2 Ml Neb) 0.5 mg INHALATION BID [facility] Fentanyl (Fentanyl 50 Mcg/Ml Inj 2ml) 25 mcg IVP ONCE ONE Stop: 12/27/21 10:44 Last Admin: 12/27/21 10:54 Dose: 25 mcg Fentanyl (Fentanyl 50 Mcg/Ml Inj 2ml) 25 mcg IVP ONCE ONE Stop: 12/31/21 11:31 Last Admin: 12/31/21 11:28 Dose: 25 mcg Fentanyl (Fentanyl 50 Mcg/Ml Inj 2ml) 25 mcg IVP Q4H PRN PRN Reason: SEVERE PAIN Last Admin: 01/01/22 13:50 Dose: 25 mcg Furosemide (Furosemide 10 Mg/Ml Sdv 4ml) 40 mg IVP ONCE ONE Stop: 12/27/21 15:53 Last Admin: 12/27/21 16:11 Dose: 40 mg Furosemide (Furosemide 10 Mg/Ml Sdv 4ml) 40 mg IVP ONCE ONE Stop: 12/28/21 07:37 Last Admin: 12/28/21 09:10 Dose: 40 mg Furosemide (Furosemide 10 Mg/Ml Sdv 4ml) 40 mg IVP ONCE ONE Stop: 12/28/21 21:01 Last Admin: 12/28/21 20:06 Dose: 40 mg Furosemide (Furosemide 10 Mg/Ml Sdv 4ml) 40 mg IVP ONCE ONE Stop: 12/30/21 09:38 Last Admin: 12/30/21 10:13 Dose: 40 mg Haloperidol Lactate (Haloperidol Inj 5 Mg/Ml Inj 1 Ml) 5 mg IM NOW ONE Stop: 01/01/22 10:33 Last Admin: 01/01/22 10:57 Dose: 5 mg Haloperidol Lactate (Haloperidol Inj 5 Mg/Ml Inj 1 Ml) 5 mg IM NOW ONE Stop: 01/02/22 12:43 Last Admin: 01/02/22 12:47 Dose: 5 mg Hydrocortisone Sodium Succinate (Hydrocortisone 100 Mg/2 Ml Sdv) 100 mg IVP ONCE ONE Stop: 12/27/21 12:49 Last Admin: 12/27/21 13:14 Dose: 100 mg Hydrocortisone Sodium Succinate (Hydrocortisone 100 Mg/2 Ml Sdv) 100 mg IVP Q6H NIMESH Last Admin: 12/28/21 02:36 Dose: 100 mg Hydrocortisone Sodium Succinate (Hydrocortisone 100 Mg/2 Ml Sdv) 100 mg IVP Q12H NIMESH Last Admin: 12/28/21 21:49 Dose: 100 mg Sodium Chloride (Sodium Chloride 0.9%) 1,000 mls @ 999 mls/hr IV .Q1H1M ONE Stop: 12/27/21 10:16 Last Infusion: 12/27/21 10:27 Dose: Infused Levofloxacin/Dextrose (Levaquin-D5w) 500 mg in 100 mls @ 100 mls/hr IV ONCE ONE; Protocol Stop: 12/27/21 11:35 Last Infusion: 12/27/21 13:46 Dose: Infused Sodium Chloride (Sodium Chloride 0.9%) 1,837.05 mls @ 1,837.05 mls/hr 30 ml/kg infuse over 1 hr (1837.05 ml) IV .Q1H ONE Stop: 12/27/21 11:36 Last Infusion: 12/27/21 11:43 Dose: Infused Norepinephrine Bitartrate 4 mg (/ Dextrose) 254 mls @ 0 mls/hr IV .Q0M NIMESH; Protocol Last Titration: 12/28/21 09:15 Dose: 0 mcg/min, 0 mls/hr Ceftriaxone Sodium 1,000 mg/ (Sodium Chloride) 50 mls @ 100 mls/hr IV Q24H NIMESH; Protocol Last Infusion: 12/27/21 18:41 Dose: Infused Azithromycin 500 mg/ Sodium (Chloride) 250 mls @ 250 mls/hr IV Q24H NIMESH; Protocol Last Admin: 12/29/21 17:05 Dose: 250 mls/hr Sodium Chloride (Sodium Chloride 0.9%) 1,000 mls @ 100 mls/hr IV .Q10H NIMESH Magnesium Sulfate (Magnesium Sulfate Premix) 2 gm in 50 mls @ 50 mls/hr IV ONCE ONE Stop: 12/28/21 08:21 Last Infusion: 12/28/21 08:58 Dose: Infused Lidocaine HCl 5 ml/ Potassium (Chloride) 105 mls @ 25 mls/hr IV ONCE ONE Stop: 12/28/21 11:33 Last Infusion: 12/28/21 11:59 Dose: Infused Linezolid (Zyvox Premix) 600 mg in 300 mls @ 300 mls/hr IV Q12H NIMESH; Protocol Last Admin: 12/31/21 07:35 Dose: 300 mls/hr Imipenem/Cilastatin Sodium 250 (mg/ Sodium Chloride) 100 mls @ 200 mls/hr IV Q6H NIMESH; Protocol Last Admin: 12/31/21 12:49 Dose: 200 mls/hr Lidocaine HCl 5 ml/ Potassium (Chloride) 105 mls @ 25 mls/hr IV Q4H [facility] Stop: 12/29/21 14:59 Last Infusion: 12/29/21 20:10 Dose: Infused Lidocaine HCl 5 ml/ Potassium (Chloride) 105 mls @ 25 mls/hr IV ONCE ONE Stop: 12/30/21 11:26 Last Admin: 12/30/21 07:52 Dose: 25 mls/hr Potassium Chloride/Dextrose/Sod Cl (Dextrose 5%-Ns + Kcl 20) 20 meq in 1,000 mls @ 50 mls/hr IV .Q20H NIMESH Last Infusion: 01/01/22 16:30 Dose: Infused Dextrose (D5w) 1,000 mls @ 75 mls/hr IV .[id number] NIMESH Last Infusion: 01/02/22 09:38 Dose: Infused Lidocaine HCl (Lidocaine 1% Inj (Ml)) 0 ml INJECTION ONCE ONE Stop: 12/29/21 12:35 Last Admin: 12/29/21 15:59 Dose: Not Given Lidocaine HCl (Lidocaine 2% Jelly 5 Ml) 1 applic TOPICAL ONCE ONE Stop: 01/01/22 13:22 Last Admin: 01/01/22 13:31 Dose: 1 applic Morphine Sulfate (Morphine 2 Mg/Ml Syr 1 Ml) 1 mg IVP Q4H PRN PRN Reason: SEVERE PAIN Last Admin: 12/30/21 09:27 Dose: 1 mg Morphine Sulfate (Morphine 2 Mg/Ml Syr 1 Ml) 2 mg IVP Q4H PRN PRN Reason: SEVERE PAIN Last Admin: 12/31/21 01:19 Dose: 2 mg Morphine Sulfate (Morphine 2 Mg/Ml Syr 1 Ml) 1 mg IVP ONCE ONE Stop: 12/30/21 09:54 Last Admin: 12/30/21 10:13 Dose: 1 mg Morphine Sulfate (Morphine 2 Mg/Ml Syr 1 Ml) 1 mg IVP Q4H PRN PRN Reason: SEVERE PAIN Oxycodone HCl (Oxycodone 5 Mg Ir Tab/Cap) 5 mg PO Q4H PRN PRN Reason: MODERATE PAIN Oxycodone HCl (Oxycodone 5 Mg Ir Tab/Cap) 5 mg PO Q8H PRN PRN Reason: MODERATE PAIN Last Admin: 01/01/22 14:26 Dose: 5 mg Phytonadione (Phytonadione (Adult) 10 Mg/Ml Ampule 1 Ml) 10 mg SUBCUT ONCE ONE Stop: 12/27/21 13:28 Last Admin: 12/27/21 13:45 Dose: 10 mg Prednisone (Prednisone 20 Mg Tablet) 40 mg PO DAILY NIMESH Last Admin: 12/29/21 09:29 Dose: 40 mg Allergies Penicillins Allergy (Mild, Verified 06/13/21 13:59) ALGY-Rash diphenhydramine [From Benadryl] Allergy (Unknown, Verified 06/13/21 13:59) Unknown midazolam [From Versed] Allergy (Verified 06/13/21 13:59) Unknown Home Medications cholecalciferol (vitamin D3) 1,250 mcg (50,000 unit) tablet (Dialyvite Vitamin D3 Max) 50,000 unit PO Q7D #4 tabs 06/30/20 [Rx Confirmed 12/27/21] [facility] [place], [place] #[facility] ea 06/03/21 [Rx Confirmed 12/27/21] pregabalin 150 mg capsule 150 mg PO BID #60 caps 10/19/21 [Rx Confirmed 12/27/21] acetaminophen 300 mg-codeine 30 mg tablet 1 tab PO Q6H PRN Pain 12/27/21 [History Confirmed 12/27/21] albuterol sulfate 90 mcg/actuation aerosol inhaler 2 puff inhalation Q6H PRN Shortness Of Breath 12/27/21 [History Confirmed 12/27/21] potassium chloride 10 mEq tablet,extended release 10 meq PO DAILY 12/27/21 [History Confirmed 12/27/21] Discharge Plan Discharge Patient Disposition: Home Condition: Stable Prescriptions: No Action Dialyvite Vitamin D3 Max 1,250 mcg (50,000 unit) tablet 50,000 unit PO Q7D Qty: 4 5RF Rx Instructions: on [facility] (DME) [facility] [place] See Rx Instructions .Route .MEDSUPPLY Qty: 1 0RF Rx Instructions: Evaluate and treat as appropriate. pregabalin 150 mg capsule 150 mg PO BID Qty: 60 1RF acetaminophen-codeine 300-30 mg tablet 1 tab PO Q6H PRN (Reason: Pain) potassium chloride 10 mEq tablet extended release 10 meq PO DAILY albuterol sulfate 90 mcg/actuation HFA aerosol inhaler 2 puff inhalation Q6H PRN (Reason: Shortness Of Breath) Referrals: Kirstin Torres FNP [Primary Care Provider] - Patient Instructions: Opioid Safety Transfer Attestations Time Spent in Transfer Care: greater than 30 min Status at Transfer: Cognitive status at transfer: cognitively intact ; Behavioral status at transfer: cooperative ; Quality Metrics Clinical Quality Measures [ No reported AMI, CVA or VTE this stay] Coding Level of Care Code Acute [employer] for [employer] Fwd Diagnoses Septic shock A41.9; R65.21 Staphylococcus aureus septicemia A41.01 ARDS (adult respiratory distress syndrome) J80 Acute kidney injury N17.9
[2022-01-03] MEDS: fentaNYL 100 mcg Patch 1 PATCH TRANSDERMA (14:50)
--- NOTE | 2022-01-03 19:42 | PC.NURSE ---
Report called to [facility] to Nettie Hazel RN room 6224. Family called earlier and notified of transfer to [facility].
--- NOTE | 2022-01-03 19:47 | PC.NURSE ---
Family called and notified of transfer, [facility] room 6280 phone to floor [phone]. No further questions.
--- NOTE | 2022-01-03 20:43 | PC.NURSE ---
Called and spoke to [facility] for transport, spoke with Michelle Abbott at 2025, received a call back at 0833 from Wei. Report given for transport. [facility] stated that Transport would be here in approximately 20minutes.
[2022-01-03] MEDS: fluconazole premix 100 MG in empty flexible container 1 EACH 50 MG IV (20:56)
--- NOTE | 2022-01-03 21:24 | PC.NURSE ---
[facility] left with patient at [phone]
--- NOTE | 2022-01-03 22:21 | PC.NURSE ---
Patient's belongings left in patient room. Daughter, Maria Esther notified. Says she will stop by the facility tomorrow and pick them up.
== END 2022-01-03 21:28 | disposition short-term general hospital (02) | DRG 871 ==
LOC: ER 13:39 → ICU 14:58
PROVIDERS: Family Medicine; Internal Medicine Critical Care Medicine; Student in an Organized Health Care Education/Training Program; Admitting Provider Internal Medicine; Emergency Provider Family Medicine; PCP Nurse Practitioner Family; Visit Provider Internal Medicine
DX: A41.9 Sepsis, unspecified organism (principal); G06.1 Intraspinal abscess and granuloma; R65.21 Severe sepsis with septic shock; J18.9 Pneumonia, unspecified organism; G93.41 Metabolic encephalopathy; J96.21 Acute and chronic respiratory failure with hypoxia; S32.040A Wedge compression fracture of fourth lumbar vertebra, initial encounter for closed fracture; J44.0 Chronic obstructive pulmonary disease with (acute) lower respiratory infection; N17.9 Acute kidney failure, unspecified; M62.82 Rhabdomyolysis; E87.0 Hyperosmolality and hypernatremia; W18.30XA Fall on same level, unspecified, initial encounter; G89.29 Other chronic pain; G62.9 Polyneuropathy, unspecified; F17.210 Nicotine dependence, cigarettes, uncomplicated; E78.5 Hyperlipidemia, unspecified; Z85.41 Personal history of malignant neoplasm of cervix uteri; B19.20 Unspecified viral hepatitis C without hepatic coma; I95.9 Hypotension, unspecified; R31.29 Other microscopic hematuria; D64.9 Anemia, unspecified; Z79.891 Long term (current) use of opiate analgesic; Z79.51 Long term (current) use of inhaled steroids; M46.46 Discitis, unspecified, lumbar region; B95.61 Methicillin susceptible Staphylococcus aureus infection as the cause of diseases classified elsewhere
CPT/HCPCS: 36415; 36416; 36592; 36600; 51702; 70551; 71045; 71250; 72100; 72146; 72148; 74176; 80048; 80051; 80053; 80061; 81001; 82140; 82330; 82436; 82533; 82550; 82570; 82607; 82728; 82746; 82805; 82962; 83010; 83036; 83540; 83550; 83605; 83735; 83880; 84100; 84133; 84145; 84300; 84443; 84484; 85007; 85025; 85610; 85999; 86403; 87040; 87070; 87086; 87106; 87150; 87186; 87205; 87449; 87635; 87641; 87806; 93005; 93306; 93970; 94640; 94660; 96365; 96366; 96367; 96372; 96375; 97760; 99291; C1751; J0456; J0696; J0743; J1170; J1450; J1630; J1644; J1720; J1940; J1956; J2020; J2270; J3010; J3430; J3475; J3480; J3490; J7030; J7050; J7512; J7626; L0456

== ENCOUNTER → 2022-04-19 17:45 | Outpatient (BNVA) | payer MEDICARE, MEDICAID, SELFPAY | PROVIDERS: PCP Nurse Practitioner Family; Visit Provider Nurse Practitioner Family | DX: I67.1 Cerebral aneurysm, nonruptured (principal); E55.9 Vitamin D deficiency, unspecified; J80 Acute respiratory distress syndrome; D64.9 Anemia, unspecified | CPT/HCPCS: 80053; 82306; 84443; 85025 ==

== ENCOUNTER → 2022-05-22 11:37 | Day surgery (SDC) | payer MEDICARE, MEDICAID, SELFPAY ==
[2022-05-22 11:50] VITALS: BP 110/74; PULSE 88; RESP 18; TEMP 36.1; O2SAT 93
--- NOTE | 2022-05-22 11:55 | PC.NURSE ---
Pt to GI infusions for removal of left PICC line. PICC external catheter noted at 15 cm. Dressing unsecured from arm and open to air. Pt states, It has been a long time since anyone has flushed this or changed the dressing. Pt states she was to receive home health and antibiotics but, they never came. PICC cath removed with 38 cm noted and cath tip intact. No redness, drainage, or hematoma noted. No signs of infection at this time. Pt instructed to return to ER or PCP for signs and symptoms of infection of any SOB.
== END ==
PROVIDERS: PCP Nurse Practitioner Family; Visit Provider Nurse Practitioner Family
DX: Z45.2 Encounter for adjustment and management of vascular access device (principal)
CPT/HCPCS: 99212

== ENCOUNTER → 2022-07-27 13:06 | Outpatient (BNVA) | payer MEDICARE, MEDICAID, SELFPAY | PROVIDERS: PCP Nurse Practitioner Family; Visit Provider Urology | DX: Z01.818 Encounter for other preprocedural examination (principal); Z79.899 Other long term (current) drug therapy | CPT/HCPCS: 81003; 87077; 87086; 87184 ==

== ENCOUNTER 2022-11-14 12:50 | Outpatient (CLI) | payer MEDICARE, MEDICAID, SELFPAY ==
--- NOTE | 2022-11-14 13:04 | XR_ITS ---
WS: [email or web address] XR lumbar spine min 4V [id number] REASON FOR EXAM: DDD TSPINE/LSPINE SPONDYLOSIS FINDINGS: Significant loss of bone density. Compression deformities of L1 and L2 which are chronic and stable compared to 12/27/2021. XR/XR lumbar spine min 4V [id number] IMPRESSION: Compression deformities of L1 and L2 which are chronic and stable compared to . There is a compression deformity of L3 which appears relatively unchanged gee red to 12/27/2021. 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 This is again noted on 12/27/2021. There is now a compression deformity of the fused L4 and L5 compared to 12/28/19 22. This is of unknown chronicity. IMPRESSION: Fused L4-L5 compression deformity of unknown chronicity which has occurred sinc e the previous examination of 12/27/2021. Chronic L1, L2, and L3 compression deformities.
--- NOTE | 2022-11-14 13:04 | XR_ITS ---
WS: [email or web address] XR thoracic spine 2V [id number] REASON FOR EXAM: LSPINE SPONDYLOSIS/DDD TSPINE FINDINGS: Significant decrease in bone density. Compression deformities of T11, T12, and L1, L2. 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 Thes e findings were present on 03/30/2020 and are relatively unchanged. No new compression fracture is identified. Mild thoracic scoliosis convex right. Unchanged compared to 03/30/2020. XR/XR thoracic spine 2V [id number] IMPRESSION: Relatively stable abnormal thoracic spine as above.
== END 2022-11-14 12:51 | disposition home or self-care (01) ==
LOC: RAD 12:54
PROVIDERS: PCP Nurse Practitioner Family; Visit Provider General Practice
DX: M51.34 Other intervertebral disc degeneration, thoracic region (principal); M47.816 Spondylosis without myelopathy or radiculopathy, lumbar region; M43.8X5 Other specified deforming dorsopathies, thoracolumbar region; M43.26 Fusion of spine, lumbar region
CPT/HCPCS: 72070; 72110

== ENCOUNTER → 2023-01-10 13:20 | Outpatient (BNVA) | payer MEDICARE, MEDICAID, SELFPAY | PROVIDERS: PCP Nurse Practitioner Family; Visit Provider Nurse Practitioner Family | DX: Z01.818 Encounter for other preprocedural examination (principal); Z79.899 Other long term (current) drug therapy | CPT/HCPCS: 81003; 87086 ==

== ENCOUNTER → 2023-01-29 15:14 | Outpatient (BNVA) | payer MEDICARE, MEDICAID, SELFPAY | PROVIDERS: PCP Nurse Practitioner Family; Visit Provider Nurse Practitioner Family | DX: I67.1 Cerebral aneurysm, nonruptured (principal); J44.9 Chronic obstructive pulmonary disease, unspecified; Z13.6 Encounter for screening for cardiovascular disorders; E55.9 Vitamin D deficiency, unspecified; R73.9 Hyperglycemia, unspecified | CPT/HCPCS: 80053; 80061; 82306; 82607; 83036; 85025 ==

== ENCOUNTER 2023-02-12 10:53 | Outpatient (CLI) | payer MEDICARE, MEDICAID, SELFPAY ==
[2023-02-12 11:40] LABS: Blood Urea Nitrogen 28 mg/dL (8-23); Glomerular Filtration Rate 30.4 mL/min (90-130)
== END 2023-02-12 10:54 | disposition home or self-care (01) ==
PROVIDERS: PCP Nurse Practitioner Family; Visit Provider Nurse Practitioner Family
DX: Z01.89 Encounter for other specified special examinations (principal)
CPT/HCPCS: 82565; 84520

== ENCOUNTER → 2023-02-13 11:34 | Outpatient (BNVA) | payer MEDICARE, MEDICAID, SELFPAY | PROVIDERS: PCP Nurse Practitioner Family; Visit Provider Nurse Practitioner Family | DX: N39.0 Urinary tract infection, site not specified (principal); I67.1 Cerebral aneurysm, nonruptured | CPT/HCPCS: 81003 ==

== ENCOUNTER 2023-02-15 09:36 | Outpatient (CLI) | payer MEDICARE, MEDICAID, SELFPAY ==
--- NOTE | 2023-02-15 13:00 | CT_ITS ---
WS: [id number] CT ABDOMEN AND PELVIS NONCONTRAST HISTORY: I71.4 - Abdominal aortic aneurysm, without rupture TECHNIQUE: Imaging performed through the abdomen and pelvis. Coronal and sagittal reformats are submi tted. All CT scans at [facility] use at least one of these dose optimization techniques: auto mated exposure control; mA and/or kV adjustment per patient size (includes targeted exams where dose is matched to clinical indication); or iterative reconstruction. DLP: 346.21 mGy.cm COMPARISON: 12/27/2021 Lower thorax: Lung bases are clear. Visualized heart is normal. Small hiatal hernia. Liver: Normal size liver. No mass or bile duct dilatation. Gallbladder: Prior cholecystectomy. Pancreas: Moderate diffuse atrophy. Spleen: Normal. Adrenal glands: Normal. No mass. Right kidney: Mild atrophy RIGHT kidney. New moderate hydronephrosis. There are nonobstructing calcif ications near the renal pelvis. There is an abrupt change in caliber of the renal pelvis at the UP ju nction. No calcification identified at the site of the transition. Left kidney: Mild atrophy. There is a large LEFT renal cyst which has been previously described. Cyst measures at least 6.6 x 6.5 cm. Aorta: Atherosclerotic plaque and ectasia abdominal aorta. Mild tortuosity and dilatation of the aort a. Bilobed aneurysm is identified. The proximal aneurysm with a maximum diameter of 2.9 cm. Similar t o the prior study. The more distal dilatation is 2.8 cm. Calcifications continue into the iliac arter ies. No dilatation of the iliac arteries. Mild atherosclerotic plaque in the SMA and celiac axis. Metallic artifact from numerous clips are noted within the pelvis. These are causing significant dillon fact of the pelvis. Prior hysterectomy and oophorectomy is likely. No free fluid, intraperitoneal air or significant lymphadenopathy. GI tract: Nondistended stomach. No small bowel obstruction. Tortuosity and constipation throughout th e colon Abdominal wall: Negative. No hernia. Pelvis: Artifact from the patient's surgical sutures and clothing. Osseous structures: Straightening and reversal of the normal lumbar lordosis. Patient has multiple pr ior osteoporotic compression fractures in the lumbar spine. IMPRESSION: 1. New moderate RIGHT hydronephrosis since 12/27/2021. The obstruction is at the UP junction. No obst ructing calcification identified. Stricture or occult neoplasm should be considered. 2. Bilobed abdominal aortic aneurysm. Largest aneurysmal dilatation 2.9 cm. No progression since 12/06. 3. Diffuse constipation. No GI tract obstruction.
== END 2023-02-15 09:37 | disposition home or self-care (01) ==
PROVIDERS: PCP Nurse Practitioner Family; Visit Provider Nurse Practitioner Family
DX: I71.40 Abdominal aortic aneurysm, without rupture, unspecified (principal); N13.0 Hydronephrosis with ureteropelvic junction obstruction
CPT/HCPCS: 74176

== ENCOUNTER 2023-04-12 07:53 | Outpatient (CLI) | payer MEDICARE, MEDICAID, SELFPAY ==
--- NOTE | 2023-04-12 08:07 | MR_ITS ---
WS: [email or web address] MRI LUMBAR SPINE NONCONTRAST TECHNIQUE: Sagittal T1, T2 and STIR imaging. Axial T1 and T2 imaging. CLINICAL INFORMATION: DDD LUMBAR COMPARISON: None. FINDINGS: Chronic compression of the L1 and L2 vertebral bodies appears stable. Chronic compression deformity inferior endplate L3. Previously described findings of discitis L3-L4 and L4-L5 have resolved. T12 compression progressed compared to previous with a tiny trace of edema. Loss of approximately 50% vertebral body height centrally. L1-L2: Mild disc bulging with slight effacement of the ventral thecal sac. Mild RIGHT foraminal narro wing. Mild facet arthropathy. L2-L3: Mild annular bulging. Mild LEFT foraminal narrowing. Mild facet arthropathy. Slight narrowing of the LEFT subarticular recess. L3-L4: Disc osteophyte complex with endplate ridging. Mild to moderate central canal stenosis. Imping ement traversing L4 nerve roots bilaterally. Moderate facet arthropathy. Mild bilateral foraminal rudy rowing. Central canal stenosis at this level appears progressed. L4-L5: Previously described discitis has resolved. Mild bilateral bony foraminal narrowing. Spinal ca nal is patent. L5-S1: L5 is sacralized. Spinal canal and foramen are patent. Advanced RIGHT hydronephrosis with debris in the renal pelvis. Small RIGHT perinephric fluid collecti on appears progressed compared to the prior CT 02/15/2023. Large lobulated LEFT renal cyst similar to previous. Recommend further evaluation with CT abdomen pelvis Slightly aneurysmal abdominal aorta measuring up to 2.6 cm. Tortuous infrarenal abdominal aorta. IMPRESSION: 1. Chronic compression of the T12 L1 and L2 vertebral bodies. Progressed compression at T12 with a subacute to chronic appearance and tiny trace of edema better visualized in the lumbar spine MRI. 2. Mild to moderate canal stenosis L3-4 progressed compared to previous 3. Previously described findings of discitis have resolved. 4. Advanced RIGHT hydronephrosis with small RIGHT perinephric fluid collection appears new or progre ssed compared to 02/15/2023. This can be further evaluated with CT abdomen pelvis.
--- NOTE | 2023-04-12 08:07 | MR_ITS ---
WS: [email or web address] MRI THORACIC SPINE WITHOUT CONTRAST TECHNIQUE: Sagittal T1, T2 and STIR imaging. Axial T2 imaging. Noncontrast imaging obtained. CLINICAL INFORMATION: DDD THORACIC COMPARISON: None. FINDINGS: Progressed compression of the T12 vertebral body compared to 202. This has a chronic appea jonatan. No significant edema. Loss of approximately 50% vertebral body height centrally. No retropulsi on. Chronic compression of the L1 and L2 vertebral bodies appears stable. Chronic compression deformity i nferior endplate L3. Previously described findings of discitis L3-L4 and L4-L5 have resolved. No acute compression fractures in the thoracic spine. Partially visualized multicystic kidneys bilate rally. Moderate facet arthropathy lower thoracic spine. Mild central canal stenosis T12-L1. Thoracic cord signal is normal. IMPRESSION: 1. No acute compression fractures in the thoracic spine. 2. Progressed compression of the T12 superior end plate compared to previous but no significant suleman a. This is a chronic appearance. 3. Chronic compression of the L1 and L2 vertebral bodies appears stable. 4. Mild central canal stenosis T12-L1. 5. Cord signal is normal.
== END 2023-04-12 07:54 | disposition home or self-care (01) ==
LOC: RAD 07:53
PROVIDERS: PCP Nurse Practitioner Family; Visit Provider General Practice
DX: M51.36 Other intervertebral disc degeneration, lumbar region (principal); M51.34 Other intervertebral disc degeneration, thoracic region; M53.85 Other specified dorsopathies, thoracolumbar region; M48.05 Spinal stenosis, thoracolumbar region; N13.30 Unspecified hydronephrosis
CPT/HCPCS: 72146; 72148

== ENCOUNTER → 2023-08-06 13:46 | Outpatient (BNVA) | payer MEDICARE, MEDICAID, SELFPAY | PROVIDERS: PCP Nurse Practitioner Family; Visit Provider Nurse Practitioner Family | DX: R30.0 Dysuria (principal) | CPT/HCPCS: 81003 ==

== ENCOUNTER → 2023-08-08 11:31 | Outpatient (BNVA) | payer MEDICARE, MEDICAID, SELFPAY | PROVIDERS: PCP Nurse Practitioner Family; Visit Provider Nurse Practitioner Family | DX: R30.0 Dysuria (principal) | CPT/HCPCS: 81003; 87077; 87086; 87184 ==

== ENCOUNTER → 2023-09-03 16:59 | Outpatient (BNVA) | payer MEDICARE, MEDICAID, SELFPAY | PROVIDERS: PCP Nurse Practitioner Family; Visit Provider Nurse Practitioner Family | DX: R30.0 Dysuria (principal) | CPT/HCPCS: 81000; 81003; 87086 ==

== ENCOUNTER → 2023-12-18 14:32 | Outpatient (BNVA) | payer MEDICARE, MEDICAID, SELFPAY | PROVIDERS: PCP Nurse Practitioner Family; Visit Provider Nurse Practitioner Family | DX: R73.9 Hyperglycemia, unspecified (principal); R79.89 Other specified abnormal findings of blood chemistry; E55.9 Vitamin D deficiency, unspecified; M51.36 Other intervertebral disc degeneration, lumbar region | CPT/HCPCS: 80053; 80061; 82306; 83036; 85025 ==

== ENCOUNTER 2023-12-28 10:50 | Outpatient (CLI) | payer MEDICARE, MEDICAID, SELFPAY ==
[2023-12-28 12:06] LABS: Blood Urea Nitrogen 24 mg/dL (8-23); Glomerular Filtration Rate 26.7 mL/min (90-130)
== END 2023-12-28 10:51 | disposition home or self-care (01) ==
LOC: RAD 10:50
PROVIDERS: PCP Nurse Practitioner Family; Visit Provider Nurse Practitioner Family
DX: Z01.89 Encounter for other specified special examinations (principal)
CPT/HCPCS: 82565; 84520

== ENCOUNTER → 2024-05-05 11:58 | Outpatient (BNVA) | payer MEDICARE, MEDICAID, SELFPAY | PROVIDERS: PCP Nurse Practitioner Family; Visit Provider Nurse Practitioner Family | DX: N28.1 Cyst of kidney, acquired (principal); E55.9 Vitamin D deficiency, unspecified | CPT/HCPCS: 80069; 82043; 82306; 82310; 83970 ==

== ENCOUNTER 2024-05-19 14:37 | Outpatient (CLI) | payer MEDICARE, MEDICAID, SELFPAY ==
--- NOTE | 2024-05-19 14:48 | US_ITS ---
WS: [email or web address] RENAL ULTRASOUND HISTORY: CHRONIC KIDNEY DISEASE COMPARISON: 05/23/2018, MRI 04/12/2023 TECHNIQUE: 2-D and color Doppler imaging of the kidney submitted. Right kidney: 5.9 cm x 3.2 cm x 2.9 cm. Cortex: 0.7 cm Small caliber atrophied kidney. No hydronephrosis. There is a small extrarenal pelvis. Severe hydrone phrosis was described on 02/15/2023. Hydronephrosis has resolved but there is now atrophy. Left kidney: 7.7 cm x 4.9 cm x 5.0 cm. Cortex: 1.0 cm Mild atrophy with no hydronephrosis. Exophytic cyst from the lower pole 6.5 x 8.3 x 6.4 cm. Large cys t has been previously described without significant increase in size. No hydronephrosis. No solid mas s. Aorta: Normal. Urinary Bladder: Mild bladder wall thickening is due to under distention. No focal discrete mass. US/US renal BI* [id number] IMPRESSION: 1. Previously described right-sided hydronephrosis has resolved. 2. RIGHT renal atrophy is new since 2019. 3. Mild atrophy LEFT kidney which is also new since 2019. Large exophytic cyst from the lower pole.
== END 2024-05-19 14:38 | disposition home or self-care (01) ==
LOC: RAD 14:41
PROVIDERS: PCP Nurse Practitioner Family; Visit Provider Internal Medicine Nephrology
DX: N18.32 Chronic kidney disease, stage 3b (principal); N26.1 Atrophy of kidney (terminal); N28.1 Cyst of kidney, acquired
CPT/HCPCS: 76770

== ENCOUNTER → 2024-09-18 12:09 | Outpatient (BNVA) | payer MEDICARE, MEDICAID, SELFPAY | PROVIDERS: PCP Nurse Practitioner Family; Visit Provider Nurse Practitioner Family | DX: N18.32 Chronic kidney disease, stage 3b (principal) | CPT/HCPCS: 80069; 82043; 82310; 83970; 85025 ==

== ENCOUNTER → 2024-12-19 10:47 | Outpatient (BNVA) | payer MEDICARE, MEDICAID, SELFPAY | PROVIDERS: PCP Nurse Practitioner Family; Visit Provider Nurse Practitioner Family | DX: N39.0 Urinary tract infection, site not specified (principal) | CPT/HCPCS: 81003; 87086 ==

== ENCOUNTER → 2025-01-29 14:53 | Outpatient (BNVA) | payer MEDICARE, MEDICAID, SELFPAY | PROVIDERS: PCP Nurse Practitioner Family; Referring Provider Specialist; Visit Provider Internal Medicine | DX: R07.9 Chest pain, unspecified (principal); Z01.818 Encounter for other preprocedural examination; D04.0 Carcinoma in situ of skin of lip | CPT/HCPCS: 93005; 99214 ==